=== PATIENT | female | born 1950 | race Caucasian/White ===

== ENCOUNTER → 2017-08-16 11:00 | Outpatient (CLI) | payer MEDICARE, SELFPAY ==
[2017-08-16 12:55] LABS: Blood Urea Nitrogen 7 mg/dL (7-18); Creatinine,Serum 0.61 mg/dL (0.55-1.02); Estimated Glomerular Filt Rate > 60 ml/min (>60); GFR (African American) > 60 ML/MIN (>60)
== END ==
PROVIDERS: PCP Family Medicine; Visit Provider Family Medicine
DX: I72.8 Aneurysm of other specified arteries (principal)
CPT/HCPCS: 36415; 82565; 84520

== ENCOUNTER → 2017-08-25 08:50 | Outpatient (CLI) | payer MEDICARE, SELFPAY ==
--- NOTE | 2017-08-25 08:54 | CT_ITS ---
CT angio abdomen CLINICAL INDICATION: Splenic artery aneurysm evaluation ITS.REASON: SPLENIC ARTERY ANEURYSM ORDERING PHYSICIAN: Sal Croft MD PATIENT AGE: 66 years COMPARISON: 04/12/2016 TECHNIQUE: Axial images obtained with sagittal and coronal reformats. PROCEDURE: Oral Contrast: None IV Contrast: 100 mL [id number]. FINDINGS: Angiographic findings: The abdominal aorta has an unremarkable appearance. Atheromatous plaque is present at the ostium of the left renal artery without significant stenosis. Mild amount plaque is present at the ostium of the celiac and super mesenteric artery without stenosis. The inferior mesenteric artery is intact. There is a splenic artery aneurysm at 1 cm with partial calcification of the wall. This is at splenic hilum. This does not appear changed compared 04/12/2016 Common iliac arteries are unremarkable. Non angiographic findings: Prior cholecystectomy without ductal dilatation. The liver, spleen, adrenal glands, pancreas, and kidneys have an unremarkable appearance. There is diffuse colonic diverticulosis with no evidence of diverticulitis. No intestinal obstruction or free air. No acute bony findings. 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 Diffuse colonic diverticulosis
== END ==
PROVIDERS: Family Provider Family Medicine; PCP Family Medicine; Visit Provider Family Medicine
DX: I72.8 Aneurysm of other specified arteries (principal)
CPT/HCPCS: 74175; Q9967

== ENCOUNTER 2018-02-16 11:00 | Outpatient (RCR) | payer MEDICARE, SELFPAY ==
--- NOTE | 2018-01-19 09:16 | HMH.OTOPEV ---
OT Inpatient Evaluation Rehab OT Outpatient Eval Start: 01/18/18 15:46 Freq: Status: Active Protocol: Document 01/18/18 15:47 RMARSHALL (Rec: 01/18/18 16:06 [id number] Electronically Signed By Valeria Morley OT 01/18/18 15:47 Outpatient Therapy Subjective History Subjective History Pt is a 67 year old female who reports to initial evaluation to right shoulder. Pt reports 6 years ago she had an accident where she fell and dislocated her right shoulder. After initial dislocation pt wore a sling for ~8 weeks and then received several months of therapy. Pt has had pain off and on at the right shoulder ever since. She recently had the pain in the right shoulder increase causing a decline in functional ability. Pt does demonstrate with decreased AROM/Strength. Pt will continue to be seen twice a week in order to address all deficits. Chief Complaint Pain Symptom Type Ache Throb Sharp Dull Stabbing Shooting Symptoms Relieved By Nothing Symptoms Aggravated By Physical Activity Twisting Lifting Prior Functional Limitations None Current Functional Limitations Reaching Lifting Housework Symptom Description Constant but Variable Level of pain today (0-10) 3 Pain scale - at its best (0-10) 2 Pain scale - at its worst (0-10) 6 Shoulder/Elbow Eval Shoulder Objective Measurements Shoulder ROM Right Shoulder ROM Limitations Pain Shoulder Abduction Active Range of 145 degrees Motion (degrees) Shoulder Flexion Active Range of Motion 135 degrees (degrees) Query Text: Shoulder External Rotation Active Range 55 degrees of Motion (degrees) Shoulder Internal Rotation Active Range 30 degrees of Motion (degrees) pain with active ROM shoulder exam right standard pain with passive ROM shoulder exam
== END 2018-02-16 11:01 | disposition home or self-care (01) ==
LOC: OT 11:00
PROVIDERS: Family Provider Family Medicine; PCP Family Medicine; Visit Provider Family Medicine
DX: M75.41 Impingement syndrome of right shoulder (principal)
CPT/HCPCS: 97014; 97033; 97110; 97166; G0283

== ENCOUNTER → 2018-04-12 09:11 | Outpatient (CLI) | payer MEDICARE, SELFPAY ==
[2018-04-12 11:31] LABS: Hemoglobin A1C 5.9 % (0.0-7.0)
[2018-04-12 12:10] LABS: Alanine Aminotransferase 19 U/L (12-78); Albumin Level 3.8 gm/dL (3.4-5.0); Albumin/Globulin Ratio 1.2 (1.1-1.8); Alkaline Phosphatase 67 U/L (46-116); Anion Gap 11.8 mEq/L (5-15); Aspartate Amino Transferase 14 U/L (15-37); Bilirubin,Total 0.4 mg/dL (0.2-1.0); Blood Urea Nitrogen 7 mg/dL (7-18); Calcium 9.2 mg/dL (8.5-10.1); Carbon Dioxide 28 mmol/L (21.0-32.0); Chloride 104 mmol/L (98-107); Chol/HDL Ratio 2.7 (1-3.5); Cholesterol 199 mg/dL (140-200); Creatinine,Serum 0.69 mg/dL (0.55-1.02); Estimated Glomerular Filt Rate 84 ml/min (>60); GFR (African American) 102 ML/MIN (>60); Globulin 3.1 gm/dl (1.3-3.2); Glucose 107 mg/dL (74-106); HDL Cholesterol 74 mg/dL (29-89); LDL Cholesterol 110 mg/dL (0-130); Potassium 4.8 mmoL/L (3.5-5.1); Sodium 139 mmol/L (136-145); Total Protein,Serum 6.9 gm/dL (6.4-8.2); Triglycerides 77 mg/dL (30-200); VLDL Cholesterol 15 mg/dL (0-40)
== END ==
PROVIDERS: PCP Family Medicine; Visit Provider Family Medicine
DX: Z00.00 Encounter for general adult medical examination without abnormal findings (principal); Z79.899 Other long term (current) drug therapy
CPT/HCPCS: 36415; 80053; 80061; 83036

== ENCOUNTER → 2018-04-17 10:17 | Outpatient (CLI) | payer MEDICARE, SELFPAY ==
--- NOTE | 2018-04-17 10:20 | XR_ITS ---
XR elbow RT min 3V HISTORY: ITS.REASON: RT Elbow Pain ORDERING PHYSICIAN: Sal Croft MD PATIENT AGE: 67 years COMPARISON: None FINDINGS: No fracture or dislocation. No lytic or blastic change in the joint spaces are well-preserved. There is some faint calcification along the lateral epicondylar region which could be seen with old ligamentous injury. IMPRESSION: Faint calcification along the lateral epicondylar region which may be seen with old ligamentous injury otherwise negative
--- NOTE | 2018-04-17 10:21 | MM_ITS ---
MM Dig screening mamm BI w/CAD CAD Screening COMPARISON: Digital mammograms with CAD 2015 and 06/02/2015 INDICATION: There is no personal or family history of breast cancer TECHNIQUE: Standard CC and MLO images were obtained. R2 CAD reviewed. FINDINGS: The breasts are composed primarily of fat with minimal scattered fibroglandular densities in each breast. There are 2 mole markers right breast. There are couple benign-appearing calcifications in each breast. There is no suspicious lesion and no suspicious microcalcifications. IMPRESSION: Fatty type breast parenchyma no suspicious lesion seen BI-RADS Category: 2 Benign Finding(s) RECOMMENDED FOLLOW-UP: 1YR - 1 YEAR FOLLOW-UP (A letter has been sent to the patient regarding results of the study.)
--- NOTE | 2018-04-17 10:21 | XR_ITS ---
XR DEXA axial skeleton HISTORY: ITS.REASON: POST MENOPAUSAL ORDERING PHYSICIAN: Sal Croft MD PATIENT AGE: 67 years COMPARISON: None FINDINGS: The BMD measured at the left femoral neck is 0.968 g/cm squared with a T score of -0.5. This is considered Normal according to the World Health Organization criteria. Fracture risk is Low. Treatment is advised. IMPRESSION: Normal bone density. Low fracture risk. Recommend follow-up exam April 2020
== END ==
PROVIDERS: Family Provider Family Medicine; PCP Family Medicine; Visit Provider Family Medicine
DX: M75.21 Bicipital tendinitis, right shoulder (principal); Z78.0 Asymptomatic menopausal state; Z12.31 Encounter for screening mammogram for malignant neoplasm of breast
CPT/HCPCS: 73080; 77067; 77080

== ENCOUNTER → 2018-05-15 14:23 | Outpatient (CLI) | payer MEDICARE, SELFPAY ==
--- NOTE | 2018-05-15 14:31 | XR_ITS ---
XR ankle RT min 3V HISTORY: Post traumatic pain ITS.REASON: RT ANKLE INJURY ORDERING PHYSICIAN: Sal Croft MD PATIENT AGE: 67 years Comparison: 70 FINDINGS: No fracture or dislocation. No lytic or blastic change. There is normal mineralization.. The joint spaces are well-preserved. No significant degenerative/arthritic changes. No erosive changes evident. IMPRESSION: Negative ankle, no acute finding
== END ==
PROVIDERS: PCP Family Medicine; Visit Provider Family Medicine
DX: S99.911A Unspecified injury of right ankle, initial encounter (principal)
CPT/HCPCS: 73610

== ENCOUNTER 2018-05-24 13:00 | Outpatient (RCR) | payer MEDICARE, SELFPAY ==
--- NOTE | 2018-03-14 10:52 | HMH.OTOPEV ---
OT Inpatient Evaluation Rehab OT Outpatient Eval Start: 03/14/18 10:27 Freq: Status: Active Protocol: Document 03/14/18 10:27 RMARSHALL ([id number] Electronically Signed By Valeria Morley OT 03/14/18 10:27 Outpatient Therapy Subjective History Subjective History Pt is a 67 year old female who reports to therapy for evaluation to right shoulder. Pt has been previously seen by OT for right shoulder and was sent back to doctor by therapist due to continued pain. Pt was re-evaluation and sent back to OT for continued therapy. Pt explains her pain in the anterior aspect of the shoulder and down the bicep has increased and seems to be happening more often. Pt also had an injection in the shoulder ~2 weeks and reports the pain has not improved much . Pt does demonstrate with WNL AROM at right shoulder, but pt does have decreased strength at right shoulder compared to the left. Pt will continue to be seen in order to address these deficits. Chief Complaint Pain Symptom Type Ache Throb Sharp Dull Stabbing Tingling Shooting Symptoms Relieved By Nothing Symptoms Aggravated By Physical Activity Lifting Prior Functional Limitations None Current Functional Limitations Reaching Lifting Housework Dressing Desk Work/Reading Driving Sleeping Recreation Activity Symptom Description Intermittent Activity Dependent Level of pain today (0-10) 2 Pain scale - at its best (0-10) 2 Pain scale - at its worst (0-10) 9 Shoulder/Elbow Eval Shoulder Objective Measurements Palpation Tenderness tendernes
== END 2018-05-24 13:05 | disposition home or self-care (01) ==
LOC: OT 13:00
PROVIDERS: Family Provider Family Medicine; PCP Family Medicine; Visit Provider Orthopaedic Surgery
DX: M75.41 Impingement syndrome of right shoulder (principal); M75.21 Bicipital tendinitis, right shoulder
CPT/HCPCS: 97014; 97035; 97110; 97166; G0283

== ENCOUNTER → 2018-06-12 11:07 | Outpatient (POV) | payer MEDICARE, SELFPAY | PROVIDERS: Visit Provider Dermatology | DX: Z00.00 Encounter for general adult medical examination without abnormal findings (principal) ==

== ENCOUNTER → 2018-07-31 13:44 | Outpatient (POV) | payer MEDICARE, SELFPAY | PROVIDERS: Visit Provider Dermatology | DX: Z00.00 Encounter for general adult medical examination without abnormal findings (principal) ==

== ENCOUNTER → 2018-11-19 15:41 | Outpatient (CLI) | payer MEDICARE, SELFPAY ==
--- NOTE | 2018-11-19 15:44 | MR_ITS ---
MR shoulder RT wo con COMPARISON: None HISTORY: Right shoulder pain, cervical and lumbar fusion ORDERING PHYSICIAN: Sal Croft MD PATIENT AGE: 68 years COMPARISON: 07/27/2017 TECHNIQUE: Multiplanar multiecho sequences are performed without contrast. FINDINGS: There is complete tear of the supraspinatus and infraspinatus tendons with retraction of the musculotendinous fibers. There is severe subacromial stenosis with high riding humeral head. The supraspinatus tendon is contracted more so than the infraspinatus tendon. The subscapularis tendon shows tendinopathy/tendinosis distally. The teres minor tendon does appear to be intact. There is acromioclavicular arthropathy with hypertrophic change superiorly. No obvious labral tear. Small shoulder joint effusion is present. Prominent osteophyte is once again noted along the inferior aspect of the acromion contributing to the subacromial stenosis. There is a well-circumscribed cystic area within the humeral head anteriorly at 13 mm. This may represent a subarticular cyst or even a surgical defect. The bicipital tendon does appear to be in place. Osteoarthritic changes are present at the glenohumeral joint as well. 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
== END ==
PROVIDERS: PCP Family Medicine; Visit Provider Family Medicine
DX: M25.511 Pain in right shoulder (principal); M75.41 Impingement syndrome of right shoulder
CPT/HCPCS: 73221

== ENCOUNTER → 2020-08-18 13:25 | Outpatient (CLI) | payer MEDICARE, SELFPAY ==
--- NOTE | 2020-08-18 13:30 | MM_ITS ---
PROCEDURE: MM DIG SCREENING MAMM BI W/CAD Referring Doctor: Sal Croft Patient Age:69Y CLINICAL INDICATION: SCREENING A 69-year-old. Uses estrogen cream. Hysterectomy age 48. No new complaints. Family history-negative noncontributory COMPARISON: MG DMSB DIG MAMM-SCREEN CHACE from 04/11/2014 MG DMSB DIG MAMM-SCREEN CHACE from 06/02/2015 MG DMSB DIG MAMM-SCREEN CHACE from 06/07/2016 MG SCBI MM Dig screening mamm BI w/CAD from 04/17/2018 TECHNIQUE: Standard CC and MLO images were obtained. R2 CAD reviewed. Bilateral digital breast tomosynthesis included. FINDINGS: Moderate residual fibroglandular elements overall stable parenchymal pattern... No suspicious calcifications but Right breast.-enlarging ovoid nodular density labeled X the lateral right breast which has shown progressive enlargement particularly since previous mammogram. Its margins are perhaps very slightly lobulated. It now measures up to 7 mm nearly 9 mm mm and best seen on MLO tomosynthesis image 16.. Recommend ultrasound and spot views to further evaluate.-it may be a enlarging benign intramammary node but would benefit from further evaluation since has enlarged Smaller ovoid density labeled Y appears stable since multiple previous studies and not of concern Left breast- Small 6 mm ovoid density well-circumscribed upper-outer quadrant left breast, seen on MLO view and CC tomosynthesis slice 31. Of may merely be a small cyst but I would recommend ultrasound and spot views here when patient returns Both these areas would benefit from spot MLO and spot cc view along with a full 90 degree view both breast. --- IMPRESSION Left breast. Small circumscribed 6 mm new ovoid density upper-outer quadrant. Possible enlarging cyst or benign lymph node-but warrants further evaluation Right breast.-Small 7 x 9 mm enlarging nodule lateral right breast-with similar considerations Recommend ultrasound and spot views to further evaluate these areas bilateral BI-RAD Category: 0 Need Additional Imaging Evaluation FOLLOW-UP: IMM Immediate Follow-up Recommended (A letter has been sent to the patient regarding results of the study.) Dictated by: Jeremie Oneill MD 08/21/2020 11:45 Jeremie Oneill MD in [place] 08/21/2020 11:45
--- NOTE | 2020-08-18 13:31 | XR_ITS ---
PROCEDURE: XR DEXA AXIAL SKELETON CLINICAL HISTORY: POST MENOPAUSAL COMPARISON: CR DEXAAX XR DEXA axial skeleton from 04/17/2018 FINDINGS: The right hip BMD is 0.789 with a T-score of -0.5. The left hip BMD is 0.820 with a T-score of -0.3. The lumbar spine BMD is 1.065 with a T-score of 0.2. Previously the lowest density was in the left femoral neck with a T-score of -0.5. IMPRESSION: This patient is considered normal according to the World Health Organization criteria. Fracture risk is low. Based on these results a follow-up exam is recommended in 2 year. Dictated by: Geovanny Figueroa MD 08/19/2020 06:45 Geovanny Figueroa MD in [place] 08/19/2020 06:45
== END ==
PROVIDERS: PCP Family Medicine; Visit Provider Family Medicine
DX: Z12.31 Encounter for screening mammogram for malignant neoplasm of breast (principal); Z78.0 Asymptomatic menopausal state
CPT/HCPCS: 77063; 77067; 77080

== ENCOUNTER → 2020-08-31 13:30 | Outpatient (CLI) | payer MEDICARE, SELFPAY ==
--- NOTE | 2020-08-31 13:32 | MM_ITS ---
PROCEDURE: MM DIG MAMM BI DX W/CAD Digital Breast Tomosynthesis Included CLINICAL INDICATION: ABN MAMM Follow-up abnormal mammogram, bilateral breast nodules COMPARISON: MG DMSB DIG MAMM-SCREEN CHACE from 06/07/2016 MG SCBI MM Dig screening mamm BI w/CAD from 04/17/2018 MG MM DIG SCREENING MAMM BI W/CAD from 08/18/2020 US US BREAST LT COMPLETE from 08/31/2020 US US BREAST RT COMPLETE from 08/31/2020 TECHNIQUE: Standard CC and MLO images and 3D Tomosynthesis was obtained. R2 CAD reviewed. FINDINGS: Left breast: The well-circumscribed nodular density seen best on the tomogram images of 08/18/2020 are not well delineated on the CC compression view of the left breast. This nodule is barely demonstrated on the MLO spot compression view. Left breast ultrasound: There is a well-circumscribed hypoechoic nodule measuring 5 mm at 2 o'clock and may correspond to the mammographic abnormality. There is no posterior acoustical shadowing. There are some low level internal echoes. Right breast: A well-circumscribed 8 mm nodules present in the outer aspect of the right breast as seen on the CC view and MLO view. Right breast ultrasound: At 10 o'clock there is a complicated cyst measuring 9 mm. IMPRESSION: Bilateral mammographic nodules are felt represent cyst by ultrasound. Probably benign. Recommend bilateral 6 month mammographic and sonographic follow-up BI-RAD Category: 3 Probably Benign Finding Short Term Follow-up FOLLOW-UP: 6M 6Month Follow-up (A letter has been sent to the patient regarding results of the study.) Dictated by: Geovanny Figueroa MD 09/14/2020 11:27 Geoavnny Figueroa MD in [place] 09/14/2020 11:27
== END ==
PROVIDERS: PCP Family Medicine; Visit Provider Nurse Practitioner Family
DX: R92.8 Other abnormal and inconclusive findings on diagnostic imaging of breast (principal)
CPT/HCPCS: 76641; 77062; 77066; G0279

== ENCOUNTER → 2020-12-11 08:41 | Outpatient (CLI) | payer MEDICARE, SELFPAY ==
[2020-12-11 09:19] LABS: Basophils % 0.3 % (0.1-2.0); Eosinophils # 0.1 K/mm3 (0.0-0.4); Eosinophils % 2.1 % (0.1-12.0); Hematocrit 39.1 % (37.0-47.0); Lymphocytes # 1.9 K/mm3 (0.7-4.5); Lymphocytes % 32.6 % (10-50); Mean Corpuscular HGB Conc 33.2 g/dL (31.8-35.4); Mean Corpuscular Hemoglobin 28.9 pg (27.0-31.2); Mean Platelet Volume 7.4 fl (7.4-10.4); Monocytes # 0.4 K/mm3 (0.1-1.0); Neutrophils # 3.3 K/mm3 (1.8-7.8); Neutrophils % 58.1 % (37.0-80.0); Platelet Count 326 K/mm3 (142-424); Red Cell Distribution Width 13.3 % (11.5-17.5); White Blood Count 5.7 K/mm3 (4.8-10.8)
[2020-12-11 09:30] LABS: Hemoglobin A1C 6.1 % (4.0-6.0)
[2020-12-11 09:53] LABS: Alanine Aminotransferase 21 U/L (12-78); Albumin Level 4.2 g/dl (3.5-5.0); Albumin/Globulin Ratio 1.7 (1.1-1.8); Alkaline Phosphatase 58 U/L (38-126); Anion Gap 8.1 mEq/L (5-15); Aspartate Amino Transferase 31 U/L (14-36); Bilirubin,Total 0.4 mg/dl (0.2-1.3); Blood Urea Nitrogen 9 mg/dl (7-17); Calcium 9.6 mg/dl (8.4-10.2); Carbon Dioxide 31 mmol/L (22.0-30.0); Chloride 105 mmol/L (98-107); Chol/HDL Ratio 3.3 (1-3.5); Cholesterol 220 mg/dl (140-200); Estimated Glomerular Filt Rate 98 ml/min (>60); GFR (African American) 119 ML/MIN (>60); Globulin 2.5 g/dL (1.3-3.2); Glucose 103 mg/dl (74-100); HDL Cholesterol 66 mg/dl (40-60); Potassium 5.1 mmoL/L (3.5-5.1); Sodium 139 mmol/L (136-145); Total Protein,Serum 6.7 g/dl (6.3-8.2); Triglycerides 104 mg/dl (30-150); VLDL Cholesterol 21 mg/dL (0-40)
[2020-12-11 10:04] LABS: Direct LDL Cholesterol 99.46 mg/dL (100-129)
[2020-12-11 10:24] LABS: Thyroid Stimulating Hormone 0.94 uIU/mL (0.465-4.68)
[2020-12-11 11:21] LABS: Vitamin B12 > 1000 pg/mL (239-931)
== END ==
PROVIDERS: Visit Provider Family Medicine
DX: E78.5 Hyperlipidemia, unspecified (principal); F41.8 Other specified anxiety disorders; K14.0 Glossitis; Z79.899 Other long term (current) drug therapy
CPT/HCPCS: 36415; 80053; 80061; 82607; 82746; 83036; 84443; 85025

== ENCOUNTER → 2021-03-02 12:51 | Outpatient (CLI) | payer MEDICARE, SELFPAY ==
--- NOTE | 2021-03-02 13:05 | MM_ITS ---
PROCEDURE: MM DIG MAMM BI DX W/CAD Digital Breast Tomosynthesis Included CLINICAL INDICATION: ABN MAMM COMPARISON: MG MM DIG SCREENING MAMM BI W/CAD from 08/18/2020 CR XR DEXA AXIAL SKELETON from 08/18/2020 MG MM DIG MAMM BI DX W/CAD from 08/31/2020 TECHNIQUE: Standard CC and MLO images and 3D Tomosynthesis was obtained. Spot compression images of the bilateral MLO and CC views were obtained. R2 CAD reviewed. FINDINGS: The breasts are composed of scattered fibroglandular tissue. Previously noted right upper outer quadrant density is again noted, demonstrates no significant interval change compared to prior study, appears lobulated this lesion. The corresponding ultrasound demonstrates no significant interval change compared to prior study. Previously noted 2nd lesion on the CC view is unchanged compared to prior study. The left breast demonstrates minor glandular asymmetries without evidence of focal lesions. Corresponding ultrasound demonstrates focal anechoic lesion at 2 o'clock position, no significant interval change. Ultrasound demonstrates a focal retroareolar soft tissue echogenicity without evidence of mammographic abnormality. IMPRESSION: Probably benign finding of the left breast. Probably benign findings of the right breast. BI-RAD Category: Right breast: BI-RADS 3, probably benign finding Left breast: BI-RADS category 3, probably benign finding. FOLLOW-UP: Follow-up ultrasound and diagnostic mammogram of the left breast. Ultrasound of the right breast. (A letter has been sent to the patient regarding results of the study.) Dictated by: Kaycee Schreiber 03/04/2021 09:50 Kaycee Schreiber in [place] 03/04/2021 09:50
--- NOTE | 2021-03-02 13:44 | US_ITS ---
PROCEDURE: US BREAST RT COMPLETE CLINICAL INDICATION: CHACE NODULES COMPARISON: August 31, 2020 FINDINGS: Focal anechoic lesion with internal echogenicities is noted in the right breast at 10 o'clock position, demonstrates no significant interval change compared to prior study. Right axillary lymph node measuring 3 x 1.5 centimeters is noted, demonstrate central fatty hilum and normal morphology. IMPRESSION: No interval change compared to prior study. Probably benign finding. BI-RADS category 3. Ultrasound in 6 months is recommended. Dictated by: Kaycee Schreiber 03/04/2021 09:49 Kaycee Schreiber in [place] 03/04/2021 09:49
--- NOTE | 2021-03-02 13:44 | US_ITS ---
PROCEDURE: US BREAST LT COMPLETE CLINICAL INDICATION: CHACE NODULES COMPARISON: August 31, 2020 FINDINGS: Focal hypoechoic lesion in the left breast at 2 o'clock position measures 0.4 x 0.3 centimeters, not seen on the prior study. Previously noted lesion at 10 o'clock position is not visualized on the current study. Soft tissue echogenicity noted in the left breast in the retroareolar region, demonstrates no evidence of increased vascularity. This was not identified on the prior study. No other focal lesions are noted. IMPRESSION: Hypoechoic lesion in the left breast at 2 o'clock position measuring 0.4 centimeters, not seen on prior study. Soft tissue echogenicity in the retroareolar region measures approximately 1.2 centimeters, without vascularity. Probably benign finding. BI-RADS category 3. Follow-up ultrasound in 6 months Dictated by: Kaycee Schreiber 03/04/2021 09:38 Kaycee Schreiber in [place] 03/04/2021 09:38
== END ==
PROVIDERS: PCP Family Medicine; Visit Provider Family Medicine
DX: R92.8 Other abnormal and inconclusive findings on diagnostic imaging of breast (principal)
CPT/HCPCS: 76641; 77062; 77066; G0279

== ENCOUNTER → 2021-03-09 14:46 | Outpatient (POV) | payer MEDICARE, SELFPAY | PROVIDERS: Visit Provider Dermatology | DX: Z00.00 Encounter for general adult medical examination without abnormal findings (principal) ==

== ENCOUNTER → 2021-08-03 14:30 | Outpatient (CLI) | payer MEDICARE, SELFPAY ==
--- NOTE | 2021-08-03 | US_ITS ---
PROCEDURE INFORMATION: Exam: US Left Breast, Complete US Right Breast, Complete MG Left Diagnostic Breast Tomosynthesis Exam date and time: 08/03/2021 2:31 PM Age: 70 years old Clinical indication: Short-term sonographic follow-up for bilateral masses and short-term mammographic follow-up for left tissue asymmetry TECHNIQUE: Imaging protocol: Complete ultrasound of all four quadrants of the Left breast and the retroareolar regions, including ultrasound of the axilla when performed. Complete ultrasound of all four quadrants of the Right breast and the retroareolar regions, including ultrasound of the axilla when performed. Left Diagnostic tomosynthesis and 2D mammography including computer-aided detection (CAD) when performed. Unilateral or bilateral exam. COMPARISON: 1. MG MM DIG MAMM BI DX W/CAD 03/02/2021 1:07 PM 2. MG MM DIG MAMM BI DX W/CAD 08/31/2020 1:37 PM FINDINGS: MAMMOGRAPHY: The breast tissue is composed of scattered areas of fibroglandular density. There is no stellate mass, architectural distortion or suspicious microcalcifications to suggest malignancy. Additional spot views of the left central to upper breast demonstrates normal overlapping fibroglandular structures. No skin thickening or axillary adenopathy. ULTRASOUND: Sonographic images of both breasts including the retroareolar regions, all 4 quadrants and the axilla demonstrates questionable ovoid hypoechoic solid mass versus prominent fat lobule prior cluster of cysts in the right 10 o'clock axis have resolved. Incidental lipoma in the subcutaneous fat measuring 0.4 cm in the right 2 o'clock axis. 0.3 x 0.3 cm hypoechoic mass in the left 2 o'clock periareolar region is probably benign in etiology and unchanged compared to prior ultrasound dated 03/02/2021. Incidental subcutaneous 1.5 cm lipoma in the left retroareolar region. in the 10 o'clock axis measuring 1.1 x 1.1 x 0.4 cm in dimension. No architectural distortion or acoustical shadowing. No skin thickening or axillary adenopathy. IMPRESSION: 1. Questionable hypoechoic mass versus prominent fat lobule only seen on sonography in the right 10 o'clock axis. A six-month follow-up targeted right breast ultrasound is recommended to ensure stability over time unless otherwise clinically indicated. 2. 0.3 cm sonographically visible left 2 o'clock mass is unchanged compared to prior sonogram dated 03/02/2021. A targeted left breast ultrasound is recommended in 6 months to ensure ongoing stability unless otherwise clinically indicated. 3. Annual bilateral mammographic screening is also recommended at that time ASSESSMENT: Assessment: BI-RADS Category 3: Probably benign
== END ==
PROVIDERS: PCP Family Medicine; Visit Provider Family Medicine
DX: R92.8 Other abnormal and inconclusive findings on diagnostic imaging of breast (principal)
CPT/HCPCS: 76641; 77061; 77065; G0279

== ENCOUNTER → 2022-04-21 13:22 | Outpatient (CLI) | payer MEDICARE, SELFPAY ==
--- NOTE | 2022-04-21 13:31 | MM_ITS ---
PROCEDURE INFORMATION: Exam: US Left Breast, Complete US Right Breast, Complete MG Bilateral Diagnostic Breast Tomosynthesis Exam date and time: 04/21/2022 1:38 PM Age: 71 years old Clinical indication: Short-term radiographic followup; Abnormal findings on imaging; Left and right TECHNIQUE: Imaging protocol: Complete ultrasound of all four quadrants of the Left breast and the retroareolar regions, including ultrasound of the axilla when performed. Complete ultrasound of all four quadrants of the Right breast and the retroareolar regions, including ultrasound of the axilla when performed. Bilateral Diagnostic tomosynthesis and 2D mammography including computer-aided detection (CAD) when performed. Unilateral or bilateral exam. COMPARISON: 1. MG MM DIG MAMM DX UNILAT LT CAD 08/03/2021 2:37 PM 2. MG MM DIG MAMM BI DX W/CAD 03/02/2021 1:07 PM FINDINGS: MAMMOGRAPHY: The breast tissue is composed of scattered areas of fibroglandular density. There is no stellate mass, architectural distortion or suspicious microcalcifications in either breast to suggest malignancy. No skin thickening or axillary adenopathy. ULTRASOUND: Sonographic images of both breasts including the retroareolar regions, all 4 quadrants and the axilla demonstrates a hypoechoic solid mass in the right 1 o'clock axis 5 cm from the nipple. It is vertically oriented in only partially circumscribed and is not well seen on mammography. Furthermore, this finding is new compared to prior ultrasound dated 08/03/2021. It measures 0.5 x 0.4 x 0.4 cm in dimension and is suspicious for carcinoma. Previously noted questionable mass in the right upper outer quadrant appears normal on the current examination. In the right 2 o'clock axis 2 cm from the nipple is a hypoechoic mass containing benign calcium at seen on mammography measuring 0.2 x 0.3 x 0.3 cm in dimension. Incidental lipoma in the left retroareolar region measuring 1.3 cm in greatest dimension. Previously noted 0.3 cm mass in the left 2 o'clock axis has the appearance of benign cystic change on the current examination. Minimal subcentimeter cystic change is present in the left upper outer quadrant. No acoustical shadowing. No skin thickening or axillary adenopathy. IMPRESSION: Suspicious sonographically visible right upper inner quadrant breast mass located in the 1 o'clock axis 5 cm from the nipple. Ultrasound-guided core biopsy is recommended for further evaluation. ASSESSMENT: BI-RADS Category 4: Suspicious
== END ==
PROVIDERS: PCP Family Medicine; Visit Provider Family Medicine
DX: R92.8 Other abnormal and inconclusive findings on diagnostic imaging of breast (principal)
CPT/HCPCS: 76641; 77062; 77066; G0279

== ENCOUNTER → 2022-05-19 08:01 | Outpatient (CLI) | payer MEDICARE, SELFPAY ==
--- NOTE | 2022-05-19 08:06 | US_ITS ---
FINAL REPORT CLINICAL HISTORY: rt breat 100 nodule FINDINGS: ULTRASOUND-GUIDED RIGHT BREAST CORE BIOPSY TECHNIQUE: Limited images were obtained to localize region of interest. The right breast was prepped in a routine sterile fashion and locally anesthetized with 1% lidocaine. Standard written informed consent was obtained. A 10-gauge vacuum assisted hand-held device was utilized. The needle was positioned posterior to the lesion. Multiple vacuum assisted core samples were obtained. The lesion was noted to be significantly smaller following biopsy. A biopsy marker clip was deployed in satisfactory position. Postbiopsy mammogram showed postbiopsy changes with clip in satisfactory position. There was a moderate size hematoma developing at the site of biopsy. This was relayed to a sizable blood vessel immediately adjacent to the lesion. Manual pressure was applied in excess of 10 minutes.. CONCLUSION: 1. Technically successful ultrasound guided vacuum assisted core biopsy of right breast lesion as above. 2. Biopsy marker clip deployed Histopathology results revealed invasive ductal carcinoma. Findings are concordant with sonographic features. Recommend appropriate consultation for treatment. Authenticated and ERN
--- NOTE | 2022-05-19 09:13 | MM_ITS ---
FINAL REPORT CLINICAL HISTORY: . . clip placement , S/p Ultrasound guided bx FINDINGS: MAMMOGRAM RIGHT TECHNIQUE: Standard digital 2-D views COMPARISON: 04-21-22 DENSITY: There are scattered areas of fibroglandular density FINDINGS: Post biopsy marker clip is noted to be in satisfactory position. Postbiopsy changes are noted. Hematoma was noted at the biopsy marker site at approximately 1:00. IMPRESSION: Biopsy marker clip in good position RECOMMENDATION: Consultation for treatment of invasive ductal carcinoma seen on histopathology report Authenticated and ERN
== END ==
PROVIDERS: PCP Family Medicine; Visit Provider Family Medicine
DX: C50.211 Malignant neoplasm of upper-inner quadrant of right female breast (principal); R92.8 Other abnormal and inconclusive findings on diagnostic imaging of breast
CPT/HCPCS: 19083; 77065; 88305; 88342; 88360; C2618

== ENCOUNTER → 2022-06-07 12:10 | Outpatient (CLI) | payer MEDICARE, SELFPAY | PROVIDERS: PCP Family Medicine; Visit Provider Family Medicine | DX: Z20.822 Contact with and (suspected) exposure to COVID-19 (principal) | CPT/HCPCS: C9803; U0003; U0005 ==

== ENCOUNTER → 2023-02-24 06:50 | Outpatient (CLI) | payer MEDICARE, SELFPAY ==
--- NOTE | 2023-02-24 | CA_ITS ---
APPROVED REPORT Exam: Exercise Treadmill Technologist: Tasha Paiz, Ht: 5 ft 5 in Wt: 171 lbs BSA: 1.85 m2 HR: 58 bpm BP: 159/75 mmHg Rhythm: NSR Medical History Medications: Prozac,,,,, Stress Test Details Test: Cornelius HR Resting HR: 57 bpm Max Heart Rate (APMHR): 146 bpm Max HR Achieved: 144 bpm Target HR (85% APMHR): 124 bpm % of APMHR: 99 Recovery HR: 69 bpm HR response to stress: Normal HR response to stress BP Resting BP: 159.0/78 mmHg Max BP: 180/88 mmHg Recovery BP: 149.0/64.0 mmHg BP response to stress: Normal blood pressure response to stress. ECG Resting ECG: sinus bradycardia, T-wave inversion in V1-V2 at baseline Stress ECG: Normalization of T-waves in anterior leads, no ST changes Arrhythmia: PVCs, ventricular couplets Recovery ECG: Return to baseline T-wave changes within 3 minutes of recovery Recovery Arrhythmia: PVCs Clinical Exercise duration: 05:46 min Highest Stage Achieved: III Exercise capacity: 7.0 METs Overall Exercise Capacity for Age: Average Stress ECG Conclusion The patient walked 5:46 on Cornelius Protocol, achieving a total of 7 METs. She has an average exercise capacity compared to age and sex matched peers. She has normal BP and HR response to exercise. Max HR: 144 % of PM: 99% Max BP: 180/88 METs: 7.0 test stopped due to: SOA, Fatigue. She denied any chest pains. Arrhythmias/Ectopy: Occ PAC. Occ PVC with several ventricular couplets. Baseline ECG demonstrated normal sinus rhythm with T-wave inversions in V1-V2. At peak stress, there was normalization of the T-waves in V1-V2 (non-specific, non-sensitive finding), after which they returned to baseline within [address]-T Changes: within normal ST response to exercise. Conclusion: No evidence of ischemia on exercise stress test. Frequent PVCs and couplets at peak stress and during recovery. Myoview images reported separately. Test Summary REST . . . . . . . Sitting REST . . . . . . . Standing REST 03:54 0.0 0.0 57 . 159/ 78 . . Stage 1 01:00 10.0 1.7 81 . . . . Stage 1 02:00 10.0 1.7 96 . . . . Stage 1 03:00 10.0 1.7 104 . 180/ 88 . . Stage 2 01:00 12.0 2.5 122 . . . . Stage 2 02:00 12.0 2.5 130 . . . . Stage 2 02:46 12.0 2.5 139 . . . Stop exercise at 05:46 RECOVERY 01:00 0.0 0.0 121 . . . . RECOVERY 02:00 0.0 0.0 93 . . . . RECOVERY 03:00 0.0 0.0 79 . 176/ 68 . . RECOVERY 04:00 0.0 0.0 72 . 168/ 68 . . RECOVERY 05:00 0.0 0.0 69 . 168/ 68 . . RECOVERY 05:26 0.0 0.0 69 . 149/ 64 . . Electronically signed by : Mel Garcia, 02/26/2023 18:09:51
--- NOTE | 2023-02-24 06:56 | NM_ITS ---
APPROVED REPORT Exam: Nuclear Stress Test Indication: CHEST PAIN..FATIGUE Patient Location: Outpatient Stress Tech: Taniya Payne [place] Tech:Nano Keen RCSandrita RT(R)(N) Ht: 5 ft 5 in Wt: 171 lbs Bra Size: 38DD HR: 57 bpm BP: 159/78 mmHg BSA: 1.85 m2 Rhythm: NSR TID: 1.19 BMI: 28.4 History: CHEST PAIN..FATIGUE Procedure: Patient exercised on Cornelius protocol 5:46 minutes and sec, resting heart rate 57 bpm, resting blood pressure 159/78 mmHg, with exercise maximum heart rate achived was 144 bpm which is 99 % of the maximum predicted heart rate and blood pressure was 180/88 mmHg. Test was stopped due to FATIGUE. Patient denied any complaint of chest pain. Patient has average exercise capacity, achieved 7.0 METs of workload on treadmill, the blood pressure response to exercise was normal. Cardiac Stress and Resting SPECT Images: Cardiac Stress and Resting SPECT images were obtained using technetium 99m Myoview 32.9 mCi stress and 10.98 mCi at rest. Resting and stress imaging in both supine and prone positions demonstrate a medium-sized, mild, reversible perfusion defect in the mid to distal LV wall involving the LV apex. Gated imaging demonstrates normal global LV LV function. There is mild hypokinesis of the distal anterior LV wall. LVEF is calculated at 59%. Of note, the raw images demonstrate possible RV dilation. Correlation with other imaging modalities is recommended. Conclusion: Medium-sized, mild, reversible perfusion defect in the mid to distal LV wall involving the LV apex. Gated imaging demonstrates normal global LV LV function. There is mild hypokinesis of the distal anterior LV wall. LVEF is calculated at 59%. Of note, the raw images demonstrate possible RV dilation. Correlation with other imaging modalities is recommended. Electronically signed by : Mel Garcia, 02/26/2023 18:20:43
== END ==
PROVIDERS: PCP Family Medicine; Visit Provider Physician Assistant
DX: R06.02 Shortness of breath (principal)
CPT/HCPCS: 78452; 93017; A9502

== ENCOUNTER 2023-03-20 08:00 | Day surgery (SDC) | payer MEDICARE, SELFPAY ==
[2023-03-20] VITALS (14 sets, daily range): BP systolic 117–169; BP diastolic 59–93; PULSE 56–75; RESP 14–21; O2SAT 95–100; BMI 27.9
--- NOTE | 2023-03-20 07:12 | IR_ITS ---
APPROVED REPORT Patient Location: Outpatient [place] Screen Frame Assembler: INDU Whatley RT (R) PROCEDURES Selective coronary angiogram Drug-eluting stent deployment to the mid LAD INDICATION Angina pectoris, Abnormal Myoview with mid LAD ischemia Informed consent was obtained prior to the procedure. COMPLICATIONS None Estimated Blood Loss: Less than 10 mls TECHNIQUE One percent lidocaine used to anesthetize the right anterior aspect of the wrist. The right radial artery was accessed via the Seldinger technique. A 6 [place] sheath was placed in the right radial artery. 150 mg magnesium sulfate, 800 mcg of nitroglycerin, 1mg Lidocaine and 5000 U Heparin were given through the arterial sheath. The papa catheter was also used to perform selective coronary angiography. At the end the diagnostic angiogram therapeutic heparin was administered giving a therapeutic ACT and a Choice PT floppy wire was placed distally into the LAD. A 2.75 x 22 mm Omkar frontier stent was deployed at 18 macey reducing the hemodynamically severe stenosis to 0%. TAVARES-3 flow was present before and after the procedure at the end the procedure the apparatus was removed the sheath was removed and hemostasis was achieved using TR banding patient was transferred to the postop holding in stable condition ANGIOGRAPHIC RESULTS The left main artery Normal The left anterior descending artery Proximally normal with a mid vessel 60 to 70% stenosis The circumflex artery Nondominant normal The right coronary artery Large with a proximal to mid vessel eccentric 20 to 30% stenosis and distal 10% luminal regularities The BURKETT ventriculogram reveals Not performed The left ventricular end-diastolic pressure Not measured IMPRESSION Hemodynamically severe disease in the mid LAD Successful percutaneous revascularization of mid LAD hemodynamically severe disease reduced to 0% with 1 drug-eluting stent PLAN 1. Dual antiplatelet therapy 2. LDL less than 55 to be achieved with high intensity statin 3. Avoidance of tobacco products 4. Cardiac rehabilitation Electronically signed by : Brennen Arndt MD 03/20/2023 09:50:42
[2023-03-20 08:38] LABS: Basophils % 0.2 % (0.1-2.0); Blood Urea Nitrogen 12 mg/dl (7-17); Calcium 9.4 mg/dl (8.4-10.2); Carbon Dioxide 33 mmol/L (22.0-30.0); Chloride 101 mmol/L (98-107); Creatinine Clearance Estimated 59 mL/min (50-200); Eosinophils # 0.2 K/mm3 (0.0-0.4); Eosinophils % 2.6 % (0.1-12.0); Estimated Glomerular Filt Rate 121 ml/min (>60); GFR (African American) 146 ML/MIN (>60); Glucose 110 mg/dl (74-100); Hematocrit 41.4 % (37.0-47.0); Hemoglobin 13.4 g/dL (12.2-16.2); Lymphocytes # 2.5 K/mm3 (0.7-4.5); Lymphocytes % 38.7 % (10-50); Mean Corpuscular HGB Conc 32.4 g/dL (31.8-35.4); Mean Corpuscular Hemoglobin 28.8 pg (27.0-31.2); Mean Corpuscular Volume 88.9 fl (81-99); Mean Platelet Volume 7.1 fl (7.4-10.4); Monocytes # 0.5 K/mm3 (0.1-1.0); Monocytes % 7.5 % (1.7-9.3); Neutrophils # 3.3 K/mm3 (1.8-7.8); Platelet Count 341 K/mm3 (142-424); Red Blood Count 4.66 M/mm3 (4.20-5.40); Red Cell Distribution Width 13.3 % (11.5-17.5); Sodium 140 mmol/L (136-145); White Blood Count 6.5 K/mm3 (4.8-10.8)
--- NOTE | 2023-03-20 14:04 | P.CONPHA_ITS ---
[facility] Discharge Med Associate Field Service Engineer: Kristy Hernandez has received discharge medication counseling on the following medications: BRILINTA 90 MG BID ASPIRIN 81 MG DAILY METOPROLOL SUCCINATE 25 MG DAILY RAMIPRIL 5 MG DAILY ATORVASTATIN 10 MG HS
[2023-03-20 14:27] LABS: CATHL Activated Clotting Time > 400 SEC (74-125)
== END 2023-03-20 14:00 | disposition home or self-care (01) ==
PROVIDERS: PCP Family Medicine; Visit Provider Internal Medicine
DX: R07.9 Chest pain, unspecified (principal); R94.30 Abnormal result of cardiovascular function study, unspecified; I77.1 Stricture of artery; I25.118 Atherosclerotic heart disease of native coronary artery with other forms of angina pectoris; Z79.899 Other long term (current) drug therapy; Z82.49 Family history of ischemic heart disease and other diseases of the circulatory system
CPT/HCPCS: 80048; 85025; 85347; 92928; 93454; 99152; C1725; C1769; C1876; C9600; J1644; Q9967

== ENCOUNTER → 2023-03-23 08:30 | Outpatient (CLI) | payer MEDICARE, SELFPAY ==
[2023-03-23 09:44] LABS: Alanine Aminotransferase 28 U/L (12-78); Albumin Level 3.9 g/dl (3.5-5.0); Albumin/Globulin Ratio 1.4 (1.1-1.8); Alkaline Phosphatase 65 U/L (38-126); Anion Gap 10.4 mEq/L (5-15); Aspartate Amino Transferase 33 U/L (14-36); Bilirubin,Total 0.3 mg/dl (0.2-1.3); Blood Urea Nitrogen 11 mg/dl (7-17); Calcium 9.2 mg/dl (8.4-10.2); Carbon Dioxide 31 mmol/L (22.0-30.0); Chloride 105 mmol/L (98-107); Chol/HDL Ratio 2.1 (1-3.5); Cholesterol 173 mg/dl (140-200); Estimated Glomerular Filt Rate 98 ml/min (>60); GFR (African American) 118 ML/MIN (>60); Globulin 2.8 g/dL (1.3-3.2); Glucose 96 mg/dl (74-100); HDL Cholesterol 81 mg/dl (40-60); Potassium 4.4 mmoL/L (3.5-5.1); Sodium 142 mmol/L (136-145); Total Protein,Serum 6.7 g/dl (6.3-8.2); Triglycerides 62 mg/dl (30-150); VLDL Cholesterol 12 mg/dL (0-40)
[2023-03-23 09:55] LABS: Direct LDL Cholesterol 65.53 mg/dL (100-129)
== END ==
PROVIDERS: PCP Family Medicine; Visit Provider Family Medicine
DX: E78.5 Hyperlipidemia, unspecified (principal)
CPT/HCPCS: 36415; 80053; 80061

== ENCOUNTER 2023-09-29 10:35 | Outpatient (CLI) | payer MEDICARE, SELFPAY ==
[2023-09-29 10:49] LABS: Coronavirus 19, PCR Not Detected (NotDetected); Influenza A, PCR Not Detected (NotDetected); Influenza B, PCR Not Detected (NotDetected)
== END 2023-09-29 23:59 ==
LOC: LAB 10:36
PROVIDERS: PCP Family Medicine; Visit Provider Physician Assistant
DX: R50.9 Fever, unspecified (principal); K52.9 Noninfective gastroenteritis and colitis, unspecified
CPT/HCPCS: 87636

== ENCOUNTER 2023-10-01 11:04 | Emergency (ER) | payer MEDICARE, SELFPAY ==
[2023-10-01 11:15] VITALS: BP 139/79; PULSE 89; RESP 14; TEMP 36.8; O2SAT 97; BMI 28.3
--- NOTE | 2023-10-01 11:21 | HMH.EDGENADL ---
Discharge Plan Disposition Patient Disposition: Home, Self-Care Chief Complaint: Nausea/Vomiting/Diarrhea Prescriptions Prescriptions: No Action clopidogrel [Plavix] 75 mg tablet 75 mg PO DAILY Qty: 30 11RF atorvastatin 10 mg tablet 10 mg PO HS Qty: 90 1RF aspirin [Adult Low Dose Aspirin] 81 mg tablet,delayed release (DR/EC) 81 mg PO DAILY Referrals Follow up/Referrals: Margie Rene PA [Primary Care Provider] - See instructions Activity Restrictions/Add. Instructions Additional Instructions/Restrictions: At this time it was felt you are safe to be discharged home. If new or worsening symptoms please do not hesitate to return the emergency department. If symptoms persist please follow-up with your family doctor as you are able. Please take your medication as prescribed and follow-up with your family doctor within 1 week for recheck of your potassium levels which were low today. Clinical Impressions Clinical Impression: Acute viral syndrome, Acute hypokalemia Instructions Patient Instructions: DI for Diarrhea and Traveler's Diarrhea -- Adult Discharge ED Provider: He Burgess General Adult HPI General Chief complaint: Nausea/Vomiting/Diarrhea Stated complaint: diarrhea, nausea, possibly dehydrated Time Seen by Provider: 10/01/23 11:05 Mode of Arrival: Ambulatory Source of Information: Patient and Spouse Limitations: No Limitations Description of Symptoms (Recalled from ER Triage Doc. by RN): pt c/o N/D, chills and abd cramping with the diarrhea. pt states this has been ongoing since 09/27. pt was seen in her PCP's office on 09/29, they flu/covid swabbed her that came back negative. pt is in remission for breast cancer from last year, has a cardiac stent, and a hx of pulmonary artery heart disease. History of Present Illness HPI narrative: Patient is a 73-year-old female with past medical history of breast cancer status post lumpectomy and axial lymph node dissection who presents emergency department for evaluation of diarrhea. Onset was acute, over the last few days, nonbloody. No vomiting. Patient feels as if she is dehydrated. No dysuria. She presents here for continued evaluation. Related Data Home Medications Medication Instructions Recorded Confirmed aspirin 81 mg tablet,delayed 81 mg PO DAILY HD 03/20/23 06/28/23 release (Adult Low Dose Aspirin) Previous Rx's Medication Instructions Recorded clopidogrel 75 mg tablet (Plavix) 75 mg PO DAILY #30 tabs 06/28/23 atorvastatin 10 mg tablet 10 mg PO HS #90 tabs 08/25/23 Allergies Allergy/AdvReac Type Severity Reaction Status Date / Time doxycycline Allergy Mild GI cramps Verified 10/01/23 11:22 azithromycin [From Zithromax] Allergy diaarhea Verified 10/01/23 11:22 [facility] Disclaimer: The information contained in this section may have been updated after the patient was seen, as this information can be updated by other users. 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 Angina pectoris Chest pain Dyspnea Family history of ischemic heart disease HX: breast cancer Family History Mother Coronary artery disease FHx: coronary artery bypass surgery Social History Smoking Status: Never smoker alcohol intake: never current occupational status: other Travel in the last 8 weeks: None ROS Obtained: Yes Systems reviewed as appropriate & no additional complaints except as documented Physical Exam General General appearance: alert and in no apparent distress Head Head exam: atraumatic and normocephalic Eye Eye exam: Present PERRL and EOMI ENT ENT exam: Present mucous membranes moist Neck Neck exam: Present normal inspection Chest Chest inspection: Present normal inspection and symmetric chest wall rise Respiratory Respiratory exam: Present normal lung sounds bilaterally; Absent respiratory distress Cardiovascular Cardiovascular exam: Present regular rate and normal rhythm Abdominal Exam Abdominal exam: Present soft; Absent tenderness Extremities Exam Extremities exam: Present normal inspection Neurological Exam Neurological exam: Present alert Psychiatric Psychiatric exam: Present normal affect Skin Skin exam: Present warm and dry Medical Decision Making Saurav Inquiry Pt receiving controlled substance: No Vital Signs: 10/01/23 11:15 10/01/23 11:52 Temperature 98.2 F Temperature Source Oral Pulse Rate [Left] 89 Respiratory Rate 14 Blood Pressure 132/79 Blood Pressure [Right Arm] 139/79 Blood Pressure Mean [Right Arm] 99 Blood Pressure Source [Right Arm] Automatic Cuff Blood Pressure Position [Right Arm] Sitting 02 Sat by Pulse Oximetry 97 Oxygen Delivery Method Room Air Lab Data Lab Results 10/01/23 11:10: WBC 5.6, RBC 4.55, Hgb 13.5, Hct 40.1, MCV 88.2, MCH 29.6, MCHC 33.5, RDW 13.1, Plt Count 316, MPV 7.5, Neut % (Auto) 50.2, Lymph % (Auto) 39.9, [place] % (Auto) 8.2, Eos % (Auto) 1.4, Baso % (Auto) 0.4, Neut # (Auto) 2.8, Lymph # (Auto) 2.2, [place] # (Auto) 0.5, Eos # (Auto) 0.1, Baso # (Auto) 0.0, Sodium 135 L, Potassium 3.0 L, Chloride 98, Carbon Dioxide 33 H, Anion Gap 7.0, BUN 5 L, Creatinine 0.60, Estimated Creat Clear 59, Estimated GFR 97, Est GFR ( Amer) 118, Glucose 107 H, Calcium 8.5, Total Bilirubin 0.4, AST 47 H, ALT 45, Alkaline Phosphatase 71, Total Protein 6.7, Albumin 3.9, Globulin 2.8, Albumin/Globulin Ratio 1.4, Lipase 66, SARS-CoV-2 (PCR) Not detected, Influenza A Untype (PCR) Not detected, Influenza Type B (PCR) Not detected 10/01/23 11:10 10/01/23 11:10 Orders (Tests/Meds): ED MEDICATIONS Discontinued Medications Generic Name Dose Route Start Last Admin Trade Name Freq PRN Reason Stop Dose Admin Lactated Ringer's 1,000 mls @ 999 mls/hr 10/01/23 11:20 10/01/23 11:24 Lactated Ringer's 1000 Ml Bag IV 10/01/23 12:20 999 mls/hr .Q1H1M ONE Administration Ondansetron HCl 4 mg 10/01/23 11:52 10/01/23 11:54 Ondansetron 4mg/2ml Vial IV 10/01/23 11:53 4 mg ONCE ONE Administration Potassium Chloride 40 meq 10/01/23 11:43 10/01/23 11:46 Potassium Chloride 20meq Tab PO 10/01/23 11:44 40 meq ONCE ONE Administration ORDERS Category Date Time Status CBC w/Auto Diff [Complete Blood Count Auto Diff] Stat Lab 10/01/23 11:10 Completed CMP [Comprehensive Metabolic Panel] Stat Lab 10/01/23 11:10 Completed Lipase Stat Lab 10/01/23 11:10 Completed Rapid PCR Covid and Flu A/B Stat Lab 10/01/23 11:10 Completed UA [Urinalysis and Microscopic] Stat Lab 10/01/23 11:20 Received Medical Decision Narrative: In summary patient is a 73-year-old female with past medical history described above who presents emergency department for evaluation of diarrhea. Patient is hemodynamically stable nontoxic-appearing upon arrival, afebrile, nontender abdominal exam. History and physical consistent with viral syndrome. Workup screening for dehydration, electrolyte abnormalities will be conducted with hematologic labs. Atypical UTI will be screened with urinalysis. Viral swab will be conducted. Initial inventions include crystalloid bolus. CT imaging was considered however given nonfocal abdominal exam will be deferred. Initial workup reviewed by me, hematologic labs are remarkable for hypokalemia which will be repleted orally, upon repeat evaluation patient had resolving symptoms with Zofran, was tolerating p.o. Viral swab is negative. Given this patient is appropriate for discharge at this time will be discharged with a course of Zofran. Critical Care Critical Care Time Critical Care Time: No
[2023-10-01 11:24] LABS: Coronavirus 19, PCR Not Detected (NotDetected); Influenza A, PCR Not Detected (NotDetected); Influenza B, PCR Not Detected (NotDetected)
[2023-10-01] MEDS: LACTATED RINGERS 1000ML 1,000 ML 999 ML IV (11:24)
[2023-10-01 11:27] LABS: Basophils % 0.4 % (0.1-2.0); Eosinophils # 0.1 K/mm3 (0.0-0.4); Eosinophils % 1.4 % (0.1-12.0); Hematocrit 40.1 % (37.0-47.0); Hemoglobin 13.5 g/dL (12.2-16.2); Lymphocytes # 2.2 K/mm3 (0.7-4.5); Lymphocytes % 39.9 % (10-50); Mean Corpuscular HGB Conc 33.5 g/dL (31.8-35.4); Mean Corpuscular Hemoglobin 29.6 pg (27.0-31.2); Mean Corpuscular Volume 88.2 fl (81-99); Mean Platelet Volume 7.5 fl (7.4-10.4); Monocytes # 0.5 K/mm3 (0.1-1.0); Monocytes % 8.2 % (1.7-9.3); Neutrophils # 2.8 K/mm3 (1.8-7.8); Neutrophils % 50.2 % (37.0-80.0); Platelet Count 316 K/mm3 (142-424); Red Blood Count 4.55 M/mm3 (4.20-5.40); Red Cell Distribution Width 13.1 % (11.5-17.5); White Blood Count 5.6 K/mm3 (4.8-10.8)
[2023-10-01 11:38] LABS: Alanine Aminotransferase 45 U/L (12-78); Albumin Level 3.9 g/dl (3.5-5.0); Albumin/Globulin Ratio 1.4 (1.1-1.8); Alkaline Phosphatase 71 U/L (38-126); Aspartate Amino Transferase 47 U/L (14-36); Bilirubin,Total 0.4 mg/dl (0.2-1.3); Blood Urea Nitrogen 5 mg/dl (7-17); Calcium 8.5 mg/dl (8.4-10.2); Carbon Dioxide 33 mmol/L (22.0-30.0); Chloride 98 mmol/L (98-107); Creatinine Clearance Estimated 59 mL/min (50-200); Estimated Glomerular Filt Rate 97 ml/min (>60); GFR (African American) 118 ML/MIN (>60); Globulin 2.8 g/dL (1.3-3.2); Glucose 107 mg/dl (74-100); Lipase 66 U/L (23-300); Sodium 135 mmol/L (136-145); Total Protein,Serum 6.7 g/dl (6.3-8.2)
[2023-10-01] MEDS: POTASSIUM CHLORIDE 20MEQ TAB 40 MEQ PO (11:46)
[2023-10-01 11:52] VITALS: BP 132/79
[2023-10-01] MEDS: ONDANSETRON 4MG/2ML VIAL 4 MG IV (11:54)
[2023-10-01 12:36] LABS: Microscopic, Urine URINE MICROSCOPIC (MICROSCOPIC)
--- NOTE | 2023-10-01 12:39 | PC.NURSE ---
pt is setting on side of bed nothing needed at this time,call light at bs
[2023-10-01 12:48] VITALS: BP 128/74; PULSE 82; RESP 16; TEMP 36.8
[2023-10-01 12:50] LABS: Appearance,Urine CLEAR (Clear); Bilirubin,Urine Negative (Negative); Blood, Urine 1+ (Negative); Color,Urine YELLOW (Yellow); Glucose,Urine (UA) Negative (Negative); Ketones,Urine Negative (Negative); Leukocyte Esterase,Urine Negative (Negative); Nitrate,Urine Negative (Negative); PH,Urine 6.5 (5.0-8.5); Protein,Urine Negative (Negative); Specific Gravity, Urine <= 1.005 (1.005-1.030); Urobilinogen,Urine 0.2 EU/dl (0.2)
[2023-10-01 13:04] LABS: RBC,Urine Occasional #/hpf (0-3); Squamous Epithelial Cell,Urine Occasional #/hpf (0-5)
== END 2023-10-01 13:01 | disposition home or self-care (01) ==
PROVIDERS: Emergency Provider Emergency Medicine; PCP Physician Assistant
DX: E87.6 Hypokalemia (principal); R19.7 Diarrhea, unspecified; B34.9 Viral infection, unspecified
CPT/HCPCS: 80053; 81001; 83690; 85025; 87636; 96361; 96374; 99284; J2405

== ENCOUNTER 2023-10-09 08:53 | Outpatient (CLI) | payer MEDICARE, SELFPAY ==
[2023-10-12 15:25] LABS: LDL-P 937
[2023-10-12 15:26] LABS: HDL-C 62; LDL-C 96
[2023-10-12 15:27] LABS: Cholesterol, Total 173; Triglycerides 79
[2023-10-12 15:31] LABS: LDL Size 21.3; LP-IR Score <25
[2023-10-12 15:32] LABS: Historical Reporting PDF SCANNED IMAGE
[2023-10-13 10:14] LABS: NMR PDF: SCANNED IMAGE
== END 2023-10-09 23:59 ==
LOC: LAB 08:54
PROVIDERS: PCP Family Medicine; Visit Provider Physician Assistant
DX: E78.5 Hyperlipidemia, unspecified (principal); I25.10 Atherosclerotic heart disease of native coronary artery without angina pectoris; Z95.5 Presence of coronary angioplasty implant and graft
CPT/HCPCS: 36415; 83704

== ENCOUNTER 2023-10-23 10:02 | Outpatient (RCR) | payer MEDICARE, SELFPAY | END 2023-11-09 11:00 | disposition home or self-care (01) | LOC: PT 10:02 | PROVIDERS: Visit Provider Physician Assistant | DX: I25.10 Atherosclerotic heart disease of native coronary artery without angina pectoris (principal); Z95.5 Presence of coronary angioplasty implant and graft | CPT/HCPCS: 93798 ==

== ENCOUNTER 2023-11-27 10:48 | Emergency (ER) | payer MEDICARE, SELFPAY ==
[2023-11-27 11:05] VITALS: BP 170/78; PULSE 62; RESP 18; TEMP 36.6; O2SAT 98; BMI 28.3
--- NOTE | 2023-11-27 11:10 | EXP.UTC ---
Discharge Plan Disposition Patient Disposition: Home, Self-Care Condition: Good Prescriptions Prescriptions: No Action aspirin [Adult Low Dose Aspirin] 81 mg tablet,delayed release (DR/EC) 81 mg PO DAILY atorvastatin 10 mg tablet 10 mg PO DAILY Referrals Follow up/Referrals: Sal Croft MD [Primary Care Provider] - See instructions Activity Restrictions/Add. Instructions Additional Instructions/Restrictions: Keep the wound clean and dry. Watch the wound for signs of infection, such as redness, swelling, drainage, fever. etc. The dermabond will start to peel in 3 to 4 days. Please just let it peel off on its own. Don't pick at the glue. Take tylenol if needed for pain. Follow up with your regular doctor. GO TO THE ER FOR ANY WORSENING SYMPTOMS OR CONCERNS. 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 She has a laceration on that thumb. She denies any other injury. Her last tetanus immunization was 3 years ago. Related Data Home Medications Medication Instructions Recorded Confirmed aspirin 81 mg tablet,delayed 81 mg PO DAILY HD 03/20/23 11/27/23 release (Adult Low Dose Aspirin) atorvastatin 10 mg tablet 10 mg PO DAILY 11/27/23 11/27/23 Allergies Allergy/AdvReac Type Severity Reaction Status Date / Time doxycycline Allergy Mild GI cramps Verified 11/27/23 11:32 azithromycin [From Zithromax] Allergy diaarhea Verified 11/27/23 11:32 [facility] Disclaimer: The information contained in this section may have been updated after the patient was seen, as this information can be updated by other users. 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 Angina pectoris Chest pain Dyspnea Family history of ischemic heart disease HX: breast cancer Family History Mother Coronary artery disease FHx: coronary artery bypass surgery Social History Smoking Status: Never smoker alcohol intake: never current occupational status: other Travel in the last 8 weeks: None ROS Obtained: Yes All systems reviewed & no additional complaints except as documented Constitutional Constitutional: Denies chills and Denies fever(s) Eyes Eyes: Denies eye discharge ENT Ears, Nose, Mouth, and Throat: Denies dizziness, Denies otalgia and Denies sore throat Cardiovascular Cardiovascular: Denies chest pain Respiratory Respiratory: Denies shortness of breath, Denies chest congestion, Denies cough, Denies stridor and Denies wheezing Gastrointestinal Gastrointestingal: Denies nausea or vomiting Musculoskeletal Musculoskeletal: Reports system reviewed and no additional complaints, except as documented and Denies arthralgias Integumentary/Breasts Skin/Breast: Reports as per HPI and Reports wounds Neurologic Neurologic: Denies dizziness and Denies paresthesias Allergic/Immunologic Allergic/Immunologic: Denies wheezing Physical Exam General General appearance: alert and in no apparent distress Head Head exam: atraumatic, normocephalic and normal inspection Eye Eye exam: Present normal appearance, PERRL and EOMI ENT ENT exam: Present normal exam, normal oropharynx, mucous membranes moist, TM's normal bilaterally and normal external ear exam Neck Neck exam: Present normal inspection, full ROM and trachea midline; Absent meningismus or lymphadenopathy Chest Chest inspection: Present normal inspection and symmetric chest wall rise; Absent tenderness Respiratory Respiratory exam: Present normal lung sounds bilaterally; Absent respiratory distress Cardiovascular Cardiovascular exam: Present regular rate and normal rhythm; Absent JVD Abdominal Exam Abdominal exam: Present soft and normal bowel sounds; Absent distention, tenderness or guarding Extremities Exam Extremities exam: Present normal inspection, full ROM and normal capillary refill; Absent calf tenderness Back Exam Back exam: Present normal inspection; Absent tenderness Neurological Exam Neurological exam: Present alert and oriented X3 Psychiatric Psychiatric exam: Present normal affect and normal mood Skin Skin exam: Present other (there is a 0.5 cm linear laceration on her lateral aspect of her left thumb near its tip. no nail damage, no foreign body noted. she has good 2 point touch discrimination distal to the wound.) Lymphatic Lymphatic Findings: no adenopathy Medical Decision Making Medical Records Medical records reviewed: No I reviewed the patient's medical records. Saurav Inquiry Pt receiving controlled substance: No Procedures Risk/Benefits of Procedure(s) Were Explained: Yes Laceration Laceration 1: Site: thumb Side (If applicable): left Size (cm): 0.5 Description: linear Depth: simple, single layer Pre-repair: wound explored, irrigated extensively and deep structures intact Skin layer closed with: Dermabond (She tolerated this well. good closure was obtained using dermabond. the edges were approximated well)
[2023-11-27 12:17] VITALS: BP 170/78; PULSE 62; RESP 18; TEMP 36.6; O2SAT 98
== END 2023-11-27 12:16 | disposition home or self-care (01) ==
PROVIDERS: Emergency Provider Nurse Practitioner Family; PCP Family Medicine
DX: S61.012A Laceration without foreign body of left thumb without damage to nail, initial encounter (principal); W26.0XXA Contact with knife, initial encounter; I11.9 Hypertensive heart disease without heart failure; I25.119 Atherosclerotic heart disease of native coronary artery with unspecified angina pectoris; Z95.5 Presence of coronary angioplasty implant and graft
CPT/HCPCS: 12001; 99204; 99213; G0463

== ENCOUNTER 2023-11-29 08:00 | Outpatient (CLI) | payer MEDICARE, SELFPAY ==
[2023-11-29 09:29] LABS: Alanine Aminotransferase 33 U/L (12-78); Alkaline Phosphatase 72 U/L (38-126); Aspartate Amino Transferase 36 U/L (14-36); Bilirubin,Direct 0.2 mg/dl (0.0-0.4); Bilirubin,Indirect 0.3 mg/dL (0.0-0.9); Bilirubin,Total 0.5 mg/dl (0.2-1.3); Bilirubin,Unconjugated 0.2 mg/dL (0.0-1.1); Cholesterol 163 mg/dl (140-200); Triglycerides 70 mg/dl (30-150); VLDL Cholesterol 14 mg/dL (0-40)
[2023-11-29 09:30] LABS: Albumin Level 3.9 g/dl (3.5-5.0); Chol/HDL Ratio 1.5 (1-3.5); HDL Cholesterol 109 mg/dl (40-60); Total Protein,Serum 6.3 g/dl (6.3-8.2)
[2023-11-29 09:42] LABS: Direct LDL Cholesterol 55.02 mg/dL (100-129)
== END 2023-11-29 23:59 | disposition home or self-care (01) ==
LOC: LAB 08:01
PROVIDERS: PCP Family Medicine; Visit Provider Physician Assistant
DX: I25.10 Atherosclerotic heart disease of native coronary artery without angina pectoris (principal); Z95.5 Presence of coronary angioplasty implant and graft
CPT/HCPCS: 36415; 80061; 80076

== ENCOUNTER 2023-12-05 09:45 | Day surgery (SDC) | payer MEDICARE, SELFPAY ==
[2023-12-01 12:30] VITALS: BMI 28.3
[2023-12-05] MEDS: TROPICAMIDE 1% OPTH SOLN 2ML OP (09:58)
[2023-12-05] MEDS: TETRACAINE 0.5% OPTH SOL 15ML OP (09:58)
[2023-12-05] MEDS: APRACLONIDINE 0.5% OPHTH SOLN 5ML OP (09:59)
[2023-12-05] MEDS: PHENYLEPHRINE 2.5% OPHTH SOLN 2ML 0.0500000000000000028 ML OP (09:59)
[2023-12-05 10:05] VITALS: BP 125/68; PULSE 70; RESP 18; O2SAT 97
--- NOTE | 2023-12-05 11:27 | HMH.PROCNOTE ---
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 The patient has noticed that the vision has decreased from the previous good level postop. The patient reports that he/she is having trouble reading and/or driving or that glare is giving them a problem. On exam, the patient was found to have visually significant posterior capsular opacification. The treatment options, risks and benefits were explained and the patient elected to have YAG laser capsulotomy in an attempt to improve the vision. Of note, the best corrected visual acuity is in the 23/30 or worse range by refraction or glare testing. The eye was dilated and 1 drop of 0.5% Iopidine applied. YAG laser energy was applied to the posterior capsular bag with good formation of an opening and no complications were noted. The patient will be seen back for follow up in 2 weeks OD 42 pulses, 140mj OS 20 pulses, 67.9mj
== END 2023-12-05 10:52 | disposition home or self-care (01) ==
LOC: OUTP 09:47
PROVIDERS: PCP Family Medicine; Visit Provider Ophthalmology
PROC: (CPT 66821; principal; 2023-12-05 11:00)
DX: H26.493 Other secondary cataract, bilateral (principal); Z79.899 Other long term (current) drug therapy
CPT/HCPCS: 66821

== ENCOUNTER 2024-01-29 07:29 | Day surgery (SDC) | payer MEDICARE, SELFPAY ==
[2024-01-25 14:17] VITALS: BMI 28.6
[2024-01-29 07:51] VITALS: BP 130/69; PULSE 83; RESP 17; TEMP 36.4; O2SAT 98
[2024-01-29] MEDS: LACTATED RINGERS 1000ML 1,000 ML 25 ML IV (08:00)
--- NOTE | 2024-01-29 08:18 | HMH.SCOPE ---
Procedure: Date: 01/29/24 Patient Date of :: 1950 Procedure Performed:: Colonoscopy Indications:: Patient is a pleasant 73-year-old referred for EGD and colonoscopy. She has a family history of colorectal cancer with her sister many years ago which then recurred reportedly widely metastatic. I performed her initial screening colonoscopy on 08/25/2015 when she was 64 years old. She was found to have significant diverticulosis. There was a diminutive hyperplastic appearing rectosigmoid polyp. After her colonoscopy in August 2015 I recommended repeat colonoscopy in 3 to 5 years. She describes symptoms of dysphagia. She has a longstanding history of GERD type symptoms since she was in her 20s. She actually had to sleep with the head of the bed elevated. She has symptoms of dysphagia with pasta, bread, and meat. She is on Pepcid. She states that she has a hiatal hernia but is unclear if she had a previous endoscopy or if this was diagnosed by imaging. Initial plan was to proceed with upper endoscopy as well as colonoscopy. Consideration was being given for upper GI imaging prior to procedure. Patient was unable to undergo upper GI due to illness in the family and therefore elected to forego this for now and proceed merely with a colonoscopy. . Performing Provider:: Federico Benton MD Referring Provider:: Ryley Croft MD Sedation:: MAC sedation Procedure:: Patient history was obtained and appropriate physical examination was performed. Patient's medications and allergies were reviewed. Informed consent was obtained after explaining the benefits, alternatives, and risks of the procedure including, but not limited to, bleeding, perforation, missed lesions, and adverse reaction to anesthesia medications. Patient was transported to endoscopy procedure room. Patient was connected to monitoring devices. Throughout the procedure the patient's blood pressure, pulse, and oxygen saturations were monitored continuously. Patient identification and planned procedure were verified by the staff. Patient was positioned in lateral decubitus position. Digital anorectal exam was performed. Variable stiffness Olympus colonoscope was inserted and advanced under direct visualization to the cecum. Adequacy of the colonic preparation was noted. The colonoscope was then slowly withdrawn while carefully examining the color, texture, anatomy, and integrity of the mucosoa circumferentially. Within the rectum retroflexion was performed. Colonoscope was then withdrawn. Impression: She has significant pandiverticulosis with severe diverticulosis in the sigmoid colon. There was what appeared to be at tiny hyperplastic polyp in the sigmoid colon but was unable to be located with readvancement of the colonoscope multiple times consistent with a diminutive sessile hyperplastic polyp. She did have internal hemorrhoids. . Findings:: Significant pandiverticulosis with severe sigmoid diverticulosis Internal hemorrhoids . Recommendations:: Consider repeat colonoscopy 5 years. However, given her significant sigmoid diverticulosis consideration may be given for possible Cologuard testing due to the inherent risk with invasive colonoscopy. Complications:: None immediately apparent Estimated blood obtained (mL): 0 Colonoscopy Component Colonoscopy Component Was a colonoscopy performed during today's procedure?: Yes Recommended follow up colonoscopy of at least 10 years?: No If no, follow up colonoscopy recommended in ___ years?: 5 Reason for not recommending >/= 10 yr follow-up interval?: See above
--- NOTE | 2024-01-29 08:22 | P.PNANES_ITS ---
[facility] Disclaimer: The information contained in this section may have been updated after the patient was seen, as this information can be updated by other users. Medical History Anxiety and depression Pneumonia Dysphagia Cataract Aneurysm Angina pectoris Family history of ischemic heart disease Abnormal result of cardiovascular function study Dyspnea Chest pain HX: breast cancer Surgical History History of hysterectomy History of cholecystectomy History of surgery History of surgical procedure on eye proper using laser History of cataract surgery History of colonoscopy History of lumpectomy Family History Mother Coronary artery disease FHx: coronary artery bypass surgery Other Diabetes Social History (Updated 01/25/24 @ 14:15 by Yari Parekh RN) Smoking Status: Never smoker alcohol intake: never substance use type: denies use current occupational status: retired Travel in the last 8 weeks: None [facility] Anesthesia Checklist Patient Identification Patient Identification: Arm Band Structural Data Admitted From: Home Planned Operative Procedure/s: Colonoscopy Consent for Planned Operative Procedure(s) Verified: Yes Verified Documents: Surgical Consent and History and Physical NPO Status Verified Time NPO: 00:00 Additional verifications Anesthesia Reactions: No Airway Assessment Mallampati Score:: Class II C-Spine Mobility Assessed: Yes TMJ Mobility Assessed: Yes Dentition: Good Dentition Neurological Assessment Level of Consciousness: Awake, Alert and Appropriate Anesthesia Plan Anesthesia Risk discussed: Yes Anesthesia Plan: Verified ASA Class: III Anesthesia Type: MAC
[2024-01-29 08:34] VITALS: O2SAT 98
[2024-01-29 09:10] VITALS: BP 88/40; PULSE 71; RESP 14; TEMP 36.3; O2SAT 96
[2024-01-29 09:20] VITALS: BP 82/41; PULSE 65; RESP 14; O2SAT 96
[2024-01-29 09:30] VITALS: BP 93/47; PULSE 65; RESP 16; O2SAT 99
[2024-01-29 09:40] VITALS: BP 115/56; PULSE 67; RESP 16; O2SAT 99
== END 2024-01-29 09:55 | disposition home or self-care (01) ==
PROVIDERS: PCP Family Medicine; Visit Provider Surgery
PROC: 0DJD8ZZ Inspection of Lower Intestinal Tract, Via Natural or Artificial Opening Endoscopic (ICD-10-PCS; CPT G0105; principal; 2024-01-29 08:30)
DX: Z12.11 Encounter for screening for malignant neoplasm of colon (principal); Z09 Encounter for follow-up examination after completed treatment for conditions other than malignant neoplasm; Z86.010 Personal history of colon polyps; Z80.0 Family history of malignant neoplasm of digestive organs; K57.30 Diverticulosis of large intestine without perforation or abscess without bleeding; K64.8 Other hemorrhoids
CPT/HCPCS: G0105; J7120

== ENCOUNTER 2024-08-16 11:02 | Outpatient (CLI) | payer MEDICARE, SELFPAY ==
--- NOTE | 2024-08-16 11:08 | CT_ITS ---
FINAL REPORT TECHNIQUE: Thin section axial images were obtained from the lung bases to the pubic symphysis without IV contrast. Coronal and sagittal reconstruction images were obtained from the axial data. Exam was performed using dose reduction technique. CLINICAL HISTORY: DIVERTICULITIS COMPARISON: None FINDINGS: There are bilateral lower lobe mixed densities, somewhat irregular, favor infectious or inflammatory. There are no renal or ureteral stones. There is no hydronephrosis or perinephric stranding. The gallbladder is absent. The remaining unenhanced solid abdominal organs are unremarkable. There is no evidence of small bowel obstruction. The appendix is normal. There is diverticulosis most prominent in the sigmoid colon. There is mild abnormal attenuation surrounding the sigmoid colon, and early diverticulitis cannot be excluded. There is no evidence of free air or abscess. There is no lymphadenopathy or ascites. No acute osseous abnormality is identified. IMPRESSION: No renal or ureteral stones. No hydronephrosis. There is mild abnormal attenuation surrounding the sigmoid colon, also the site of multiple diverticuli in the colon, and early diverticulitis cannot be excluded. No evidence of perforation or abscess is identified. Multiple bilateral lower lobe densities, irregular, favor infectious or inflammatory. Recommend 3-month follow-up CT for further evaluation. Reviewed, Interpreted and Dictated by Kaity White MD Transcribed by Michelle Houston Authenticated and [facility]
== END 2024-08-16 23:59 | disposition home or self-care (01) ==
LOC: RAD 11:03
PROVIDERS: PCP Family Medicine; Visit Provider Family Medicine
DX: K57.92 Diverticulitis of intestine, part unspecified, without perforation or abscess without bleeding (principal); K52.9 Noninfective gastroenteritis and colitis, unspecified
CPT/HCPCS: 74176

== ENCOUNTER 2024-08-24 10:11 | Outpatient (CLI) | payer MEDICARE, SELFPAY ==
[2024-08-24 11:27] LABS: Basophils % 0.3 % (0.1-2.0); Eosinophils # 0.1 K/mm3 (0.0-0.4); Eosinophils % 1.1 % (0.1-12.0); Hematocrit 35.7 % (37.0-47.0); Hemoglobin 11.8 g/dL (12.2-16.2); Lymphocytes # 1.6 K/mm3 (0.7-4.5); Lymphocytes % 24.6 % (10-50); Mean Corpuscular HGB Conc 33.1 g/dL (31.8-35.4); Mean Corpuscular Hemoglobin 29.1 pg (27.0-31.2); Mean Corpuscular Volume 87.9 fl (81-99); Mean Platelet Volume 9.5 fl (7.4-10.4); Monocytes # 0.7 K/mm3 (0.1-1.0); Monocytes % 9.8 % (1.7-9.3); Neutrophils # 4.2 K/mm3 (1.8-7.8); Neutrophils % 63.9 % (37.0-80.0); Platelet Count 358 K/mm3 (142-424); Red Blood Count 4.06 M/mm3 (4.20-5.40); Red Cell Distribution Width 12.3 % (11.5-17.5); White Blood Count 6.6 K/mm3 (4.8-10.8)
[2024-08-24 11:51] LABS: Albumin Level 3.7 g/dl (3.5-5.0); Chloride 102 mmol/L (98-107); Potassium 3.2 mmoL/L (3.5-5.1); Sodium 139 mmol/L (136-145)
[2024-08-24 11:53] LABS: Amylase 49 U/L (30-110)
[2024-08-24 11:54] LABS: Alanine Aminotransferase 23 U/L (12-78); Albumin/Globulin Ratio 1.6 (1.1-1.8); Alkaline Phosphatase 79 U/L (38-126); Anion Gap 8.2 mEq/L (5-15); Aspartate Amino Transferase 30 U/L (14-36); Bilirubin,Total 0.4 mg/dl (0.2-1.3); Blood Urea Nitrogen 8 mg/dl (7-17); Calcium 9.1 mg/dl (8.4-10.2); Carbon Dioxide 32 mmol/L (22.0-30.0); Estimated Glomerular Filt Rate 120 ml/min (>60); GFR (African American) 146 ML/MIN (>60); Globulin 2.3 g/dL (1.3-3.2); Glucose 134 mg/dl (74-100); Lipase 108 U/L (23-300)
== END 2024-08-24 23:59 | disposition home or self-care (01) ==
PROVIDERS: PCP Family Medicine; Visit Provider Family Medicine
DX: R19.7 Diarrhea, unspecified (principal)
CPT/HCPCS: 36415; 80053; 82150; 83690; 85025

== ENCOUNTER 2024-10-15 13:25 | Outpatient (CLI) | payer MEDICARE, SELFPAY ==
--- NOTE | 2024-10-15 13:30 | XR_ITS ---
FINAL REPORT CLINICAL HISTORY: Rt Hip Pain FINDINGS: RIGHT HIP 3 views of the right hip demonstrate no acute fracture or dislocation. There are mild degenerative changes. Ill-defined lucencies are seen in the proximal femurs bilaterally which may be due to localized osteopenia. However, lytic lesions are not excluded. IMPRESSION: No acute bony abnormality. Abnormal appearance of the bilateral proximal femurs. Recommend MRI to assess for underlying lytic lesions. Reviewed, Interpreted and Dictated by Danielle Castellanos MD Transcribed by Alisson Feliciano Authenticated and [facility]
== END 2024-10-15 23:59 | disposition home or self-care (01) ==
LOC: RAD 13:26
PROVIDERS: PCP Family Medicine; Visit Provider Physician Assistant
DX: M25.551 Pain in right hip (principal)
CPT/HCPCS: 73502

== ENCOUNTER 2024-10-19 12:07 | Outpatient (CLI) | payer MEDICARE, SELFPAY ==
[2024-10-19 12:17] LABS: Adenovirus F 40/41, stool Not Detected (NotDetected); Astrovirus Not Detected (NotDetected); Campylobacter Not Detected (NotDetected); Clostridium Difficile A/B, PCR Not Detected (NotDetected); Cryptosporidium Not Detected (NotDetected); Cyclospora Cayetanesis Not Detected (NotDetected); Entamoeba histolytica Not Detected (NotDetected); Enteroaggregative E coli Not Detected (NotDetected); Enteropathogenic E coli Not Detected (NotDetected); Enterotoxigenic E coli Not Detected (NotDetected); Giardia lamblia Not Detected (NotDetected); Plesimonas Shigalloides, PCR Not Detected (NotDetected); Rotavirus A Not Detected (NotDetected); Salmonella, PCR Not Detected (NotDetected); Sapovirus Not Detected (NotDetected); Shiga-like toxin E coli Not Detected (NotDetected); Shigella Enterovasive E coli Not Detected (NotDetected); Vibrio Cholerae Not Detected (NotDetected); Vibrio, PCR Not Detected (NotDetected); Yersinia Entercolitica, PCR Not Detected (NotDetected)
[2024-10-19 17:37] LABS: Norovirus Detected (NotDetected)
== END 2024-10-19 23:59 | disposition home or self-care (01) ==
LOC: LAB.DROPOF 12:09
PROVIDERS: PCP Family Medicine; Visit Provider Physician Assistant
DX: K52.9 Noninfective gastroenteritis and colitis, unspecified (principal)
CPT/HCPCS: 87507

== ENCOUNTER 2024-10-25 11:05 | Outpatient (CLI) | payer MEDICARE, SELFPAY ==
[2024-10-25 11:52] LABS: Albumin Level 4.6 g/dl (3.5-5.0); Chloride 100 mmol/L (98-107); Potassium 4.4 mmoL/L (3.5-5.1); Sodium 136 mmol/L (136-145)
[2024-10-25 11:54] LABS: Blood Urea Nitrogen 10 mg/dl (7-17)
[2024-10-25 11:55] LABS: Alanine Aminotransferase 22 U/L (12-78); Albumin/Globulin Ratio 1.7 (1.1-1.8); Alkaline Phosphatase 78 U/L (38-126); Anion Gap 9.4 mEq/L (5-15); Aspartate Amino Transferase 28 U/L (14-36); Bilirubin,Total 0.6 mg/dl (0.2-1.3); Calcium 9.2 mg/dl (8.4-10.2); Carbon Dioxide 31 mmol/L (22.0-30.0); Estimated Glomerular Filt Rate 97 ml/min (>60); GFR (African American) 118 ML/MIN (>60); Globulin 2.7 g/dL (1.3-3.2); Glucose 102 mg/dl (74-100); Total Protein,Serum 7.3 g/dl (6.3-8.2)
== END 2024-10-25 23:59 | disposition home or self-care (01) ==
LOC: LAB 11:06
PROVIDERS: PCP Physician Assistant; Visit Provider Physician Assistant
DX: K57.92 Diverticulitis of intestine, part unspecified, without perforation or abscess without bleeding (principal)
CPT/HCPCS: 36415; 80053

== ENCOUNTER 2024-10-29 11:04 | Outpatient (CLI) | payer MEDICARE, SELFPAY ==
--- NOTE | 2024-10-29 11:35 | CT_ITS ---
FINAL REPORT TECHNIQUE: After the administration of intravenous contrast, axial images were obtained through the abdomen and pelvis by computed tomography. Oral contrast was also administered. This study was performed with technique to keep radiation doses as low as reasonably achievable, (ALARA). Individualized dose reduction techniques using automated exposure control or adjustment of the MA and/or KV according to the patient's size were employed. CLINICAL HISTORY: DIVERTICULITIS/CHRONIC DIARRHEA COMPARISON: 08/16/2024 FINDINGS: Abdomen: The lung bases are clear. The liver is normal in size and attenuation. Patient status postcholecystectomy. The spleen is unremarkable. The adrenals are normal. The pancreas is unremarkable. The kidneys enhance appropriately. The aorta is normal in caliber. 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 There is no free fluid or adenopathy. There is no evidence of bowel obstruction. Pelvis: The appendix is normal. Patient is status post hysterectomy. There is moderate sigmoid diverticulosis without evidence of diverticulitis. The urinary bladder is unremarkable. There is no free fluid or adenopathy. IMPRESSION: No acute intra-abdominal process. Diverticulosis without evidence of diverticulitis. Reviewed, Interpreted and Dictated by Danielle Castellanos MD Transcribed by Alisson Feliciano Authenticated and [facility]
[2024-10-29] MEDS: SODIUM CHLORIDE 0.9% 10ML SYR (RAD ONLY) 10 ML IV (11:56)
[2024-10-29] MEDS: IOPAMIDOL-370 (76%);100ML BOTTLE 75 ML IV (11:56)
== END 2024-10-29 23:59 | disposition home or self-care (01) ==
LOC: RAD 11:05
PROVIDERS: PCP Family Medicine; Visit Provider Family Medicine
DX: K57.92 Diverticulitis of intestine, part unspecified, without perforation or abscess without bleeding (principal); K52.9 Noninfective gastroenteritis and colitis, unspecified
CPT/HCPCS: 74177; Q9967

== ENCOUNTER 2024-11-06 16:00 | Outpatient (RCR) | payer MEDICARE, SELFPAY ==
--- NOTE | 2024-10-25 17:55 | HMH.PTOPEV ---
PT Outpatient Evaluation Rehab PT Outpatient Evaluation Start: 10/25/24 09:53 Freq: Status: Active Protocol: Document 10/25/24 17:34 CARLOS (Rec: 10/25/24 17:55 PHOSHANE [id number]) E-signed By Allan Amador, PT Outpatient Therapy Subjective History Subjective History This is the initial PT eval for Kristy Hernandez, 74 yowf who presents with c/o R side posterior hip pain with pain in lateral thigh and intermittently into the R lower leg. She reports increased pain with walking, standing, or riding in a car. She reports pain has been present for several months with insidious onset of symptoms. She reports trochanteric bursae injections helped a little bit. She reports her daily stretching exercises help reduce her pain. She reports PMH of CAD with stent x 1. Chief Complaint Pain Symptom Type Ache,Sharp,Dull,Shooting Symptoms Relieved By Rest/Positioning Symptoms Aggravated By Sitting,Standing,Physical Activity,Walking Prior Functional Limitations None Current Functional Limitations Driving,Standing,Sitting, Walking Symptom Description Constant but Variable Level of pain today (0-10) 7 Pain scale - at its worst (0-10) 9 Lumbopelvic Eval Palapation tenderness right buttock tenderness Yes: 2/4 Lumbar/Sacral Palpation Findings Tenderness Lumbar/Sacral Palpation Overall Comment R SI jt 2/4, B ITB 2/4 entire length. Range of Motion Lumbar Spine Active Flexion Range of 0-70 Motion (degrees) Lumbar Spine Active Extension Range of 0-25 Motion (degrees) Left Lumbar Spine Lateral Flexion Active 0-25 Range of Motion (degrees) Right Lumbar Spine Lateral Flexion 0-25 Active Range of Motion (degrees) Manual Muscle Test Bilateral Knee Extension Strength Grade 5 Normal Knee Flexion Strength Grade 5 Normal Hip Flexion Strength Grade 4 Good Hip Abduction Strength Grade 4 Good Ankle Dorsiflexion Strength Grade 5 Normal Gastronemius/Soleus Strength Grade 5 Normal Special Tests Forward Bending Test- Standing Negative Left,Negative Right Hip Scouring (Quadrant) Test Negative Left,Negative Right Hip Freddie (NUBIA) Test Negative Left,Positive Right Hip Piriformis Test Negative Left,Negative Right Hip Bowstring (Cram) Test Negative Left,Negative Right Sciatic Nerve Tension Test Negative Left,Negative Right Unilateral Straight Leg Raise (Lasegue) Negative Left,Negative Right Test Sacroiliac Joint Compression Test Negative Left,Positive Right Sacroiliac Joint Distraction Test Negative Left,Negative Right Lumbar Long Herndon Distraction Test/Manual Negative Traction Oswestry Index Section 1 Pain Intensity The pain comes and goes and is severe Section 2 Personal Care (Washing,Dresing) increase the pain, but I manage not to change my way of doing it Section 3 Lifting lifting heavy weights off the floor, but I can manage light to medium Section 4 Walking I cannot walk more than 1/4 mile without increasing pain Section 5 Sitting I can sit in my favorite chair for as long as I like Section 6 Standing I cannot stand more than 10 minutes without increasing pain Section 7 Sleeping Because of my pain, my normal night's sleep is less than 6 hours sleep Section 8 Social Life Pain has restricted my social life and I do not go out often Section 9 Traveling I get extra pain while traveling, but it does not compel me to seek al Section 10 Changing Degreee of Pain My pain is gradually getting worse Score and Risk Level Oswestry Sc 30 Oswestry Risk Level Severe Disability Miscellaneous Dx PT Eval Objective Objective Pt exhibits exaggerated response to palpation throughout B ITB from greater trochanter to distal insertion , 2/4. Pt with extremely limited ROM on R hip during NUBIA test compared to the L LE, with significant increased pain, posterior R hip thrust test negative. No pain or limited ROM with FADIR hip test B. Pt reports a leg length discrepancy for which she wears a heel lift, but measurements of B LE leg length this date appear essentially even. Outpatient Therapy Assessment Impairments Problems/Impairmments Palpation Tenderness,Impaired Range of Motion,Impaired Strength,Impaired Walking, Impaired Standing,Impaired Household Care,Subjective C/O Pain,Impaired Self Care/Self Management Prognosis Rehab Potential Good Comment Signs and symptoms consistent with R SI dysfunction with B ITB irritation of unknown cause. Likely DDD or lumbar stenosis are associated. 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 Short Term Goals Number of Weeks 2 Decreased Palpation Tenderness Yes: 1 R SI Increase Range of Motion Yes: R hip ER by 10 deg Increase Strength Yes: B LE at least 4+/5 throughout Improve Oswestry Score Yes: 27 or less Decrease Subjective C/O Pain Yes: 12/21 R post hip Patient to be Ind w/ HEP Yes Adaptive Physical Educator Goals Number of Weeks 4 Decreased Palpation Tenderness Yes: 0/4 R SI jt Increase Range of Motion Yes: R hip ER WFL Increase Strength Yes: B LE 5/5 throughout Increase Ability to Walk Yes: 30 min without pain Improve Oswestry Score Yes: 20 or less Decrease Subjective C/O Pain Yes: 10/21 R post hip Patient to be Ind w/ Advanced HEP Yes Outpatient Therapy Plan of Care Treatment Plan May Include Therapeutic Exercise Including Home Yes Exercise Program Manual Therapy Techniques Yes Therapeutic Activities to Return to Yes Previous Functional/Work Level ADL/Self Care Education Yes Thermal Modalities Yes Electrical Stimulation Yes Ultrasound/Phonophoresis Yes Iontophoresis Yes Orthotics/Bracing/Splinting Yes Massage Yes Eval/Re-Eval Yes Frequency Times per week 2 Duration Number of Weeks 4 Addendums This patient is a candidate for social No or vocational rehab? Patient/Guardian verbally acknowledges Yes understanding of treatment program and consents to further treatment? Patient/Guardian verbally acknowledges Yes understanding of diagnosis, prognosis and goals for treatment? Eval Complexity PT Charges 64209 - High Complexity Shoulder/Elbow Eval Shoulder Objective Measurements Elbow Objective Measurements PHYSICIAN CERTIFICATION: I certify the specified therapy services for Kristy Hernandez are required, authorized, and reviewed every 30 days.
== END 2024-11-06 23:59 | disposition home or self-care (01) ==
LOC: PT 16:00
PROVIDERS: PCP Family Medicine; Visit Provider Physician Assistant
DX: M54.31 Sciatica, right side (principal)
CPT/HCPCS: 97014; 97035; 97110; 97140; 97163; 97530; G0283

== ENCOUNTER 2024-12-09 11:00 | Outpatient (RCR) | payer MEDICARE, SELFPAY ==
--- NOTE | 2024-11-25 15:10 | HMH.RHREAS ---
Rehab Reassessment Rehab OP Re-assessment Start: 11/14/24 09:59 Freq: Status: Active Protocol: Document 11/25/24 14:42 PHOCharlotteJOSE (Rec: 11/25/24 15:08 PHORNE [id number]) E-signed By Allan Amador, PT Oswestry Index Section 1 Pain Intensity The pain comes and goes and is moderate Section 2 Personal Care (Washing,Dresing) my way of washing or dressing even though it causes some pain Section 3 Lifting I can lift heavy weights, but it gives me extra pain Section 4 Walking I cannot walk more than 1/2 mile without increasing pain Section 5 Sitting I can sit in my favorite chair for as long as I like Section 6 Standing I cannot stand more than 1/2 hour without increasing pain Section 7 Sleeping Because of my pain, my normal night's sleep is less than 6 hours sleep Section 8 Social Life My social life is normal but increases the degree of pain Section 9 Traveling I get some pain when traveling , but none of my usual forms of travel m Section 10 Changing Degreee of Pain My pain seems to be getting better, but improvement is slow Score and Risk Level Oswestry Sc 17 Oswestry Risk Level Moderate Disability Rehab Re-assessment Subjective Subjective PATIENT REPORTS SHE'S 65% BETTER, I DID ALL THE EXS AT HOME ALREADY. Pt reports she feels about 60-70% better than she did upon initial evaluation. Pt also reports dry needling helped reduce her pain significantly. Objective Objective Notes MMT: R HIP FLEX 4/5, R HIP ABD 4/5, R KNEE FLEX 5/5, R KNEE EXT 4+/5 Oswestry: 17 this date vs 30 in IE. TTP: 08/17 R GT and R SI joint Assessment Progress Assessment Progressing as Expected Assessment Notes Pt has shown significant reduction of pain and tenderness around the R hip with current treatment regimen . She does continue to have decreased R hip strength and difficulty with return to full recreational activity without pain. Skilled therapy remains indicated o improve strength in order to aid pt return to walking and recreation at [facility] . Patient goals met ST/6 LT/7 Plan Plan Continue per initial POC. Frequency of Therapy 2 x/wk Duration of therapy 4 wks Time and Billing Re-Eval Time 12 Re-Eval Billing Units 0 Charge for PT reassessment? No PHYSICIAN CERTIFICATION: I certify the specified therapy services for Kristy P Hernandez are required, authorized, and reviewed every 30 days.
== END 2024-12-09 23:59 | disposition home or self-care (01) ==
LOC: PT 11:00
PROVIDERS: PCP Family Medicine; Visit Provider Physician Assistant
DX: M54.31 Sciatica, right side (principal)
CPT/HCPCS: 20560; 97014; 97035; 97110; 97530; G0283

== ENCOUNTER 2025-01-02 11:00 | Outpatient (RCR) | payer MEDICARE, SELFPAY ==
--- NOTE | 2024-12-30 11:23 | HMH.RHREAS ---
Rehab Reassessment Rehab OP Re-assessment Start: 12/16/24 11:05 Freq: Status: Active Protocol: Document 12/30/24 11:15 PHOSHANE (Rec: 12/30/24 11:23 PHORNE [id number]) E-signed By Allan Amador, PT Oswestry Index Section 1 Pain Intensity The pain is mild and does not vary much Section 2 Personal Care (Washing,Dresing) change my way of washing or dressing in order to avoid pain Section 3 Lifting I can lift heavy weights, but it gives me extra pain Section 4 Walking I have some pain when walking but it does not increase with distance Section 5 Sitting I can sit in my favorite chair for as long as I like Section 6 Standing I cannot stand more than 1 hour without increasing pain Section 7 Sleeping I get pain in bed, but it does not prevent me from sleeping well Section 8 Social Life My social life is normal but increases the degree of pain Section 9 Traveling I get some pain when traveling , but none of my usual forms of travel m Section 10 Changing Degreee of Pain My pain fluctuates, but overall is definitely getting better Score and Risk Level Oswestry Sc 10 Oswestry Risk Level Mild Disability Rehab Re-assessment Subjective Subjective Pt reports, I still have some sore sports in my hip, but I feel al whole lot better than I did. I can go up and down stairs without any pain now. Objective Objective Notes Pain: R lateral hip currently 0/10, at worst 3/10 intermittently. Oswestry: 10 this date vs 30 on IE. MMT: R HIP FLEX 5/5, R HIP ABD 5/5, R KNEE FLEX 5/5, R KNEE EXT 5/5 TTP: 1/4 R GT and R SI joint R hip ER/IR AROM: WFL Assessment Progress Assessment Progressing as Expected Assessment Notes Pt has shown significant improvements in all areas at this time with her R hip and LE pain and stiffness. She has met all goals except 1 mcc goal and has returned to independence with all prior ADLs and ambulation without difficulty at this time. Will D/C pt to independent HEP at this time. Patient goals met ST/6 LT/7 Plan Plan Will D/C pt at this time. Continues to follow HEP. Frequency of Therapy 0 Duration of therapy 0 Time and Billing Re-Eval Time 12 Re-Eval Billing Units 0 Charge for PT reassessment? No PHYSICIAN CERTIFICATION: I certify the specified therapy services for Kristy P Hernandez are required, authorized, and reviewed every 30 days.
== END 2025-01-02 23:59 | disposition home or self-care (01) ==
LOC: PT 11:00
PROVIDERS: PCP Family Medicine; Visit Provider Physician Assistant
DX: M54.31 Sciatica, right side (principal)
CPT/HCPCS: 97014; 97110; 97530; G0283

== ENCOUNTER 2025-03-06 11:00 | Outpatient (RCR) | payer MEDICARE, SELFPAY | END 2025-03-06 23:59 | disposition home or self-care (01) | LOC: OT 11:00 | PROVIDERS: PCP Family Medicine; Visit Provider Family Medicine | DX: M25.519 Pain in unspecified shoulder (principal) | CPT/HCPCS: 97032; 97110; 97140; 97165; 97530 ==

== ENCOUNTER 2025-03-21 14:11 | Emergency (ER) | payer MEDICARE, SELFPAY ==
--- OUTSIDE RECORDS SUMMARY | 2024-10-18 07:30 | XMS_ITS ---
Author Organization [facility] Address [address] [place] [id number] Care Team Providers Care Residential Driver Name Role Phone Charlotte Corft Primary Care Provider Margie Rene Unavailable [phone] Allergies Allergen (clinical drug ingredient) Drug/Non Drug Allergy documented on EMR Reaction Allergy Type Onset Date Status sulfamethoxazole / trimethoprim Bactrim DS Nausea Drug Allergy Active doxycycline Doxycycline GI cramps Drug Allergy Act lydia azithromycin Zithromax diarrhea Drug Allergy Acti ve rosuvastatin Rosuvastatin upset stomach Drug Allergy Active Results Component Value Reference Range Notes H-DIARRHEA PANEL Reviewed date:10/21/2024 05:18:45 PM Interpretation:NOROVIRUS Detected Performing Lab: Notes/Report: AEROMONAS Not Detected NotDetected CAMPYLOBACTER Not Detected NotDetected CLOSTR DIFFICIL Not Detected NotDetected PLESIOMONAS Not Detected NotDetected SALMONELLA, PCR Not Detected NotDetected YERSINIA Not Detected NotDetected VIBRIO, PCR Not Detected NotDetected VIBRIO CHOLERAE Not Detected NotDetected ECOLI (EAEC) Not Detected NotDetected ECOLI (EPEC) Not Detected NotDetected ECOLI (ETEC) Not Detected NotDetected SHIGATOXIN Not Detected NotDetected ECOLI O157 Not Detected NotDetected SHIG-INVAS ECOL Not Detected NotDetected CRYPTO Not Detected NotDetected CYCLOSPORA Not Detected NotDetected EHISTOLYTICA Not Detected NotDetected GIARDIA Not Detected NotDetected ADENO STOOL Not Detected NotDetected ASTROVIRUS Not Detected NotDetected NOROVIRUS Detected NotDetected NOTIFICATION RESULT Results called to: on 10/19/24 at 1724 By Didier Simons MLT ROTOVIRUS A Not Detected NotDetected SAPOVIRUS Not Detected NotDetected REASON FOR VISIT abdominal pain Medications Medication SIG (Take, Route, Frequency, Duration) Notes Start Date End Date Status Vitamin B-12 1000 MCG 1 tablet Orally On ce a day; Duration: 30 day(s) Active Red Yeast Rice 600 MG as directed Orally Active Vitamin C 500 MG as directed Orally Active Dicyclomine HCl 10 MG 1 cap(s) Orally Th ree times a day prn cramping 08/13/2024 Active Potassium Chloride ER 10 MEQ 1 tablet with food Orally Twice a day 08/27/2024 Active Aspirin 81 MG 1 tablet Orally Once a day Active Estrace 0.1 MG/GM 1 gram intravaginall y every other day at bedtime; Duration: 30 day(s) Active Atorvastatin Calcium 10 MG 1 tablet Orally Once a day; Duration: 90 days Active OSTEO-BIFLEX 1 P.O. ONCE DAILY Active Fish Oil 1000 MG 1 cap(s) orally 3 ti mes a day; Duration: 30 day(s) Active Vital Signs Blood pressure systolic 118 mm Hg 10/19/19 25 Blood pressure diastolic 68 mm Hg 025 Heart Rate 62 /min 10/18/2024 Height 64.50 in 10/18/2024 Weight 162.6 lbs 10/18/2024 BMI 27.48 kg/m2 10/18/2024 Encounters Encounter Location Date Provider Diagnosis [facility] [address] [facility] [address] [place] [phone] 10/18/2024 Margie Rene Diverticulitis K57.9 2 and Chronic diarrhea K52.9 Assessments Encounter Date Diagnosis (ICD Code) Assessment Notes Treatment Notes Treatment Clinical Notes Section Notes 10/18/2024 Diverticulitis (ICD-10 - K57.92) Will check a stool panel first as she has developed diarrhea. If it is negative, will need another CT of the abdomen/pelvi s. 10/18/2024 Chronic diarrhea (ICD-10 - K52.9) Plan Of Treatment Treatment Notes Assessment Notes Diverticulitis Will check a stool p jacklyn first as she has developed diarrhea. If it is negative, will need another CT of the abdomen/pelvis. Next Appt Details Follow Up: via phone to repo rt test results, Reason: Provider Name:Charlotte Barfield, 03/27/2025 11:00:00 AM, [address], [address], [place], [phone], Progress Notes * GREG CUENCADOB:1950 (74 yo F)Acc No.[id number]:10/18/2024 Progress Notes Patient: GREG MONTIEL Provider: VITA Barba :1950 A ge:74 Y S ex:Female Date:10/18/2024 Address:[address], [place], [id number] Pcp:Charlotte Croft Subjective: * Chief Complaints: * 1 . Abdominal pain. * HPI: G astroenterology: 74 year old female presents with c/o Abdominal Pain P t is here today with c/o being SOB. Pt sts she has had d iverticulitis since the last week of June and sts she has taken 2 weeks of antibiotics and lost 8-9 pounds. She is worried it has come back because she has had diarrhea and lower abdominal cramping. . c/o Diarrhea P t sts that anything she eats goes right through her . * ROS: C ARDIOLOGY: no C hest [...] Three times a day prn cramping , Medication List reviewed and reconciled with the patient * Allergies: D oxycycline: GI cramps - Side Effects, Zithromax: diarrhea - Side Effects, Bactrim DS: Nausea - Side Effects, Rosuvastatin: upset stomach - Side Effects. Objective: * Vitals: W t:162.6, Temp:98.3, BP:118/68, HR:62, O2 Sat:99% on RA, Nurse:[facility], Ht: 64.50, BMI:27.48. * Examination: G astroenterology: General Appearance: p leasant, NAD. O ral cavity: n ormal. S clera: a nicteric. H eart sounds: r egular, normal S1 S2, no murmurs. L ungs: c lear, no rales or wheezes. A bdomen: B S present, soft, ttp in the bilateral lower quadrants, no guarding or rigidity, no masses felt. H ernias: n one. ? Assessment: * Assessment: 1. D iverticulitis - K57.92 (Primary) 2 . C hronic diarrhea - K52.9 ? Plan: * Treatment: 2. C hronic diarrhea L AB: H-DIARRHEA PANEL (Collection Date & Time - 10/18/2024 07:30 PM) N OROVIRUS Detected Value Reference Range A EROMONAS Not Detected NotDetected - * C AMPYLOBACTER Not Detected NotDetected - * C LOSTR DIFFICIL Not Detected NotDetected - * P LESIOMONAS Not Detected NotDetected - * S ALMONELLA, PCR Not Detected NotDetected - * Y ERSINIA Not Detected NotDetected - * V IBRIO, PCR Not Detected NotDetected - * V IBRIO CHOLERAE Not Detected NotDetected - * E COLI (EAEC) Not Detected NotDetected - * E COLI (EPEC) Not Detected NotDetected - * E COLI (ETEC) Not Detected NotDetected - * S HIGATOXIN Not Detected NotDetected - * E COLI O157 Not Detected NotDetected - * S HIG-INVAS ECOL Not Detected NotDetected - * C RYPTO Not Detected NotDetected - * C YCLOSPORA Not Detected NotDetected - * E HISTOLYTICA Not Detected NotDetected - * G IARDIA Not Detected NotDetected - * A BROCK STOOL Not Detected NotDetected - * A STROVIRUS Not Detected NotDetected - * N OROVIRUS Detected Aa NotDetected - * R OTOVIRUS A Not Detected NotDetected - * S APOVIRUS Not Detected NotDetected - * Carla Spangler 10/21/2024 11:36 :33 AM > See phone encounterMargie Rene 10/21/2024 5:18:39 PM > see TE * Procedure Codes: G 2211 Complex e/m visit add on, 3074F SYST BP LT 130 MM HG, 3078F DIAST BP < 80 MM HG * Follow Up: v ia phone to report test results * Images: Billing Information: * Visit Code: 50174 Office Visit, Est Pt., Level 3. * Procedure Codes: G2211 Complex e/m visit add on. 3074F SYST BP LT 130 MM HG. 3078F DIAST BP < 80 MM HG. * Electronic signature of VITA Llamas on 03/21/2025 at 02:26 PM EDT Sign off status: Pending * Provider: VITA Barba Date: 0 10/18/2024 Generated for Joyce goldberg/Lalit/Halleitting on: 0 03/21/2025 02:26 PM EDT History and Physical Notes * HPI (History of Present Illness) Category Sub-Category Detail Notes Category Not es Gastroenterology Abdominal Pain Pt is here toda y with c/o being SOB. Pt sts she has had diverticulitis since the last week of June and sts she has taken 2 weeks of antibiotics and lost 8-9 pounds. She is worried it has come back because she has had diarrhea and lower abdominal cramping. Diarrhea Pt sts that anything she eats goes right through her Examination Category Sub-Category Detail Notes Category Not es Gastroenterology Oral cavity: normal Sclera: anicteric Heart sounds: regular, normal S1 S 2, no murmurs Lungs: clear, no rales or w heezes Abdomen: BS present, soft, tt p in the bilateral lower quadrants, no guarding or rigidity, no masses felt Hernias: none General Appearance: pleasant, NAD
--- OUTSIDE RECORDS SUMMARY | 2025-01-17 07:30 | XMS_ITS ---
Author Organization [facility] Address [facility] [address] [place] [id number] Care Team Providers Care Front End Application Developer Name Role Phone Charlotte Croft Primary Care Provider [phone] Liu Fatima [phone] Allergies Allergen (clinical drug ingredient) Drug/Non Drug Allergy documented on EMR Reaction Allergy Type Onset Date Status sulfamethoxazole / trimethoprim Bactrim DS Nausea Drug Allergy Active doxycycline Doxycycline GI cramps Drug Allergy Act lydia azithromycin Zithromax diarrhea Drug Allergy Acti ve rosuvastatin Rosuvastatin upset stomach Drug Allergy Active REASON FOR VISIT left shoulder Encounters Encounter Location Date Provider Diagnosis [facility] [address] [place] [phone] 01/17/2025 Liu Fatima Plan Of Treatment Next Appt Details Provider Name:Charlotte Barfield, 03/27/2025 11:00:00 AM, [facility], [address], [place], [phone], Progress Notes * GREG CUENCADOB:1950 (74 yo F)Acc No.[id number]:01/17/2025 Progress Notes Patient: GREG MONTIEL Provider: Sara Fatima M.D. :1950 A ge:74 Y S ex:Female Date:01/17/2025 Address:[address], [id number] Pcp:R Ryley Lang Subjective: * Chief Complaints: * 1 . Left shoulder. * HPI: S houlder/Upper arm: 74 year old female presents with c/o shoulder pain l eft.? * ROS: D ERMATOLOGY: no R rakan. n o H addis. G ASTROENTEROLOGY: no N ausea. n o V omiting. U ROLOGY: no D ifficulty urinating. n o B lood in urine. * Medical History: H iatal Hernia, Depression, hx of gout diagnosed by Dr. Matthew, Pandiverticulosis of colon, Colon polyp, Torn right rotator cuff, Right breast cancer, Cataracts, HLP, ASCVD. * Surgical History: C holecystectomy 12/2006, hysterectomy, abdominal 2001, bladder tuck 2011, Colonoscopy/Dr. Benton/ diverticulosis, polyp 08/2015, right breast lumpectomy/ Dr. OTT 2021, cataract , heart cath with stent x1/ Hair 03/2023. * Hospitalization/Major Diagno stic Procedure: k viviana stones 1986. * Family History: F ather: . M other: , diagnosed with Hypertension, Diabetes, Heart Disease. 2 brother(s) , 3 sister(s) . 3 daughter(s) . . Sister with colon cancer; brother with lung cancer. * Social History: C URRENT TOBACCO USE S moking Status: Patient does NOT smoke. C affeine: yes, frequency: coffee. Home smoke detector use: yes. Alcohol: No. * Allergies: D oxycycline: GI cramps - Side Effects, Zithromax: diarrhea - Side Effects, Bactrim DS: Nausea - Side Effects, Rosuvastatin: upset stomach - Side Effects. Objective: * Vitals: Assessment: Plan: * Treatment: * Images: Billing Information: * Visit Code: * Procedure Codes: * Electronic signature of Jemima Fatima MD on 03/21/2025 at 02:27 PM EDT Sign off status: Pending * Provider: Sara Fatima M.D. Date: 0 01/17/2025 Generated for Joyce goldberg/Lalit/Halleitting on: 0 03/21/2025 02:27 PM EDT History and Physical Notes * HPI (History of Present Illness) Category Sub-Category Detail Notes Category Not es Shoulder/Upper arm shoulder pain left
--- OUTSIDE RECORDS SUMMARY | 2025-01-30 11:00 | XMS_ITS ---
Author Organization Elieser Address [address] [place] [address] 36 [facility] [address] [place] [phone] Care Team Providers Care Shoe Caser Name Role Phone Charlotte Croft Primary Care Provider [phone] Allergies Allergen (clinical drug ingredient) Drug/Non Drug [...] Last Name Lang Referring Provider [facility] Referred Organization [facility] Referred Provider Physical Therapy, . Referred Address [address] [place] [address] Blair diaz [place],[id number], Referred Provider Specialty Occupational Therapy General Notes Keyana Ruano 2024 09:29:53 AM > faxed to [facility] Aníbal CARCAMO Julia 01/31/2025 09:39:22 AM >Patient [...] Orally Once a day Active Vital Signs Blood pressure systolic 120 mm Hg 01/31/20 25 Blood pressure diastolic 60 mm Hg 025 Heart Rate 76 /min 01/30/2025 Height 64.50 in 01/30/2025 Weight 138.6 lbs 01/30/2025 BMI 23.42 kg/m2 01/30/2025 Encounters Encounter Location Date Provider Diagnosis [facility] [address] [place] [id number] 01/30/2025 Charlotte Croft Shoulder pain M25.51 9 ; Dyslipidemia [...] 01/31/2025 01/31/2025, shoulder pain, . Physical Therapy, [facility] [address], [place], [place], [phone], Next Appt Details Follow Up: after treatment, Reason: Provider Name:Charlotte Barfield 03/27/2025 11:00:00 AM, [address], [address], [place], [phone], Progress Notes * JOELLENGREGDOB:1950 (74 yo F)Acc No.[id number]:01/30/2025 Progress Notes Patient: GREG MONTIEL Provider: Charlotte Croft M.D. :1950 A ge:74 Y S ex:Female Date:01/30/2025 Address:[facility] [address], [place], [id number] Subjective: * Chief Complaints: * 1 . [...] receptor status - C50.211 4 . B DE 23.0-23.9, adult - Z68.23 Plan: * Treatment: * Procedure Codes: G 2211 Complex e/m visit add on, 1036F TOBACCO NON-USER, G8420 BMI<30 AND >=22 CALC & DOCU, G8783 BP SCR PRFRM RCMDD DEFIND SCR INTVL, G8752 MOST RECENT SYSTOLIC BP < 140MM HG, G8754 MOST RECENT DIASTOLIC BP < 90MM HG * Follow Up: a fter treatment * Images: Billing Information: * Visit Code: 09190 Office Visit, Est Pt., Level 3. * Procedure Codes: G2211 Complex e/m visit add on. 1036F TOBACCO NON-USER. G8420 BMI<30 AND >=22 CALC & DOCU. G8783 BP SCR PRFRM RCMDD DEFIND SCR INTVL. G8752 MOST RECENT SYSTOLIC BP < 140MM HG. G8754 MOST RECENT DIASTOLIC BP < 90MM HG. * Electronic signature of Charlotte Croft MD on 03/21/2025 at 02:27 PM EDT Sign off status: Pending * Provider: Charlotte Croft M.D. Date: 0 01/30/2025 Generated for Joyce goldberg/Lalit/Dianasmitting on: 0 03/21/2025 02:27 PM EDT History [...] Referral Date Referring Provider Referred Provider Not jalen 01/31/2025 Charlotte Croft Physical Therapy, . rosa ulder pain
[2025-03-21] VITALS (12 sets, daily range): BP systolic 123–173; BP diastolic 58–90; PULSE 62–80; RESP 8–20; TEMP 36.8–36.9; O2SAT 95–100; BMI 25.0
--- NOTE | 2025-03-21 14:24 | PC.NURSE ---
patient gone to CT at this time
--- NOTE | 2025-03-21 14:25 | ECG_ITS ---
APPROVED REPORT Exam: Resting ECG HR:69 bpm ECG Measurements Heart Rate 69 AXES NM 171 P 50 QRSd 90 QRS 43 QT 401 T 46 QTc 420 Conclusion SINUS RHYTHM POSSIBLE INFERIOR MYOCARDIAL INFARCTION , PROBABLY OLD [30 ms Q WAVE IN II/aVF] BORDERLINE ECG UNCONFIRMED REPORT Normal sinus rhythm. No ST elevation or depression. Electronically signed by : AAKASH LOWE, 03/22/2025 07:45:04
--- NOTE | 2025-03-21 14:25 | CT_ITS ---
FINAL REPORT TECHNIQUE: thin section axial CT with and without IV contrast supplemented with multiplanar 3-D reconstruction of the head. This study was performed with techniques to keep radiation doses as low as reasonably achievable, (ALARA)individualized dose reduction techniques using automated exposure control or adjustment of mA and/or kV according to the patient's size were employed. CLINICAL HISTORY: possible stroke FINDINGS: The cranial circulation is unremarkable. There is no significant stenosis, aneurysm or occlusion. IMPRESSION: No large vessel occlusion. Reviewed, Interpreted and Dictated by Joce Boland MD Transcribed by Klarissa Bone Authenticated and . [facility]
--- NOTE | 2025-03-21 14:25 | CT_ITS ---
FINAL REPORT TECHNIQUE: NASCET technique utilized for stenosis evaluation. This study was performed with techniques to keep radiation doses as low as reasonably achievable, (ALARA). Individualized dose reduction techniques using automated exposure control or adjustment of mA and/or kV according to the patient's size were employed. CLINICAL HISTORY: possible stroke FINDINGS: RIGHT CAROTID: No significant stenosis is seen of the cervical common or internal carotid artery. LEFT CAROTID: No significant stenosis seen of the cervical common or internal carotid artery. VERTEBRALS: The vertebrals are patent and symmetric. No significant stenosis is present. IMPRESSION: No significant arterial abnormality. Reviewed, Interpreted and Dictated by Joce Boland MD Transcribed by Klarissa Bone Authenticated and . [facility]
--- NOTE | 2025-03-21 14:25 | CT_ITS ---
FINAL REPORT TECHNIQUE: Axial CT images were performed through the head. Coronal reformatted images were submitted. This study was performed with techniques to keep radiation doses as low as reasonably achievable (ALARA). Individualized dose reduction techniques using automated exposure control or adjustment of mA and/or kV according to the patient's size were employed. CLINICAL HISTORY: possible stroke FINDINGS: The ventricles are normal in size. There is no evidence of hemorrhage. There is no mass or edema identified. There is no abnormal extra-axial fluid seen. There is mild mucoperiosteal thickening in the left maxillary sinus consistent with chronic sinusitis. IMPRESSION: No acute intracranial process. Chronic left maxillary sinusitis. Reviewed, Interpreted and Dictated by Joce Boland MD Transcribed by Klarissa Bone Authenticated and [facility]
--- OUTSIDE RECORDS SUMMARY | 2025-03-21 14:27 | XMS_ITS ---
Author Organization Unknown TREATMENT PLAN [facility] Start Date Provider Encounter for Check-up [phone] [facility]
--- OUTSIDE RECORDS SUMMARY | 2025-03-21 14:28 | XMS_ITS ---
Author Organization [facility] Address [address] [place] [address] Care Team Providers Care Coagulating Drying Supervisor Name Role Phone Sal Croft MD Primary Care Provider Active Problems Problem Noted Date Diagnosed Date Malignant neoplasm of upper- outer quadrant of right breast in female, estrogen receptor positive 08/24/2022 Cancer Staging:Pathologic:Stage IA(pT1mi, pN0, cM0, G2, ER+, CT+, HER2-) - Signed by Lila Oliveira MD on 08/24/2022 Current Treatment and Therapy Plans No current plan information found. Past Treatment and Therapy Plans No past plan information found. Treatment Summaries Malignant neoplasm of upper-outer quadrant of right breast in female, estrogen receptor positive* Images from the original note were not included. Breast Cancer Survivorship Plan General Information Patient name Kristy Hernandez Date of 1950 Phone Email No e-mail address on record Cancer Treatment Team Patient Care Team: Akiko Jimenez MD as Consulting Physician (Radiation Oncology) Michell Harkins MD as Referring Physician (General Surgery) Lila Oliveira MD as Consulting Physician (Hematology and Oncology) Provider Phone numbers Care Team Provider: Akiko Jimenez MD, ([phone]) Care Team Provider: Michell Harkins MD, ([phone]) Care Team Provider: Lila Oliveira MD, ([phone]) Post Treatment Care Team Primary Care Physician Sal Croft MD [address] [facility] [address] [facility] [id number] Background Information Medical history Past Medical History: Breast cancer Right GERD (gastroesophageal reflux disease) Hiatal hernia Surgical history Past Surgical History: BREAST LUMPECTOMY CHOLECYSTECTOMY HYSTERECTOMY OOPHORECTOMY Tobacco use Social History Tobacco Use Smoking Status Never Smokeless Tobacco Never Family oncology history Cancer-related family history includes Colon cancer in her sister; Lung cancer in her brother. There is no history of Breast cancer or Ovarian cancer. Oncology Information Oncology/Hematology History Malignant neoplasm of upper-outer quadrant of right breast in female, estrogen receptor positive 08/24/2022 Initial Diagnosis Malignant neoplasm of right breast in female, estrogen receptor positive (HCC) 08/24/2022 Cancer Staged Staging form: Breast, AJCC 8th Edition - Pathologic: Stage IA (pT1mi, pN0, cM0, G2, ER+, CT+, HER2-) - Signed by Lila Oliveira MD on 08/24/2022 Complications during Therapy: No concerns stated Modification to Treatment Plan: discontinued by patient Lifetime Dose Tracking No doses have been documented on this patient for the following tracked chemicals: Doxorubicin, Epirubicin, Idarubicin, Daunorubicin, Mitoxantrone, Bleomycin, Mitomycin, Doxorubicin Liposomal [No matching plan found] Persistent Treatment-Associated Adverse Effects at Completion of Therapy It is important to recognize that not every person experiences the following adverse events after treatment. You may not have any of these issues, a few or many adverse effects. Experiences are highly variable. Please discuss any adverse effects of cancer treatment with your cancer care team. After Surgical Therapy Breast Conserving Surgery (Lumpectomy) Breast conserving surgery (lumpectomy) involves the removal of the breast mass (cancer lump) and a surrounding area of normal tissue. After surgery, there may be pain and soreness in the chest, underarm or shoulder which should get better over time. Nerves may be damaged in the breast and areas of lymph node removal which may result in numbness and other changes in sensation. Ask your doctor or nurse if you have issues with pain, numbness or tingling, or any changes in function or mobility. Breast conserving surgery allows women to keep their breast but the breast may look different than it did before surgery. The breast may be smaller and may be different in size and shape. There will be a scar from the surgery and scar tissue may feel different. Radiation therapy can also affect theway the breast looks and feels. How you think and feel about your body is important and coping withchanges after breast surgery takes time. It's important to look at your scar, which should become less red and swollen over time. It's important to touch your scar, too. Your physician may give you instructions about massaging the scar to help with healing and to soften scar tissue. If you have a partner, let your partner look at and feel the scar when you're ready. Working through feelings aboutthe cancer and changes as a result of surgery may take time and support. Talk with your doctor or nurse about any issues with body image and coping. Survivors of breast cancer should speak with their health care provider regarding the possibility of a genetic or family syndrome. If there does appear to be a family history or possible genetic syndrome, genetic counseling and testing may be recommended. After Chemotherapy No chemotherapy received. After Radiation Therapy No radiation treatments received. Hormone Therapy Not receiving hormone therapy Care of your Venous Access Device No Venous Access Device currently in place General After Cancer Treatment It is not uncommon for cancer to impact other areas of your life such as relationships, work and mental health. If you develop financial concerns, resources are sometimes available to assist in theseareas. Depression and anxiety can present either during or after cancer diagnosis and treatment. Itis important to discuss with your physician any of these concerns so these resources can be made available to you. General Cancer Support & Resources [facility] [address], [address] [place] [address] Med Onc: Dental Assistant Onc: Traffic Control Operator: Ingrid Horne - Psychiatric Nurse Practitioner: Rosario Lentz APRN - [phone] Kick It! (A free smoking cessation program) Financial Counselor and Contact Information: [facility] Financial Counseling - Briquette Molder Contact Information: Gretel Wray - [phone] Wound Ostomy & Continence Nurse: Local Cancer Support Group and Contact Information: Look Good Feel Better: A non-medical, brand-neutral public service program that teaches beauty techniques to people with cancer to help them manage the appearance-related side effects of cancer treatment. The program includes lessons on skin and nail care, cosmetics, wigs and turbans, accessories and styling, helping people with cancer to find some normalcy in a life. - See more at: http://lookgoodfeelbetter.org Journey Toward Empowerment - for Women with Cancer: ([facility]) The Tools and encouragement you need to live your life to the fullest. Free Dinner served @ 6:00pm followed by speaker from 6:30 - 7:30pm. The series runs from May, and meets monthly. Call Suze Marti RN, OCN @ to receive information and upcoming schedule. [place] [facility]: This support group is open to anyone that has been diagnosed with cancer of any type. Meets at 6:30pm on the last Monday of each month. Location: [facility]; [address] [place] [address]. For more information call Madyson Lopez @ . Breast Cancer Support & Resources Local Cancer Support Groups and Contact Information: [employer] ([place]): Breast Cancer Support group. Meets the Monday of each month at various locations. Please Call Dany Mojica for meeting information @ [phone] or Nia Scanlon @ [phone]. The Journey: Breast Cancer Support Ministry: Meets the Monday of each month, 5:00PM @ [facility] [place], [place]. Please call Clair Huff at [phone] for additional information. Reach To Recovery: An [employer] [employer] peer support group for women with a concern about breast cancer. Patentscan talk with volunteer breast cancer survivors, in person or over the phone, for support & encouragement. Also, after you have completed your journey and would like to give back, you can call the [phone] number to volunteer as a survivor and support to others. For additional information, please call [phone] or go to sss.cancer.org. Surveillance How Frequent? Medical Oncology visits 1 - 4 times per year as clinically appropriate for 5 years, then annually Lab tests Imaging exams Mammography Every 12 months Lymphedema Monitor for lymphedema Genetic Counseling Periodic screening for changes in family history and referral to genetic counseling as indicated Gynecologic assessment For women on tamoxifen, gynecologic assessment every 12 months if uterus is present. Bone Density study For women on aromatase inhibitor or who experience ovarian failure secondary to treatment should have monitoring of bone health and bone mineral density determination at baseline and periodically thereafter Immunizations Influenza Herpes Zoster Pneumococcal Yearly Once As appropriate Tobacco Cessation The patient is not currently a tobacco user. Counseling given: Not Answered Monitor for ongoing toxicities: None Specified Call your doctor if you have any of these signs or symptoms Patient decided to discontinue Hormone Blocking Agent Referrals provided There are no referral needs at this time. Self Care Plan Self Care Plan: What You Can Do to Stay Healthy after Treatment for Cancer Cancer treatments may increase your chance of developing other health problems years after you havecompleted treatment. The purpose of this self care plan is to inform you about what steps you can take to maintain good health after cancer treatment. Keep in mind that every person treated for cancer is different and that these recommendations are not intended to be a substitute for the advice of a doctor or other health transitional care manager. Please use these recommendations to talk with your health care provider about an appropriate follow up care plan for you. Surveillance for Your Cancer Recommendation Frequency Comments Cancer surveillance visit with medical provider that is focused on detecting signs of recurrence ofyour cancer. For additional information, visit www.livestrong.org or www.cancer.net/patient/Survivorship Frequency depends on type and stage of cancer you had. (If you had a higher risk cancer, you may be seen more often). Your doctor has provided you with a personalized cancer treatment summary and survivorship care plan. If you need another copy, ask your doctor. General Cancer Screening for Women Cancer screening tests are designed to find cancer or pre-cancerous areas before there are any symptoms and, generally, when treatments are most successful. Various organizations have developed guidelines for cancer screening for women. While these guidelines vary slightly between different organizations, they cover the same basic screening tests for breast, cervical and colorectal cancers. In addition, during routine health examinations (at any age) your health care provider may also evaluate for cancers of the skin, mouth and thyroid. Not all screening tests are right for everyone. Your personal and family cancer history, and/or the presence of a known genetic predisposition, can affect which tests are right for you, and at what age you begin them. Therefore, you should discuss these with your health care provider. Your care plan will also include a section on follow up care foryour type of cancer, and these recommendations override the general screening recommendations for that particular type of cancer in the general population. The [place] [employer] (ACS) recommends these screening guidelines for women: Recommendation Frequency Comments Breast Cancer Screening For more information, see the ACS document Breast Cancer: Early Detection. www.cancer.org/ssLINK/jubkng-gmrlbn-ayvnl-detection-kinza Yearly mammograms starting at age 40, and continuing for as long as a woman is in good health. Clinical breast exam (CBE), performed by a health transitional care manager, every three years for women intheir 20s and 30s, and every year for women 40 and over. A monthly breast self-exam (BSE) is a good way to monitor breast health. Women should know how their breasts normally look and feel, and report any change promptly to their health care provider. The ACS recommends that some women - because of their family history, a genetic tendency, or certain other factors - be screened with Magnetic Resonance Imaging (MRI) in addition to mammograms. The numberof women who fall into this category is small (less than 2 percent of all [place] women). Talk with your doctor about your personal history and whether you should have additional tests at an earlier age. Colon and Rectal Cancer Screening For more information see the ACS document Colorectal Cancer: Early Detection. www.cancer.org/ssLINK/pxktjbgzka-pdbpio-upzod-detection-kinza Options for colon cancer screening can be divided into those that screen for both cancer and polyps, and those that just screen for cancer.Screening should begin at age 45 (unless you are considered high risk (see comments), using one of the following testing schedules: Tests that find polyps and cancer (Preferred over those that find cancer alone. If any of these tests are positive, a colonoscopy should be done.) Flexible sigmoidoscopy every five years, or Colonoscopy every 10 years, or Double-contrast barium enema every five years, or CT colonography (virtual colonoscopy) every five years Tests that primarily test for cancer Yearly fecal occult blood test (FOBT)*, or Yearly fecal immunochemical test (FIT) *, or Stool DNA test (sDNA), interval uncertain* * The multiple stool take-home test should be used. One test done by the doctor in the office is not adequate. A colonoscopy should be done if the test is positive. Talk with your doctor about your medical history, and what colorectal cancer screening test and schedule is best for you. Individuals at higher risk of colon cancer should have screening earlier and potentially more frequently. Those at higher risk of colon and rectal cancer: Individuals with a family history of colon or rectal cancer in a relative who was diagnosed before the age of 60 Individuals with a history of polyps Individuals with inflammatory bowel disease (Crohn's disease or ulcerative colitis) Individuals with a genetic predisposition to colon or rectal cancer, such as hereditary non-polyposis colon cancer (HNPCC) syndrome or familial adenomatous polyposis (FAP) syndrome Cervical Cancer Screening For more information see the ACS document Cervical Cancer: Early Detection. www.cancer.org/.../ehhycagn-tmeawr-xrueeqyzbq-wpi-ltcxb-vedxpfpml-kinza Cervical cancer screening should not begin before age 21. Screening Pap tests should be performed every three years between age 21 and 29 Women age 30 or older should be screened every 3 years with a Pap test or every five years with a combined Pap/Human Papillomavirus (HPV) test. Women 65 years of age or older who have had negative consecutive screening in the preceding 10 years should discontinue screening. Women who have had a total hysterectomy (removal of the uterus and cervix) should also stop having Pap tests, unless the surgery was done as a treatment for cervical cancer or pre-cancer. Women who have had a hysterectomy without removal of the cervix should continue to have Pap tests. Women who have had a history of a serious cervical precancer should continue screening for at least20 years, even if that extends screening past age 65. Women who have been vaccinated against HPV should still follow these screening guidelines. Treatment for most gynecological cancers involves hysterectomy and alters recommendations for Pap tests. Refer to your personalized cancer treatment summary and survivorship care plan to see what the Pap test recommendations are for you. If you need another copy of your care plan, please ask your doctor. Sun Exposure and Skin Cancer Risk Skin cancer is the most commonly diagnosed type of cancer, and rates are on the rise. However, thisis one cancer that in most cases can be prevented or detected early. While you may hear that you need the sun to make vitamin D, in reality you only need a few minutes a day to do this. Exposure to ultraviolet (UV) rays, either by natural sunlight or tanning beds, can lead to skin cancer. In additio n, UV rays lead to other forms of skin damage, including wrinkles, loss of skin elasticity, dark patches (sometimes called age spots or liver spots), and pre- cancerous skin changes (such as dry, scaly, rough patches). Although dark- skinned people are less likely to develop skin cancer, they can anddo develop skin cancers, most often in areas that are not exposed to sun (on the soles of the feet,under nails, and genitals). You can do a lot to protect yourself from damaging UV rays and to detect skin cancer early. Start by practicing sun safety, including using a broad spectrum sunscreen (which protects against UVA and UVB rays) with an SPF of at least 30 every day, avoiding peak sun times (10 a.m. to 4 p.m., when therays are strongest) and wearing protective clothing such as hats, sunglasses and long- sleeved shirts. Examine your skin regularly so you become familiar with any moles or birthmarks. If a mole has changed in any way, you should have a health care provider examine the area. This includes a change in size, shape or color; the development of scaliness, bleeding, oozing, itchiness or pain; or the development of a sore that will not heal. If you have a lot of moles, it may be helpful to make note of moles using photographs or a mole map . For a guide to performing a skin exam, visit www.skincarephysicians.com/skincancernet/skin_examinations.html. Healthy Lifestyle For some cancer survivors, the experience is the motivation to making healthy lifestyle changes. Itmay seem insignificant, but these changes have been shown to reduce the risk of the cancer coming back or a new cancer developing. Below are some tips on adopting a healthier lifestyle. Maintaining ahealthy weight is important in cancer prevention, as is physical activity and eating a healthy diet. Strive to incorporate all three pieces of the puzzle: healthy weight, balanced diet and regular exercise. Recommendation Goal Comments Maintain a healthy weight. For more information, visit http://www.nhlbi.nih.gov/health/public/heart/obesity/lose_wt/index.htm www.win.niddk.nih.gov Call the [place] [employer] Talk to your health care team about what a healthy weight is for you, and take stepsto reach and maintain that weight. For many people reaching their ideal weight can be a challenge; however, losing even 5 to 10 poundscan lower blood pressure, blood sugar and cholesterol levels. Weigh yourself weekly to monitor for weight gain/loss Being overweight can increase your chance of your cancer coming back. Maintaining a healthy weight, physical activity and eating a healthy diet are all important in cancer prevention. Being overweight can increase your chance of having high blood pressure, high blood sugar and/or high cholesterol, which can lead to heart disease, diabetes and stroke. If you would like more information about your blood sugar, cholesterol or blood pressure, talk with your primary care provider. Eat a healthy diet, mostly from plant sources. For more information, visit http://www.Fly [employer]i.gov/food-groups/ Eat healthy, including plenty of fruits and vegetables daily. Drink more water, less soda and juice. Limit how much alcohol you drink (if you drink at all). Strive to have two- thirds of your plate be vegetables, fruits, whole grains and beans, while one- third or less should be an animal product. Choose fish and chicken and limit red meat and processed meats. Limit intake of alcohol to two drinks per day. Exercise. To learn more about recommendations for diet, activity and weight, visit AICR???s Guidelines for Survivors http://preventcancer.aicr.org/site/PageServer?pagename=patients_survivors_guidel sara ACS Eat Healthy and Get Active www.cancer.org/Healthy/EatHealthyGetActive/index Experts recommend at least 30 minutes of sfothoje-rr-bsjtauna activity per day, five days a week. Research shows that exercise can help you control your weight, improve your energy level, and help you sleep at night. The villa is to find a physical activity you enjoy such as walking, dancing or gardening and do it regularly. If you have been inactivefor a while, start out slowly. You can start out by exercising 10 minutes a day several days a week. If you feel dizzy, short of breath, or have chest pain during exercise, stop exercising and talk with your primary care doctor. Do not use tobacco in any form. For more information, visit http://www.cdc.gov/tobacco/campaign/tips/ If you use tobacco, quit as soon as possible. Smoking is the most preventable cause of in the [place] If you would like more information, ask your doctor or you can call a national hotline at 2(579)-QUIT-NOW. Keep your bones healthy. For more information, visit www.niams.nih.gov/Health.../Bone/Bone_Health/bone_health_for_life For the FRAX (Fracture Risk Assessment) tool, visit: www.shef.ac.uk/FRAX/ , to estimate 10-year risks for fractures Ask your primary care provider aboutscreening for osteoporosis beginning at age 65 or at a younger age if your bone fracture risk is increased. The 10-year risk for osteoporotic fractures can be calculated for individuals by using the FRAX tool and could help to guide screening decisions for women younger than 65 years. Maximize your bone health by eating healthy, getting enough calcium and vitamin D, and exercising regularly. Certain cancer treatments, such as chemotherapy or hormonal therapy, can cause bone loss. In addition, after menopause, women can lose up to 20 percent of their bone density. The good news is that women can maximize their bone density by eating healthy, getting enough calcium and vitamin D, and exercising regularly. Age (years) Calcium per day Vitamin D per day 19 to 49 1000 milligrams 600 units 50 or over 1200 milligrams 800 units Have regular check-ups by a healthcare professional. For more information about healthy screening tests for men visit the U.S. Department of Health and Human Services. http://www.womenshealth.gov/aiqbcrctr-gdfgw-wxt-vaccines/errijiill-httfm-vzz-men / For more information about adult vaccinations visit the CDC: http://www.cdc.gov/vaccines/recs/schedules/adult-schedule.htm Keep up-to-date on general health screening tests, including cholesterol, blood pressure and glucose (blood sugar) levels. Get an annual influenza vaccine (flu shot). Get vaccinated with the pneumococcal vaccine, which prevents a type of pneumonia, and re-vaccinatedas determined by your health care team. Don???t forget dental and eye health! The [employer] [employer] recommends adults have their eyes examined every two years until age 60, then annually. People who wear glasses or correctivelenses or are at high risk for eye problems (i.e., diabetics, family history of eye disease) shouldbe seen more frequently. The [employer] [employer] recommends adults see their dentist at least once a year. 10 No information on file. No information on file.
--- OUTSIDE RECORDS SUMMARY | 2025-03-21 14:28 | XMS_ITS | Clinical Summary ---
Author Organization [facility] Address [address] [place] [address] Care Team Providers Care Broadband Installer Name Role Phone Sal Croft MD Primary Care Provider Allergies Active Allergy Reactions Criticality Noted Date Comments Doxycycline Other (See Comments) Low 01/29/2024 Ticagrelor Nausea And Vomiting 01/29/2024 Azithromycin Nausea Only Low 08/24/2022 Medications Glucosamine-Cho ndroitin (OSTEO BI-FLEX REGULAR STRENGTH PO) Take by mouth 2 (Two) Times a Day. Active [place]-3 Fatty Acids (fish oil) 1000 MG capsule capsule Take 1 capsule by mouth Daily With Breakfast. Active Red Yeast Rice 600 MG capsule Take 1 capsule by mouth 1 (One) Time. Active vitamin B-12 (CYANOCOBALAMIN ) 1000 MCG tablet Take 1 tablet by mouth Daily. Active famotidine (PEPCID) 20 MG tablet Take 1 tablet by mouth 2 (Two) Times a Day. Active carboxymethylce llulose (REFRESH PLUS) 0.5 % solution Administer 1 drop to both eyes 3 (Three) Times a Day As Needed for Dry Eyes. Active Bioflavonoid Products (YURY C PO) Take 1,000 mg by mouth 1 (One) Time. Active atorvastatin (LIPITOR) 10 MG tablet 1 tablet Daily. Active sodium chloride (KEELY 128) 5 % ophthalmic solution 1 drop As Needed. Active aspirin 81 MG EC tablet Take 1 tablet by mouth Daily. Active Active Problems Problem Noted Date Diagnosed Date Malignant neoplasm of upper- outer quadrant of right breast in female, estrogen receptor positive 08/24/2022 Cancer Staging:Pathologic:Stage IA(pT1mi, pN0, cM0, G2, ER+, UT+, HER2-) - Signed by Lila Oliveira MD on 08/24/2022 Immunizations Immunization Administration Dates Next Due COVID-19 (MODERNA) Monovalen t Original Booster 05/04/2022 Fluzone High-Dose 65+yrs 05/27/2022,06/07/2021,0 05/05/2020 Family History Medical History Relation Name Comments Lung cancer Brother Heart disease Father Diabetes Mother Heart disease Mother Colon cancer Sister Breast cancer Neg Hx Ovarian cancer Neg Hx Relation Name Status Comments Brother Father Mother Sister Social History Tobacco Use Types Packs/Day Years Used Date Smoking Tobacco: Never Smokeless Tobacco: Never Tobacco Cessation:Counseling Given: Not Answered Alcohol Use Standard Drinks/Week Comments Never 0 (1 standard drink = 0.6 oz pur e alcohol) PHQ-2 Answer Date Recorded Retired PHQ-9: Brief Depression Severity Measure Score 0 11/23/2022 Abuse Screen Answer Date Recorded Feels Unsafe at Home or Work/School no 11/23/2022 Feels Threatened by Someone no 11/12 Does Anyone Try to Keep You From Having Contact with Others or Doing Things Outside Your Home? no 11/23/2022 Physical Signs of Abuse Present no 11/23/2022 PHQ-2 Answer Date Recorded Retired PHQ-9: Brief Depression Severity Measure Score 0 11/23/2022 Comments No Sex and Gender Information Value Date Recorded Sex Assigned at Not on file Legal Sex Female 3:22 PM EDT Gender Identity Not on file Sexual Orientation Not on file Last Filed Vital Signs Vital Sign Reading Time Taken Comments Blood Pressure 128/70 02/28/2024 12:55 PM EDT Pulse 80 02/28/2024 12:55 PM EDT Temperature 36.2 C (97.1 F) 08/24/2022 3:02 PM EST Respiratory Rate 18 11/23/2022 1:20 PM EDT Oxygen Saturation 96% 02/28/2024 12:55 PM EDT Inhaled Oxygen Concentration - - Weight 78 kg (172 lb) 02/28/2024 12:55 PM EDT Height 166.4 cm (5' 5.5 ) 02/28/2024 12:55 PM ED T Body Mass Index 28.19 02/28/2024 12:55 PM EDT Plan of Treatment Upcoming Encounters Date Type Department Care Team (Late st Contact Info) Description 05/28/2025 10:20 AM EDT Appointment [facility] [address] [place] [id number] Health Maintenance Due Date Last Done Comments LIPID PANEL 1950 TDAP/TD VACCINES (1 - Tdap) 1967 ZOSTER VACCINE (1 of 2) 1998 ANNUAL WELLNESS VISIT 06/08/2022 HEPATITIS C SCREENING 06/08/2022 DXA SCAN 08/18/2022 08/18/2020 RSV Vaccine - Adults (1 - 1- dose 75+ series) 2023 COVID-19 Vaccine (5 - 2023-2 5 season) 2024 05/04/2022, 05/19/2021, 10/07/2020, Additional history exists INFLUENZA VACCINE 05/14/2025 05/27/2022, , 05/05/2020 Pneumococcal Vaccine 50+ Completed 07/18/2023 MAMMOGRAM Discontinued 09/23/2024, 08/0 02/2024, 09/14/2023, Additional history exists Procedures Procedure Name Priority Date/Time Associated Diagnosis Comments MAMMO DIAGNOSTIC RIGHT W CAD Routine 09/23/2024 2:03 PM EST Abnormal mammogram SCANNED - DEXA 08/18/2020 from Last 3 Months or Most Recently Relevant to Health Maintenance Results * Mammo Diagnostic Right With CAD (09/23/2024 2:03 PM EST) Anatomical Region Laterality Modality Breast Right Mammography 09/23/2024 1:52 PM EST Impressions 09/23/2024 1:53 PM EST BI-RADS 2 benign finding RECOMMENDATION: The patient should return to routine annual screening mammography of both breasts in March 2025 unless clinically indicated sooner. The standard false-negative rate of mammography is between 10% and 25%. Complex patterns or increased breast density will markedly elevate the false-negative rate of mammography. A results letter, in lay terminology, will be given to the patient at the conclusion of the exam. 09/23/2024 1:[address] Naa Hartley MD on Narrative 09/23/2024 1:53 PM EST EXAMINATION:MAMMO DIAGNOSTIC RIGHT W CAD- HISTORY: 74-year-old female with a history of right breast conservation therapy. No current complaints TECHNIQUE: Standard 2D views of the right breast COMPARISON: Comparison is made to prior right mammograms dating back to 05/19/2022 FINDINGS: There are scattered areas of fibroglandular density. Changes consistent with right breast conservation therapy are present. No new suspicious masses microcalcifications or areas of architectural distortion are identified. Allan Perez MD IMG MAMMOGRAPHY ORDERABLES Final Result * SCANNED - DEXA (08/18/2020) Anatomical Region Laterality Modality Other us Lila Oliveira MD CHART REVIEW TABS Final Resul t from Last 3 Months or Most Recently Relevant to Health Maintenance Insurance MEDICARE ADVANTAGE HMO Care Teams Broadband Installer Relationship Specialty Start Date End Date Sal Croft MD [address] [facility] [address] [place] [id number] PCP - General Family Medicine 06/30/22
--- OUTSIDE RECORDS SUMMARY | 2025-03-21 14:28 | XMS_ITS | Patient Health Record ---
[facility] Address [address] [place] [phone] Care Team Providers Care Auto Parts Manager Name Role Phone Charlotte Croft Primary Care Provider [phone] Dinesh Fatimaian Unavailable [phone] Margie Rene Unavailable [phone] Allergies Allergen (clinical drug ingredient) Drug/Non Drug [...] Not Detected NotDetected SAPOVIRUS Not Detected NotDetected CT Scan : Abd and Pelvis w/ oral & IV contrast Reviewed date:10/30/2024 03:52:04 PM Interpretation:diverticulosis Performing Lab: Notes/Report: diverticulosis H-Lipase Reviewed date:08/27/2024 08:21:30 AM Interpretation:Normal Performing Lab: Notes/Report: LIP 108 23-300 U/L H-Amylase Reviewed date:08/27/2024 08:21:29 AM Interpretation:Normal Performing Lab: Notes/Report: MARY 49 30-110 U/L H-CMP Reviewed date:08/27/2024 08:21:29 AM Interpretation:K+ 3.2, co2- 32, Cr 0.5, gluc 134, prot 6 Performing Lab: Notes/Report: NA 139 136-145 mmol/L K 3.2 3.5-5.1 mmoL/L CL 102 98-107 mmol/L CO2 32 22.0-30.0 mmol/L GAP 8.2 5-15 mEq/L BUN 8 7-17 mg/dl CREATT 0.50 0.52-1.04 mg/dl GFRAA 146 >60 ML/MIN EGFR 120 >60 ml/min GLU 134 74-100 mg/dl CA 9.1 8.4-10.2 mg/dl BILIT 0.4 0.2-1.3 mg/dl AST 30 14-36 U/L ALT 23 12-78 U/L TP 6.0 6.3-8.2 g/dl ALB 3.7 3.5-5.0 g/dl GLOB 2.3 1.3-3.2 g/dL AGRATIO 1.6 1.1-1.8 ALP 79 38-126 U/L H-CBC Reviewed date:08/27/2024 08:21:29 AM Interpretation:rbc 4.06, hgb 11.8, hct 35.7 Performing Lab: Notes/Report: WBC 6.6 4.8-10.8 K/mm3 RBC 4.06 4.20-5.40 M/mm3 HGB 11.8 12.2-16.2 g/dL HCT 35.7 37.0-47.0 % MCV 87.9 81-99 fl MCH 29.1 27.0-31.2 pg MCHC 33.1 31.8-35.4 g/dL RDW 12.3 11.5-17.5 % PLT 358 142-424 K/mm3 MPV 9.5 7.4-10.4 fl NE% 63.9 37.0-80.0 % LY% 24.6 10-50 % MO% 9.8 1.7-9.3 % EO% 1.1 0.1-12.0 % BA% 0.3 0.1-2.0 % NE# 4.2 1.8-7.8 K/mm3 LY# 1.6 0.7-4.5 K/mm3 MO# 0.7 0.1-1.0 K/mm3 EO# 0.1 0.0-0.4 K/mm3 BA# 0.0 0-0.2 K/mm3 CT Scan : Abd & Pelvis w/o c ontrast Reviewed date:08/20/2024 09:35:06 AM Interpretation: Performing Lab: Notes/Report: H-CBC Reviewed date:08/26/2024 08:44:26 AM Interpretation: Performing Lab: Notes/Report: H-CMP Reviewed date:08/26/2024 08:44:41 AM Interpretation: Performing Lab: Notes/Report: H-Amylase Reviewed date:08/26/2024 08:44:52 AM Interpretation: Performing Lab: Notes/Report: H-Lipase Reviewed date:08/26/2024 08:45:03 AM Interpretation: Performing Lab: Notes/Report: H-CMP Reviewed date:10/28/2024 08:01:19 AM Interpretation: Performing Lab: Notes/Report: NA 136 136-145 mmol/L K 4.4 3.5-5.1 mmoL/L CL 100 98-107 mmol/L CO2 31 22.0-30.0 mmol/L GAP 9.4 5-15 mEq/L BUN 10 7-17 mg/dl CREATT 0.60 0.52-1.04 mg/dl GFRAA 118 >60 ML/MIN EGFR 97 >60 ml/min GLU 102 74-100 mg/dl CA 9.2 8.4-10.2 mg/dl BILIT 0.6 0.2-1.3 mg/dl AST 28 14-36 U/L ALT 22 12-78 U/L TP 7.3 6.3-8.2 g/dl ALB 4.6 3.5-5.0 g/dl GLOB 2.7 1.3-3.2 g/dL AGRATIO 1.7 1.1-1.8 ALP 78 38-126 U/L P-Comprehensive Metabolic Pa greg (CMP) Reviewed date:04/23/2024 08:14:51 AM Interpretation: Performing Lab: Notes/Report: Test performed by [facility] [address] [place] [address] , [address], [place] [address] Theodore Mon MD, Revenue Field Auditor CLIA: [id number] Sodium 140 135-145 mmol/L Potassium 4.7 3.5-5.3 mmol/L Chloride 102 97-108 mmol/L CO2 31 22-32 mmol/L Glucose 104 65-99 mg/dL BUN 10 8-23 mg/dL Creatinine 0.58 0.50-1.00 mg/dL Calcium 9.7 8.6-10.4 mg/dL eGFR by Creatinine 94 >59 mL/min/1.73m2 Protein 6.7 6.0-8.3 g/dL Albumin 4.3 3.5-5.3 g/dL Alkaline Phosphatase 80 35-121 IU/L ALT (SGPT) 16 <5-47 IU/L AST (SGOT) 19 <5-40 IU/L Bilirubin, Total 0.5 <0.2-1.2 mg/dL A/G Ratio 1.8 1.1-2.5 P-CPK Reviewed date:04/23/2024 08:14:51 AM Interpretation: Performing Lab: Notes/Report: Test performed by [facility] [address] [place] [address] , [address], [place] [address] Theodore Mon MD, Revenue Field Auditor CLIA: [id number] Creatine Kinase 93 20-180 U/L P-Lipid Panel Reviewed date:04/23/2024 08:14:51 AM Interpretation: Performing Lab: Notes/Report: Test performed by [facility] [address] [place] [address] , [address], [place] [address] Theodore Mon MD, Revenue Field Auditor [facility]: [id number] Cholesterol 151 <200 mg/dL Triglycerides 52 <150 mg/dL HDL Cholesterol 86 >39 mg/dL Cholesterol / HDL Ratio 1.76 0.00-4.44 Ratio Non-HDL Cholesterol 65 <130 mg/dL LDL Cholesterol (Calculation) 55 <130 mg/dL LDL Cholesterol Levels* Less than 100 mg/dL Optimal 100 to 129 mg/dL Near Optimal/ Above Optimal 130 to 159 mg/dL Borderline High 160 to 189 mg/dL High 190 mg/dL and above Very High * Categories as recommended by the 2004 ATPIII guidelines LDL/HDL Ratio 0.6 <3.3 Ratio LDL Cholesterol Patient History Test Date: 09/04/2023 LDL Results: 88 Units: mg/dL % Change: - Test Date: 04/18/2024 LDL Results: 55 Units: mg/dL % Change: -37% P-Magnesium Reviewed date:04/23/2024 08:14:51 AM Interpretation: Performing Lab: Notes/Report: Test performed by [facility] [address] [place] [address] , [address], [place] [address] Theodore Mon MD, Revenue Field Auditor CLIA: [id number] Magnesium 2.3 1.6-2.4 mg/dL Influenza Screen (in house) Reviewed date:08/08/2024 02:08:27 PM Interpretation:neg Performing Lab: Notes/Report: neg results neg Covid test (in house) Reviewed date:08/08/2024 02:08:16 PM Interpretation:pos Performing Lab: Notes/Report: pos Result: pos Reason For Referral Reason Diverticulosis Chr onic Diarrhea Diagnosis 1 Chronic diarrhea (K5 2.9) Diagnosis 2 Diverticulosis (K57. 90) Referral Organization [facility] Referring Provider First Name Charlotte Hedrick Referring Provider Last Name Lang Referring Provider [facility] Referred Organization [facility] Referred Address [address] [place] [address], [address],[id number], Referred Provider Specialty Gastroentero logy General Notes Christine Zelaya 11/11 09:07:11 AM > please refer to Bindu Hernandez Brynn 11/13/2024 1:49:08 PM > faxed all to Dr. Peck office, Keyana Ruano 11/20/2024 2:47:41 PM > 12/24/2024 at 10:30am Referral Priority Routine Reason shoulder pain Diagnosis 1 Shoulder pain (M25.5 19) Referral Organization [facility] Referring Provider First Name Charlotte Hedrick Referring Provider Last Name Lang Referring Provider [facility] Referred Organization [facility] Referred Provider Physical Therapy, . Referred Address [address] [place], [place] [id number], Referred Provider Specialty Occupational Therapy General Notes Keyana Ruano 2024 09:29:53 AM > faxed to [facility] Aníbal CARCAMO Julia 01/31/2025 09:39:22 AM >Patient needs Occupational Therapy Referral Priority Routine Medications Medication SIG (Take, Route, Frequency, Duration) Notes Start Date End Date Status Vitamin B-12 1000 MCG 1 tablet Orally On ce a day; Duration: 30 day(s) Active Red Yeast Rice 600 MG as directed Orally Active Dicyclomine HCl 10 MG 1 cap(s) Orally Th ree times a day prn cramping 08/13/2024 Active Potassium Chloride ER 10 MEQ 1 tablet with food Orally Twice a day 08/27/2024 Active Vitamin C 500 MG as directed Orally Active OSTEO-BIFLEX 1 P.O. ONCE DAILY Active Fish Oil 1000 MG 1 cap(s) orally 3 ti mes a day; Duration: 30 day(s) Active Estrace 0.1 MG/GM 1 gram intravaginall y every other day at bedtime; Duration: 30 day(s) Active Aspirin 81 MG 1 tablet Orally Once a day Active Atorvastatin Calcium 10 MG 1 tablet Orally Once a day; Duration: 90 days Active Immunizations Vaccine Route Administration Date Status Comme nts COVID 19 Moderna Unknown 09/09/2020 Administered COVID 19 Moderna Unknown 10/07/2020 Administered COVID 19 Moderna Unknown 05/19/2021 Administered DT, 7 YEARS OR OLDER Unknown 10/15/1996 Administered Fluzone High Dose (65yr and older) IM Intramuscular 05/22/2014 Administered Fluzone High Dose (65yr and older) IM Intramuscular 05/28/2015 Administered Fluzone High Dose (65yr and older) IM Intramuscular 05/13/2016 Administered Fluzone High Dose (65yr and older) Unknown 05/05/2020 Administered Fluzone High Dose (65yr and older) IM Intramuscular 05/27/2022 Administered Fluzone High Dose (65yr and older) IM Intramuscular 06/05/2023 Administered Fluzone High Dose (65yr and older) IM Intramuscular 05/21/2024 Administered PNEUMOVAX 23 VACCINE IM Intramuscular 04/04/2017 Administe red Prevnar (PCV13) IM Intramuscular 08/16/2014 Administered Prevnar (PCV20) Unknown 07/18/2023 Administered Tetanus Tdap-Adacel (over 7yrs) Unknown 12/21/2006 Administered Tetanus Tdap-Adacel (over 7yrs) IM Intramuscular 04/10/2018 Administered xAdministration of injection IM Intramuscular 09/26/2014 Administered xFluzone (6mos and older)-trivalent IM Intramuscular 06/01/2011 Administered Fluzone High Dose (65yr and older) IM Intramuscular 06/07/2021 Administered Fluzone High Dose (65yr and older) IM Intramuscular 05/29/2017 Administered Fluzone High Dose (65yr and older) IM Intramuscular 05/20/2019 Administered Problems Problem Type SNOMED Code ICD Code Onset Dates Problem Status W/U Status Risk Notes Problem Breast cancer (115259033) Breast cancer (C50.919) Active confirmed Problem Abnormal mammogram (366934800) Abnormal mammogram (R92.8) Active confirmed Problem Diverticulitis (00253333) Diverticulitis (K57.92) Active confirmed Problem Rhinitis (49923256) Rhinitis (J31.0) Active confirmed Problem Sciatic nerve lesion (206948936) Piriformis syndrome of right side (G57.01) Active confirmed Problem Environmental allergy (279611836) Environmental allergies (Z91.048) Active confirmed Problem Hiatal hernia (35620994) Hiatal hernia (K44.9) Active confirmed Problem Mixed anxiety and depressive disorder (861512515) Depression with anxiety (F41.8) Active confirmed Problem Abnormal findings on diagnostic imaging of breast (718221644) Abnormal mammogram of both breasts (R92.8) Active confirmed Problem Primary generalised osteoarthritis (442956595) Primary generalized (osteo)arthritis (M15.0) Active confirmed Problem Localized, primary osteoarthritis of the shoulder region (658384184) Primary osteoarthritis, right shoulder (M19.011) Active confirmed Problem History of polyp of colon (situation) (937568762) History of colon polyps (Z86.010) Active confirmed Problem Diverticular disease of colon (374638432) Diverticulosis (K57.90) Active confirmed Problem Diverticulosis of colon (139650807) Diverticulosis of colon (K57.30) Active confirmed Problem Dyslipidemia (705735581) Dyslipidemia (E78.5) Active confirmed Problem Dysphagia (08875355) Pharyngoesophageal dysphagia (R13.14) Active confirmed Problem Chronic diarrhea (200712526) Chronic diarrhea (K52.9) Active confirmed Problem Splenic artery aneurysm (89087533) Splenic artery aneurysm (I72.8) Active confirmed Problem 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, both eyes (H26.493) Active confirmed Problem Esophageal dysphagia (82601490) Esophageal dysphagia (R13.10) Active confirmed Vital Signs Heart Rate 76 /min 01/30/2025 Blood pressure diastolic 60 mm Hg 01/30/2025 Height 64.50 in 01/30/2025 Blood pressure systolic 120 mm Hg 01/30/2025 Weight 138.6 lbs 01/30/2025 BMI 23.42 kg/m2 01/30/2025 Encounters Encounter Location Date Provider Diagnosis [facility] [address] [place] [id number] 04/11/2024 R Ryley Lang Paronychia L03.019 ; Trigger finger of left thumb M65.312 and Dyslipidemia E78.5 [facility] [address] [place] [id number] 04/18/2024 R Ryley Lang Dyslipidemia E78.5 ; Myalgia M79.10 and Paronychia L03.019 [facility] [address] [place] [id number] 04/30/2024 R Ryley Lang Trigger finger of le ft thumb M65.312 [facility] [address] [facility] [address] [place], [place] [id number] 05/21/2024 R Ryley Lang [facility] [address] [place], [place] [id number] 08/08/2024 R Ryley Lang COVID-19 U07.1 [facility] [address] [facility] [address] [place] [id number] 08/13/2024 R Ryley Lang Diverticulitis K57.9 2 [facility] [address] [place] [id number] 09/12/2024 R Ryley Lang Trochanteric bursiti s of right hip M70.61 [facility] [address] [place], [place] [id number] 10/18/2024 Margie Crowdy Diverticulitis K57.9 2 and Chronic diarrhea K52.9 [facility] [address] [place] [id number] 01/30/2025 R Ryley Lang Shoulder pain M25.51 9 ; Dyslipidemia E78.5 ; Malignant neoplasm of upper-inner quadrant of right female breast, unspecified estrogen receptor status C50.211 and BMI 23.0-23.9, adult Z68.23 [facility] [address] [place], [place] [id number] 03/21/2025 R Ryley Lang [facility] [address] [place], [place] [id number] 04/01/2024 R Ryley Lang [facility] [address] [place], [place] [id number] 04/23/2024 R Ryley Lang [facility] [address] [place], [place] [id number] 05/10/2024 Margie Crowdy [facility] [address] [place], [place] [id number] 05/28/2024 R Ryley Lang [facility] [address] [place], [place] [id number] 08/09/2024 R Ryley Lang [facility] [address] [place], [place] [id number] 08/15/2024 R Ryley Lang Diverticulitis K57.9 2 and Chronic diarrhea K52.9 [facility] [address] [place], [place] [id number] 08/16/2024 R Ryley Lang Diarrhea, unspecifie d type R19.7 [facility] [address] [place], [place] [id number] 08/20/2024 R Ryley Lang [facility] [address] [place], [place] [id number] 08/27/2024 R Ryley Lang [facility] [address] [place], [place] [id number] 10/10/2024 R Ryley Lang [facility] [address] [place], [place] [id number] 10/21/2024 Margie Crowdy [facility] [address] [place], [place] [id number] 10/25/2024 R Ryley Croft [facility] [address] [place], [place] [id number] 10/30/2024 R Ryley Ramírezt [facility] [address] [place], [place] [id number] 11/11/2024 R Ryley Ramírezt [facility] [address] [place], [place] [id number] 11/22/2024 R Ryley Croft Assessments Encounter Date Diagnosis (ICD Code) Assessment Notes Treatment Notes Treatment Clinical Notes Section Notes 04/11/2024 Paronychia (ICD-10 - L03.019) 04/11/2024 Trigger finger of left thumb (ICD-10 - M65.312) 04/18/2024 Dyslipidemia (ICD-10 - E78.5) 04/30/2024 Trigger finger of left thumb (ICD-10 - M65.312) She cannot tolerate NSAIDs norsteroids because of GI issues. She has been able to tolerate injectable steroids in the past so we will try dose of Depo-Medrol. Discussed other options including physical therapy and orthopedic consultation if needed. 08/08/2024 COVID-19 (ICD-10 - U07.1) Symptomatic treatment 08/13/2024 Diverticulitis (ICD-10 - K57.92) 08/15/2024 Diverticulitis (ICD-10 - K57.92) 08/15/2024 Chronic diarrhea (ICD-10 - K52.9) 09/12/2024 Trochanteric bursitis of right hip (ICD-10 - M70.61) Trochanteric bursa was injected with Depo-Medrol 60 mg and lidocaine 1/2 cc which she tolerated well. 10/18/2024 Diverticulitis (ICD-10 - K57.92) Will check a stool panel first as she has developed diarrhea. If it is negative, will need another CT of the abdomen/pelvis. 10/18/2024 Chronic diarrhea (ICD-10 - K52.9) 01/30/2025 Shoulder pain (ICD-10 - M25.519) Continue Aleve as tolerated 01/30/2025 Dyslipidemia (ICD-10 - E78.5) 08/16/2024 Diarrhea, unspecified type (ICD-10 - R19.7) 04/18/2024 Myalgia (ICD-10 - M79.10) 04/11/2024 Dyslipidemia (ICD-10 - E78.5) 01/30/2025 Malignant neoplasm of upper-inner quadrant of right female breast, unspecified estrogen receptor status (ICD-10 - C50.211) 04/18/2024 Paronychia (ICD-10 - L03.019) Continue soaking her foot. Resecting the offending portion of the nail today should relieve her symptoms. If she persists with pain, will arrange podiatry referral. 01/30/2025 BMI 23.0-23.9, adult (ICD-10 - Z68.23) Plan Of Treatment Pending Test Test Name Order Date Lipid Profile 04/11/2024 CMP 04/11/2024 Next Appt Details Provider Name:Charlotte Barfield, 03/27/2025 11:00:00 AM, [address], [place], [place], [id number], Insurance Providers Payer Name Payer Address Payer Phone Subscriber Number Group Number Insured Name Patient Relationship to Insured Coverage Start Date Coverage End Date [employer] (MEDICAR E) [address] [address] [place] [address] [id number] GREG CUENCA Self - patient is the insured Medications Administered Medication Instructions Date of Administration Dosage Notes Depo- Medrol 40 mg/ml 12/06/2013 Depo- Medrol 40 mg/ml 09/01/2022 1.5 mL Depo- Medrol 40 mg/ml 02/16/2023 1.5 mL Depo- Medrol 40 mg/ml 04/30/2024 1.5 mL Dexamethasone 02/12/2013 1 mL Dexamethasone 11/04/2014 1 mL Dexamethasone 03/20/2015 1 mL Dexamethasone 08/12/2016 1 mL Dexamethasone 12/31/2021 1 mL Dexamethasone 01/06/2022 1 mL Dexamethasone 06/24/2022 1 mL Depo- Medrol 40 mg/ml 03/08/2024 1.5 mL Dexamethasone 06/25/2014 1 mL Medical (General) History Medical History History ICD Code Hiatal Hernia Depression hx of gout diagnosed by Dr. Matthew Pandiverticulosis of colon colon polyp torn right rotator cuff right breast cancer cataracts HLP ASCVD Surgical History Surgery Date(Month/Year) Cholecystectomy 12/2006 hysterectomy, abdominal 2002 bladder tuck 2011 Colonoscopy/Dr. Benton/ diverticulosis, polyp 08/2015 right breast lumpectomy/ Dr. OTT 2021 cataract heart cath with stent x1/ Hair 04/02 23 Hospitalization History Reason Date(Month/Year) kidney stones 1987
[2025-03-21] MEDS: 0.9 % SODIUM CHLORIDE 50 ML VIAL IV (14:31)
[2025-03-21] MEDS: SODIUM CHLORIDE 0.9% 10ML SYR (RAD ONLY) 10 ML IV (14:31)
[2025-03-21] MEDS: IOPAMIDOL-370 (76%);100ML BOTTLE 80 ML IV (14:31)
[2025-03-21 14:34] LABS: Hematocrit 40.0 % (37.0-47.0); Hemoglobin 12.9 g/dL (12.2-16.2); Immature Granulocytes % 0.3 %; Mean Corpuscular HGB Conc 32.3 g/dL (31.8-35.4); Mean Corpuscular Hemoglobin 28.5 pg (27.0-31.2); Mean Corpuscular Volume 88.5 fl (81-99); Nucleated Red Blood Cells % 0 %; Platelet Count 341 K/mm3 (142-424); Red Blood Count 4.52 M/mm3 (4.20-5.40); Red Cell Distribution Width-SD 40.7 fL; White Blood Count 6.8 K/mm3 (4.8-10.8)
[2025-03-21 14:35] LABS: Albumin Level 4.6 g/dl (3.5-5.0); Chloride 97 mmol/L (98-107); Sodium 132 mmol/L (136-145)
[2025-03-21 14:36] LABS: Potassium 4.3 mmoL/L (3.5-5.1)
[2025-03-21 14:38] LABS: Alanine Aminotransferase 23 U/L (12-78); Albumin/Globulin Ratio 1.4 (1.1-1.8); Alkaline Phosphatase 85 U/L (38-126); Anion Gap 10.3 mEq/L (5-15); Aspartate Amino Transferase 33 U/L (14-36); Bilirubin,Total 0.4 mg/dl (0.2-1.3); Blood Urea Nitrogen 9 mg/dl (7-17); Carbon Dioxide 29 mmol/L (22.0-30.0); Creatinine Clearance Estimated 51 mL/min (50-200); Creatinine,Serum 0.50 mg/dl (0.52-1.04); Estimated Glomerular Filt Rate 120 ml/min (>60); GFR (African American) 145 ML/MIN (>60); Globulin 3.3 g/dL (1.3-3.2); Total Protein,Serum 7.9 g/dl (6.3-8.2)
[2025-03-21 14:39] LABS: Calcium 9.4 mg/dl (8.4-10.2); Glucose 103 mg/dl (74-100)
--- NOTE | 2025-03-21 14:42 | ED_ITS ---
Discharge Plan Disposition Patient Disposition: Xfer Short-Term Hosp Condition: Fair Prescriptions Prescriptions: No Action mecobalamin (vitamin B12) 1,000 mcg tablet,disintegrating 1,000 mcg sublingual 4XW Rx Instructions: place tablet under tongue and allow to dissolve for at least30 secs before swallowing ascorbic acid (vitamin C) 1,000 mg capsule 1 g PO DAILY colestipol 1 gram tablet 3 g PO DAILY Qty: 90 11RF Rx Instructions: Take 2 tablets p.o. every morning and 1 tablet p.o. every evening atorvastatin 10 mg tablet See Rx Instructions .ROUTE .COMPLEX Qty: 90 3RF Dose Instruction: TAKE 1 TABLET BY MOUTH AT BEDTIME NIGHTLY Rx Instructions: TAKE 1 TABLET BY MOUTH AT BEDTIME NIGHTLY aspirin [Adult Low Dose Aspirin] 81 mg tablet,delayed release (DR/EC) 81 mg PO DAILY glucosamine-chondroitin [Osteo Bi-Flex] 250-200 mg Tablet 2 tab PO TID Rx Instructions: give after food/meal red yeast rice 600 mg Capsule 600 mg PO DAILY Rx Instructions: give with meal/snack omega 8-mca-dpa-fish oil [Fish Oil] 300-1,000 mg Capsule 1 cap PO DAILY Referrals Follow up/Referrals: Sal Croft MD [Primary Care Provider, Medical] - See instructions Clinical Impressions Clinical Impression: Suspected transient ischemic attack Stand Alone Forms Stand Alone Forms: Transfer Record - ED Print Language Print Language: Chadian Discharge ED Provider: Jerardo Reardon General Adult HPI <VITA Villalta - Last Filed: 03/21/25 18:03> General Chief complaint: Neuro Symptoms/Deficit Stated complaint: possible stroke Time Seen by Provider: 03/21/25 14:24 Mode of Arrival: Ambulatory Source of Information: Patient and Spouse Description of Symptoms (Recalled from ER Triage Doc. by RN): pt is here bc she lost her words for a moment around 1330 and was having a visual migraine History of Present Illness HPI narrative: Patient presents with dysphasia. She reports she was having an occular migraine which she has a longstnading history of. She finished doing her daily reading and laid her head back to rest. When she woke up she asked her for part of the newspaper, the housing section as they are considering a move. She tried to read it and she couldn't read or understand it . She then tried to tell her and she was'nt able to say what she wanted to say, it wouldn't work . She denies feeling anxious/ upset prior to symptom onset. She denies any pain. Denies history of HTN. Symptoms started around 1-1:30. She is back to her baseline currently. MD complaint: Dysphasia Onset (ago): hour(s) (1) Relieving factors: none Exacerbating factors: none Associated symptoms: denies other symptoms Treatments prior to arrival: none Related Data Home Medications ?Medication ?Instructions ?Recorded ?Confirmed aspirin 81 mg tablet,delayed 81 mg PO DAILY HD 3 01/07/25 release (Adult Low Dose Aspirin) glucosamine-chondroitin 250 mg-200 2 tab PO TID 01/07/25 mg tablet (Osteo Bi-Flex) omega 1-erc-atu-fish oil 300 1 cap PO DAILY 12/05/23 0 01/07/25 mg-1,000 mg capsule (Fish Oil) red yeast rice 600 mg capsule 600 mg PO DAILY 12/05/23 01/07/25 ascorbic acid (vitamin C) 1,000 mg 1 g PO DAILY 01/07/25 capsule mecobalamin (vitamin B12) 1,000 1,000 mcg sublingual 4 XW 11/26/24 01/07/25 mcg disintegrating tablet,sublingual Previous Rx's ?Medication ?Instructions ?Recorded atorvastatin 10 mg tablet See Rx Instructions .Route 0 04/01/24 .COMPLEX #90 ea colestipol 1 gram tablet 3 g (3 x 1 gram) PO DAILY #9 0 tabs 01/07/25 Allergies Allergy/AdvReac Type Severity Reaction Status Date / Time doxycycline Allergy Mild GI cramps Verified 01/07/25 11:20 azithromycin (From Zithromax) Allergy diaarhea Verified 01/07/25 11:20 ticagrelor (From Brilinta) Allergy Verified 01/07/25 11:20 [facility] <VITA Villalta - Last Filed: 03/21/25 18:03> [facility] Disclaimer: The information contained in this section may have been updated after the patient was seen, as this information can be updated by other users. 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 Angina pectoris Family history of ischemic heart disease Abnormal result of cardiovascular function study Dyspnea Chest pain HX: breast cancer Surgical History History of hysterectomy History of cholecystectomy History of surgery HEART CATH -STENT X1 History of surgical procedure on eye proper using laser History of cataract surgery History of colonoscopy History of lumpectomy Family History Mother Coronary artery disease FHx: coronary artery bypass surgery Other Diabetes Social History Smoking Status: Never smoker alcohol intake: never substance use type: denies use current occupational status: retired Travel in the last 8 weeks?: None Have you lived/traveled outside US in past 30 days?: No Contact w/someone who lives/traveled outside US past 30 days?: No Exposure to someone with infectious disease in past 14 days?: No Do you have a fever (greater than 100.4 F or 38 C)?: No Have you tested positive for COVID-19?: No Exposed to someone with COVID-19 in past 14 days?: No Do you have a sore throat?: No Do you have a cough?: No Do you have any weakness?: No Do you have any diarrhea?: No Are you experiencing any unusual bleeding?: No Do you have any muscle aches/pain?: No Do you have any abdominal pain?: No Are you experiencing loss of taste or smell?: No Other Medical History Have you received the Flu Vaccine for this season: Yes Have you received the Pneumonia Vaccine: Yes <VITA Villalta - Last Filed: 03/21/25 18:03> ROS Obtained: Yes Systems reviewed as appropriate & no additional complaints except as documented Physical Exam <VITA Villalta - Last Filed: 03/21/25 18:03> General General appearance: alert and in no apparent distress Head Head exam: atraumatic and normocephalic Eye Eye exam: Present normal appearance and EOMI Chest Chest inspection: Present symmetric chest wall rise Respiratory Respiratory exam: Present normal lung sounds bilaterally; Absent wheezes or stridor Cardiovascular Cardiovascular exam: Present regular rate and normal rhythm; Absent systolic murmur Extremities Exam Extremities exam: Present full ROM Neurological Exam Neurological exam: Present alert, oriented X3 and CN II-XII intact; Absent motor sensory deficit Expanded Neurological Exam Patient oriented to: Present person, place and time Speech: Present fluid speech Cranial nerves: Normal: EOM function (II, III, IV, ), facial sensation (V), facial palsy (VII), gag reflex (IX), spinal accessory function (XI) and tongue deviation (XII) Cerebellar function: Normal: finger to nose Cerebellar function: normal gait Motor strength - LUE: 5/5 Motor strength - RUE: 5/5 Motor strength - LLE: 5/5 Motor strength - RLE: 5/5 Upper motor neuron exam: Normal: dione neglect and sensory extinction Sensory exam upper extremity: Normal: light touch Sensory exam lower extremity: Normal: light touch Coma scale eye opening: Spontaneous Coma scale motor response: Obeys commands Coma scale verbal response: Oriented Coma scale total: 15 Comment: NIH SS 0 Psychiatric Psychiatric exam: Present normal affect and normal mood Skin Skin exam: Present warm, dry and intact <Jerardo Reardon MD - Last Filed: 03/21/25 21:25> Expanded Neurological Exam Coma scale total: 15 Medical Decision Making <VITA Villalta - Last Filed: 03/21/25 18:03> Medical Records Screening: Per USPSTF and CDC recommendations, given the prevalence of disease in our region, it is our hospital?s policy to screen for HIV and viral Hepatitis for all patients aged 18 and over and those with ongoing risk factors. Saurav Inquiry Pt receiving controlled substance: No Vital Signs: 03/21/25 14:30 03/21/25 14:35 03/21/25 14:45 Temperature 98.2 F Temperature Source Oral Pulse Rate 67 65 Pulse Rate [Left Radial] 72 Respiratory Rate 20 14 8 L Blood Pressure Blood Pressure [Right Arm] 173/90 H Blood Pressure Mean Blood Pressure Mean [Right Arm] 117 Blood Pressure Source Blood Pressure Position 02 Sat by Pulse Oximetry 95 98 100 Oxygen Delivery Method Room Air 03/21/25 14:49 03/21/25 15:00 03/21/25 15:15 Temperature Temperature Source Pulse Rate 70 67 63 Pulse Rate [Left Radial] Respiratory Rate 14 13 14 Blood Pressure 142/73 H 142/62 H Blood Pressure [Right Arm] Blood Pressure Mean Blood Pressure Mean [Right Arm] Blood Pressure Source Blood Pressure Position 02 Sat by Pulse Oximetry 100 100 99 Oxygen Delivery Method 03/21/25 15:30 03/21/25 15:30 03/21/25 16:00 Temperature Temperature Source Pulse Rate 62 67 Pulse Rate [Left Radial] Respiratory Rate 13 13 Blood Pressure 123/58 L 134/66 Blood Pressure [Right Arm] Blood Pressure Mean 94 96 Blood Pressure Mean [Right Arm] Blood Pressure Source Blood Pressure Position 02 Sat by Pulse Oximetry 97 99 Oxygen Delivery Method 03/21/25 16:15 03/21/25 16:30 03/21/25 17:00 Temperature Temperature Source Pulse Rate 71 70 76 Pulse Rate [Left Radial] Respiratory Rate 17 14 Blood Pressure 125/61 143/74 H Blood Pressure [Right Arm] Blood Pressure Mean 95 Blood Pressure Mean [Right Arm] Blood Pressure Source Blood Pressure Position 02 Sat by Pulse Oximetry 98 100 99 Oxygen Delivery Method 03/21/25 17:59 Temperature 98.4 F Temperature Source Oral Pulse Rate 80 Pulse Rate [Left Radial] Respiratory Rate 18 Blood Pressure 125/71 Blood Pressure [Right Arm] Blood Pressure Mean Blood Pressure Mean [Right Arm] Blood Pressure Source Automatic Cuff Blood Pressure Position Sitting 02 Sat by Pulse Oximetry Oxygen Delivery Method Room Air Lab Data Lab Results 03/21/25 14:23: WBC 6.8, RBC 4.52, Hgb 12.9, Hct 40.0, MCV 88.5, MCH 28.5, MCHC 32.3, RDW 12.6, Plt Count 341, MPV 8.8, Neut % (Auto) 56.3, Lymph % (Auto) 33.6, Nicol[place] % (Auto) 8.0, Eos % (Auto) 1.5, Baso % (Auto) 0.3, Neut # (Auto) 3.8, Lymph # (Auto) 2.3, Nicol[place] # (Auto) 0.5, Eos # (Auto) 0.1, Baso # (Auto) 0.0, PT 10.3, INR 0.92, APTT 27.1, Sodium 132 L, Potassium 4.3, Chloride 97 L, Carbon Dioxide 29, Anion Gap 10.3, BUN 9, Creatinine 0.50 L, Estimated Creat Clear 51, Estimated GFR 120, Est GFR ( Amer) 145, Glucose 103 H, Calcium 9.4, Total Bilirubin 0.4, AST 33, ALT 23, Alkaline Phosphatase 85, Troponin I < 0.01, Total Protein 7.9, Albumin 4.6, Globulin 3.3 H, Albumin/Globulin Ratio 1.4 03/21/25 14:55: Urine Color Yellow, Urine Appearance Clear, Urine pH 6.0, Ur Specific [place] <= 1.005, Urine Protein Negative, Urine Glucose (UA) Negative, Urine Ketones Negative, Urine Blood Negative, Urine Nitrate Negative, Urine Bilirubin Negative, Urine Urobilinogen 0.2, Ur Leukocyte Esterase Negative, Urine RBC None, Urine WBC None, Ur Squamous Epith Cells Occasional, Urine Bacteria None 03/21/25 14:23 03/21/25 14:23 Orders (Tests/Meds): ED MEDICATIONS Discontinued Medications Generic Name Dose Route Start Last Admin Trade Name Freq PRN Reason Stop Dose Admin Iopamidol 80 ml 03/21/25 14:30 03/21/25 14:31 Iopamidol-370 (76%);100ml Bottle IV 03/21/25 14:31 80 ml ONCE ONE Administration Sodium Chloride 10 ml 03/21/25 14:25 Sodium Chloride 0.9% 10ml Flush Syringe IV 04/20/25 14:24 NEEDED PRN Maintain IV Site Sodium Chloride 50 ml 03/21/25 14:30 03/21/25 14:31 0.9 % Sodium Chloride 50 Ml Vial IV 03/21/25 14:31 50 ml ONCE ONE Administration Sodium Chloride 10 ml 03/21/25 14:30 03/21/25 14:31 Sodium Chloride 0.9% 10ml Syr (Rad Only) IV 03/21/25 14:31 10 ml ONCE ONE Administration ORDERS Category Date Time Status CT angio head Stat Cat Scan 03/21/25 14:[address] angio neck Stat Cat Scan 03/21/25 14:[address] head/brain wo con Stat Cat Scan 03/21/25 14:25 Completed Activated Partial Thrombo Time Stat Lab 03/21/25 14:23 Completed Complete Blood Count Auto Diff Stat Lab 03/21/25 14:23 Completed Comprehensive Metabolic Panel Stat Lab 03/21/25 14:23 Completed Prothrombin Time INR Stat Lab 03/21/25 14:23 Completed Troponin I Stat Lab 03/21/25 14:23 Completed Urinalysis and Microscopic Stat Lab 03/21/25 14:55 Completed Medical Decision Narrative: In summary patient is a 74-year-old who presents the emergency department for evaluation of dysphasia. Patient is hypertensive upon arrival upon arrival, afebrile. Unremarkable physical exam. Differential diagnosis includes CVA, TIA, complex migraine. Initial workup will be conducted with hematologic labs, EKG, CT brain, CTA head and neck. Upon repeat evaluation patient continues to be asymptomatic and blood pressure has improved. Given this discussed admission and MRI with patient, however MRI is unavailable at this facility over the weekend. The patient does not wish to stay for more than a 24-hour observation. I discussed this with Jerardo the stroke navigator at [facility], the patient was accepted by [facility] for transfer and admission. <Jerardo Reardon MD - Last Filed: 03/21/25 21:25> Vital Signs: 03/21/25 14:30 03/21/25 14:35 03/21/25 14:45 Temperature 98.2 F Temperature Source Oral Pulse Rate 67 65 Pulse Rate [Left Radial] 72 Respiratory Rate 20 14 8 L Blood Pressure Blood Pressure [Right Arm] 173/90 H Blood Pressure Mean Blood Pressure Mean [Right Arm] 117 Blood Pressure Source Blood Pressure Position 02 Sat by Pulse Oximetry 95 98 100 Oxygen Delivery Method Room Air 03/21/25 14:49 03/21/25 15:00 03/21/25 15:15 Temperature Temperature Source Pulse Rate 70 67 63 Pulse Rate [Left Radial] Respiratory Rate 14 13 14 Blood Pressure 142/73 H 142/62 H Blood Pressure [Right Arm] Blood Pressure Mean Blood Pressure Mean [Right Arm] Blood Pressure Source Blood Pressure Position 02 Sat by Pulse Oximetry 100 100 99 Oxygen Delivery Method 03/21/25 15:30 03/21/25 15:30 03/21/25 16:00 Temperature Temperature Source Pulse Rate 62 67 Pulse Rate [Left Radial] Respiratory Rate 13 13 Blood Pressure 123/58 L 134/66 Blood Pressure [Right Arm] Blood Pressure Mean 94 96 Blood Pressure Mean [Right Arm] Blood Pressure Source Blood Pressure Position 02 Sat by Pulse Oximetry 97 99 Oxygen Delivery Method 03/21/25 16:15 03/21/25 16:30 03/21/25 17:00 Temperature Temperature Source Pulse Rate 71 70 76 Pulse Rate [Left Radial] Respiratory Rate 17 14 Blood Pressure 125/61 143/74 H Blood Pressure [Right Arm] Blood Pressure Mean 95 Blood Pressure Mean [Right Arm] Blood Pressure Source Blood Pressure Position 02 Sat by Pulse Oximetry 98 100 99 Oxygen Delivery Method 03/21/25 17:59 Temperature 98.4 F Temperature Source Oral Pulse Rate 80 Pulse Rate [Left Radial] Respiratory Rate 18 Blood Pressure 125/71 Blood Pressure [Right Arm] Blood Pressure Mean Blood Pressure Mean [Right Arm] Blood Pressure Source Automatic Cuff Blood Pressure Position Sitting 02 Sat by Pulse Oximetry Oxygen Delivery Method Room Air Lab Data Lab Results 03/21/25 14:23: WBC 6.8, RBC 4.52, Hgb 12.9, Hct 40.0, MCV 88.5, MCH 28.5, MCHC 32.3, RDW 12.6, Plt Count 341, MPV 8.8, Neut % (Auto) 56.3, Lymph % (Auto) 33.6, Nicollet % (Auto) 8.0, Eos % (Auto) 1.5, Baso % (Auto) 0.3, Neut # (Auto) 3.8, Lymph # (Auto) 2.3, Nicol[place] # (Auto) 0.5, Eos # (Auto) 0.1, Baso # (Auto) 0.0, PT 10.3, INR 0.92, APTT 27.1, Sodium 132 L, Potassium 4.3, Chloride 97 L, Carbon Dioxide 29, Anion Gap 10.3, BUN 9, Creatinine 0.50 L, Estimated Creat Clear 51, Estimated GFR 120, Est GFR ( Amer) 145, Glucose 103 H, Calcium 9.4, Total Bilirubin 0.4, AST 33, ALT 23, Alkaline Phosphatase 85, Troponin I < 0.01, Total Protein 7.9, Albumin 4.6, Globulin 3.3 H, Albumin/Globulin Ratio 1.4 03/21/25 14:55: Urine Color Yellow, Urine Appearance Clear, Urine pH 6.0, Ur Specific [place] <= 1.005, Urine Protein Negative, Urine Glucose (UA) Negative, Urine Ketones Negative, Urine Blood Negative, Urine Nitrate Negative, Urine Bilirubin Negative, Urine Urobilinogen 0.2, Ur Leukocyte Esterase Negative, Urine RBC None, Urine WBC None, Ur Squamous Epith Cells Occasional, Urine Bacteria None Orders (Tests/Meds): ED MEDICATIONS Discontinued Medications Generic Name Dose Route Start Last Admin Trade Name Freq PRN Reason Stop Dose Admin Iopamidol 80 ml 03/21/25 14:30 03/21/25 14:31 Iopamidol-370 (76%);100ml Bottle IV 03/21/25 14:31 80 ml ONCE ONE Administration Sodium Chloride 10 ml 03/21/25 14:25 Sodium Chloride 0.9% 10ml Flush Syringe IV 04/20/25 14:24 NEEDED PRN Maintain IV Site Sodium Chloride 50 ml 03/21/25 14:30 03/21/25 14:31 0.9 % Sodium Chloride 50 Ml Vial IV 03/21/25 14:31 50 ml ONCE ONE Administration Sodium Chloride 10 ml 03/21/25 14:30 03/21/25 14:31 Sodium Chloride 0.9% 10ml Syr (Rad Only) IV 03/21/25 14:31 10 ml ONCE ONE Administration ORDERS Category Date Time Status CT angio head Stat Cat Scan 03/21/25 14:[address] angio neck Stat Cat Scan 03/21/25 14:[address] head/brain wo con Stat Cat Scan 03/21/25 14:25 Completed Activated Partial Thrombo Time Stat Lab 03/21/25 14:23 Completed Complete Blood Count Auto Diff Stat Lab 03/21/25 14:23 Completed Comprehensive Metabolic Panel Stat Lab 03/21/25 14:23 Completed Prothrombin Time INR Stat Lab 03/21/25 14:23 Completed Troponin I Stat Lab 03/21/25 14:23 Completed Urinalysis and Microscopic Stat Lab 03/21/25 14:55 Completed Medical Decision Narrative: In summary patient is a 74-year-old who presents the emergency department for evaluation of dysphasia. Patient is hypertensive upon arrival upon arrival, afebrile. Unremarkable physical exam. Differential diagnosis includes CVA, TIA, complex migraine. Initial workup will be conducted with hematologic labs, EKG, CT brain, CTA head and neck. Upon repeat evaluation patient continues to be asymptomatic and blood pressure has improved. Given this discussed admission and MRI with patient, however MRI is unavailable at this facility over the weekend. The patient does not wish to stay for more than a 24-hour observation. I discussed this with Jerardo the stroke navigator at [facility], the patient was accepted by [facility] for transfer and admission. I was consulted by the ELVIA, and we discussed the complexity of the problems being addressed. I approve the treatment and management plan for this patient's care in the emergency department, thus performing a substantive portion of the medical decision making. Jerardo Reardon MD Critical Care <VITA Villalta - Last Filed: 03/21/25 18:03> Critical Care Time Critical Care Time: No
[2025-03-21 14:50] LABS: Activated Partial Thrombo Time 27.1 seconds (22.8-30.6); INR 0.92 (0.9-1.1); Prothrombin Time 10.3 seconds (10.1-12.5)
[2025-03-21 14:56] LABS: Troponin I < 0.01 ng/ml (0.00-0.034)
[2025-03-21 15:00] LABS: Microscopic, Urine URINE MICROSCOPIC (MICROSCOPIC)
[2025-03-21 15:02] LABS: Bilirubin,Urine Negative (Negative); Color,Urine YELLOW (Yellow); Glucose,Urine (UA) Negative (Negative); Ketones,Urine Negative (Negative); Leukocyte Esterase,Urine Negative (Negative); PH,Urine 6.0 (5.0-8.5); Protein,Urine Negative (Negative); Specific Gravity, Urine <= 1.005 (1.005-1.030); Urobilinogen,Urine 0.2 EU/dl (0.2)
[2025-03-21 15:13] LABS: Squamous Epithelial Cell,Urine Occasional #/hpf (0-5)
--- NOTE | 2025-03-21 16:43 | PC.NURSE ---
Powershared images to [facility]
--- NOTE | 2025-03-21 16:45 | PC.NURSE ---
Called [facility] for possible transfer. Stroke Valente from [facility] transferred to Desean Villalta
--- NOTE | 2025-03-21 17:31 | PC.NURSE ---
Called EMS for transport to [facility]
== END 2025-03-21 18:02 | disposition short-term general hospital (02) ==
PROVIDERS: Physician Assistant; Emergency Provider Student in an Organized Health Care Education/Training Program; PCP Family Medicine
DX: R29.818 Other symptoms and signs involving the nervous system (principal); R47.02 Dysphasia; E87.1 Hypo-osmolality and hyponatremia
CPT/HCPCS: 70450; 70496; 70498; 80053; 81001; 84484; 85025; 85610; 85730; 93005; 99285; Q9967

== ENCOUNTER 2025-03-27 08:50 | Outpatient (CLI) | payer MEDICARE, SELFPAY ==
--- OUTSIDE RECORDS SUMMARY | 2025-01-30 11:00 | XMS_ITS ---
Author Organization Elieser Address [address] [place] [address] 36 [facility] [address] [place] [phone] Care Team Providers Care Transaction Manager Name Role Phone Charlotte Croft Primary [...] Last Name Lang Referring Provider [facility] Referred Organization [facility] Referred Provider Physical Therapy, . Referred Address [address] [place] [address] [place] diaz [id number], Referred Provider Specialty Occupational Therapy General Notes Keyana Ruano 2024 09:29:53 AM > faxed to [facility] Aníbal CARCAMO Julia 01/31/2025 09:39:22 AM >Patient [...] 01/30/2025 Encounters Encounter Location Date Provider Diagnosis [facility] [phone] 01/30/2025 Charlotte Croft Shoulder pain M25.51 9 [...] 01/31/2025 01/31/2025, shoulder pain, . Physical Therapy, [facility] [address], [place], [place], [phone], Next Appt Details Follow Up: after treatment, Reason: Provider Name:Charlotte Barfield 03/27/2025 11:00:00 AM, [address], [address], [place], [phone], Progress Notes * JOELLENGREGDOB:1950 (74 yo F)Acc No.[id number]:01/30/2025 Progress Notes Patient: GREG MONTIEL Provider: Charlotte Croft M.D. :1950 A ge:74 Y S ex:Female Date:01/30/2025 Address:[facility] [address], [place], [id number] Subjective: * Chief Complaints: * 1 . [...] receptor status - C50.211 4 . B SD 23.0-23.9, adult - Z68.23 Plan: * Treatment: [...] * Images: Billing Information: * Visit Code: 37433 Office Visit, Est Pt., Level 3. * Procedure Codes: G2211 Complex e/m visit add on. 1036F TOBACCO NON-USER. G8420 BMI<30 AND >=22 CALC & DOCU. G8783 BP SCR PRFRM RCMDD DEFIND SCR INTVL. G8752 MOST RECENT SYSTOLIC BP < 140MM HG. G8754 MOST RECENT DIASTOLIC BP < 90MM HG. * Electronic signature of Charlotte Croft MD on 03/27/2025 at 08:57 AM EDT Sign off status: Pending * Provider: Charlotte Croft M.D. Date: 0 01/30/2025 Generated for Joyce goldberg/Lalit/Dianasmitting on: 0 03/27/2025 08:57 AM EDT History and Physical Notes * HPI [...]
--- OUTSIDE RECORDS SUMMARY | 2025-03-21 05:02 | XMS_ITS ---
Author Organization [facility] Address [address] [place] [id number] Care Team Providers Care Cotton Stomper Name Role Phone Charlotte Croft Primary Care Provider [phone] REASON FOR VISIT Lab Order Medications Medication SIG (Take, Route, Frequency, Duration) Notes Start Date End Date Status Atorvastatin Calcium 10 MG 1 tablet Oral ly Once a day; Duration: 90 days Active Encounters Encounter Location Date Provider Diagnosis [facility] [address] [facility] [address] [place] [phone] 03/21/2025 Charlotte Croft Dyslipidemia E78.5 Assessments Encounter Date Diagnosis (ICD Code) Assessment Notes Treatment Notes Treatment Clinical Notes Section Notes 03/21/2025 Dyslipidemia (ICD-10 - E78.5) Plan Of Treatment Medication Medication Name Sig Start Date Stop Date Notes Atorvastatin Calcium 10 MG 1 tablet Oral ly Once a day; Duration: 90 days Pending Test Test Name Order Date H-CBC 03/21/2025 H-Lipid Panel 03/21/2025 H-CMP 03/21/2025 Next Appt Details Provider Name:Charlotte Barfield, 03/27/2025 11:00:00 AM, [address] [facility] [address] [facility], [address], [place], [phone], Progress Notes * GREG CUENCADOB:1950 (74 yo F)Acc No.[id number]:03/21/2025 Patient: GREG MONTIEL :1950 A ge:74 Y S ex:Female Address:[address], [place] [address] * Refills Refill Atorvastatin Calcium Tablet, 10 MG, Orally, 90 Tablet, 1 tablet, Once a day, 90 days, Refills=0 Subjective: * Chief Complaints: * L ab Order * Medical History: * Surgical History: * Hospitalization/Major Diagno stic Procedure: * Medications: Objective: * Vitals: * Physical Examination: Assessment: * Assessment: 1. D yslipidemia - E78.5 Plan: * Treatment: 2. O thers Refill Atorvastatin Calcium Tablet, 10 MG, 1 tablet, Orally, Once a day, 90 days, 90 Tablet, Refills 0. * Procedure Codes: * true * Date: Generated for Joyce goldberg/Lalit/Danilo on: 0 03/27/2025 08:58 AM EDT
--- OUTSIDE RECORDS SUMMARY | 2025-03-21 19:21 | XMS_ITS | Encounter Summary ---
Author Organization [facility] Address [address] [place] [address] Care Team Providers Care Divisional Merchandising Manager Name Role Phone Sal Croft MD Primary Care Provider Reason for Referral * Consultation (Routine) - Pending Review Specialty Diagnoses / Procedures Referred By Sol yen Referred To Contact Neurology Diagnoses TIA (transient ischemic attack) Procedures ND OFFICE/OUTPATIENT NEW MODERATE MDM 45 MINUTES Yari Cat APRN [address] [address] Phone: tel: fax: [facility] NEUROLOGY PROVIDER [address] [place] [address] Phone: tel: Referral ID Status Reason Start Date Expiration Date Visits Requested Visits Authorized Pending Review Specialty Services Required 03/23/2025 06/22/2026 1 1 Scheduling Instructions Stroke follow up 4-6 week Reason for Visit * Auth/Cert Specialty Diagnoses / Procedures Referred By Sol yen Referred To Contact Diagnoses Transient Ischemic Attack (tia) Referral ID Status Reason Start Date Expiration Date Visits Re quested Visits Authorized [id number] 1 1 Encounter Details Date Type Department Care Team (Late st Contact Info) Description 03/21/2025 7:21 PM EDT - 03/23/2025 2:26 PM EDT Hospital Encounter [facility] 3F [address] [place] [address] Ladonna Wallace MD [address] [place] [id number] Ion Welsh MD [address] [place] [phone] Cognitive communication deficit (Primary Dx); TIA (transient [...] Wish to be (Past 1 Month) No 025 8:12 PM EDT Marielena Paige RN 2. Non-Specific Active Suici mary Thoughts (Past 1 Month) No 03/21/2025 8:12 PM EDT Maggy Paige RN * Calculated C-SSRS Risk Score (Lifetime/Recent) Answer Date of Assessment Author No Risk Indicated 03/21/2025 8:12 PM EDT Marielena Paige RN * [place] Suicide Severity Rating Scale (Screener/Recent Self-Report) Question Answer Date of Assessment Author 6. Suicidal Behavior (Lifetime) No 8:12 PM EDT Marielena Paige RN documented as of this encounter Discharge Summaries * Yari Cat APRN - 03/23/2025 10:48 AM EDT Images from the original note were not included. [facility] Medicine Services DISCHARGE SUMMARY Patient Name: Kristy [...] 08/2022), HLD, and GERD who presented to [facility] ED 03/21/2025 after acute onset of headache. Patient took a nap after her headache and woke with mixed aphasia. All symptoms resolved spontaneouslyprior to arrival at OSH ED. OSH CT imaging was unrevealing. Patient was transferred to [facility] for MRI brain without contrast and further workup. NIH score on arrival to [facility] was 0. Patient was not a candidate [...] - Therapy has evaluated, recommend home -per AERIAL PHOTOGRAPH INTERPRETER patient scored 22/30 on the [place] Cognitive [...] Perkins MD 03/22/2025 4:24 AMEDT Workstation ID: [id number] Results for orders placed during the hospital [...] with PCP As directed Currently Documented PCP: aSl Croft MD PCP Follow Up Details: 1 week Discharge Follow-up with Specified Provider: stroke/ neuro; 6 Weeks As directed To: stroke/ neuro Follow Up: 6 Weeks Yari Cat APRN 03/23/25 Time Spent on Discharge: I spent 35 minutes on this discharge activity which included: [id number]-hg-rfldcxpqiczau with the patient, reviewing the data in [...] Take 4 tablets by mouth Every Night. Cruger-3 Fatty Acids (fish oil) 1000 MG capsule [...] from the original note were not included. [facility] Medicine Services PROGRESS NOTE Patient Name: Kristy [...] MD 03/22/2025 4:24 AM EDT Workstation ID: [id number] Current medications: Scheduled Meds:Pharmacy Consult, , Not [...] imaging was unrevealing. Patient was transferred to [facility] for MRI brain without contrast and further workup. NIH score on arrival to [facility] was 0. Patient was not a candidate [...] change -Ot recs home. PT pending -per AERIAL PHOTOGRAPH INTERPRETER patient scored 22/30 on the [place] Cognitive Assessment -stroke neuro recs DAPT with [...] (Attempt to Resuscitate); Full Support Ordered at: 03/21/254 Code Status (Patient has no pulse and [...] light touch throughout Coordination: no ataxia with gxhhab-nn-gjzz testing Gait/Station: deferred Results Review: I reviewed [...] Perkins MD 03/22/2025 4:24 AMEDT Workstation ID: [id number] -MRI brain images from 03/22/2025 were personally [...] CT imaging was unrevealing. Patient wastransferred to [facility] for MRI brain without contrast and further workup. NIH score on arrival to [facility] was 0. Patient was not a candidate for IV thrombolytic therapy or emergent neurointervention. Antiplatelet SUPERVISOR GEAR REPAIR: Aspirin Anticoagulant SUPERVISOR GEAR REPAIR: None #Headache with visual disturbance, resolved #Expressive [...] stat CTh for any acute neurological change -PT/OT/AERIAL PHOTOGRAPH INTERPRETER as appropriate Patient education: call 911 or present to emergency department with any stroke symptom, including unilateral face, arm, or leg weakness, numbness, or paresthesias, unilateral facial droop, speech deficits, dizziness with nausea, vomiting, nystagmus, and incoordination, visual deficits, or severe onset headache. Stroke will sign off. Please call for any further questions or concerns Lior Lynne MD, Msc, PhD Vascular Neurologist [facility] Transthoracic echocardiogram report from 03/22/2025 was personally reviewed and showed left ventricular ejection fraction of 60% with normal left atrial size and volume and negative bubble study. Lior Lynne MD, Msc, PhD Vascular Neurologist [facility] documented in this encounter H&P Notes * Ladonna Wallace MD - 03/21/2025 9:13 PM EDT Images from the original note were not included. [facility] Medicine Services HISTORY AND PHYSICAL Patient Name: [...] were reportedly unrevealing. Patient was transferred to [facility] for higher level of care. Stroke saw [...] Stage IA (pT1mi, pN0, cM0, G2, ER+, ND+, HER2-) - Signed by Lila Oliveira MD [...] imaging was unrevealing. Patient was transferred to [facility] for MRI brain without contrast and further workup. NIH score on arrival to [facility] was 0. Patient was not a candidate [...] stat CTH for any acute neurological change -PT/OT/AERIAL PHOTOGRAPH INTERPRETER as appropriate Chronic IBS -Continue Colestid VTE Prophylaxis: Mechanical VTE prophylaxis orders are present. CODE STATUS: Code Status and Medical Interventions: CPR (Attempt to Resuscitate); Full Support Ordered at: 03/21/25 6333 Code Status (Patient has no pulse and [...] Care Physician: Sal Croft MD Referring Physician: [facility] ED Provider Handedness: Right Race: Chief Complaint/Reason [...] were reportedly unrevealing. Patient was transferred to [facility] for higher level of care. Patient was seen and examined immediately on arrival to [facility]. On my exam, patient clarified that earlier [...] (for dry eyes). Yes Amelia Don MD Cruger-3 Fatty Acids (fish oil) 1000 MG capsule capsule Take 1 capsule by mouth Daily With Breakfast. Yes Amelia Don MD Red Yeast Rice 600 MG capsule Take 1 capsule by mouth 1 (One) Time. Yes Amelia Don MD sodium chloride (KEELY 128) 5 % ophthalmic solution 1 drop As Needed. Yes Amelia Don MD vitamin B-12 (CYANOCOBALAMIN) 1000 MCG tablet Take 1 tablet by mouth Daily. Patient taking differently: Take 1 tablet by mouth 1 (One) Time Per Week. Yes Provider, MD Amelia Acute Stroke Data Thrombolytic Inclusion / Exclusion [...] CT imaging was unrevealing. Patient wastransferred to [facility] for MRI brain without contrast and further workup. NIH score on arrival to [facility] was 0. Patient was not a candidate for IV thrombolytic therapy or emergent neurointervention. Antiplatelet SUPERVISOR GEAR REPAIR: Aspirin Anticoagulant SUPERVISOR GEAR REPAIR: None Headache with visual disturbance, resolved Expressive [...] stat CTh for any acute neurological change -PT/OT/AERIAL PHOTOGRAPH INTERPRETER as appropriate Disposition: Admit to the hospital medicine service Case discussed with the patient and bedside RN. Thank you for the consult. Stroke neurology will continue to follow. Mehran Hoskins PA-C [facility] [place]rology Cosigned by Lior Lynne MD [...] Reviewed With: patient * Karis Gillespie, MS CCC-AERIAL PHOTOGRAPH INTERPRETER - 03/22/2025 1:12 PM EDT Goal Outcome Evaluation: Plan of Care Reviewed With: patient Anticipated Discharge Disposition (AERIAL PHOTOGRAPH INTERPRETER): home with OP services AERIAL PHOTOGRAPH INTERPRETER Diagnosis: mild-moderate, cognitive-linguistic disorder (03/22/25 1145) Deficits unnrealted to admitting symptoms of word finding difficulties (which are now resolved). Scored 22/30 on the [place] Cognitive Assessment (MOCA). Pt with some, but [...] Miscellaneous Notes * Therapy Evaluation - Karis Gillespie MS [facility]-AERIAL PHOTOGRAPH INTERPRETER - 03/22/2025 1:15 PM EDT Images from the original note were not included. Acute Care - Speech Language Pathology Initial Evaluation [facility] Cognitive-Communication Evaluation Patient Name: Kristy Hernandez [...] BREAST LUMPECTOMY Right 08/19/2022 CHOLECYSTECTOMY HYSTERECTOMY OOPHORECTOMY AERIAL PHOTOGRAPH INTERPRETER Recommendation and Plan AERIAL PHOTOGRAPH INTERPRETER Diagnosis: mild-moderate, cognitive-linguistic disorder (03/22/251144) [facility] Criteria for Skilled Therapy Interventions Met: yes (03/22/251144) Anticipated Discharge Disposition (AERIAL PHOTOGRAPH INTERPRETER): home with OP services (03/22/251144) Demonstrates Need for Referral to Another Service: neurology (03/22/251144) Therapy Frequency (AERIAL PHOTOGRAPH INTERPRETER SLC): 5 days per week (03/22/251144) Predicted Duration Therapy Intervention (Days): 1 week (03/22/251144) AERIAL PHOTOGRAPH INTERPRETER EVALUATION (Last 72 Hours) AERIAL PHOTOGRAPH INTERPRETER SLC Evaluation Row Name 03/22/251144 Communication Assessment/Intervention Document Type evaluation -SM Subjective Information no complaints -SM Patient Observations alert;cooperative -SM Patient Effort good -SM General Information Patient Profile Reviewed yes -SM Pertinent History Of Current Problem Adm word finding difficulties, now resolved. MRI negative. -SM Prior Level of Function-Communication unknown;other (see comments) pt reports only age-related difficulties - Plans/Goals Discussed with patient;agreed upon - Barriers to Rehab none identified - Patient's Goals for Discharge return to home - Pain Pretreatment Pain Rating 0/10 - no pain -SM Posttreatment Pain Rating 0/10 - no pain - Comprehension Assessment/Intervention Comprehension Assessment/Intervention Auditory Comprehension;Reading Comprehension - Auditory Comprehension Assessment/Intervention Auditory Comprehension (Communication) mild impairment -SM Answers Questions (Communication) yes/no;wh questions;personal;simple;WFL;complex;abstract;mild impairment;other (see comments) when prompted, able to correct answer - Able to Follow Commands (Communication) 1-step;2-step;WFL;3-step;mild impairment -SM Narrative Discourse conversational level;mild impairment -SM Auditory Comprehension Communication, Comment deficits all related to cognitive difficulties, mainly decreased sustained attention - Reading Comprehension Assessment/Intervention Reading Comprehension (Communication) mild impairment -SM Functional Reading Tasks mild impairment;other (see comments) - Reading Comprehension, Comment corrected when prompted of error. Error r/t decreased attention to detail - Expression Assessment/Intervention Expression Assessment/Intervention verbal expression;graphic expression - Verbal Expression Assessment/Intervention Verbal Expression L - Graphic Expression Assessment/Intervention Sentence Formulation simple;WFL -SM Oral Musculature and Cranial Nerve Assessment Oral Motor General Assessment WFL -SM Motor Speech Assessment/Intervention Motor Speech Function [facility] - Cursory Voice Assessment/Intervention Quality and Resonance (Voice) [facility] - Cognitive Assessment Intervention- AERIAL PHOTOGRAPH INTERPRETER Cognitive Function (Cognition) mild impairment -SM Orientation Status (Cognition) person;place;time;situation - Memory (Cognitive) functional;mental manipulation;short-term;mild impairment -SM Attention (Cognitive) sustained;attention to detail;mild impairment;moderate impairment -SM Thought Organization (Cognitive) concrete divergent;mental manipulation;mild impairment -SM Reasoning (Cognitive) simple;WFL;mod-complex;mental flexibility;mild impairment;moderate impairment-SM Problem Solving (Cognitive) simple;WFL -SM Executive Function (Cognition) deficit awareness;self-monitoring/correction;home management activities;mild impairment;moderate impairment -SM Cognition, Comment No family present to discuss baseline level or if any concerns observed baseline. Pt attributes all to age though decreased deficit awareness. Messaged MD, pt may benefit from OP neurologist referral for cognitive deficits unrealted to admission symptoms. - Standardized Tests Cognitive/Memory Tests MOCA: [place] Cognitive Assessment - MOCA: The [place] Cognitive Assessment MOCA Total Score - MOCA Total Score Indicative Of: Mild Cognitive Impairment - AERIAL PHOTOGRAPH INTERPRETER Evaluation Clinical Impressions AERIAL PHOTOGRAPH INTERPRETER Diagnosis mild-moderate;cognitive-linguistic disorder - Rehab Potential/Prognosis good - [facility] Criteria for Skilled Therapy Interventions Met yes - Functional Impact difficulty completing home management task - Recommendations Therapy Frequency (AERIAL PHOTOGRAPH INTERPRETER SLC) 5 days per week - Predicted Duration Therapy Intervention (Days) 1 week - Anticipated Discharge Disposition (AERIAL PHOTOGRAPH INTERPRETER) home with OP services -SM Demonstrates Need for Referral to Another Service neurology - User Nur (r) = Recorded By, (t) = Taken By, (c) = Cosigned By Initials Name Effective Dates Karis Gillespie, MS [facility]-AERIAL PHOTOGRAPH INTERPRETER 09/02/24 - EDUCATION The patient has been educated in the following areas: Cognitive Impairment Communication Impairment. AERIAL PHOTOGRAPH INTERPRETER GOALS Row Name 03/22/25 1145 Patient will demonstrate functional cognitive-linguistic skills for return to discharge environment [place] with minimal cues - Time frame 1 week - AERIAL PHOTOGRAPH INTERPRETER Diagnostic Treatment Patient will participate in further assessment in the following areas clarification of baseline cognitive communication status discuss eval results and baseline function when family present - Time Frame (Diagnostic) 1 week -SM Attention Goal 1 (AERIAL PHOTOGRAPH INTERPRETER) Improve Attention by Goal 1 (AERIAL PHOTOGRAPH INTERPRETER) complete sustained attention task;other (see comments);100%;with minimal cues (75-90%) + attention to detail - Time Frame (Attention Goal 1, AERIAL PHOTOGRAPH INTERPRETER) 1 week -SM Organizational Skills Goal 1 (AERIAL PHOTOGRAPH INTERPRETER) Improve Thought Organization Through Goal 1 (AERIAL PHOTOGRAPH INTERPRETER) abstract;completing a divergent naming task;completing a convergent naming task;completing mental manipulation task;90%;with minimal cues (75-90%) - Time Frame (Thought Organization Skills Goal 1, AERIAL PHOTOGRAPH INTERPRETER) 1 week -SM Executive Functional Skills Goal 1 (AERIAL PHOTOGRAPH INTERPRETER) Improve Executive Function Skills Goal 1 (AERIAL PHOTOGRAPH INTERPRETER) demonstrate awareness of deficit;identify strategies, strengths, limitations;organization/planning activity;home management activity;exhibit cognitive flexibility;perform self- correction;perform self-evaluation;90%;with minimal cues (75-90%) - Time Frame (Executive Function Skills Goal 1, AERIAL PHOTOGRAPH INTERPRETER) 1 week -SM User Nur (r) = Recorded By, (t) = Taken By, (c) = Cosigned By Initials Name Provider Type Karis Rinaldi MS CCC-AERIAL PHOTOGRAPH INTERPRETER Speech and Language Pathologist Time Calculation: Time Calculation- AERIAL PHOTOGRAPH INTERPRETER Row Name 03/22/25 1314 Time Calculation- AERIAL PHOTOGRAPH INTERPRETER AERIAL PHOTOGRAPH INTERPRETER Start Time 1145 -SM AERIAL PHOTOGRAPH INTERPRETER Received On 03/22/25 - Untimed Charges 86795-IM Eval Speech and Production w/ Language Minutes 58 -SM Total Minutes Untimed Charges Total Minutes 58 -SM Total Minutes 58 -SM User Nur (r) = Recorded By, (t) = Taken By, (c) = Cosigned By Initials Name Provider Type Karis Rinaldi MS CCC-AERIAL PHOTOGRAPH INTERPRETER Speech and Language Pathologist Therapy Charges for Today Code Description Service Date Service Provider Modifiers Qty [id number] HC ST EVAL SPEECH AND PROD W LANG 4 03/22/2025 Karis Gillespie MS CCC-AERIAL PHOTOGRAPH INTERPRETER GN 1 MS JEFFREY Frederick 03/22/2025 * [...] evaluation -RAGHU Mode of Treatment occupational therapy -RAGHU Row Name 03/22/25 1308 General Information Patient [...] Arrangements home -RAGHU People in Home spouse -RAGHU Row Name 03/22/25 1308 Stairs Within Home, [...] Bed Mobility Bed Mobility supine-sit;sit-supine -RAGHU Supine-Sit [place] (Bed Mobility) standby assist -RAGHU Sit-Supine [place] (Bed Mobility) standby assist -RAGHU Assistive Device (Bed Mobility) head of bed elevated -RAGHU Comment, (Bed Mobility) Pt completed without difficulty -RAGHU Row Name 03/22/25 1314 Transfers Transfers sit-stand transfer;toilet transfer -RAGHU Row Name 03/22/25 1314 Sit-Stand Transfer Sit-Stand [place] (Transfers) standby assist -RAGHU Comment, (Sit-Stand Transfer) no AD -RAGHU Row Name 03/22/25 1314 Toilet Transfer Type (Toilet Transfer) stand pivot/stand step;stand-sit;sit-stand -RAGHU [place] Level (Toilet Transfer) standby assist -RAGHU Assistive Device (Toilet Transfer) commode;grab bars/safety frame -RAGHU Comment, (Toilet Transfer) no unsteadiness noted - Row Name 03/22/25 1314 Functional Mobility Functional Mobility- Ind. Level supervision required - Functional Mobility-Distance (Feet) 20 -RAGHU Functional Mobility- Comment Pt ambulated to/from bathroom without AD -RAGHU Row Name 03/22/25 1314 Activities of Daily Living BADL Assessment/Intervention lower body dressing;grooming;toileting -[facility] Name 03/22/25 131 Hygiene Care Oral Care teeth brushed - regular toothbrush -[facility] Name 03/22/25 1314 Lower Body Dressing Assessment/Training [place] Level (Lower Body Dressing) don;socks;set up -RAGHU Position (Lower Body Dressing) sitting up in bed -[facility] Name 03/22/25 1314 Grooming Assessment/Training [place] Level (Grooming) wash face, hands;standby assist -RAGHU Position (Grooming) sink side;unsupported standing -RAGHU Comment, (Grooming) Pt completed oral care earlier this morning -[facility] Name 03/22/25 1314 Toileting Assessment/Training [place] Level (Toileting) adjust/manage clothing;perform perineal hygiene;standby assist -RAGHU Assistive Devices (Toileting) commode;grab bar/safety frame -RAGHU Position (Toileting) unsupported sitting;unsupported standing -RAGHU User Nur (r) = Recorded By, (t) = Taken By, (c) = Cosigned By Initials Name Provider Type Elise Garsia OT Occupational Therapist Obj/Interventions Row Name 03/22/25 1331 Sensory Assessment (Somatosensory) Sensory Assessment (Somatosensory) UE [...] By Initials Name Provider Type Elise Garsia, JAKY Occupational Therapist Goals/Plan Row Name 03/22/251337 Transfer Goal 1 (OT) Activity/Assistive Device (Transfer Goal 1, OT) esx-yc-tutio/wktre-xv-gzw;mlv-mu-cotqc/zuxfo-qg-cxj;toilet -RAGHU [place] Level/Cues Needed (Transfer Goal 1, OT) independent -RAGHU Time Frame (Transfer Goal 1, OT) longterm goal (LTG);10 days -RAGHU Progress/Outcome (Transfer Goal 1, OT) new goal - Row Name 03/22/251337 Dressing Goal 1 (OT) Activity/Device (Dressing Goal 1, OT) upper body dressing;lower body dressing -RAGHU [place]/Cues Needed (Dressing Goal 1, OT) independent -RAGHU Time Frame (Dressing Goal 1, OT) short term goal (STG);1 week -RAGHU Progress/Outcome (Dressing Goal 1, OT) new goal - Row Name 03/22/25 133 Toileting Goal 1 (OT) Activity/Device (Toileting Goal 1, OT) adjust/manage clothing;perform perineal hygiene;commode;grabbar/safety frame -RAGHU [place] Level/Cues Needed (Toileting Goal 1, OT) independent -RAGHU Time Frame (Toileting Goal 1, OT) short term goal (STG);1 week -RAGHU Progress/Outcome (Toileting Goal 1, OT) new goal - Row Name 03/22/251337 Therapy Assessment/Plan (OT) Planned Therapy Interventions (OT) activity tolerance training;BADL retraining;functional balance retraining;occupation/activity based interventions;patient/caregiver education/training;ROM/therapeutic exercise;strengthening exercise;transfer/mobility retraining - User Nur (r) = Recorded By, (t) = Taken By, (c) = Cosigned By Initials Name Provider Type Elise Garsia, JAKY Occupational Therapist Clinical Impression Row Name 03/22/25 [...] OT services warranted to support return to [place]. Recommend home at discharge. -[facility] Name 03/22/25 1332 Therapy Assessment/Plan (OT) Patient/Family Therapy Goal Statement (OT) To be able to take care of my -RAGHU Rehab Potential (OT) good -RAGHU Criteria for Skilled Therapeutic Interventions Met (OT) yes;meets criteria;skilled treatment is necessary - Therapy Frequency (OT) daily -RAGHU Predicted Duration of Therapy Intervention (OT) 10 days - Row Name 03/22/25 1332 Therapy Plan Review/Discharge Plan (OT) Anticipated Discharge Disposition (OT) home -[facility] Name 03/22/25 1332 Vital Signs Pre Systolic [...] Options AM-PAC 6 Clicks Daily Activity (OT) - User Nur (r) = Recorded By, (t) = Taken By, (c) = Cosigned By Initials Name Provider Type Elise Garsia OT Occupational Therapist Maria Fernanda Collins, RN Registered Nurse Occupational Therapy Education Title: PT OT AERIAL PHOTOGRAPH INTERPRETER Therapies (In Progress) Topic: Occupational Therapy (In [...] Nur Initials Effective Dates Name Provider Type [facility] 01/27/21 - Elise Blanco OT Occupational Therapist [...] Description Service Date Service Provider Modifiers Qty [id number] OT EVAL LOW COMPLEXITY 4 03/22/2025 Elise Blanco OT GO 1 Elise Blanco OT 03/22/2025 documented in this encounter Plan of Treatment Upcoming Encounters Date Type Department Care Team (Late st Contact Info) Description 05/28/2025 10:20 [place] [address] Scheduled Referrals Name Type Priority Associated Diagnoses [...] PM EDT 03/23/2025 1:50 PM EDT Narrative BH ECG - 03/23/2025 1:50 PM EDT Test [...] was found Confirmed by LUCA BROWNE MD ([id number]) on 03/23/2025 1:50:03 PM Referred By: Confirmed [...] was found Confirmed by LUCA BROWNE MD ([id number]) on 03/23/2025 1:50:03 PM Referred By: Confirmed By: LUCA BROWNE MD Lila Billingsley APRN ECG ORDERABLES Final Result ECG * Urinalysis, Microscopic Only - Urine, Clean Catch (03/22/2025 6:04 PM EDT) RBC, UA 0-2 None Seen, 0-2 /HPF 03/22/2025 6:19 PM EDT [facility] WBC, UA 0-2 None Seen, 0-2 /HPF 03/22/2025 6:19 PM EDT [facility] Comment:Urine culture not in dicated. Bacteria, UA None Seen None Seen /HPF 03/22/2025 6:19 PM EDT [facility] Squamous Epithelial Cells, UA 0-2 None Seen, 0-2 /HPF 03/22/2025 6:19 PM EDT [facility] Hyaline Casts, UA None Seen None Seen /LPF 03/22/2025 6:19 PM EDT [facility] Methodology Automated Microscopy 03/22/2025 6:19 PM EDT [facility] Urine Urine specimen obtained by clean catch procedure / Unknown Collection / Unknown 03/22/2025 6:04 PM EDT 03/22/2025 6:13 PM EDT Ion Welsh MD URINE ORDERABLES Final Result [facility]
[address] [place] [address], * (ABNORMAL) Urinalysis With Culture If Indicated - Urine, Clean Catch (03/22/2025 6:04 PM EDT) Color, UA Yellow Yellow, Straw 03/22/2025 6:19 PM EDT [facility] LABORATORY Appearance, UA Clear Clear 03/22/2025 6:19 PM EDT [facility] pH, UA 6.5 5.0 - 8.0 03/22/2025 6:19 PM EDT [facility] Specific [place], UA 1.007 1.005 - 1.030 03/22/2025 6:19 PM EDT [facility] Glucose, UA Negative Negative 03/22/2025 6:19 PM EDT [facility] Ketones, UA Trace(A) Negative 03/22/2025 6:19 PM EDT [facility] Bilirubin, UA Negative Negative 03/22/2025 6:19 PM EDT [facility] Blood, UA Trace(A) Negative 03/22/2025 6:19 PM EDT [facility] Protein, UA Negative Negative 03/22/2025 6:19 PM EDT [facility] Leuk Esterase, UA Negative Negative 03/22/2025 6:19 PM EDT [facility] Nitrite, UA Negative Negative 03/22/2025 6:19 PM EDT [facility] Urobilinogen, UA 0.2 E.U./dL 0.2 - 1.0 E.U./dL 03/22/2025 6:19 PM EDT [facility] Urine Urine specimen obtained by clean catch procedure / Unknown Collection / Unknown 03/22/2025 6:04 PM EDT 03/22/2025 6:13 PM EDT Narrative [facility] - 03/22/2025 6:19 PM EDT In absence of clinical symptoms, the presence of pyuria, bacteria, and/or nitrites on the urinalysis result does not correlate with infection. Ion Welsh MD URINE ORDERABLES Final Result [facility]
[address] [place] [address], * ECHO COMPLETE W/ DOPPLER AND COLOR [...] - 10.80 10*3/mm3 03/22/2025 11:42 AM EDT [facility] RBC 4.08 3.77 - 5.28 10*6/mm3 03/22/2025 11:42 AM EDT [facility] Hemoglobin 12.1 12.0 - 15.9 g/dL 03/22/2025 11:42 AM EDT [facility] Hematocrit 36.5 34.0 - 46.6 % 03/22/2025 11:42 AM EDT [facility] MCV 89.5 79.0 - 97.0 fL 03/22/2025 11:42 AM EDT [facility] MCH 29.7 26.6 - 33.0 pg 03/22/2025 11:42 AM EDT [facility] MCHC 33.2 31.5 - 35.7 g/dL 03/22/2025 11:42 AM EDT [facility] RDW 12.5 12.3 - 15.4 % 03/22/2025 11:42 AM EDT [facility] RDW-SD 41.1 37.0 - 54.0 fl 03/22/2025 11:42 AM EDT [facility] MPV 8.8 6.0 - 12.0 fL 03/22/2025 11:42 AM EDT [facility] Platelets 297 140 - 450 10*3/mm3 03/22/2025 11:42 AM EDT [facility] Blood Venipuncture / Unknown 03/22/2025 11:09 AM EDT 03/22/2025 11:36 AM EDT us Ladonna Wallace MD LAB BLOOD ORDERABLES Final Re sult [facility]
[address] [place] [address], * (ABNORMAL) Basic Metabolic Panel (03/22/2025 11:09 AM EDT) Glucose 99 65 - 99 mg/dL 03/22/2025 12:04 PM EDT [facility] BUN 6.8(L) 8.0 - 23.0 mg/dL 03/22/2025 12:04 PM EDT [facility] Creatinine 0.64 0.57 - 1.00 mg/dL 03/22/2025 12:04 PM EDT [facility] Sodium 134(L) 136 - 145 mmol/L 03/22/2025 12:04 PM EDT [facility] Potassium 4.1 3.5 - 5.2 mmol/L 03/22/2025 12:04 PM EDT [facility] Chloride 98 98 - 107 mmol/L 03/22/2025 12:04 PM EDT [facility] CO2 27.6 22.0 - 29.0 mmol/L 03/22/2025 12:04 PM EDT [facility] Calcium 8.9 8.6 - 10.5 mg/dL 03/22/2025 12:04 PM EDT [facility] BUN/Creatinine Ratio 10.6 7.0 - 25.0 03/22/2025 12:04 PM EDT [facility] Anion Gap 8.4 5.0 - 15.0 mmol/L 03/22/2025 12:04 PM EDT [facility] eGFR 91.7 >60.0 mL/min/1.7 3 03/22/2025 12:04 PM EDT [facility] Blood Venipuncture / Unknown 03/22/2025 11:09 AM EDT 03/22/2025 11:36 AM EDT Narrative [facility] - 03/22/2025 12:04 PM EDT GFR [...] does not include race as a factor Ladonna Wallace MD LAB BLOOD ORDERABLES Final Re sult [facility]
[address] [place] [address], * (ABNORMAL) Lipid Panel (03/22/2025 11:09 AM EDT) Total Cholesterol 125 0 - 200 mg/dL 03/22/2025 12:04 PM EDT [facility] Triglycerides 54 0 - 150 mg/dL 03/22/2025 12:04 PM EDT [facility] HDL Cholesterol 79(H) 40 - 60 mg/dL 03/22/2025 12:04 PM EDT [facility] LDL Cholesterol 34 0 - 100 mg/dL 03/22/2025 12:04 PM EDT [facility] VLDL Cholesterol 12 5 - 40 mg/dL 03/22/2025 12:04 PM EDT [facility] LDL/HDL Ratio 0.45 03/22/2025 12:04 PM EDT [facility] Blood Venipuncture / Unknown 03/22/2025 11:09 AM EDT 03/22/2025 11:36 AM EDT [facility] - 03/22/2025 12:04 PM EDT Cholesterol [...] PA-C LAB BLOOD ORDERABLE S Final Result [facility]
[address] [place] [address], * (ABNORMAL) Hemoglobin A1c (03/22/2025 11:09 AM EDT) Hemoglobin A1C 5.69(H) 4.80 - 5.60 % 03/22/2025 11:59 AM EDT [facility] Blood Venipuncture / Unknown 03/22/2025 11:09 AM EDT 03/22/2025 11:37 AM EDT [facility] - 03/22/2025 11:59 AM EDT Hemoglobin A1C Ranges: Increased Risk for Diabetes 5.7% to 6.4% Diabetes >= 6.5% Diabetic Goal < 7.0% Mehran Hoskins PA-C LAB BLOOD ORDERABLE S Final Result [facility]
[address] [place] [address], * MRI Brain Without Contrast (03/22/2025 12:47 AM EDT) Anatomical Region Laterality Modality Head, Neck N/A Magnetic Resonan ce 03/22/2025 4:14 AM EDT Impressions 03/22/2025 4:24 AM EDT Impression: 1.No acute intracranial abnormality. 2.Minimal chronic small vessel ischemic change. 3.Mild left maxillary sinus mucosal disease. Electronically Signed: Chris Perkins MD 03/22/2025 4:24 AM EDT Workstation ID: [id number] Narrative 03/22/2025 4:24 AM EDT MRI BRAIN [...] MD 03/22/2025 4:24 AM EDT Workstation ID: [id number] Mehran Hoskins PA-C IMG MRI ORDERABLES Final Result * POC Glucose Once (03/22/2025 12:10 AM EDT) Glucose 128 70 - 130 mg/dL 03/22/2025 12:11 AM EDT [facility] Blood 03/22/2025 12:1 0 AM EDT 03/22/2025 12:11 AM EDT us Ladonna Wallace MD POINT OF CARE TEST ORDERABLES Final Result Performing Organization Address City/[facility] Co de Phone Number [facility]
[address] [place] [address], * POC Glucose Once (03/21/2025 7:39 PM EDT) Glucose 94 70 - 130 mg/dL 03/21/2025 7:40 PM EDT [facility] Blood 03/21/2025 7:39 PM EDT 03/21/2025 7:40 PM EDT us Ladonna Wallace MD POINT OF CARE TEST ORDERABLES Final Result [facility]
[address] [place] [address], documented in this encounter Visit Diagnoses Diagnosis [...] 81 mg, Oral, Daily, First dose on Mon03/22/25 at 0900, If patient fails dysphagia, ND option MUST be given. Do not exceed [...] 03/22/25 at 0900, If patient fails dysphagia, ND option MUST be given. Do not exceed [...] 75 mg, Oral, Daily, First dose on Mon03/22/25 at 0900 Given 03/23/2025 9:36 AM EDT 75 mg Given 03/22/2025 8:26 AM EDT 75 mg colestipol (COLESTID) 1 GM tablet (Dose = 2 GM) - Patient Supplied 2 g, Oral, Every Morning, First dose on Mon03/22/25 at 0900, Swallow whole. Do not crush, [...] BPA Driven Protocol Open Order & Select [facility] Electrolyte Replacement Protocol Algorithm to View Details melatonin tablet 5 mg 5 mg, Oral, Nightly, First dose on Mon03/22/25 at 0145 Given 03/22/2025 12:53 AM EDT 5 mg nitroglycerin (NITROSTAT) SL tablet 0.4 mg 0.4 mg, Sublingual, Every 5 Minutes PRN, Chest Pain, Starting on Mon03/21/25 at 8, If Pain Unrelieved After 3 Doses Notify MD May administer up to 3 doses per episode. Hold if SBP less than 100. Phosphorus Replacement - Follow Nurse / BPA Driven Protocol Open Order & Select [facility] Electrolyte Replacement Protocol Algorithm to View Details [...] BPA Driven Protocol Open Order & Select [facility] Electrolyte Replacement Protocol Algorithm to View Details [...] at 1938, For 5 days, Group 2 ([place]) Hazardous Drug - Reproductive Risk Only - See Handling Guide documented in this encounter Active and Recently Administered Medications Times are shown in EDT. Scheduled Medication Order 03/21/2025 03/22/2025 03/23/2025 ! Home medications stored in patient specific bins (2 bins); return meds to patient at discharge Every 12 Hours Scheduled, First dose on 03/22/25 at 0900, Until Discontinued, Consult for: Home meds 0945 (Given - Provider: Maria Fernanda Camacho RN)2144 (Given - Provider: Marielena Paige RN) 0900 (Due) aspirin chewable tablet 81 mg(Linked Group 1) 81 mg, Oral, Daily, First dose on 03/22/25 at 0900, If patient fails dysphagia, ND option MUST be given. Do not exceed [...] 03/22/25 at 0900, If patient fails dysphagia, ND option MUST be given. Do not exceed [...] Given: See Alt - Provider: Chago Mae, RN) atorvastatin (LIPITOR) tablet 80 mg 80 mg, [...] 75 mg, Oral, Daily, First dose on Mon03/22/25 at 0900 0826 (Given - Provider: Maria Fernanda Camacho RN) 0936 (Given - Provider: Chago Mae, ISELA) colestipol (COLESTID) 1 GM tablet (Dose = 2 GM) - Patient Supplied 2 g, Oral, Every Morning, First dose on Mon03/22/25 at 0900, Swallow whole. Do not crush, [...] of Medication: Colestid 2257 (Given - Provider: aMrielena Paige RN) 2144 (Given - Provider: Marielena Paige RN) melatonin tablet 5 mg 5 mg, Oral, Nightly, First dose on 03/22/25 at 0145 0053 (Given - Provider: Marielena Paige RN)2144 (Not Given - Provider: Marielena Paige RN - Reason: Patient/family refused) sodium chloride 0.9 % flush 10 mL 10 mL, Intravenous, Every 12 Hours Scheduled, First dose on Mon03/21/25 at 2115 2108 (Given - Provider: Marielena Paige RN) 08 (Given - Provider: Maria Fernanda Camacho, RN)2143 (Given - Provider: Marielena Paige RN) 0935 (Given - Provider: Chago Mae, RN) sodium chloride 0.9 % flush 10 mL 10 mL, Intravenous, Every 12 Hours Scheduled, First dose on Mon03/21/25 at 2145 2108 (Given - Provider: Marielena Paige RN) 826 (Given - Provider: Maria Fernanda Camacho, ISELA)2143 (Given - Provider: Marielena Paige RN) 0935 (Given - Provider: Chago Mae, ISELA) vitamin B-12 (CYANOCOBALAMIN) tablet 1,000 mcg 1,000 mcg, Oral, Weekly, First dose on Mon03/21/25 at 2330, On hold since Mon03/21/2025 at 2231 until manually unheld 2230 (Held by provider - Provider: Ladonna Wallace [...] if polyethylene glycol is ineffective, Starting on Mon03/21/252048, Use if [...] BPA Driven Protocol Open Order & Select [facility] Electrolyte Replacement Protocol Algorithm to View Details Magnesium Standard Dose Replacement - Follow Nurse / BPA Driven Protocol Open Order & Select [facility] Electrolyte Replacement Protocol Algorithm to View Details nitroglycerin (NITROSTAT) SL tablet 0.4 mg 0.4 mg, Sublingual, Every 5 Minutes PRN, Chest Pain, Starting on Mon03/21/25 at 2047, If Pain Unrelieved After 3 Doses Notify MD May administer up to 3 doses per episode. Hold if SBP less than 100. Phosphorus Replacement - Follow Nurse / BPA Driven Protocol Open Order & Select [facility] Electrolyte Replacement Protocol Algorithm to View Details [...] BPA Driven Protocol Open Order & Select [facility] Electrolyte Replacement Protocol Algorithm to View Details [...] at 1938, For 5 days, Group 2 ([place]) Hazardous Drug - Reproductive Risk Only - See Handling Guide 6877 (Not Given - Provider: Marielena Paige RN - Reason: Patient/family refused - Comment: requested something for sleep then declined) Linked Groups Order Group 1: aspirin chewable tablet 81 mgJump to med 81 mg, Oral, Daily, First dose on 03/22/25 at 0900, If patient fails dysphagia, ND option MUST be given. Do not exceed [...] 03/22/25 at 0900, If patient fails dysphagia, ND option MUST be given. Do not exceed [...] 75 mg, Oral, Daily, First dose on Mon03/22/25 at 0900 Group 3: acetaminophen (TYLENOL) tablet [...] oral is ineffective, Starting on Mon03/21/25 at 2049, Use if no bowel movement after 12 hours. Hold for diarrhea documented in this encounter Care Teams Divisional Merchandising Manager Relationship Specialty Start Date End Date Sal Croft MD [facility] [address] [facility] [address] [place] [address] PCP - General Family Medicine 06/30/22 documented as of this encounter
--- OUTSIDE RECORDS SUMMARY | 2025-03-27 08:58 | XMS_ITS | Encounter Summary ---
Author Organization [facility] Address [address] [place] [phone] Care Team Providers Care Tape Cutting Machine Operator Name Role Phone Sal Croft MD Primary Care Provider Encounter Details Date Type Department Care Team (Late st Contact Info) Description 03/21/2025 Documentation [facility] MEDICAL [facility] NEUROLOGY [address] [facility] [address] [place] [address] Mehran Hoskins PA-C [address] [facility] [address] [place] [address] Social History Tobacco Use Types Packs/Day Years [...] on file documented as of this encounter Functional Status * Question Answer [...] 8:12 PM EDT Marielena Paige RN * [place] Suicide Severity Rating Scale (Screener/Recent Self-Report) Question Answer Date of Assessment Author 6. Suicidal Behavior (Lifetime) No 8:12 PM EDT Marielena Paige RN documented as of this encounter Plan of Treatment Upcoming Encounters Date Type Department Care Team (Late st Contact Info) Description 05/28/2025 10:20 AM EDT Appointment [facility] [address] [place] [address] [address] [place] [id number] documented as of this encounter Visit Diagnoses Not on filedocumented in this encounter Care Teams Tape Cutting Machine Operator Relationship Specialty Start Date End Date Sal Croft MD [address] [facility] [address] [place] [address] PCP - General Family Medicine 06/30/22 documented as of this encounter
--- OUTSIDE RECORDS SUMMARY | 2025-03-27 08:58 | XMS_ITS ---
Author Organization [facility] Address [address] [place] [address] Care Team Providers Care Life Skills Worker Name Role Phone Sal Croft MD Primary Care Provider Active Problems Problem Noted Date Diagnosed Date TIA (transient ischemic attack) 03/21/2025 Malignant neoplasm of upper- outer quadrant of right breast in female, estrogen receptor positive 08/24/2022 Cancer Staging:Pathologic:Stage IA(pT1mi, pN0, cM0, G2, ER+, MD+, HER2-) - Signed by Lila Oliveira MD on 08/24/2022 Current Treatment and Therapy Plans No current plan information found. Past Treatment and Therapy Plans No past plan information found. Treatment Summaries Malignant neoplasm of upper-outer quadrant of right breast in female, estrogen receptor positive* Images from the original note were not included. Breast Cancer Survivorship Plan General Information Patient name Kritsy Hernandez Date of 1950 Phone Email No e-mail address on record Cancer Treatment Team Patient Care Team: Akiko Jimenez MD as Consulting Physician (Radiation Oncology) Michell Harkins MD as Referring Physician (General Surgery) Lila Oliveira MD as Consulting Physician (Hematology and Oncology) Provider Phone numbers Care Team Provider: Akiko Jimenez MD, ([phone]) Care Team Provider: Michell Harkins MD, ([phone]) Care Team Provider: Lila Oliveira MD, ([phone]) Post Treatment Care Team Primary Care Physician Sal Croft MD [address] [facility] [address] [place] [address] Background Information Medical history Past Medical History: [...] Stage IA (pT1mi, pN0, cM0, G2, ER+, MD+, HER2-) - Signed by Lila Oliveira MD [...] to you. General Cancer Support & Resources [facility] [address], [address] [place] [address] Med Onc: Folder Hand Onc: Mines Inspector: Ingrid Horne - Psychiatric Nurse Practitioner: Rosario Lentz APRN - [phone] Kick It! (A free smoking cessation program) Financial Counselor and Contact Information: [facility] Financial Counseling - Customs Director Contact Information: Gretel Wray - [phone] Wound Ostomy & Continence Nurse: Local Cancer [...] Toward Empowerment - for Women with Cancer: ([facility]) The Tools and encouragement you need to live your life to the fullest. Free Dinner served @ 6:00pm followed by speaker from 6:30 - 7:30pm. The series runs from May, and meets monthly. Call Suze Marti RN, OCN @ to receive information and upcoming schedule. [facility] Cancer Buddies: This support group is open to anyone that has been diagnosed with cancer of any type. Meets at 6:30pm on the last Monday of each month. Location: [facility]; [address] [place] [address]. For more information call Madyson Lopez @ . Breast Cancer Support & Resources Local Cancer Support Groups and Contact Information: [employer] ([place]): Breast Cancer Support group. Meets the Monday of each at various locations. Please Call Dany Mojica for meeting information @ [phone] or Nia Scanlon @ [phone]. The Journey: Breast Cancer Support Ministry: Meets the Monday of each month, 5:00PM @ [place], [place]. Please call Clair Huff at [phone] for additional information. Reach To Recovery: An [place] Cancer Society peer support group for women with a concern about breast cancer. Patentscan talk with volunteer breast cancer survivors, in person or over the phone, for support & encouragement. Also, after you have completed your journey and would like to give back, you can call the [phone] number to volunteer as a survivor and support to others. For additional information, please call 9-900-GNA-3105 or go to sss.cancer.org. Surveillance How Frequent? [...] advice of a doctor or other health transition of care specialist. Please use these recommendations to talk with [...] of cancer in the general population. The [place] Cancer Society (ACS) recommends these screening guidelines for women: Recommendation Frequency Comments Breast Cancer Screening For more information, see the ACS document Breast Cancer: Early Detection. www.cancer.org/ssLINK/aeverm-uychmh-bkpze-detection-kinza Yearly mammograms starting at age 40, and continuing for as long as a woman is in good health. Clinical breast exam (CBE), performed by a health transition of care specialist, every three years for women intheir 20s [...] the ACS document Colorectal Cancer: Early Detection. www.cancer.org/ssLINK/zatpcvuoyo-cxouyx-fqynf-detection-kinza Options for colon cancer screening can be [...] the ACS document Cervical Cancer: Early Detection. www.cancer.org/.../arfubdgq-kwguaz-evonzmmdyr-ypk-jexev-ojftbahjc-kinza Cervical cancer screening should not begin before [...] more information, visit http://www.nhlbi.nih.gov/health/public/heart/obesity/lose_wt/index.htm www.win.niddk.nih.gov Call the [place] Heart Association Talk to your health care [...] from plant sources. For more information, visit http://www.[employer].gov/food-groups/ Eat healthy, including plenty of fruits and [...] Experts recommend at least 30 minutes of moakkldz-lz-zzqrcbge activity per day, five days a week. [...] you can call a national hotline at 2(685)-QUIT-NOW. Keep your bones healthy. For more information, [...] U.S. Department of Health and Human Services. http://www.womenshealth.gov/ucsoarfbh-acymn-gwn-vaccines/gubjdlypc-jpgmh-krm-men / For more information about adult vaccinations visit the CDC: http://www.cdc.gov/vaccines/recs/schedules/adult-schedule.htm Keep up-to-date on general health screening tests, including cholesterol, blood pressure and glucose (blood sugar) levels. Get an annual influenza vaccine (flu shot). Get vaccinated with the pneumococcal vaccine, which prevents a type of pneumonia, and re-vaccinatedas determined by your health care team. Don???t forget dental and eye health! The [place] [employer] Association recommends adults have their eyes examined every two years until age 60, then annually. People who wear glasses or correctivelenses or are at high risk for eye problems (i.e., diabetics, family history of eye disease) shouldbe seen more frequently. The [place] Dental Association recommends adults see their dentist at least once a year. 10 No information on file. No information on file.
--- OUTSIDE RECORDS SUMMARY | 2025-03-27 08:58 | XMS_ITS | Patient Health Record ---
Author Organization [facility] Address [address] [facility] [address] [place] [id number] Care Team Providers Care Investment Officer Name Role Phone Charlotte Croft Primary Care Provider [phone] Dinesh Fatimaian Unavailable [phone] Margie Rene Unavailable [phone] Allergies Allergen (clinical drug ingredient) Drug/Non Drug [...] Not Detected NotDetected SAPOVIRUS Not Detected NotDetected H-CMP Reviewed date:10/28/2024 08:01:19 AM Interpretation: Performing [...] AGRATIO 1.7 1.1-1.8 ALP 78 38-126 U/L CT Scan : Abd and Pelvis w/ oral & IV contrast Reviewed date:10/30/2024 03:52:04 PM Interpretation:diverticulosis Performing Lab: Notes/Report: diverticulosis P-Magnesium Reviewed date:04/23/2024 08:14:51 AM Interpretation: Performing Lab: Notes/Report: Test performed by [facility] [address] [place], [place] [address] , [address], [place] [address] Theodore Mon MD, Wall To Wall Carpet Installer CLIA: [id number] Magnesium 2.3 1.6-2.4 mg/dL P-Lipid Panel Reviewed date:04/23/2024 08:14:51 AM Interpretation: Performing Lab: Notes/Report: Test performed by [facility] [address] [place], [place] [address] , [address], [place] [address] Theodore Mon MD, Wall To Wall Carpet Installer CLIA: [id number] Cholesterol 151 <200 mg/dL Triglycerides 52 <150 [...] Results: 55 Units: mg/dL % Change: -37% P-CPK Reviewed date:04/23/2024 08:14:51 AM Interpretation: Performing Lab: Notes/Report: Test performed by [facility] [address] [place], [place] [address] Theodore Mon MD, Wall To Wall Carpet Installer CLIA: [id number] Creatine Kinase 93 20-180 U/L P-Comprehensive Metabolic Pa greg (CMP) Reviewed date:04/23/2024 08:14:51 AM Interpretation: Performing Lab: Notes/Report: Test performed by [facility] [facility] , [address], [place] [address] Theodore Mon MD, Wall To Wall Carpet Installer CLIA: [id number] Sodium 140 135-145 mmol/L Potassium 4.7 3.5-5.3 [...] 0.5 <0.2-1.2 mg/dL A/G Ratio 1.8 1.1-2.5 H-Lipase Reviewed date:08/26/2024 08:45:03 AM Interpretation: Performing Lab: Notes/Report: H-Amylase Reviewed date:08/26/2024 08:44:52 AM Interpretation: Performing Lab: Notes/Report: H-CMP Reviewed date:08/26/2024 08:44:41 AM Interpretation: Performing Lab: Notes/Report: H-CBC Reviewed date:08/26/2024 08:44:26 AM Interpretation: Performing Lab: Notes/Report: CT Scan : Abd & Pelvis w/o c ontrast Reviewed date:08/20/2024 09:35:06 AM Interpretation: Performing Lab: Notes/Report: Influenza Screen (in house) Reviewed date:08/08/2024 02:08:27 PM Interpretation:neg Performing Lab: Notes/Report: neg results neg Covid test (in house) Reviewed date:08/08/2024 02:08:16 PM Interpretation:pos Performing Lab: Notes/Report: pos Result: pos H-Lipase Reviewed date:08/27/2024 08:21:30 AM Interpretation:Normal Performing [...] 0.1 0.0-0.4 K/mm3 BA# 0.0 0-0.2 K/mm3 Reason For Referral Reason Diverticulosis Chr onic Diarrhea Diagnosis 1 Chronic diarrhea (K5 2.9) Diagnosis 2 Diverticulosis (K57. 90) Referral Organization [facility] Referring Provider First Name Charlotte Hedrick Referring Provider Last Name Lang Referring Provider [facility] Referred Address [address] [place] [address], [address] ,[place], [id number], Referred Provider Specialty Gastroentero logy General Notes Christine Zelaya 11/11 09:07:11 AM > please refer to Bindu Hernandez Brynn 11/13/2024 1:49:08 PM > faxed all to Dr. Peck office, Keyana Ruano 11/20/2024 2:47:41 PM > 12/24/2024 at 10:30am Referral Priority Routine Reason shoulder pain Diagnosis 1 Shoulder pain (M25.5 19) [facility] Referring Provider First Name Charlotte Hedrick Referring Provider Last Name Lang Referring Provider [facility] Referred Organization [facility] Referred Provider Physical Therapy, . Referred Address [address] [place] [address] [id number], Referred Provider Specialty Occupational Therapy General Notes Keyana Ruano 2024 09:29:53 AM > faxed to [facility] Aníbal CARCAMO Julia 01/31/2025 09:39:22 AM [...] (65yr and older) IM Intramuscular 05/20/2019 Administered Fluzone High Dose (65yr and older) [...] (6mos and older)-trivalent IM Intramuscular 06/01/2011 Administered Problems Problem Type SNOMED Code ICD Code Onset Dates Problem Status W/U Status Risk Notes Problem Breast cancer (180612900) Breast cancer (C50.919) Active confirmed Problem Abnormal mammogram (507207919) Abnormal mammogram (R92.8) Active confirmed Problem Diverticulitis (60841131) Diverticulitis (K57.92) Active confirmed Problem Rhinitis (66728773) Rhinitis (J31.0) Active confirmed Problem Sciatic nerve lesion (008194626) Piriformis syndrome of right side (G57.01) Active confirmed Problem Environmental allergy (958589221) Environmental allergies (Z91.048) Active confirmed Problem Hiatal hernia (71811544) Hiatal hernia (K44.9) Active confirmed Problem Mixed anxiety and depressive disorder (684177496) Depression with anxiety (F41.8) Active confirmed Problem Abnormal findings on diagnostic imaging of breast (524698878) Abnormal mammogram of both breasts (R92.8) Active confirmed Problem Primary generalised osteoarthritis (278788192) Primary generalized (osteo)arthritis (M15.0) Active confirmed Problem Localized, primary osteoarthritis of the shoulder region (857538416) Primary osteoarthritis, right shoulder (M19.011) Active confirmed Problem History of polyp of colon (situation) (973385822) History of colon polyps (Z86.010) Active confirmed Problem Diverticular disease of colon (122620166) Diverticulosis (K57.90) Active confirmed Problem Diverticulosis of colon (842559153) Diverticulosis of colon (K57.30) Active confirmed Problem Dyslipidemia (570072517) Dyslipidemia (E78.5) Active confirmed Problem Dysphagia (07701876) Pharyngoesophageal dysphagia (R13.14) Active confirmed Problem Chronic diarrhea (171093267) Chronic diarrhea (K52.9) Active confirmed Problem Splenic artery aneurysm (55041424) Splenic artery aneurysm (I72.8) Active confirmed Problem 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, both eyes (H26.493) Active confirmed Problem Esophageal dysphagia (88550242) Esophageal dysphagia (R13.10) Active confirmed Vital Signs Heart Rate 76 /min 01/30/2025 Blood pressure diastolic 60 mm Hg 01/30/2025 Height 64.50 in 01/30/2025 Blood pressure systolic 120 mm Hg 01/30/2025 Weight 138.6 lbs 01/30/2025 BMI 23.42 kg/m2 01/30/2025 Encounters Encounter Location Date Provider Diagnosis [facility] [address] [place] [id number] 04/11/2024 R Ryley Lang Paronychia L03.019 ; Trigger finger of left thumb M65.312 and Dyslipidemia E78.5 [facility] [address] [place] [id number] 04/18/2024 R Ryley Lang Dyslipidemia E78.5 ; Myalgia M79.10 and Paronychia L03.019 [facility] [address] [place] [id number] 04/30/2024 R Ryley Lang Trigger finger of le ft thumb M65.312 [facility] [address] [facility] [address] [place], [place] [id number] 05/21/2024 R Ryley Lang [facility] [address] [place], [place] [id number] 08/08/2024 R Ryley Lang COVID-19 U07.1 [facility] [address] [facility] [address] [place] [id number] 08/13/2024 R Ryley Lang Diverticulitis K57.9 2 [facility] [address] [place] [id number] 09/12/2024 R Ryley Lang Trochanteric bursiti s of right hip M70.61 [facility] [address] [place], [place] [id number] 10/18/2024 Margie Crowdy Diverticulitis K57.9 2 and Chronic diarrhea K52.9 [facility] [address] [place] [id number] 01/30/2025 R Ryley Lang Shoulder pain M25.51 9 ; Dyslipidemia E78.5 ; Malignant neoplasm of upper-inner quadrant of right female breast, unspecified estrogen receptor status C50.211 and BMI 23.0-23.9, adult Z68.23 [facility] [address] [place], [place] [id number] 04/01/2024 R Ryley Lang [facility] [address] [place] [id number] 04/23/2024 R Ryley Lang [facility] [address] [place] [id number] 05/10/2024 Margie Crowdy [facility] [address] [place] [id number] 05/28/2024 R Ryley Lang [facility] [address] [place] [id number] 08/09/2024 R Ryley Lang [facility] [address] [place] [id number] 08/15/2024 R Ryley Lang Diverticulitis K57.9 2 and Chronic diarrhea K52.9 [facility] [address] [place] [id number] 08/16/2024 R Ryley Lang Diarrhea, unspecifie d type R19.7 [facility] [address] [place] [id number] 08/20/2024 R Ryley Lang [facility] [address] [place] [id number] 08/27/2024 R Ryley Lang [facility] [address] [place] [id number] 10/10/2024 R Rlyey Lang [facility] [address] [place], [place] [id number] 10/21/2024 Margie Crowdy [facility] [address] [place] [id number] 10/25/2024 R Ryley Lang [facility] [address] [place], [place] [id number] 10/30/2024 R Ryley Ramírezt [facility] [address] [place], [place] [id number] 11/11/2024 R Ryley Ashleyeet [facility] [address] [place] [id number] 11/22/2024 R Ryley Ashleyeet [facility] [address] [facility] [address] [place], [place] [id number] 03/21/2025 R Ryley Hurley[place]et Dyslipidemia E78.5 Assessments Encounter Date Diagnosis (ICD [...] as tolerated 01/30/2025 Dyslipidemia (ICD-10 - E78.5) 03/21/2025 Dyslipidemia (ICD-10 - E78.5) 01/30/2025 Malignant neoplasm of upper-inner quadrant of right female breast, unspecified estrogen receptor status (ICD-10 - C50.211) 08/16/2024 Diarrhea, unspecified type (ICD-10 - R19.7) 04/18/2024 Myalgia (ICD-10 - M79.10) 04/11/2024 Dyslipidemia (ICD-10 - E78.5) 04/18/2024 Paronychia (ICD-10 - L03.019) Continue soaking her foot. Resecting the offending portion of the nail today should relieve her symptoms. If she persists with pain, will arrange podiatry referral. 01/30/2025 BMI 23.0-23.9, adult (ICD-10 - Z68.23) Plan Of Treatment Pending Test Test Name Order Date Lipid Profile 04/11/2024 CMP 04/11/2024 H-CBC 03/21/2025 H-Lipid Panel 03/21/2025 H-CMP 03/21/2025 Next Appt Details Provider Name:Charlotte Walter et, 03/27/2025 11:00:00 AM, [address] [facility], [address], [place], [place], [id number], Insurance Providers Payer Name Payer Address Payer Phone Subscriber Number Group Number Insured Name Patient Relationship to Insured Coverage Start Date Coverage End Date [employer] (MEDICAR E) [address] [address] [place] [address] [phone] [id number] CUENCA Self - patient is the insured Medications Administered Medication Instructions Date of Administration Dosage Notes Depo- Medrol 40 mg/ml 09/01/2022 1.5 mL Depo- Medrol 40 mg/ml 02/16/2023 1.5 mL Depo- Medrol 40 mg/ml 03/08/2024 1.5 mL Depo- Medrol 40 mg/ml 04/30/2024 1.5 mL Dexamethasone 11/04/2014 1 mL Dexamethasone 03/20/2015 1 mL Dexamethasone 08/12/2016 1 mL Dexamethasone 12/31/2021 1 mL Dexamethasone 01/06/2022 1 mL Dexamethasone 06/24/2022 1 mL Depo- Medrol 40 mg/ml 12/06/2013 Dexamethasone 06/25/2014 1 mL Dexamethasone 02/12/2013 1 mL Medical (General) History Medical History [...] 23 Hospitalization History Reason Date(Month/Year) kidney stones 1986
--- OUTSIDE RECORDS SUMMARY | 2025-03-27 08:58 | XMS_ITS | Clinical Summary ---
Author Organization [facility] Address [address] [place] [address] Care Team Providers Care Process Control Specialist Name Role Phone Sal Croft MD Primary Care Provider Allergies Active Allergy Reactions Criticality Noted Date Comments Doxycycline Other (See Comments) Low 01/29/2024 Ticagrelor Nausea And Vomiting 01/29/2024 Azithromycin Nausea Only Low 08/24/2022 Medications Glucosamine-Ch ondroitin (OSTEO BI-FLEX REGULAR STRENGTH PO) Take by mouth 2 (Two) Times a Day. Active [place]-3 Fatty Acids (fish oil) 1000 MG capsule capsule Take 1 capsule by mouth Daily With Breakfast. Active Red Yeast Rice 600 MG capsule Take 1 capsule by mouth 1 (One) Time. Active famotidine (PEPCID) 20 MG tablet Take 1 tablet by mouth 2 (Two) Times a Day. Active Bioflavonoid Products (YURY C PO) Take 1,000 mg by mouth 1 (One) Time. Active atorvastatin (LIPITOR) 10 MG tablet 1 tablet Daily. 11/27/19 24 Active sodium chloride (KEELY 128) 5 % ophthalmic solution 1 drop As Needed. Active aspirin 81 MG EC tablet Take 1 tablet by mouth Daily. Active colestipol (COLESTID) 1 g tablet Take 1 tablet by mouth See Admin Instructions. Take 2 tablets by mouth every morning and 1 tablet every evening. 03/11/20 25 Active Ascorbic Acid 500 MG capsule Take 500 mg by mouth Daily. As directed by the provider Active iVIZIA Dry Eyes 0.5 % solution Apply 0.5 drops to eye(s) as directed by provider 3 (Three) Times a Day As Needed (for dry eyes). Active melatonin 5 MG tablet tablet Take 4 tablets by mouth Every Night. Active vitamin B-12 (CYANOCOBALAMI N) 1000 MCG tablet Take 1 tablet by mouth 1 (One) Time Per Week. 03/23/20 25 Active carboxymethylc ellulose (REFRESH PLUS) 0.5 % solution Administer 1 drop to both eyes 3 (Three) Times a Day As Needed for Dry Eyes. Not taking 03/23/20 25 Active clopidogrel (PLAVIX) 75 MG tablet Take 1 tablet by mouth Daily. 21 tablet 03/24/20 25 Active vitamin B-12 (CYANOCOBALAMI N) 1000 MCG tablet Take 1 tablet by mouth Daily. 025 Discontinued carboxymethylc ellulose (REFRESH PLUS) 0.5 % solution Administer 1 drop to both eyes 3 (Three) Times a Day As Needed for Dry Eyes. 025 Discontinued clopidogrel (PLAVIX) 75 MG tablet Take 1 tablet by mouth Daily. 90 tablet 03/24/20 25 025 Discontinued Active Problems Problem Noted Date Diagnosed Date TIA (transient ischemic attack) 03/21/2025 Malignant neoplasm of upper- outer quadrant of right breast in female, estrogen receptor positive 08/24/2022 Cancer Staging:Pathologic:Stage IA(pT1mi, pN0, cM0, G2, ER+, FL+, HER2-) - Signed by Lila Oliveira MD on 08/24/2022 Encounters Date Type Department Care Team Description 03/25/2025 Readmission Management [facility] [address] [place] [phone] Raulito Marsh RN 03/24/2025 Readmission Management [facility] [address] [place] [phone] Mari Dodge RN 03/21/2025 7:21 PM EDT - 03/23/2025 2:26 PM EDT Hospital Encounter [address] [facility] [place] [address] Ladonna Wallace MD Lyons, Andrea L, MD Cognitive communication deficit (Primary Dx); TIA (transient ischemic attack) Discharge Disposition: Home or Self Care 03/21/2025 Travel 03/21/2025 Documentation [facility] [address] [place] [address] Mehran Hoskins PA-C from Last 3 Months Immunizations Immunization Administration Dates Next Due COVID-19 [...] Mass Index 52 03/22/2025 8:04 AM EDT Plan of Treatment Upcoming Encounters Date Type Department Care Team (Late st Contact Info) Description 05/28/2025 10:20 [place] [address] Health Maintenance Due Date Last Done Comments TDAP/TD VACCINES (1 - Tdap) 1969 ZOSTER VACCINE (1 of 2) 1998 ANNUAL WELLNESS VISIT 06/08/2022 HEPATITIS C SCREENING 06/08/2022 DXA SCAN 08/18/2022 08/18/2020 RSV Vaccine - Adults (1 - 1- dose 75+ series) 2023 COVID-19 Vaccine (2 - 2023-2 5 season) 2024 05/04/2022 INFLUENZA VACCINE 05/14/2025 05/27/2022, , 05/05/2020 LIPID PANEL 03/22/2026 03/22/2025 Pneumococcal Vaccine 50+ Completed 07/18/2023 MAMMOGRAM Discontinued 09/23/2024, 02/2024, 09/14/2023, Additional history exists Procedures Procedure Name Priority Date/Time Associated Diagnosis Comments ECG 12-LEAD Routine 03/22/2025 7:51 PM EDT URINALYSIS, MICROSCOPIC ONLY Routine 03/22/2025 6:04 PM EDT URINALYSIS W/ CULTURE IF INDICATED Urgent 03/22/2025 6:04 PM EDT ECHO COMPLETE W/ DOPPLER AND COLOR FLOW Routine 03/22/2025 2:54 PM EDT CBC (NO DIFF) Urgent 03/22/2025 11:09 AM EDT BASIC METABOLIC PANEL Urgent 03/22/2025 11:09 AM EDT LIPID PANEL Urgent 03/22/2025 11:09 AM EDT HEMOGLOBIN A1C Urgent 03/22/2025 11:09 AM EDT MRI BRAIN WO CONTRAST Routine 03/22/2025 12:47 AM EDT POCT GLUCOSE FINGERSTICK Routine 03/22/2025 12:10 AM EDT POCT GLUCOSE FINGERSTICK Routine 03/21/2025 7:39 PM EDT MAMMO DIAGNOSTIC RIGHT W CAD Routine 09/23/2024 2:03 PM EST Abnormal mammogram SCANNED - DEXA 08/18/2020 from Last 3 Months or Most Recently Relevant to Health Maintenance Results * ECG 12 Lead QT Measurement [...] significant change was found Confirmed by LUCA POSADA MD ([id number]) on 03/23/2025 1:50:03 PM Referred By: Confirmed By: LUCA POSADA MD Procedure Note Luca Posada MD - 03/23/2025 Test Reason : QT [...] significant change was found Confirmed by LUCA POSADA MD ([id number]) on 03/23/2025 1:50:03 PM Referred By: Confirmed By: LUCA POSADA MD Lila Mahajan Katiadal CUPOLA MAN ECG ORDERABLES Final Result ECG * Urinalysis, Microscopic Only - Urine, Clean Catch (03/22/2025 6:04 PM EDT) RBC, UA 0-2 None Seen, 0-2 /HPF 03/22/2025 6:19 PM EDT [facility] WBC, UA 0-2 None Seen, 0-2 /HPF 03/22/2025 6:19 PM EDT [facility] Comment:Urine culture not in dicated. Bacteria, UA None Seen None Seen /HPF 03/22/2025 6:19 PM EDT [facility] Squamous Epithelial Cells, UA 0-2 None Seen, 0-2 /HPF 03/22/2025 6:19 PM EDT [facility] Hyaline Casts, UA None Seen None Seen /LPF 03/22/2025 6:19 PM EDT [facility] Methodology Automated Microscopy 03/22/2025 6:19 PM EDT [facility] Urine Urine specimen obtained by clean catch procedure / Unknown Collection / Unknown 03/22/2025 6:04 PM EDT 03/22/2025 6:13 PM EDT us Ion Welsh MD URINE ORDERABLES Final Result [facility]
[address] [place] [address], * (ABNORMAL) Urinalysis With Culture If Indicated - Urine, Clean Catch (03/22/2025 6:04 PM EDT) Color, UA Yellow Yellow, Straw 03/22/2025 6:19 PM EDT [facility] Appearance, UA Clear Clear 03/22/2025 6:19 PM EDT [facility] pH, UA 6.5 5.0 - 8.0 03/22/2025 6:19 PM EDT [facility] Specific [place], UA 1.007 1.005 - 1.030 03/22/2025 6:19 PM EDT [facility] Glucose, UA Negative Negative 03/22/2025 6:19 PM EDT [facility] Ketones, UA Trace(A) Negative 03/22/2025 6:19 PM EDT [facility] Bilirubin, UA Negative Negative 03/22/2025 6:19 PM EDT [facility] Blood, UA Trace(A) Negative 03/22/2025 6:19 PM EDT [facility] Protein, UA Negative Negative 03/22/2025 6:19 PM EDT [facility] Leuk Esterase, UA Negative Negative 03/22/2025 6:19 PM EDT [facility] Nitrite, UA Negative Negative 03/22/2025 6:19 PM EDT [facility] Urobilinogen, UA 0.2 E.U./dL 0.2 - 1.0 E.U./dL 03/22/2025 6:19 PM EDT [facility] Urine Urine specimen obtained by clean catch procedure / Unknown Collection / Unknown 03/22/2025 6:04 PM EDT 03/22/2025 6:13 PM EDT Narrative [facility] - 03/22/2025 6:19 PM EDT In absence of clinical symptoms, the presence of pyuria, bacteria, and/or nitrites on the urinalysis result does not correlate with infection. Ion Welsh MD URINE ORDERABLES Final Result [facility]
[address] [id number], * ECHO COMPLETE W/ DOPPLER AND COLOR [...] max ken 91.1 cm/sec MV A max kne 128.0 cm/sec MV dec time 0.19 sec [...] - 10.80 10*3/mm3 03/22/2025 11:42 AM EDT [facility] RBC 4.08 3.77 - 5.28 10*6/mm3 03/22/2025 11:42 AM EDT [facility] Hemoglobin 12.1 12.0 - 15.9 g/dL 03/22/2025 11:42 AM EDT [facility] Hematocrit 36.5 34.0 - 46.6 % 03/22/2025 11:42 AM EDT [facility] MCV 89.5 79.0 - 97.0 fL 03/22/2025 11:42 AM EDT [facility] MCH 29.7 26.6 - 33.0 pg 03/22/2025 11:42 AM EDT [facility] MCHC 33.2 31.5 - 35.7 g/dL 03/22/2025 11:42 AM EDT [facility] RDW 12.5 12.3 - 15.4 % 03/22/2025 11:42 AM EDT [facility] RDW-SD 41.1 37.0 - 54.0 fl 03/22/2025 11:42 AM EDT [facility] MPV 8.8 6.0 - 12.0 fL 03/22/2025 11:42 AM EDT [facility] Platelets 297 140 - 450 10*3/mm3 03/22/2025 11:42 AM T [facility] Blood Venipuncture / Unknown 03/22/2025 11:09 AM EDT 03/22/2025 11:36 AM EDT Ladonna Wallace MD LAB BLOOD ORDERABLES Final Re sult Performing Organization Address [facility]/ZIP Co de Phone Number [facility]
[address] [place] [address], * (ABNORMAL) Hemoglobin A1c (03/22/2025 11:09 AM EDT) Hemoglobin A1C 5.69(H) 4.80 - 5.60 % 03/22/2025 11:59 AM EDT [facility] Blood Venipuncture / Unknown 03/22/2025 11:09 AM EDT 03/22/2025 11:37 AM EDT Narrative [facility] - 03/22/2025 11:59 AM EDT Hemoglobin A1C Ranges: Increased Risk for Diabetes 5.7% to 6.4% Diabetes >= 6.5% Diabetic Goal < 7.0% Mehran Hoskins PA-C LAB BLOOD ORDERABLE S Final Result Performing Organization Address City/[facility]/ZIP Co de Phone Number [facility]
[address] [place] [address], * (ABNORMAL) Lipid Panel (03/22/2025 11:09 AM EDT) Total Cholesterol 125 0 - 200 mg/dL 03/22/2025 12:04 PM EDT [facility] Triglycerides 54 0 - 150 mg/dL 03/22/2025 12:04 PM EDT [facility] HDL Cholesterol 79(H) 40 - 60 mg/dL 03/22/2025 12:04 PM EDT [facility] LDL Cholesterol 34 0 - 100 mg/dL 03/22/2025 12:04 PM EDT [facility] VLDL Cholesterol 12 5 - 40 mg/dL 03/22/2025 12:04 PM EDT [facility] LDL/HDL Ratio 0.45 03/22/2025 12:04 PM EDT [facility] Blood Venipuncture / Unknown 03/22/2025 11:09 AM EDT 03/22/2025 11:36 AM EDT Narrative [facility] - 03/22/2025 12:04 PM EDT Cholesterol [...] PA-C LAB BLOOD ORDERABLE S Final Result [facility]
[address] [place] [address], * (ABNORMAL) Basic Metabolic Panel (03/22/2025 11:09 AM EDT) Glucose 99 65 - 99 mg/dL 03/22/2025 12:04 PM EDT [facility] BUN 6.8(L) 8.0 - 23.0 mg/dL 03/22/2025 12:04 PM EDT [facility] Creatinine 0.64 0.57 - 1.00 mg/dL 03/22/2025 12:04 PM EDT [facility] Sodium 134(L) 136 - 145 mmol/L 03/22/2025 12:04 PM EDT [facility] Potassium 4.1 3.5 - 5.2 mmol/L 03/22/2025 12:04 PM EDT [facility] Chloride 98 98 - 107 mmol/L 03/22/2025 12:04 PM EDT [facility] CO2 27.6 22.0 - 29.0 mmol/L 03/22/2025 12:04 PM EDT [facility] Calcium 8.9 8.6 - 10.5 mg/dL 03/22/2025 12:04 PM EDT [facility] BUN/Creatinine Ratio 10.6 7.0 - 25.0 03/22/2025 12:04 PM EDT [facility] Anion Gap 8.4 5.0 - 15.0 mmol/L 03/22/2025 12:04 PM EDT [facility] eGFR 91.7 >60.0 mL/min/1.7 3 03/22/2025 12:04 PM EDT [facility] Blood Venipuncture / Unknown 03/22/2025 11:09 AM EDT 03/22/2025 11:36 AM EDT [facility] - 03/22/2025 12:04 PM EDT GFR [...] MD LAB BLOOD ORDERABLES Final Re sult [facility]
[address] [place] [address], * MRI Brain Without Contrast (03/22/2025 12:47 AM EDT) Anatomical Region Laterality Modality Head, Neck N/A Magnetic Resonan ce 03/22/2025 4:14 AM EDT Impressions 03/22/2025 4:24 AM EDT Impression: 1.No acute intracranial abnormality. 2.Minimal chronic small vessel ischemic change. 3.Mild left maxillary sinus mucosal disease. Electronically Signed: Chris Perkins MD 03/22/2025 4:24 AM EDT Workstation ID: [id number] Narrative 03/22/2025 4:24 AM EDT MRI BRAIN [...] MD 03/22/2025 4:24 AM EDT Workstation ID: [id number] Mehran Hoskins PA-C IMG MRI ORDERABLES Final Result * POC Glucose Once (03/22/2025 12:10 AM EDT) Only the most recent of2 resultswithin the time period is included. Glucose 128 70 - 130 mg/dL 03/22/2025 12:11 AM EDT [facility] Blood 03/22/2025 12:1 0 AM EDT 03/22/2025 12:11 AM EDT Ladonna Wallace MD POINT OF CARE TEST ORDERABLES Final Result [facility]
[address] [place] [address], * Mammo Diagnostic Right With CAD (09/23/2024 [...] DEXA (08/18/2020) Anatomical Region Laterality Modality Other Lila Oliveira MD CHART REVIEW TABS Final Resul t from Last 3 Months or Most Recently Relevant to Health Maintenance Insurance MEDICARE ADVANTAGE HMO Advance Directives * CPR (Attempt to Resuscitate) (Latest Code Status on File) Date Activated Date Inactivated Comments 03/21/2025 10:34 PM 03/23/2025 4:26 PM Question Answer Comments Code Status (Patient has no pulse and is not breathing): CPR (Attempt to Resuscitate) Medical Interventions (Patie nt has pulse or is breathing): Full Support Level Of Support Discussed With: Patient Care Teams Process Control Specialist Relationship Specialty Start Date End Date Sal Croft MD [address] [facility] [address] [place] [address] PCP - General Family Medicine 06/30/22
--- OUTSIDE RECORDS SUMMARY | 2025-03-27 08:59 | XMS_ITS | Encounter Summary ---
[facility] Organization [facility] Address [address] [place] [address] Care Team Providers Care Windows Deployment Technician Name Role Phone Sal Croft MD Primary Care Provider Encounter Details Date Type Department Care Team (Late st Contact Info) Description 03/25/2025 Readmission Management [facility] [address] [place] [phone] Raulito Marsh, RN Social History Tobacco Use Types Packs/Day Years [...] on file documented as of this encounter Miscellaneous Notes * Outreach Note - Raulito Marsh RN - 03/25/2025 9:34 AM EDT Stroke Week [address] [facility] patient discharged from? [place] Does the patient have one of the following disease processes/diagnoses(primary or secondary)? Stroke Week 1 attempt successful? Yes Call start time [phone] Call end time [phone] Person spoke with today (if not patient) and relationship Patient Meds reviewed with patient/caregiver? Yes Is the patient having any side effects they believe may be caused by any medication additions or changes? Yes Does the patient have all medications ordered at discharge? Yes Is the patient taking all medications as directed (includes completed medication regime)? Yes Does the patient have a primary care provider? Yes Does the patient have an appointment with their PCP within 7 days of discharge? Yes Comments regarding PCP Dr. Bustamante (Patient has an appt on Mar 27) with PCP Has the patient kept scheduled appointments due by today? N/A [facility] requests you follow up with them within 30 days for important follow up care. Please call [phone] to schedule this appointment. Thank you. Yes Comments Patient reports she prefers to only followup with PCP Psychosocial issues? No Does the patient require any assistance with activities of daily living such as eating, bathing, dressing, walking, etc.? No Does the patient have any residual symptoms from stroke/TIA? No Does the patient understand the diet ordered at discharge? Yes Did the patient receive a copy of their discharge instructions? Yes Nursing interventions Reviewed instructions with patient What is the patient's perception of their health status since discharge? Improving Is the patient/caregiver able to teach back signs and symptoms related to disease process for when to call PCP? Yes Is the patient/caregiver able to teach back signs and symptoms related to disease process for when to call 911? Yes If the patient is a current smoker, are they able to teach back resources for cessation? Not a smoker Is the patient/caregiver able to teach back the hierarchy of who to call/visit for symptoms/problems? PCP, Specialist, Home health nurse, Urgent Care, ED, 911 Yes Is the patient able to teach back FAST for Stroke? E yes: Check for vision loss, B alance: Watch for sudden loss of balance, F barbra: Look for an uneven smile, A rm: Check if one arm is weak, S peech: Listen for slurred speech, T coleen: Call right away Week 1 call completed? Yes Revoked No further contact(revokes)-requires comment Is the patient interested in additional calls from an ambulatory case picker? No Would this patient benefit from a Referral to [facility] Social Work? No Call end time [phone] Raulito Fink - Registered Nurse documented in this encounter Plan of Treatment Upcoming Encounters Date Type Department Care Team (Late st Contact Info) Description 05/28/2025 10:20 AM EDT Appointment [address] [place] [id number] documented as of this encounter Visit Diagnoses Not on filedocumented in this encounter Care Teams Windows Deployment Technician Relationship Specialty Start Date End Date Sal Croft MD [address] [facility] [address] [place] [address] PCP - General Family Medicine 06/30/22 documented as of this encounter
--- OUTSIDE RECORDS SUMMARY | 2025-03-27 08:59 | XMS_ITS | Encounter Summary ---
[facility] Address [address] [place] [address] Care Team Providers Care Back Padder Name Role Phone Sal Croft MD Primary Care Provider Encounter Details Date Type Department Care Team (Late st Contact Info) Description 03/24/2025 Readmission Management [facility] [address] [place] [phone] Mari Dodge, RN Social History Tobacco Use Types Packs/Day [...] encounter Miscellaneous Notes * Outreach Note - Mari Dodge RN - 03/24/2025 9:38 AM EDT Images from the original note were not included. Prep Survey Flowsheet Row Responses [facility] [place] patient discharged from? [place] Is LACE score < 7 ? No Eligibility Readm Mgmt Does the patient have one of the following disease processes/diagnoses(primary or secondary)? Stroke Does the patient have Home health ordered? No Is there a DME ordered? No [per chart, pt uses pulse ox and BP cuff at home] Prep survey completed? Yes Mrai Templeton - Registered Nurse documented in this encounter Plan of Treatment Upcoming Encounters Date Type Department Care Team (Late st Contact Info) Description 05/28/2025 10:20 AM EDT Appointment [facility] [address] [place] [address] [address] [place] [address] documented as of this encounter Visit Diagnoses Not on filedocumented in this encounter Care Teams Back Padder Relationship Specialty Start Date End Date Sal Croft MD [facility] [address] [facility] [address] [place] [address] PCP - General Family Medicine 06/30/22 documented as of this encounter
--- OUTSIDE RECORDS SUMMARY | 2025-03-27 08:59 | XMS_ITS | Encounter Summary ---
Author Organization [facility] Address [address] [place] [address] Care Team Providers Care Web Ui Developer Name Role Phone Sal Croft MD Primary Care Provider Encounter Details Date Type Department Care Team (Latest Contact Info) Description 03/21/2025 Travel Social History Tobacco Use Types Packs/Day Years [...] 8:12 PM EDT Marielena Paige RN * Isabela Suicide Severity Rating Scale (Screener/Recent Self-Report) Question Answer Date of Assessment Author 6. Suicidal Behavior (Lifetime) No 8:12 PM EDT Marielena Paige RN documented as of this encounter Plan of Treatment Upcoming Encounters Date Type Department Care Team (Late st Contact Info) Description 05/28/2025 10:20 AM EDT Appointment [address] [place] [address] documented as of this encounter Visit Diagnoses Not on filedocumented in this encounter Care Teams Web Ui Developer Relationship Specialty Start Date End Date Sal Croft MD [address] [facility] [address] [facility] [address] [place] [address] PCP - General Family Medicine 06/30/22 documented as of this encounter
[2025-03-27 09:26] LABS: Hematocrit 37.6 % (37.0-47.0); Hemoglobin 12.5 g/dL (12.2-16.2); Immature Granulocytes % 0.2 %; Mean Corpuscular HGB Conc 33.2 g/dL (31.8-35.4); Mean Corpuscular Hemoglobin 29.3 pg (27.0-31.2); Mean Corpuscular Volume 88.3 fl (81-99); Nucleated Red Blood Cells % 0 %; Platelet Count 352 K/mm3 (142-424); Red Blood Count 4.26 M/mm3 (4.20-5.40); Red Cell Distribution Width-SD 40.6 fL; White Blood Count 5.3 K/mm3 (4.8-10.8)
[2025-03-27 10:28] LABS: Albumin Level 4.2 g/dl (3.5-5.0); Chloride 102 mmol/L (98-107); Potassium 4.9 mmoL/L (3.5-5.1); Sodium 136 mmol/L (136-145)
[2025-03-27 10:31] LABS: Alanine Aminotransferase 21 U/L (12-78); Albumin/Globulin Ratio 1.7 (1.1-1.8); Alkaline Phosphatase 70 U/L (38-126); Anion Gap 8.9 mEq/L (5-15); Aspartate Amino Transferase 31 U/L (14-36); Bilirubin,Total 0.5 mg/dl (0.2-1.3); Blood Urea Nitrogen 9 mg/dl (7-17); Carbon Dioxide 30 mmol/L (22.0-30.0); Cholesterol 139 mg/dl (140-200); Creatinine,Serum 0.40 mg/dl (0.52-1.04); Estimated Glomerular Filt Rate 155 ml/min (>60); GFR (African American) 188 ML/MIN (>60); Globulin 2.5 g/dL (1.3-3.2); Total Protein,Serum 6.7 g/dl (6.3-8.2); Triglycerides 58 mg/dl (30-150)
[2025-03-27 10:32] LABS: Calcium 9.6 mg/dl (8.4-10.2); Glucose 90 mg/dl (74-100); HDL Cholesterol 86 mg/dl (40-60)
== END 2025-03-27 23:59 | disposition home or self-care (01) ==
LOC: LAB 08:51
PROVIDERS: PCP Family Medicine; Visit Provider Family Medicine
DX: E78.5 Hyperlipidemia, unspecified (principal)
CPT/HCPCS: 36415; 80053; 80061; 85025

== ENCOUNTER 2025-05-20 13:22 | Outpatient (CLI) | payer MEDICARE, SELFPAY ==
--- OUTSIDE RECORDS SUMMARY | 2025-01-17 07:30 | XMS_ITS ---
Author Organization [facility]ieser Address 1210 [facility] [address] [place] [phone] Care Team Providers Care City Clerk Name Role Phone Charlotte Croft Primary Care Provider [phone] Liu Fatima [phone] Allergies Allergen (clinical drug ingredient) Drug/Non Drug Allergy documented on EMR Reaction Allergy Type Onset Date Status sulfamethoxazole / trimethoprim Bactrim DS Nausea Drug Allergy Active doxycycline Doxycycline GI cramps Drug Allergy Act lydia azithromycin Zithromax diarrhea Drug Allergy Acti ve rosuvastatin Rosuvastatin upset stomach Drug Allergy Active REASON FOR VISIT left shoulder Encounters Encounter Location Date Provider Diagnosis [facility] [address] [place] [phone] 01/17/2025 Liu Fatima Plan Of Treatment No Information Progress Notes * GREG CUENCADOB:1950 (74 yo F)Acc No.[id number]:01/17/2025 Progress Notes Patient: Radha MARCELLASHULY Provider: Sara Fatima M.D. :1950 A ge:74 Y S ex:Female Date:01/17/2025 Address:[address], [phone] Pcp:Charlotte Croft Subjective: * Chief Complaints: * [...] 03/2023. * Hospitalization/Major Diagno stic Procedure: k idney stones 1986. * Family History: F ather: [...] Electronic signature of Jemima Fatima MD on 05/20/2025 at 01:25 PM EDT Sign off status: Pending * Provider: Sara Fatima M.D. Date: 0 01/17/2025 Generated for Joyce goldberg/Lalit/Danilo on: 01:25 PM EDT History and Physical Notes * HPI (History of Present Illness) Category Sub-Category Detail Notes Category Not es Shoulder/Upper arm shoulder pain left
--- OUTSIDE RECORDS SUMMARY | 2025-01-30 11:00 | XMS_ITS ---
Author Organization Elieser Address [address] [place] [address] 36 [facility] [address] [place] [phone] Care Team Providers Care Property Claims Manager Name Role Phone Charlotte Croft Primary Care Provider Allergies Allergen (clinical drug ingredient) Drug/Non Drug Allergy documented on EMR Reaction Allergy Type Onset Date Status sulfamethoxazole / trimethoprim Bactrim DS Nausea Drug Allergy Active doxycycline Doxycycline GI cramps Drug Allergy Act lydia azithromycin Zithromax diarrhea Drug Allergy Acti ve rosuvastatin Rosuvastatin upset stomach Drug Allergy Active Reason For Referral Reason shoulder pain Diagnosis 1 Shoulder pain (M25.5 19) Referral Organization [facility] Referring Provider First Name Charlotte Hedrick Referring Provider Last Name Lang Referring Provider [facility] Referred Provider Physical Therapy, . Referred Address [address] [place] [address] Blair diaz [place],[id number], Referred Provider Specialty Occupational Therapy General Notes Keyana Ruano 2024 09:29:53 AM > faxed to [facility] Aníbal CARCAMO Julia 01/31/2025 09:39:22 AM >Patient needs Occupational Therapy Referral Priority Routine REASON FOR VISIT left shoulder and neck, Patient is due for Colonoscopy (last 08/2015 - repeat every 3-5 years), needs Bone Density Scan (last 08/30/2020) Medications Medication SIG (Take, Route, Frequency, Duration) Notes Start Date End Date Status Dicyclomine HCl 10 MG 1 cap(s) Orally Th ree times a day prn cramping 08/13/2024 Active Potassium Chloride ER 10 MEQ 1 tablet with food Orally Twice a day 08/27/2024 Active OSTEO-BIFLEX 1 P.O. ONCE DAILY Active Estrace 0.1 MG/GM 1 gram intravaginall y every other day at bedtime; Duration: 30 day(s) Active Atorvastatin Calcium 10 MG 1 tablet Orally Once a day; Duration: 90 days Active Vitamin B-12 1000 MCG 1 tablet Orally On ce a day; Duration: 30 day(s) Active Red Yeast Rice 600 MG as directed Orally Active Vitamin C 500 MG as directed Orally Active Fish Oil 1000 MG 1 cap(s) orally 3 ti mes a day; Duration: 30 day(s) Active Aspirin 81 MG 1 tablet Orally Once a day Active Vital Signs Weight 138.6 lbs 01/30/2025 Blood pressure systolic 120 mm Hg 01/31/20 25 Blood pressure diastolic 60 mm Hg 025 Heart Rate 76 /min 01/30/2025 Height 64.50 in 01/30/2025 BMI 23.42 kg/m2 01/30/2025 Encounters Encounter Location Date Provider Diagnosis [facility] [phone] 01/30/2025 R Ryley Croft Shoulder pain M25.51 9 ; Dyslipidemia E78.5 ; Malignant neoplasm of upper-inner quadrant of right female breast, unspecified estrogen receptor status C50.211 and BMI 23.0-23.9, adult Z68.23 Assessments Encounter Date Diagnosis (ICD Code) Assessment Notes Treatment Notes Treatment Clinical Notes Section Notes 01/30/2025 Shoulder pain (ICD-10 - M25.519) Continue Aleve as tolerated 01/30/2025 Dyslipidemia (ICD-10 - E78.5) 01/30/2025 Malignant neoplasm of upper-inner quadrant of right female breast, unspecified estrogen receptor status (ICD-10 - C50.211) 01/30/2025 BMI 23.0-23.9, adult (ICD-10 - Z68.23) Plan Of Treatment Treatment Notes Assessment Notes Shoulder pain Continue Aleve as to lerated Referrals Referral Date Details 01/31/2025 01/31/2025, shoulder pain, . Physical Therapy, [facility] [address], [place], [place], [phone], Next Appt Details Follow Up: after treatment, Reason: Progress Notes * MARIAMA CUENCA:1950 (74 yo F)Acc No.[id number]:01/30/2025 Progress Notes Patient: GREG MONTIEL Provider: Charlotte Croft M.D. :1950 A ge:74 Y S ex:Female Date:01/30/2025 Address:[address] [place] [address], [place], [id number] Subjective: * Chief Complaints: * 1 . Left shoulder and neck. 2. Patient is due for Colonoscopy (last 08/2015 - repeat every 3-5 years), needs Bone Density Scan (last 08/30/2020). * HPI: S houlder/Upper arm: 74 year old female presents with c/o shoulder pain. She presents with complaints of left shoulder pain progressively worse over the past 2 months. She thinks it started after she tripped on her vacuum extension cord and fell into a door facing. She does not remember hitting her shoulder. Pain radiates to her neck. She is gradually losing range of motion. She has been taking Aleve as tolerated at home. * ROS: D ERMATOLOGY: no R rakan. [...] 03/2023. * Hospitalization/Major Diagno stic Procedure: k ronnieney stones 1986. * Family History: F ather: [...] - Side Effects. Objective: * Vitals: W t: 138.6, Temp: 98.6, BP: 120/60, HR: 76, Nurse: shikha, Ht: 64.50, BMI:23.42. * Examination: G eneral Examination: Extremities: L eft shoulder shows no deformity. There is tenderness to palpation over the AC joint and anterior shoulder. Range of motion is limited with abduction only to 90 degrees and pain with resisted abduction.. Assessment: * Assessment: 1. S houlder pain - M25.519 (Primary) 2 . D yslipidemia - E78.5 ?3. M alignant neoplasm of upper-inner quadrant of right female breast, unspecified estrogen receptor status - C50.211 4 . B IN 23.0-23.9, adult - Z68.23 Plan: * Treatment: * Procedure Codes: G 2211 Complex e/m visit add on, 1036F TOBACCO NON-USER, G8420 BMI<30 AND >=22 CALC & DOCU, G8723 BP SCR PRFRM RCMDD DEFIND SCR INTVL, G8752 MOST RECENT SYSTOLIC BP < 140MM HG, G8754 MOST RECENT DIASTOLIC BP < 90MM HG * Follow Up: a fter treatment * Images: Billing Information: * Visit Code: 98146 Office Visit, Est Pt., Level 3. * Procedure Codes: G2211 Complex e/m visit add on. 1036F TOBACCO NON-USER. G8420 BMI<30 AND >=22 CALC & DOCU. G8783 BP SCR PRFRM RCMDD DEFIND SCR INTVL. G8752 MOST RECENT SYSTOLIC BP < 140MM HG. G8754 MOST RECENT DIASTOLIC BP < 90MM HG. * Electronic signature of Charlotte Croft MD on 05/20/2025 at 01:25 PM EDT Sign off status: Pending * Provider: Charlotte Croft M.D. Date: 0 01/30/2025 Generated for Raji ashlyn/Lalit/eTransmitting on: 1 01:25 PM EDT History and Physical Notes * HPI (History of Present Illness) Category Sub-Category Detail Notes Category Not es Shoulder/Upper arm shoulder pain She pres ents with complaints of left shoulder pain progressively worse over the past 2 months. She thinks it started after she tripped on her vacuum extension cord and fell into a door facing. She does not remember hitting her shoulder. Pain radiates to her neck. She is gradually losing range of motion. She has been taking Aleve as tolerated at home. Examination Category Sub-Category Detail Notes Category Not es General Examination Extremities: Left shoulde r shows no deformity. There is tenderness to palpation over the AC joint and anterior shoulder. Range of motion is limited with abduction only to 90 degrees and pain with resisted abduction. Consultation Request Notes Referral Date Referring Provider Referred Provider Not es 01/31/2025 Charlotte Croft Physical Therapy, . rosa ulder pain
--- OUTSIDE RECORDS SUMMARY | 2025-03-21 05:02 | XMS_ITS ---
Author Organization [facility] Address [address] [place] [id number] Care Team Providers Care Earth Burner Name Role Phone Charlotte Croft Primary Care Provider [phone] Results Component Value Reference Range Notes H-CBC Reviewed date:03/30/2025 10:05:56 PM Interpretation:Normal Performing Lab: Notes/Report: WBC 5.3 4.8-10.8 K/mm3 RBC 4.26 4.20-5.40 M/mm3 HGB 12.5 12.2-16.2 g/dL HCT 37.6 37.0-47.0 % MCV 88.3 81-99 fl MCH 29.3 27.0-31.2 pg MCHC 33.2 31.8-35.4 g/dL RDW-SD 40.6 RDW 12.5 11.5-17.5 % PLT 352 142-424 K/mm3 MPV 8.9 7.4-10.4 fl NE% 47.9 37.0-80.0 % LY% 41.5 10-50 % MO% 8.9 1.7-9.3 % EO% 1.3 0.1-12.0 % BA% 0.2 0.1-2.0 % NRBC% 0 IG% 0.2 NE# 2.5 1.8-7.8 K/mm3 LY# 2.2 0.7-4.5 K/mm3 MO# 0.5 0.1-1.0 K/mm3 EO# 0.1 0.0-0.4 Kmm3 BA# 0.0 0-0.2 K/mm3 NRBC# 0 IG# 0.01 H-Lipid Panel Reviewed date:03/30/2025 10:05:56 PM Interpretation:chol 139, ldl <30, hdl 86 Performing Lab: Notes/Report: Patient Fasting? Y TRIG 58 30-150 mg/dl CHOL 139 140-200 mg/dl DLDL < 30.00 100-129 mg/dL VLDL 12 0-40 mg/dL HDL 86 40-60 mg/dl CHLHDL 1.6 1-3.5 H-CMP Reviewed date:03/30/2025 10:05:56 PM Interpretation:Cr 0.4 Performing Lab: Notes/Report: NA 136 136-145 mmol/L K 4.9 3.5-5.1 mmoL/L CL 102 98-107 mmol/L CO2 30 22.0-30.0 mmol/L GAP 8.9 5-15 mEq/L BUN 9 7-17 mg/dl CREATT 0.40 0.52-1.04 mg/dl GFRAA 188 >60 ML/MIN EGFR 155 >60 ml/min GLU 90 74-100 mg/dl CA 9.6 8.4-10.2 mg/dl BILIT 0.5 0.2-1.3 mg/dl AST 31 14-36 U/L ALT 21 12-78 U/L TP 6.7 6.3-8.2 g/dl ALB 4.2 3.5-5.0 g/dl GLOB 2.5 1.3-3.2 g/dL AGRATIO 1.7 1.1-1.8 ALP 70 38-126 U/L REASON FOR VISIT Lab Order Medications Medication SIG (Take, Route, Frequency, Duration) Notes Start Date End Date Status Atorvastatin Calcium 10 MG 1 tablet Oral ly Once a day; Duration: 90 days Active Encounters Encounter Location Date Provider Diagnosis [facility] [address] [facility] [address] [place] [id number] 03/21/2025 Charlotte Croft Dyslipidemia E78.5 Assessments Encounter Date Diagnosis (ICD Code) Assessment Notes Treatment Notes Treatment Clinical Notes Section Notes 03/21/2025 Dyslipidemia (ICD-10 - E78.5) Plan Of Treatment Medication Medication Name Sig Start Date Stop Date Notes Atorvastatin Calcium 10 MG 1 tablet Oral ly Once a day; Duration: 90 days Progress Notes * MARIAMA CUENCA:1950 (74 yo F)Acc No.[id number]:03/21/2025 Patient: GREG MONTIEL :1950 A ge:74 Y S ex:Female Address:[address], [place] [address] * Refills Refill Atorvastatin Calcium Tablet, 10 MG, Orally, 90 Tablet, 1 tablet, Once a day, 90 days, Refills=0 Subjective: * Chief Complaints: * L ab Order * Medical History: * Surgical History: * Hospitalization/Major Diagno stic Procedure: * Medications: Objective: * Vitals: * Physical Examination: Assessment: * Assessment: 1. D yslipidemia - E78.5 Plan: * Treatment: Value Reference Range W BC 5.3 4.8-10.8 - K/mm3 * R BC 4.26 4.20-5.40 - M/mm3 * H GB 12.5 12.2-16.2 - g/dL * H CT 37.6 37.0-47.0 - % * M CV 88.3 81-99 - fl * M CH 29.3 27.0-31.2 - pg * M CHC 33.2 31.8-35.4 - g/dL * R DW 12.5 11.5-17.5 - % * P LT 352 142-424 - K/mm3 * M PV 8.9 7.4-10.4 - fl * N E% 47.9 37.0-80.0 - % * L Y% 41.5 10-50 - % * M O% 8.9 1.7-9.3 - % * E O% 1.3 0.1-12.0 - % * B A% 0.2 0.1-2.0 - % * N E# 2.5 1.8-7.8 - K/mm3 * L Y# 2.2 0.7-4.5 - K/mm3 * M O# 0.5 0.1-1.0 - K/mm3 * E O# 0.1 0.0-0.4 - Kmm3 * B A# 0.0 0-0.2 - K/mm3 * R DW-SD 40.6 - fL * N RBC% 0 - % * N RBC# 0 - 10 3/uL * I G% 0.2 - % * I G# 0.01 - 10 3uL * Charlotet Croft 03/30/2025 10:05:44 PM EDT > See phone encounterThis lab was reviewed by Charlotte Croft on 03/30/2025 at 22:05 PM EDT ?LAB: H-Lipid Panel* Value Reference Range T RIG 58 30-150 - mg/dl * C HOL 139 L 140-200 - mg/dl * D LDL < 30.00 L 100-129 - mg/dL * V LDL 12 0-40 - mg/dL * H DL 86 H 40-60 - mg/dl * C HLHDL 1.6 1-3.5 - * Charlotte Croft 03/30/2025 10:05:44 PM EDT > See phone encounterThis lab was reviewed by Charlotte Croft on 03/30/2025 at 22:05 PM EDT ?LAB: H-CMP* Value Reference Range N A 136 136-145 - mmol/L * K 4.9 3.5-5.1 - mmoL/L * C L 102 98-107 - mmol/L * C O2 30 22.0-30.0 - mmol/L * G AP 8.9 5-15 - mEq/L * B UN 9 7-17 - mg/dl * C REATT 0.40 L 0.52-1.04 - mg/dl * G FRAA 188 >60 - ML/MIN * E GFR 155 >60 - ml/min * G JOANNA 90 74-100 - mg/dl * C A 9.6 8.4-10.2 - mg/dl * B ILIT 0.5 0.2-1.3 - mg/dl * A ST 31 14-36 - U/L * A LT 21 12-78 - U/L * T P 6.7 6.3-8.2 - g/dl * A LB 4.2 3.5-5.0 - g/dl * G LOB 2.5 1.3-3.2 - g/dL * A GRATIO 1.7 1.1-1.8 - * A LP 70 38-126 - U/L * Charlotte Croft 03/30/2025 10:05:44 PM EDT > See phone encounterThis lab was reviewed by Charlotte Croft on 03/30/2025 at 22:05 PM EDT 2.?Others? Refill Atorvastatin Calcium Tablet, 10 MG, 1 tablet, Orally, Once a day, 90 days, 90 Tablet, Refills 0.?? * Procedure Codes: * true * Date: Generated for Joyce goldberg/Lalit/Halleitting on: 01:26 PM EDT
--- OUTSIDE RECORDS SUMMARY | 2025-03-21 19:21 | XMS_ITS | Encounter Summary ---
Author Organization [facility] Address [address] [place] [address] Care Team Providers Care Smasher Name Role Phone Sal Croft MD Primary Care Provider Reason for Referral * Consultation (Routine) - Closed Specialty Diagnoses / Procedures Referred By Sol yen Referred To Contact Neurology Diagnoses TIA (transient ischemic attack) Procedures ID OFFICE/OUTPATIENT NEW MODERATE MDM 45 MINUTES Yari Cat APRN [address] [facility] [address] [place] [address] Phone: tel: fax: [facility] [address] [facility] [address] [place] [address] Phone: tel: fax: Referral ID Status Reason Start Date Expiration Date V isits Requested Visits Authorized [id number] Closed Specialty Services Required 03/23/2025 06/22/2026 1 1 Scheduling Instructions Stroke follow up 4-6 week Reason for Visit * Auth/Cert Specialty Diagnoses / Procedures Referred By Sol yen Referred To Contact Diagnoses Transient Ischemic Attack (tia) Referral ID Status Reason Start Date Expiration Date Visits Re quested Visits Authorized [id number] 1 1 Encounter Details Date Type Department Care Team (Late st Contact Info) Description 03/21/2025 7:21 PM EDT - 03/23/2025 2:26 PM EDT Hospital Encounter [address] [place] [address] Ladonna Wallace MD [address] [facility] [address] [place] [id number] Ion Welsh MD [address] [facility] [place] [id number] Cognitive communication deficit (Primary Dx); TIA (transient ischemic attack) Discharge Disposition: Home or Self Care Social History Tobacco Use Types Packs/Day Years Used Date Smoking Tobacco: Never Smokeless Tobacco: Never Alcohol Use Standard Drinks/Week Comments Never 0 (1 standard drink = 0.6 oz pur e alcohol) AUDIT-C Answer Date Recorded Q1: How often do you have a drink containing alcohol? Never 03/21/2025 Q2: How many drinks containi ng alcohol do you have on a typical day when you are drinking? Patient does not drink Q3: How often do you have si x or more drinks on one occasion? Never 03/21/2025 PHQ-2 Answer Date Recorded Retired PHQ-9: Brief Depression Severity Measure Score 0 11/23/2022 Abuse Screen Answer Date Recorded Feels Unsafe at Home or Work/School no 03/21/2025 Feels Threatened by Someone no 03/2025 Does Anyone Try to Keep You From Having Contact with Others or Doing Things Outside Your Home? no 03/21/2025 Physical Signs of Abuse Present no 03/21/2025 Housing Stability Answer Date Recorded Current Living Arrangements home 04/2025 Potentially Unsafe Housing Conditions Not on manpreet e 03/22/2025 Disabilities Answer Date Recorded Difficulty Concentrating, Remembering or Making Decisions no 03/21/2025 Difficulty Managing Errands Independently no 03/21/2025 PHQ-2 Answer Date Recorded Retired PHQ-9: Brief Depression Severity Measure Score 0 11/23/2022 Comments No Sex and Gender Information Value Date Recorded Sex Assigned at Not on file Legal Sex Female 3:22 PM EDT Gender Identity Not on file Sexual Orientation Not on file documented as of this encounter Last Filed Vital Signs Vital Sign Reading Time Taken Comments Blood Pressure 145/73 03/23/2025 7:46 AM EDT Pulse 76 03/23/2025 7:46 AM EDT Temperature 36.6 C (97.8 F) 03/23/2025 7:46 AM EDT Respiratory Rate 18 03/23/2025 7:46 AM EDT Oxygen Saturation 89% 03/23/2025 5:00 AM EDT Inhaled Oxygen Concentration - - Weight 129 kg (284 lb 6.3 oz) 03/22/2025 8:04 AM EDT Height 157.5 cm (5' 2.01 ) 03/22/2025 8:04 AM ED T Body Mass Index 52 03/22/2025 8:04 AM EDT documented in this encounter Functional Status * Question Answer Date of Assessment Author 1. Wish to be (Past 1 Month) No 8:12 PM EDT Marielena Paige RN 2. Non-Specific Active Suici mary Thoughts (Past 1 Month) No 03/21/2025 8:12 PM EDT Maggy Paige RN * Calculated C-SSRS Risk Score (Lifetime/Recent) Answer Date of Assessment Author No Risk Indicated 03/21/2025 8:12 PM EDT Marielena Paige RN * [place] Suicide Severity Rating Scale (Screener/Recent Self-Report) Question Answer Date of Assessment Author 6. Suicidal Behavior (Lifetime) No 8:12 PM EDT Marielena Paige RN documented as of this encounter Discharge Summaries * Yari Cat APRN - 03/23/2025 10:48 AM EDT Images from the original note were not included. [facility] Medicine Services DISCHARGE SUMMARY Patient Name: Kristy Hernandez : 1950 Date of Admission: 03/21/2025 7:21 PM Date of Discharge: 03/23/2025 Primary Care Physician: Sal Croft MD Consults No orders found from 02/20/2025 to 03/22/2025. Hospital Course Presenting Problem: Aphasia Active Hospital Problems Diagnosis POA TIA (transient ischemic attack) [G45.9] Yes Resolved Hospital Problems No resolved problems to display. Hospital Course: Kristy Hernandez is a 74 y.o. female with risk factors significant for breast cancer (right breast lumpectomy 08/2022), HLD, and GERD who presented to OSH ED 03/21/2025 after acute onset of headache. Patient took a nap after her headache and woke with mixed aphasia. All symptoms resolved spontaneouslyprior to arrival at OSH ED. OSH CT imaging was unrevealing. Patient was transferred to [facility] for MRI brain without contrast and further workup. NIH score on arrival to [facility] was 0. Patient was not a candidate for IV thrombolytic therapy or emergent neurointervention. Headache, resolved Mixed aphasia, transient -Differentials include TIA versus complex migraine -Stroke team has followed -MRI brain without contrast without acute finding -Initiate DAPT with Plavix 300 mg load followed by 75 mg daily and aspirin 81 mg daily. -TTE normal EF, negative bubble -LDL 34 A1c 5.69 - Therapy has evaluated, recommend home -per [employer] patient scored 22/30 on the [place] Cognitive Assessment -stroke neuro recs DAPT with asa 81mg daily and plavix 75mg daily x 21 days with plan to switch to asa 81mg monotherapy -Normal blood pressure goals, no blood pressure medicine prescribed at baseline, BP controlled Chronic IBS -Continue Colestid Discharge Follow Up Recommendations for outpatient labs/diagnostics: Follow-up PCP 1 week Follow-up stroke/neuro 4 to 6 weeks Day of Discharge HPI: Sitting up in chair. States she is returned to baseline. No further symptoms or overnight issues reported. Anxious to be discharged home Review of Systems Gen- No fevers, chills CV- No chest pain, palpitations Resp- No cough, dyspnea GI- No N/V/D, abd pain Vital Signs: Temp: [97.4 ??F (36.3 ??C)-98.5 ??F (36.9 ??C)] 97.8 ??F (36.6 ??C) Heart Rate: [64-82] 76 Resp: [15-18] 18 BP: (113-145)/(54-73) 145/73 Physical Exam: Constitutional: No acute distress, awake, alert HENT: NCAT, mucous membranes moist Respiratory: Clear to auscultation bilaterally, respiratory effort normal Cardiovascular: RRR, no murmurs, rubs, or gallops Gastrointestinal: Positive bowel sounds, soft, nontender, nondistended Musculoskeletal: No bilateral ankle edema Psychiatric: Appropriate affect, cooperative Neurologic: Oriented x 3, strength symmetric in all extremities, Cranial Nerves grossly intact to confrontation, speech clear Skin: No rashes Pertinent and/or Most Recent Results LAB RESULTS: Lab 03/22/25 1109 WBC 5.97 HEMOGLOBIN 12.1 HEMATOCRIT 36.5 PLATELETS 297 MCV 89.5 Lab 03/22/25 1109 SODIUM 134* POTASSIUM 4.1 CHLORIDE 98 CO2 27.6 ANION GAP 8.4 BUN 6.8* CREATININE 0.64 EGFR 91.7 GLUCOSE 99 CALCIUM 8.9 HEMOGLOBIN A1C 5.69* Lab 03/22/25 1109 CHOLESTEROL 125 LDL CHOL 34 HDL CHOL 79* TRIGLYCERIDES 54 Brief Urine Lab Results (Last result in the past 365 days) Color Clarity Blood Leuk Est Nitrite Protein CREAT Urine HCG 03/22/25 1804 Yellow Clear Trace Negative Negative Negative Microbiology Results (last 10 days) No results found for the last 240 hours. MRI Brain Without Contrast Result Date: 03/22/2025 MRI BRAIN WO CONTRAST Date of Exam: 03/22/2025 12:19 AM EDT Indication: Stroke, follow up. Headache with speech difficulty, acute stroke suspected. Comparison: None available. Technique: Routine multiplanar/multisequence sequence images of the brain were obtained without contrast administration. Findings: There is no diffusion restriction to suggest acute infarct. There is no evidence of acute or chronic intracranial hemorrhage. There are several scattered punctate foci of FLAIR hyperintense signal within the cerebral white matter. No mass effect or midline shift. No abnormal extra-axial collections. The major vascular flow voids appear intact. The basal ganglia, brainstem and cerebellum appear within normal limits. Calvarial and superficial soft tissue signal is within normal limits. Thereis thinning of the orbital lenses which would suggest prior lens replacement. There is mild left maxillary sinus mucosal disease and minor atelectasis. Mastoid air cells appear well aerated. Midline structures are intact. Impression: 1.No acute intracranial abnormality. 2.Minimal chronic small vessel ischemic change. 3.Mild left maxillary sinus mucosal disease. Electronically Signed: Chris Perkins MD 03/22/2025 4:24 AMEDT Workstation ID: [id number] Results for orders placed during the hospital encounter of 03/21/25 Adult Transthoracic Echo Complete W/ Cont if Necessary Per Protocol (With Agitated Saline) 03/22/2025 3:30 PM Interpretation Summary Left ventricular systolic function is normal. Estimated left ventricular EF = 60% Saline test results are negative. Mild mitral valve regurgitation is present. Plan for Follow-up of Pending Labs/Results: Discharge Details Discharge Medications New Medications Instructions Start Date clopidogrel 75 MG tablet Commonly known as: PLAVIX 75 mg, Oral, Daily Start Date: March 24, 2025 Changes to Medications Instructions Start Date YURY C PO What changed: additional instructions 1,000 mg, Once Continue These Medications Instructions Start Date Ascorbic Acid 500 MG capsule 500 mg, Daily aspirin 81 MG EC tablet 81 mg, Daily atorvastatin 10 MG tablet Commonly known as: LIPITOR 10 mg, Daily carboxymethylcellulose 0.5 % solution Commonly known as: REFRESH PLUS 1 drop, Both Eyes, 3 Times Daily PRN, Not taking colestipol 1 g tablet Commonly known as: COLESTID 1 g, See Admin Instructions famotidine 20 MG tablet Commonly known as: PEPCID 20 mg, 2 Times Daily fish oil 1000 MG capsule capsule 1,000 mg, Daily With Breakfast iVIZIA Dry Eyes 0.5 % solution Generic drug: Povidone (PF) 0.5 drops, 3 Times Daily PRN melatonin 5 MG tablet tablet 20 mg, Nightly OSTEO BI-FLEX REGULAR STRENGTH PO 2 Times Daily Red Yeast Rice 600 MG capsule 600 mg, Once sodium chloride 5 % ophthalmic solution Commonly known as: KEELY 128 1 drop, As Needed vitamin B-12 1000 MCG tablet Commonly known as: CYANOCOBALAMIN 1,000 mcg, Oral, Weekly Allergies Allergen Reactions Ticagrelor Nausea And Vomiting Doxycycline Other (See Comments) Zithromax [Azithromycin] Nausea Only Discharge Disposition: Home or Self Care Diet: Hospital: Diet Order Procedures Diet: Regular/House, Gastrointestinal; Low Irritant; Fluid Consistency: Thin (IDDSI 0) Diet Instructions Diet: Gastrointestinal Diets; Low Irritant; Thin (IDDSI 0) Discharge Diet: Gastrointestinal Diets Gastrointestinal Diet: Low Irritant Fluid Consistency: Thin (IDDSI 0) Activity: Activity Instructions Activity as Tolerated Restrictions or Other Recommendations: CODE STATUS: Code Status and Medical Interventions: CPR (Attempt to Resuscitate); Full Support Ordered at: 03/21/252233 Code Status (Patient has no pulse and is not breathing): CPR (Attempt to Resuscitate) Medical Interventions (Patient has pulse or is breathing): Full Support Level Of Support Discussed With: Patient Future Appointments Date Time Provider Department Center 05/28/2025 10:20 AM [facility] Additional Instructions for the Follow-ups that You Need to Schedule Ambulatory Referral to Neurology As directed Stroke follow up 4-6 week Discharge Follow-up with PCP As directed Currently Documented PCP: Sal Croft MD PCP Follow Up Details: 1 week Discharge Follow-up with Specified Provider: stroke/ neuro; 6 Weeks As directed To: stroke/ neuro Follow Up: 6 Weeks Yari aCt APRN 03/23/25 Time Spent on Discharge: I spent 35 minutes on this discharge activity which included: [id number] with the patient, reviewing the data in the system, coordination of the care with the nursing staff as well as consultants, documentation, and entering orders. Electronically signed by Yari Cat APRN, 03/23/25, 10:49 AM EDT. Cosigned by Ion Welsh MD at 03/23/2025 4:21 PM EDT Associated attestation - Ion Welsh MD - 03/23/2025 4:21 PM EDT I have reviewed this documentation and agree. Attending Cosignature I supervised care of the patient on day of service with direct care provided by the advanced care provider (APC). Ion Welsh MD 03/23/25 documented in this encounter Medications at Time of Discharge Ascorbic Acid 500 MG capsule Take 500 mg by mouth Daily. As directed by the provider aspirin 81 MG EC tablet Take 1 tablet by mouth Daily. atorvastatin (LIPITOR) 10 MG tablet 1 tablet Daily. 11/27/2023 Bioflavonoid Products (YURY C PO) Take 1,000 mg by mouth 1 (One) Time. carboxymethylcel lulose (REFRESH PLUS) 0.5 % solution Administer 1 drop to both eyes 3 (Three) Times a Day As Needed for Dry Eyes. Not taking 03/23/2025 clopidogrel (PLAVIX) 75 MG tablet Take 1 tablet by mouth Daily. 21 tablet 03/24/2025 colestipol (COLESTID) 1 g tablet Take 1 tablet by mouth See Admin Instructions. Take 2 tablets by mouth every morning and 1 tablet every evening. 03/11/2025 famotidine (PEPCID) 20 MG tablet Take 1 tablet by mouth 2 (Two) Times a Day. Glucosamine-Tacho droitin (OSTEO BI-FLEX REGULAR STRENGTH PO) Take by mouth 2 (Two) Times a Day. iVIZIA Dry Eyes 0.5 % solution Apply 0.5 drops to eye(s) as directed by provider 3 (Three) Times a Day As Needed (for dry eyes). melatonin 5 MG tablet tablet Take 4 tablets by mouth Every Night. Hodges-3 Fatty Acids (fish oil) 1000 MG capsule capsule Take 1 capsule by mouth Daily With Breakfast. Red Yeast Rice 600 MG capsule Take 1 capsule by mouth 1 (One) Time. sodium chloride (KEELY 128) 5 % ophthalmic solution 1 drop As Needed. vitamin B-12 (CYANOCOBALAMIN) 1000 MCG tablet Take 1 tablet by mouth 1 (One) Time Per Week. 03/23/2025 documented as of this encounter Progress Notes * Ion Welsh MD - 03/22/2025 3:28 PM EDT Images from the original note were not included. [facility] Medicine Services PROGRESS NOTE Patient Name: Kristy Hernandez : 1950 Date of Admission: 03/21/2025 Primary Care Physician: Sal Croft MD Subjective Subjective CC: aphasia HPI: Patient seen this AM. Aphasia resolved. C/o tired, had trouble sleeping. Reports h/o ocular migraine in the past. Objective Objective Vital Signs: Temp: [97.8 ??F (36.6 ??C)-97.9 ??F (36.6 ??C)] 97.9 ??F (36.6 ??C) Heart Rate: [56-84] 64 Resp: [15-19] 18 BP: (116-145)/(54-92) 116/54 Physical Exam: Constitutional: No acute distress, awake, alert, sitting up in bed HENT: NCAT, mucous membranes moist Respiratory: Clear to auscultation bilaterally, respiratory effort normal Cardiovascular: RRR, no murmurs, rubs, or gallops Gastrointestinal: Positive bowel sounds, soft, nontender, nondistended Musculoskeletal: No bilateral ankle edema Psychiatric: Appropriate affect, cooperative Neurologic: Oriented x 3, PEREZ, speech clear Skin: No rashes Results Reviewed: LAB RESULTS: Lab 03/22/25 1109 WBC 5.97 HEMOGLOBIN 12.1 HEMATOCRIT 36.5 PLATELETS 297 MCV 89.5 Lab 03/22/25 1109 SODIUM 134* POTASSIUM 4.1 CHLORIDE 98 CO2 27.6 ANION GAP 8.4 BUN 6.8* CREATININE 0.64 EGFR 91.7 GLUCOSE 99 CALCIUM 8.9 HEMOGLOBIN A1C 5.69* Lab 03/22/25 1109 CHOLESTEROL 125 LDL CHOL 34 HDL CHOL 79* TRIGLYCERIDES 54 Brief Urine Lab Results None Microbiology Results Abnormal None MRI Brain Without Contrast Result Date: 03/22/2025 MRI BRAIN WO CONTRAST Date of Exam: 03/22/2025 12:19 AM EDT Indication: Stroke, follow up. Headache with speech difficulty, acute stroke suspected. Comparison: None available. Technique: Routine multiplanar/multisequence sequence images of the brain were obtained without contrast administration. Findings: There is no diffusion restriction to suggest acute infarct. There is no evidence of acute or chronic intracranial hemorrhage. There are several scattered punctate foci of FLAIR hyperintense signal within the cerebral white matter. No mass effect or midline shift. No abnormal extra-axial collections. The major vascular flow voids appear intact. The basal ganglia, brainstem and cerebellum appear within normal limits. Calvarial and superficial soft tissue signal is within normal limits. Thereis thinning of the orbital lenses which would suggest prior lens replacement. There is mild left maxillary sinus mucosal disease and minor atelectasis. Mastoid air cells appear well aerated. Midline structures are intact. Impression: Impression: 1.No acute intracranial abnormality. 2.Minimal chronic small vessel ischemic change. 3.Mild left maxillary sinus mucosal disease. Electronically Signed: Chris Perkins MD 03/22/2025 4:24 AM EDT Workstation ID: [id number] Current medications: Scheduled Meds:Pharmacy Consult, , Not Applicable, Q12H aspirin, 81 mg, Oral, Daily Or aspirin, 300 mg, Rectal, Daily atorvastatin, 80 mg, Oral, Nightly clopidogrel, 75 mg, Oral, Daily colestipol, 2 g, Oral, QAM colestipol, 1 g, Oral, Nightly melatonin, 5 mg, Oral, Nightly sodium chloride, 10 mL, Intravenous, Q12H sodium chloride, 10 mL, Intravenous, Q12H [Held by provider] vitamin B-12, 1,000 mcg, Oral, Weekly Continuous Infusions: PRN Meds:. acetaminophen OR acetaminophen OR acetaminophen senna-docusate sodium AND polyethylene glycol AND bisacodyl AND bisacodyl Calcium Replacement - Follow Nurse / BPA Driven Protocol Magnesium Standard Dose Replacement - Follow Nurse / BPA Driven Protocol nitroglycerin Phosphorus Replacement - Follow Nurse / BPA Driven Protocol Potassium Replacement - Follow Nurse / BPA Driven Protocol sodium chloride sodium chloride Assessment & Plan Assessment & Plan Active Hospital Problems Diagnosis POA TIA (transient ischemic attack) [G45.9] Yes Resolved Hospital Problems No resolved problems to display. Brief Hospital Course to date: Kristy Hernandez is a 74 y.o. female with risk factors significant for breast cancer (right breast lumpectomy 08/2022), HLD, and GERD who presented to OSH ED 03/21/2025 after acute onset of headache. Patient took a nap after her headache and woke with mixed aphasia. All symptoms resolved spontaneouslyprior to arrival at OSH ED. OSH CT imaging was unrevealing. Patient was transferred to [facility] for MRI brain without contrast and further workup. NIH score on arrival to [facility] was 0. Patient was not a candidate for IV thrombolytic therapy or emergent neurointervention. Headache, resolved Mixed aphasia, transient -Differentials include TIA versus complex migraine -Stroke team order set placed -MRI brain without contrast pending -Initiate DAPT with Plavix 300 mg load followed by 75 mg daily and aspirin 81 mg daily -Allow for autoregulation of blood pressure, SBP goal < 200 -TTE still pending -LDL 34 A1c 5.69 -Serial neurochecks per policy, stat CTH for any acute neurological change -Ot recs home. PT pending -per [employer] patient scored 22/30 on the [place] Cognitive Assessment -stroke neuro recs DAPT with asa 81mg daily and plavix 75mg daily x 21 days with plan to switch to asa 81mg monotherapy Chronic IBS -Continue Colestid Expected Discharge Location and Transportation: Expected Discharge Expected Discharge Date: 03/23/2025; Expected Discharge Time: VTE Prophylaxis: Mechanical VTE prophylaxis orders are present. AM-PAC 6 Clicks Score (PT): 24 (03/22/25 0800) CODE STATUS: Code Status and Medical Interventions: CPR (Attempt to Resuscitate); Full Support Ordered at: 03/21/252233 Code Status (Patient has no pulse and is not breathing): CPR (Attempt to Resuscitate) Medical Interventions (Patient has pulse or is breathing): Full Support Level Of Support Discussed With: Patient Ion Welsh MD 03/22/25 * Lior Lynne MD - 03/22/2025 12:59 PM EDT Stroke Progress Note Chief Complaint: Ocular migraine/visual disturbances Subjective Subjective Subjective: The patient is lying down in the bed in NAD. No family were at the bedside. The patient stated thatshe is back to her normal self. Denies having any new stroke or strokelike symptoms. She described her symptoms as not being able to see what is written when she was first found to read something outloud. Stated that she frequently gets similar symptoms when she is anxious. She also mentioned thather visual disturbances been happening in the past and was told that it could be a ocular migraine although she denies having headaches. I discussed with the patient the imaging findings and what could possibly explain her symptoms. We also discussed management plan moving forward. All patient's questions and concerns were answered. No other acute complains at this time Review of Systems Neurological: Negative for headache Objective Temp: [97.8 ??F (36.6 ??C)-97.9 ??F (36.6 ??C)] 97.9 ??F (36.6 ??C) Heart Rate: [56-84] 64 Resp: [15-19] 18 BP: (116-145)/(54-92) 116/54 Objective GEN: lying in bed; in NAD HENT: normocephalic, non-erythematous oropharynx NEURO: Mental Status: A&O x 3, interactive, able to follow commands Speech: Intact Articulation CN 2-12: II - PERRLA, VFs full to confrontation III, IV, - EOMI VII -no gross facial asymmetry VIII - Auditory acuity intact XII - Tongue protrudes midline Motor: The patient can move all 4 extremities against gravity with no drift appreciated Sensory: intact light touch throughout Coordination: no ataxia with [id number] testing Gait/Station: deferred Results Review: I reviewed the patient's new clinical results. WBC Date Value Ref Range Status 03/22/2025 5.97 3.40 - 10.80 10*3/mm3 Final RBC Date Value Ref Range Status 03/22/2025 4.08 3.77 - 5.28 10*6/mm3 Final Hemoglobin Date Value Ref Range Status 03/22/2025 12.1 12.0 - 15.9 g/dL Final Hematocrit Date Value Ref Range Status 03/22/2025 36.5 34.0 - 46.6 % Final MCV Date Value Ref Range Status 03/22/2025 89.5 79.0 - 97.0 fL Final MCH Date Value Ref Range Status 03/22/2025 29.7 26.6 - 33.0 pg Final MCHC Date Value Ref Range Status 03/22/2025 33.2 31.5 - 35.7 g/dL Final RDW Date Value Ref Range Status 03/22/2025 12.5 12.3 - 15.4 % Final RDW-SD Date Value Ref Range Status 03/22/2025 41.1 37.0 - 54.0 fl Final MPV Date Value Ref Range Status 03/22/2025 8.8 6.0 - 12.0 fL Final Platelets Date Value Ref Range Status 03/22/2025 297 140 - 450 10*3/mm3 Final Lab Results Component Value Date GLUCOSE 99 03/22/2025 BUN 6.8 (L) 03/22/2025 CREATININE 0.64 03/22/2025 NA 134 (L) 03/22/2025 K 4.1 03/22/2025 CL 98 03/22/2025 CALCIUM 8.9 03/22/2025 PROTEINTOT 6.9 08/11/2022 ALBUMIN 4.1 08/11/2022 ALT 15 08/11/2022 AST 19 08/11/2022 ALKPHOS 57 08/11/2022 BILITOT 0.3 08/11/2022 GLOB 2.8 08/11/2022 AGRATIO 1.5 08/11/2022 BCR 10.6 03/22/2025 ANIONGAP 8.4 03/22/2025 EGFR 91.7 03/22/2025 MRI Brain Without Contrast Result Date: 03/22/2025 Impression: 1.No acute intracranial abnormality. 2.Minimal chronic small vessel ischemic change. 3.Mild left maxillary sinus mucosal disease. Electronically Signed: Chris Perkins MD 03/22/2025 4:24 AMEDT Workstation ID: [id number] -MRI brain images from 03/22/2025 were personally reviewed and showed no ischemic or hemorrhagic stroke -Transthoracic echocardiogram is pending -A1c from 03/22/2025 was 5.69% -LDL from 03/22/2025 was 34 Assessment/Plan This patient is a 74-year-old female with risk factors significant for breast cancer (right breast lumpectomy 08/2022), CAD (s/p LAD stent 03/2023), HLD, and GERD who presented to OSH ED 03/21/2025 afteracute onset of headache. Patient took a nap after her headache and woke with mixed aphasia. All symptoms resolved spontaneously prior to arrival at OSH ED. OSH CT imaging was unrevealing. Patient was[facility]red to [facility] for MRI brain without contrast and further workup. NIH score on arrival to [facility] was 0. Patient was not a candidate for IV thrombolytic therapy or emergent neurointervention. Antiplatelet MEMORIAL DESIGNER: Aspirin Anticoagulant MEMORIAL DESIGNER: None #Headache with visual disturbance, resolved #Expressive aphasia, transient -Etiology of patient's symptoms could possibly be due to TIA versus complex migraine -MRI brain images from 03/22/2025 were personally reviewed and showed no ischemic or hemorrhagic stroke -Transthoracic echocardiogram is pending -A1c from 03/22/2025 was 5.69% -LDL from 03/22/2025 was 34 Recommendations -Continue DAPT with aspirin 81 mg and Plavix 75 mg daily for 21 days with a plan to switch to aspirin 81 mg daily monotherapy afterward for secondary stroke prevention -Continue home atorvastatin 10 mg nightly for secondary stroke prevention. Target LDL level of lessthan 70 -Target systolic blood pressure goals of normotension -Serial neurochecks per policy, stat CTh for any acute neurological change -PT/OT/FRUIT II FARMWORKER as appropriate Patient education: call 911 or present to emergency department with any stroke symptom, including unilateral face, arm, or leg weakness, numbness, or paresthesias, unilateral facial droop, speech deficits, dizziness with nausea, vomiting, nystagmus, and incoordination, visual deficits, or severe onset headache. Stroke will sign off. Please call for any further questions or concerns Lior Lynne MD, Msc, PhD Vascular Neurologist [facility] Transthoracic echocardiogram report from 03/22/2025 was personally reviewed and showed left ventricular ejection fraction of 60% with normal left atrial size and volume and negative bubble study. Lior Lynne MD, Msc, PhD Vascular Neurologist [facility] documented in this encounter H&P Notes * Ladonna Wallace MD - 03/21/2025 9:13 PM EDT Images from the original note were not included. [facility] Medicine Services HISTORY AND PHYSICAL Patient Name: Kristy Hernandez : 1950 Primary Care Physician: Sal Croft MD Date of admission: 03/21/2025 Subjective Subjective Chief Complaint: Transient aphasia HPI: Kristy Hernandez is a 74 y.o. female with past medical history significant for breast cancer (rightbreast lumpectomy 08/2022), hyperlipidemia, and GERD who initially presented to OSH ED with concern for headache and transient episode of mixed aphasia. Patient states she developed a headache at approximately 1330 this day. She states she took a nap and when she woke up later in the afternoon she had word finding difficulty and was unable to understand words on paper. Patient states all symptoms resolved spontaneously prior to arrival at OSH ED. OSH CTh and CTA H/N were reportedly unrevealing. Patient was transferred to [facility] for higher level of care. Stroke saw patient while in ED. Patient and seen and examined. No further difficulty with speech. She feels like this is similar toher ocular migraines. Personal History Past Medical History: Diagnosis Date Breast cancer 08/19/2022 Right GERD (gastroesophageal reflux disease) Hiatal hernia Oncology Problem List: Malignant neoplasm of upper-outer quadrant of right breast in female, estrogen receptor positive (08/24/2022; Status: Active) Oncology/Hematology History Malignant neoplasm of upper-outer quadrant of right breast in female, estrogen receptor positive 08/24/2022 Initial Diagnosis Malignant neoplasm of right breast in female, estrogen receptor positive (HCC) 08/24/2022 Cancer Staged Staging form: Breast, AJCC 8th Edition - Pathologic: Stage IA (pT1mi, pN0, cM0, G2, ER+, ID+, HER2-) - Signed by Lila Oliveira MD on 08/24/2022 Past Surgical History: Procedure Laterality Date BREAST LUMPECTOMY Right 08/19/2022 CHOLECYSTECTOMY HYSTERECTOMY OOPHORECTOMY Family History: family history includes Colon cancer in her sister; Diabetes in her mother; Heart disease in her father and mother; Lung cancer in her brother. Social History: reports that she has never smoked. She has never used smokeless tobacco. She reports that she does not drink alcohol and does not use drugs. Social History Social History Narrative Not on file Medications: Available home medication information reviewed. Ascorbic Acid, Bioflavonoid Products, Glucosamine-Chondroitin, Povidone (PF), Red Yeast Rice, aspirin, atorvastatin, carboxymethylcellulose, colestipol, famotidine, fish oil, sodium chloride, and vitamin B-12 Allergies Allergen Reactions Ticagrelor Nausea And Vomiting Doxycycline Other (See Comments) Zithromax [Azithromycin] Nausea Only Objective Objective Vital Signs: Temp: [97.8 ??F (36.6 ??C)] 97.8 ??F (36.6 ??C) Heart Rate: [73-83] 83 Resp: [18] 18 BP: (141)/(65) 141/65 Total (NIH Stroke Scale): 0 Physical Exam Constitutional: female no acute distress, awake, alert HENT: NCAT, mucous membranes moist Respiratory: Clear to auscultation bilaterally, respiratory effort normal Cardiovascular: RRR, no murmurs, rubs, or gallops Gastrointestinal: Positive bowel sounds, soft, nontender, nondistended Musculoskeletal: No bilateral ankle edema Psychiatric: Appropriate affect, cooperative Neurologic: Oriented x 3, strength symmetric in all extremities, tongue midline, speech clear Skin: No rashes Result Review: I have personally reviewed the results from the time of this admission to 03/21/2025 23:26 EDT and agree with these findings: [x] Laboratory list / accordion [] Microbiology [x] Radiology [] EKG/Telemetry [] Cardiology/Vascular [] Pathology [] Old records [] Other: LAB RESULTS: Microbiology Results (last 10 days) No results found for the last 240 hours. No radiology results from the last 24 hrs Assessment & Plan Assessment & Plan 74-year-old female with risk factors significant for breast cancer (right breast lumpectomy 08/2022), HLD, and GERD who presented to OSH ED 03/21/2025 after acute onset of headache. Patient took a nap after her headache and woke with mixed aphasia. All symptoms resolved spontaneously prior to arrival at OSH ED. OSH CT imaging was unrevealing. Patient was transferred to [facility] for MRI brain without contrast and further workup. NIH score on arrival to [facility] was 0. Patient was not a candidate for IV thrombolytic therapy or emergent neurointervention. Headache, resolved Mixed aphasia, transient -Differentials include TIA versus complex migraine -Stroke team order set placed -MRI brain without contrast pending -Initiate DAPT with Plavix 300 mg load followed by 75 mg daily and aspirin 81 mg daily -Allow for autoregulation of blood pressure, SBP goal < 200 -NPO pending bedside swallow eval -TTE pending -LDL pending, start atorvastatin 80 mg nightly -A1c pending -Serial neurochecks per policy, stat CTH for any acute neurological change -PT/OT/FRUIT II FARMWORKER as appropriate Chronic IBS -Continue Colestid VTE Prophylaxis: Mechanical VTE prophylaxis orders are present. CODE STATUS: Code Status and Medical Interventions: CPR (Attempt to Resuscitate); Full Support Ordered at: 03/21/25 8426 Code Status (Patient has no pulse and is not breathing): CPR (Attempt to Resuscitate) Medical Interventions (Patient has pulse or is breathing): Full Support Level Of Support Discussed With: Patient Expected Discharge Expected discharge date/ time has not been documented. Ladonna Wallace MD 03/21/25 documented in this encounter Consult Notes * Mehran Hoskins PA-C - 03/21/2025 8:23 PM EDT Stroke Consult Note Patient Name: Kristy Hernandez Age: 74 y.o. Sex: female : 1950 Primary Care Physician: Sal Croft MD Referring Physician: [facility] ED Provider Handedness: Right Race: Chief Complaint/Reason for Consultation: Transient aphasia HPI Last Known Normal Date/Time: 1330 on 03/21/2025 This patient is a 74-year-old female with past medical history significant for breast cancer (rightbreast lumpectomy 08/2022), CAD (s/p LAD stent 03/2023), hyperlipidemia, and GERD who initially presented to OSH ED with concern for headache and transient episode of mixed aphasia. Patient reportedly developed a headache at approximately 1330 this day. She then reportedly took a nap and when she woke up had word finding difficulty and was unable to understand words on paper. All symptoms resolved spontaneously prior to arrival at OSH ED. OSH CTh and CTA H/N were reportedly unrevealing. Patient was transferred to [facility] for higher level of care. Patient was seen and examined immediately on arrival to [facility]. On my exam, patient clarified that earlier this afternoon she had acute onset of bilateral visual disturbance that she has had previously associated with ocular migraine. After waking from a nap, the patient had 2 episodes of transient expressive aphasia but no additional headache or visual disturbance at that time. Patient states she has had no recurrence of symptoms since initial arrival at OSH ED. Current NIH score is 0 with no evidence of focal neurologic deficits. Patient will remain admitted to the hospital medicine service for ongoing management and further workup. Review of Systems Constitutional: Negative for chills and fatigue. HENT: Negative for trouble swallowing. Eyes: Negative for visual disturbance. Respiratory: Negative for shortness of breath. Cardiovascular: Negative for chest pain. Gastrointestinal: Negative for abdominal pain. Musculoskeletal: Negative for myalgias. Neurological: Positive for speech difficulty and headaches. Negative for tremors, facial asymmetry,weakness, light-headedness and numbness. Psychiatric/Behavioral: Negative for behavioral problems. The patient is not nervous/anxious. Objective Neurological Exam Mental Status Alert. Oriented to person, place, time and situation. Speech is normal. Language is fluent with no aphasia. Attention and concentration are normal. Fund of knowledge is appropriate for level of education. Cranial Nerves CN II: Visual valdivia full to confrontation. CN III, IV, : Extraocular movements intact bilaterally. Pupils equal round and reactive to light bilaterally. CN V: Right: Facial sensation is normal. Left: Facial sensation is normal on the left. CN VII: Right: There is no facial weakness. Left: There is no facial weakness. CN VIII: Hearing grossly intact bilaterally. CN IX, X: Palate elevates symmetrically CN XII: Tongue midline without atrophy or fasciculations. Motor Normal muscle bulk throughout. Normal muscle tone. Strength is 5/5 throughout all four extremities. Sensory Light touch is normal in upper and lower extremities. Coordination Right: Rapid alternating movement normal.Left: Rapid alternating movement normal. Physical Exam Constitutional: General: She is not in acute distress. HENT: Head: Normocephalic and atraumatic. Mouth/Throat: Mouth: Mucous membranes are moist. Eyes: Extraocular Movements: Extraocular movements intact. Pupils: Pupils are equal, round, and reactive to light. Cardiovascular: Rate and Rhythm: Normal rate and regular rhythm. Pulmonary: Effort: Pulmonary effort is normal. Musculoskeletal: General: No swelling or deformity. Skin: General: Skin is warm and dry. Neurological: Mental Status: She is alert. Motor: Motor strength is normal. Psychiatric: Mood and Affect: Mood normal. Speech: Speech normal. Behavior: Behavior normal. Temp: [97.8 ??F (36.6 ??C)] 97.8 ??F (36.6 ??C) Heart Rate: [74] 74 Resp: [18] 18 BP: (141)/(65) 141/65 Past Medical History: Diagnosis Date Breast cancer 08/19/2022 Right GERD (gastroesophageal reflux disease) Hiatal hernia Past Surgical History: Procedure Laterality Date BREAST LUMPECTOMY Right 08/19/2022 CHOLECYSTECTOMY HYSTERECTOMY OOPHORECTOMY Family History Problem Relation Age of Onset Diabetes Mother Heart disease Mother Heart disease Father Colon cancer Sister Lung cancer Brother Breast cancer Neg Hx Ovarian cancer Neg Hx Social History Socioeconomic History Marital status: Tobacco Use Smoking status: Never Smokeless tobacco: Never Vaping Use Vaping status: Never Used Substance and Sexual Activity Alcohol use: Never Drug use: Never Sexual activity: Defer Allergies Allergen Reactions Ticagrelor Nausea And Vomiting Doxycycline Other (See Comments) Zithromax [Azithromycin] Nausea Only Prior to Admission medications Medication Sig Start Date End Date Taking? Authorizing Provider Ascorbic Acid 500 MG capsule Take 500 mg by mouth Daily. As directed by the provider Yes Amelia Don MD aspirin 81 MG EC tablet Take 1 tablet by mouth Daily. Yes Amelia Don MD atorvastatin (LIPITOR) 10 MG tablet 1 tablet Daily. 11/27/23 Yes Amelia Don MD Bioflavonoid Products (YURY C PO) Take 1,000 mg by mouth 1 (One) Time. Patient taking differently: Take 1,000 mg by mouth 1 (One) Time. Unable to find Yes Amelia Don MD carboxymethylcellulose (REFRESH PLUS) 0.5 % solution Administer 1 drop to both eyes 3 (Three) Timesa Day As Needed for Dry Eyes. Patient taking differently: Administer 1 drop to both eyes 3 (Three) Times a Day As Needed for Dry Eyes. Not taking Yes Amelia Don MD colestipol (COLESTID) 1 g tablet Take 1 tablet by mouth See Admin Instructions. Take 2 tablets by mouth every morning and 1 tablet every evening. 03/11/25 Yes Amelia Don MD famotidine (PEPCID) 20 MG tablet Take 1 tablet by mouth 2 (Two) Times a Day. Yes Amelia Don MD Glucosamine-Chondroitin (OSTEO BI-FLEX REGULAR STRENGTH PO) Take by mouth 2 (Two) Times a Day. Yes Amelia Don MD iVIZIA Dry Eyes 0.5 % solution Apply 0.5 drops to eye(s) as directed by provider 3 (Three) Times a Day As Needed (for dry eyes). Yes Amelia Don MD Hodges-3 Fatty Acids (fish oil) 1000 MG capsule capsule Take 1 capsule by mouth Daily With Breakfast. Yes Amelia Don MD Red Yeast Rice 600 MG capsule Take 1 capsule by mouth 1 (One) Time. Yes Amelia Don MD sodium chloride (KEELY 128) 5 % ophthalmic solution 1 drop As Needed. Yes ProviderAmelia MD vitamin B-12 (CYANOCOBALAMIN) 1000 MCG tablet Take 1 tablet by mouth Daily. Patient taking differently: Take 1 tablet by mouth 1 (One) Time Per Week. Yes ProviderAmelia MD Acute Stroke Data Thrombolytic Inclusion / Exclusion Criteria Person Administering Scale: Mehran Hoskins PA-C YES NO INCLUSION CRITERIA CLASS I [] [x] Suspected diagnosis of acute ischemic stroke with measureable neurological deficit. Low NIHSS with disabling stroke symptoms. [] [] Onset of stroke symptoms < 3 hours before beginning treatment >/ 18 years old Stroke symptom onset = time patient was last seen well or without symptoms (LKW) [] [] Onset of symptoms between 3-4.5 hours: >/= 80 years old (safe Class IIa) with history of both diabetes and prior CVA (reasonable Class IIb) AND NIHSS </= 25 *If not eligible for IV Thrombolytic consider neuro intervention for LKW within 24 hours YES NO EXCLUSION CRITERIA (CONTRAINDICATIONS) CLASS III EVIDENCE HARM [] [] Blood pressure >185/110 medically refractory to IV medications [] [] Active bleeding at a non-compressible site [] [] Active intracranial hemorrhage (ICH) [] [] Symptoms suggestive of subarachnoid hemorrhage (SAH) [] [] GI bleed within 21 days [] [] Ischemic stroke within 3 months [] [] Severe head trauma within 3 months [] [] Intracranial or intraspinal surgery within 3 months [] [] Current GI malignancy [] [] Intracranial neoplasm [] [] Infective endocarditis [] [] Aortic arch dissection [] [] Active coagulopathy with INR >1.7, platelets <100,000, PTT > 40 sec, PT > 15 sec *For warfarin, administration can begin before blood tests resulted. Discontinue for above values. [] [] Treatment dose* of LMWH (Lovenox) in last 24 hours *prophylactic dosages are not a contraindication [] [] Concurrent use of antiplatelet agents' glycoprotein inhibitors IIb/IIIa (Integrilin, etc.) [] [] Thrombin or factor Xa inhibitors (Eliquis, Xarelto, Arixtra) taken in last 48 hours YES NO CLASS II: AIS WITH THE FOLLOWING CONDITIONS - TREATMENT RISKS SHOULD BE WEIGHED AGAINST POSSIBLE BENEFITS. [] [] Major trauma in last 14 days, recent major surgery in last 14 days, intracranial arterial dissection, giant unruptured and unsecured intracranial aneurysm, pericarditis [] [] The risks and benefits have been discussed with the patient or family related to the administration of IV thrombolytic therapy for stroke symptoms. [] [] I have discussed and reviewed the patient's case and imaging with the attending prior to IV thrombolytic therapy. TIME N/A Time IV thrombolytic administered MODIFIED SHARIFA SCALE (to be assessed for each patient having history of stroke) []Stroke history but not assessed [x]0: No symptoms at all []1: No significant disability despite symptoms []2: Slight disability []3: Moderate disability []4: Moderately severe disability []5: Severe disability []6: NIH Stroke Scale Time: 1999 Person Administering Scale: Mehran Hoskins PA-C 1a Level of consciousness: 0=alert; keenly responsive 1b. LOC questions: 0=Performs both tasks correctly 1c. LOC commands: 0=Performs both tasks correctly 2. Best Gaze: 0=normal 3. Visual: 0=No visual loss 4. Facial Palsy: 0=Normal symmetric movement 5a. Motor left arm: 0=No drift, limb holds 90 (or 45) degrees for full 10 seconds 5b. Motor right arm: 0=No drift, limb holds 90 (or 45) degrees for full 10 seconds 6a. motor left le=No drift, limb holds 90 (or 45) degrees for full 10 seconds 6b Motor right le=No drift, limb holds 90 (or 45) degrees for full 10 seconds 7. Limb Ataxia: 0=Absent 8. Sensory: 0=Normal; no sensory loss 9. Best Language: 0=No aphasia, normal 10. Dysarthria: 0=Normal 11. Extinction and Inattention: 0=No abnormality Total: 0 Hospital Meds Scheduled- [START ON 03/22/2025] aspirin, 81 mg, Oral, Daily Or [START ON 03/22/2025] aspirin, 300 mg, Rectal, Daily atorvastatin, 80 mg, Oral, Nightly clopidogrel, 300 mg, Oral, Once And [START ON 03/22/2025] clopidogrel, 75 mg, Oral, Daily sodium chloride, 10 mL, Intravenous, Q12H Infusions- PRNs- sodium chloride sodium chloride Results Reviewed I have personally reviewed current lab, radiology, and data and agree with results. OSH image uploaded to chart are pending. OSH CTh 03/21/2025: No evidence of acute intracranial abnormality, per report OSH CTA H/N03/21/2025: No evidence of LVO or significant flow-limiting stenosis, per report Assessment and Plan This patient is a 74-year-old female with risk factors significant for breast cancer (right breast lumpectomy 08/2022), CAD (s/p LAD stent 03/2023), HLD, and GERD who presented to OSH ED 03/21/2025 afteracute onset of headache. Patient took a nap after her headache and woke with mixed aphasia. All symptoms resolved spontaneously prior to arrival at OSH ED. OSH CT imaging was unrevealing. Patient wastransferred to [facility] for MRI brain without contrast and further workup. NIH score on arrival to [facility] was 0. Patient was not a candidate for IV thrombolytic therapy or emergent neurointervention. Antiplatelet MEMORIAL DESIGNER: Aspirin Anticoagulant MEMORIAL DESIGNER: None Headache with visual disturbance, resolved Expressive aphasia, transient -Differentials include TIA versus complex migraine -MRI brain without contrast pending -Initiate DAPT with Plavix 300 mg load followed by 75 mg daily and aspirin 81 mg daily -Allow for autoregulation of blood pressure, SBP goal < 200 -NPO pending bedside swallow eval -TTE pending -LDL pending, start atorvastatin 80 mg nightly -A1c pending -Serial neurochecks per policy, stat CTh for any acute neurological change -PT/OT/FRUIT II FARMWORKER as appropriate Disposition: Admit to the hospital medicine service Case discussed with the patient and bedside RN. Thank you for the consult. Stroke neurology will continue to follow. Mehran Hoskins PA-C [facility] Stroke Neurology Cosigned by Lior Lynne MD at 03/22/2025 1:59 PM EDT Associated attestation - Lior Lynne MD - 03/22/2025 1:59 PM EDT I have reviewed this documentation and agree. See my progress note from 03/22/2025 for more details documented in this encounter Nursing Notes * Marielena Paige RN - 03/23/2025 4:34 AM EDT Goal Outcome Evaluation: Plan of Care Reviewed With: patient * Karis Gillespie, MS CCC-FRUIT II FARMWORKER - 03/22/2025 1:12 PM EDT Goal Outcome Evaluation: Plan of Care Reviewed With: patient Anticipated Discharge Disposition (FRUIT II FARMWORKER): home with OP services FRUIT II FARMWORKER Diagnosis: mild-moderate, cognitive-linguistic disorder (03/22/25 1145) Deficits unnrealted to admitting symptoms of word finding difficulties (which are now resolved). Scored 22/30 on the [place] Cognitive Assessment (MOCA). Pt with some, but not full awareness of deficits, attributes to age. No family present to discuss. Relayed to MD. Will follow. * Elise Blanco OT - 03/22/2025 11:30 AM EDT Goal Outcome Evaluation: Plan of Care Reviewed With: patient Outcome Evaluation: OT eval completed. Pt presents near baseline for ADL performance, reporting that her visual changes and word-finding difficulties have resolved. Pt SBA to ambulate in room, SBA for functional transfers and dynamic standing tasks with no LOB or unilateral strength/coordination deficits noted. Education provided regarding stress management strategies and lifestyle modifications for improved wellbeing. IP OT services warranted to support return to PLOF. Recommend home at discharge. Anticipated Discharge Disposition (OT): home * Marielena Paige RN - 03/22/2025 5:26 AM EDT Goal Outcome Evaluation: Patient A&O x 4, NIH 0. Home medications restarted. Patient unable to stay asleep but states that is her normal, patient takes 20 mg melatonin nightly at home. 5 mg givenlast night. MRI obtained. ECHO in AM. Passed Q6H glucose. Passed dysphagia, regular diet ordered. Ad mignon. Vitals stable within normal range. HX of right side breast cancer, no sticks or BP on right side. documented in this encounter Miscellaneous Notes * Therapy Evaluation - Karis Gillespie, MS CCC-FRUIT II FARMWORKER - 03/22/2025 1:15 PM EDT Images from the original note were not included. Acute Care - Speech Language Pathology Initial Evaluation [facility] Cognitive-Communication Evaluation Patient Name: Kristy Hernandez : 1950 Today's Date: 03/22/2025 Admit Date: 03/21/2025 Visit Dx: ICD-10-CM ICD-9-CM 1. Cognitive communication deficit R41.841 799.52 Patient Active Problem List Diagnosis Malignant neoplasm of upper-outer quadrant of right breast in female, estrogen receptor positive TIA (transient ischemic attack) Past Medical History: Diagnosis Date Breast cancer 08/19/2022 Right GERD (gastroesophageal reflux disease) Hiatal hernia Past Surgical History: Procedure Laterality Date BREAST LUMPECTOMY Right 08/19/2022 CHOLECYSTECTOMY HYSTERECTOMY OOPHORECTOMY FRUIT II FARMWORKER Recommendation and Plan FRUIT II FARMWORKER Diagnosis: mild-moderate, cognitive-linguistic disorder (03/22/251144) [facility] [place] Criteria for Skilled Therapy Interventions Met: yes (03/22/251144) Anticipated Discharge Disposition (FRUIT II FARMWORKER): home with OP services (03/22/251144) Demonstrates Need for Referral to Another Service: neurology (03/22/251144) Therapy Frequency (FRUIT II FARMWORKER SLC): 5 days per week (03/22/251144) Predicted Duration Therapy Intervention (Days): 1 week (03/22/251144) FRUIT II FARMWORKER EVALUATION (Last 72 Hours) FRUIT II FARMWORKER SLC Evaluation Row Name 03/22/251144 Communication Assessment/Intervention Document Type evaluation -SM Subjective Information no complaints -SM Patient Observations alert;cooperative -SM Patient Effort good -SM General Information Patient Profile Reviewed yes - Pertinent History Of Current Problem Adm word finding difficulties, now resolved. MRI negative. - Prior Level of Function-Communication unknown;other (see comments) pt reports only age-related difficulties - Plans/Goals Discussed with patient;agreed upon - Barriers to Rehab none identified - Patient's Goals for Discharge return to home - Pain Pretreatment Pain Rating 0/10 - no pain - Posttreatment Pain Rating 0/10 - no pain - Comprehension Assessment/Intervention Comprehension Assessment/Intervention Auditory Comprehension;Reading Comprehension - Auditory Comprehension Assessment/Intervention Auditory Comprehension (Communication) mild impairment - Answers Questions (Communication) yes/no;wh questions;personal;simple;WFL;complex;abstract;mild impairment;other (see comments) when prompted, able to correct answer - Able to Follow Commands (Communication) 1-step;2-step;WFL;3-step;mild impairment - Narrative Discourse conversational level;mild impairment - Auditory Comprehension Communication, Comment deficits all related to cognitive difficulties, mainly decreased sustained attention - Reading Comprehension Assessment/Intervention Reading Comprehension (Communication) mild impairment - Functional Reading Tasks mild impairment;other (see comments) - Reading Comprehension, Comment corrected when prompted of error. Error r/t decreased attention to detail - Expression Assessment/Intervention Expression Assessment/Intervention verbal expression;graphic expression - Verbal Expression Assessment/Intervention Verbal Expression L - Graphic Expression Assessment/Intervention Sentence Formulation simple;WFL - Oral Musculature and Cranial Nerve Assessment Oral Motor General Assessment [facility] - Motor Speech Assessment/Intervention Motor Speech Function [facility] - Cursory Voice Assessment/Intervention Quality and Resonance (Voice) [facility] - Cognitive Assessment Intervention- [employer] Cognitive Function (Cognition) mild impairment -SM Orientation Status (Cognition) person;place;time;situation - Memory (Cognitive) functional;mental manipulation;short-term;mild impairment - Attention (Cognitive) sustained;attention to detail;mild impairment;moderate impairment -SM Thought Organization (Cognitive) concrete divergent;mental manipulation;mild impairment -SM Reasoning (Cognitive) simple;WFL;mod-complex;mental flexibility;mild impairment;moderate impairment-SM Problem Solving (Cognitive) simple;WFL -SM Executive Function (Cognition) deficit awareness;self-monitoring/correction;home management activities;mild impairment;moderate impairment - Cognition, Comment No family present to discuss baseline level or if any concerns observed baseline. Pt attributes all to age though decreased deficit awareness. Messaged MD, pt may benefit from OP neurologist referral for cognitive deficits unrealted to admission symptoms. - Standardized Tests Cognitive/Memory Tests MOCA: [place] Cognitive Assessment - MOCA: The [place] Cognitive Assessment MOCA Total Score - MOCA Total Score Indicative Of: Mild Cognitive Impairment - [employer] Evaluation Clinical Impressions [employer] Diagnosis mild-moderate;cognitive-linguistic disorder - Rehab Potential/Prognosis good - SLC Criteria for Skilled Therapy Interventions Met yes - Functional Impact difficulty completing home management task - Recommendations Therapy Frequency (FRUIT II F[employer]WORKER SLC) 5 days per week - Predicted Duration Therapy Intervention (Days) 1 week - Anticipated Discharge Disposition (FRUIT II FARMWORKER) home with OP services -SM Demonstrates Need for Referral to Another Service neurology - User Nur (r) = Recorded By, (t) = Taken By, (c) = Cosigned By Initials Name Effective Dates Karis Gillespie MS [facility] 09/02/24 - EDUCATION The patient has been educated in the following areas: Cognitive Impairment Communication Impairment. [employer] GOALS Row Name 03/22/25 1145 Patient will demonstrate functional cognitive-linguistic skills for return to discharge environment [place] with minimal cues - Time frame 1 week - [employer]ER Diagnostic Treatment Patient will participate in further assessment in the following areas clarification of baseline cognitive communication status discuss eval results and baseline function when family present - Time Frame (Diagnostic) 1 week -SM Attention Goal 1 (FR[employer] FARMWORKER) Improve Attention by Goal 1 (FR[employer] FARMWORKER) complete sustained attention task;other (see comments);100%;with minimal cues (75-90%) + attention to detail - Time Frame (Attention Goal 1, FR[employer] FARMWORKER) 1 week -SM Organizational Skills Goal 1 (FRUIT II FARMWORKER) Improve Thought Organization Through Goal 1 (FRUIT II FARMWORKER) abstract;completing a divergent naming task;completing a convergent naming task;completing mental manipulation task;90%;with minimal cues (75-90%) - Time Frame (Thought Organization Skills Goal 1, FR[employer] FARMWORKER) 1 week -SM Executive Functional Skills Goal 1 (FRUIT II FARMWORKER) Improve Executive Function Skills Goal 1 (FRUIT II FARMWORKER) demonstrate awareness of deficit;identify strategies, strengths, limitations;organization/planning activity;home management activity;exhibit cognitive flexibility;perform self- correction;perform self-evaluation;90%;with minimal cues (75-90%) - Time Frame (Executive Function Skills Goal 1, FR[employer] F[employer]WORKER) 1 week -SM User Nur (r) = Recorded By, (t) = Taken By, (c) = Cosigned By Initials Name Provider Type Karis Rinaldi MS CCC-[employer] Speech and Language Pathologist Time Calculation: Time Calculation- FR[employer] Row Name 03/22/25 1314 Time Calculation- FR[employer] II FARMWORKER FR[employer]WORKER Start Time 1145 -SM FR[employer] II FARMWORKER Received On 03/22/25 - Untimed Charges 18411-GF Eval Speech and Production w/ Language Minutes 58 -SM Total Minutes Untimed Charges Total Minutes 58 -SM Total Minutes 58 -SM User Nur (r) = Recorded By, (t) = Taken By, (c) = Cosigned By Initials Name Provider Type Karis Rinaldi MS CCC-FR[employer] II [employer] Speech and Language Pathologist Therapy Charges for Today Code Description Service Date Service Provider Modifiers Qty [id number] HC ST EVAL SPEECH AND PROD W LANG 4 03/22/2025 Karis Gillespie MS CCC-FR[employer] II FARMWORKER GN 1 MS JEFFREY [place] 03/22/2025 * Therapy Evaluation - Elise Blanco OT - 03/22/2025 11:30 AM EDT Images from the original note were not included. Patient Name: Kristy Hernandez : 1950 Today's Date: 03/22/2025 Admit Date: 03/21/2025 Visit Dx: ICD-10-CM ICD-9-CM 1. Cognitive communication deficit R41.841 799.52 Patient Active Problem List Diagnosis Malignant neoplasm of upper-outer quadrant of right breast in female, estrogen receptor positive TIA (transient ischemic attack) Past Medical History: Diagnosis Date Breast cancer 08/19/2022 Right GERD (gastroesophageal reflux disease) Hiatal hernia Past Surgical History: Procedure Laterality Date BREAST LUMPECTOMY Right 08/19/2022 CHOLECYSTECTOMY HYSTERECTOMY OOPHORECTOMY General Information Row Name 03/22/25 1308 OT Time and Intention Document Type evaluation -RAGHU Mode of Treatment occupational therapy - Row Name 03/22/25 1308 General Information Patient Profile Reviewed yes -RAGHU Prior Level of Function independent:;ADL's;bed mobility;transfer;all household mobility;community mobility;home management;driving;shopping;using stairs;yard work Ambulates without AD at baseline; caregiver for spouse, reports being under increased stress lately -RAGHU Barriers to Rehab none identified -RAGHU Row Name 03/22/25 1308 Occupational Profile Environmental Supports and Barriers (Occupational Profile) Lives with spouse in multi-level home; planning on downsizing -RAGHU Row Name 03/22/25 1308 Living Environment Current Living Arrangements home -RAGHU People in Home spouse - Row Name 03/22/25 1308 Stairs Within Home, Primary Stairs, Within Home, Primary full set of stairs to second floor master bedroom/bathroom -RAGHU Number of Stairs, Within Home, Primary twelve -RAGHU Stair Railings, Within Home, Primary railings safe and in good condition -RAGHU Row Name 03/22/25 1308 Cognition Orientation Status (Cognition) oriented x 3;other (see comments) demonstrates tangential thinking during conservation -RAGHU Row Name 03/22/25 1308 Safety Issues/Impairments Affecting Functional Mobility Safety Issues Affecting Function (Mobility) awareness of need for assistance;insight into deficits/s elf-awareness;judgment;problem-solving;sequencing abilities -RAGHU Impairments Affecting Function (Mobility) endurance/activity tolerance -RAGHU Comment, Safety Issues/Impairments (Mobility) Pt reports that she has had very little sleep in pastfew days - User Nur (r) = Recorded By, (t) = Taken By, (c) = Cosigned By Initials Name Provider Type RAGHU Elise Blanco OT Occupational Therapist Mobility/ADL's Row Name 03/22/25 1314 Bed Mobility Bed Mobility supine-sit;sit-supine -RAGHU Supine-Sit [place] (Bed Mobility) standby assist -RAGHU Sit-Supine [place] (Bed Mobility) standby assist -RAGHU Assistive Device (Bed Mobility) head of bed elevated -RAGHU Comment, (Bed Mobility) Pt completed without difficulty -RAGHU Row Name 03/22/25 1314 Transfers Transfers sit-stand transfer;toilet transfer -RAGHU Row Name 03/22/25 1314 Sit-Stand Transfer Sit-Stand [place] (Transfers) standby assist -RAGHU Comment, (Sit-Stand Transfer) no AD -RAGHU Row Name 03/22/25 1314 Toilet Transfer Type (Toilet Transfer) stand pivot/stand step;stand-sit;sit-stand -RAGHU [place] Level (Toilet Transfer) standby assist -RAGHU Assistive Device (Toilet Transfer) commode;grab bars/safety frame -RAGHU Comment, (Toilet Transfer) no unsteadiness noted - Row Name 03/22/25 1314 Functional Mobility Functional Mobility- Ind. Level supervision required - Functional Mobility-Distance (Feet) 20 -RAGHU Functional Mobility- Comment Pt ambulated to/from bathroom without AD -RAGHU Row Name 03/22/25 1314 Activities of Daily Living BADL Assessment/Intervention lower body dressing;grooming;toileting - Row Name 03/22/25 1314 Hygiene Care Oral Care teeth brushed - regular toothbrush - Row Name 03/22/25 1314 Lower Body Dressing Assessment/Training [place] Level (Lower Body Dressing) don;socks;set up -RAGHU Position (Lower Body Dressing) sitting up in bed - Row Name 03/22/25 1314 Grooming Assessment/Training [place] Level (Grooming) wash face, hands;standby assist -RAGHU Position (Grooming) sink side;unsupported standing -RAGHU Comment, (Grooming) Pt completed oral care earlier this morning - Row Name 03/22/25 1314 Toileting Assessment/Training [place] Level (Toileting) adjust/manage clothing;perform perineal hygiene;standby assist -RAGHU Assistive Devices (Toileting) commode;grab bar/safety frame -RAGHU Position (Toileting) unsupported sitting;unsupported standing -RAGHU User Nur (r) = Recorded By, (t) = Taken By, (c) = Cosigned By Initials Name Provider Type Elise Garsia OT Occupational Therapist Obj/Interventions Row Name 03/22/25 133 Sensory Assessment (Somatosensory) Sensory Assessment (Somatosensory) UE sensation intact - Row Name 03/22/25 1331 Vision Assessment/Intervention Visual Impairment/Limitations WFL;corrective lenses full-time - Row Name 03/22/25 1331 Range of Motion Comprehensive General Range of Motion bilateral upper extremity ROM WFL - Row Name 03/22/25 1331 Strength Comprehensive (MMT) Comment, General Manual Muscle Testing (MMT) Assessment BUE strength grossly 4/5 - Row Name 03/22/25 133 Balance Balance Assessment sitting static balance;sitting dynamic balance;standing static balance;standing dynamic balance -RAGHU Static Sitting Balance independent -RAGHU Dynamic Sitting Balance independent -RAGHU Position, Sitting Balance unsupported;sitting edge of bed -RAGHU Static Standing Balance independent -RAGHU Dynamic Standing Balance standby assist -RAGHU Position/Device Used, Standing Balance unsupported -RAGHU Balance Interventions standing;dynamic;occupation based/functional task -RAGHU Comment, Balance SBA for commode transfer and toileting tasks in standing -RAGHU User Nur (r) = Recorded By, (t) = Taken By, (c) = Cosigned By Initials Name Provider Type Elise Garsia OT Occupational Therapist Goals/Plan [facility] Name 03/22/254 Transfer Goal 1 (OT) Activity/Assistive Device (Transfer Goal 1, OT) lpc-hg-apthq/jpgxy-fn-kfx;sbu-na-xlwce/uhykq-oc-cki;toilet -RAGHU [place] Level/Cues Needed (Transfer Goal 1, OT) independent -RAGHU Time Frame (Transfer Goal 1, OT) skilled nursing goal (LTG);10 days -RAGHU Progress/Outcome (Transfer Goal 1, OT) new goal -[facility] Name 03/22/251337 Dressing Goal 1 (OT) Activity/Device (Dressing Goal 1, OT) upper body dressing;lower body dressing -RAGHU [place]/Cues Needed (Dressing Goal 1, OT) independent -RAGHU Time Frame (Dressing Goal 1, OT) short term goal (STG);1 week -RAGHU Progress/Outcome (Dressing Goal 1, OT) new goal -[facility] Name 03/22/255 Toileting Goal 1 (OT) Activity/Device (Toileting Goal 1, OT) adjust/manage clothing;perform perineal hygiene;commode;grabbar/safety frame -RAGHU [place] Level/Cues Needed (Toileting Goal 1, OT) independent -RAGHU Time Frame (Toileting Goal 1, OT) short term goal (STG);1 week -RAGHU Progress/Outcome (Toileting Goal 1, OT) new goal - Row Name 03/22/258 Therapy Assessment/Plan (OT) Planned Therapy Interventions (OT) activity tolerance training;BADL retraining;functional balance retraining;occupation/activity based interventions;patient/caregiver education/training;ROM/therapeutic exercise;strengthening exercise;transfer/mobility retraining - User Nur (r) = Recorded By, (t) = Taken By, (c) = Cosigned By Initials Name Provider Type Elise Garsia, OT Occupational Therapist Clinical Impression Row Name 03/22/25 1332 Pain Assessment Pretreatment Pain Rating 0/10 - no pain -RAGHU Posttreatment Pain Rating 0/10 - no pain -RAGHU Row Name 03/22/25 1332 Plan of Care Review Plan of Care Reviewed With patient -RAGHU Outcome Evaluation OT eval completed. Pt presents near baseline for ADL performance, reporting thather visual changes and word-finding difficulties have resolved. Pt SBA to ambulate in room, SBA forfunctional transfers and dynamic standing tasks with no LOB or unilateral strength/coordination deficits noted. Education provided regarding stress management strategies and lifestyle modifications for improved wellbeing. IP OT services warranted to support return to PLOF. Recommend home at discharge. - Row Name 03/22/25 1332 Therapy Assessment/Plan (OT) Patient/Family Therapy Goal Statement (OT) To be able to take care of my -RAGHU Rehab Potential (OT) good -RAGHU Criteria for Skilled Therapeutic Interventions Met (OT) yes;meets criteria;skilled treatment is necessary -RAGHU Therapy Frequency (OT) daily -RAGHU Predicted Duration of Therapy Intervention (OT) 10 days - Row Name 03/22/25 1332 Therapy Plan Review/Discharge Plan (OT) Anticipated Discharge Disposition (OT) home - Row Name 03/22/25 1332 Vital Signs Pre Systolic BP Rehab 116 -RAGHU Pre Treatment Diastolic BP 54 -RAGHU Post Systolic BP Rehab 131 -RAGHU Post Treatment Diastolic BP 64 -RAGHU Pretreatment Heart Rate (beats/min) 67 -RAGHU Intratreatment Heart Rate (beats/min) 86 -RAGHU Posttreatment Heart Rate (beats/min) 66 -RAGHU Pre SpO2 (%) 100 -RAGHU O2 Delivery Pre Treatment room air -RAGHU O2 Delivery Intra Treatment room air -RAGHU Post SpO2 (%) 95 -RAGHU O2 Delivery Post Treatment room air -RAGHU Pre Patient Position Supine -RAGHU Intra Patient Position Standing -RAGHU Post Patient Position Supine -RAGHU Row Name 03/22/25 1332 Positioning and Restraints Pre-Treatment Position in bed -RAGHU Post Treatment Position bed -RAGHU In Bed fowlers;call light within reach;encouraged to call for assist;notified nsg bed alarm unchanged -RAGHU User Nur (r) = Recorded By, (t) = Taken By, (c) = Cosigned By Initials Name Provider Type Elise Garsia OT Occupational Therapist Outcome Measures Row Name 03/22/25 1340 How much help from another is currently needed... Putting on and taking off regular lower body clothing? 3 -RAGHU Bathing (including washing, rinsing, and drying) 3 -RAGHU Toileting (which includes using toilet bed white or urinal) 4 -RAGHU Putting on and taking off regular upper body clothing 4 -RAGHU Taking care of personal grooming (such as brushing teeth) 4 -RAGHU Eating meals 4 -RAGHU AM-PAC 6 Clicks Score (OT) 22 -RAGHU Row Name 03/22/25 0800 How much help from another person do you currently need... Turning from your back to your side while in flat bed without using bedrails? 4 -AL Moving from lying on back to sitting on the side of a flat bed without bedrails? 4 -AL Moving to and from a bed to a chair (including a wheelchair)? 4 -AL Standing up from a chair using your arms (e.g., wheelchair, bedside chair)? 4 -AL Climbing 3-5 steps with a railing? 4 -AL To walk in hospital room? 4 -AL AM-PAC 6 Clicks Score (PT) 24 -AL Row Name 03/22/25 1340 Functional Assessment Outcome Measure Options AM-PAC 6 Clicks Daily Activity (OT) -RAGHU User Nur (r) = Recorded By, (t) = Taken By, (c) = Cosigned By Initials Name Provider Type Elise Garsia OT Occupational Therapist Maria Fernanda Collins, RN Registered Nurse Occupational Therapy Education Title: PT OT FR[employer]WORKER Therapies (In Progress) Topic: Occupational Therapy (In Progress) Point: ADL training (Done) Learning Progress Summary Patient Acceptance, E, VU,NR by RAGHU at 03/22/2025 1341 Comment: Reason for OT consult; stress management strategies; lifestyle modifications Point: Precautions (Done) Learning Progress Summary Patient Acceptance, E, VU,NR by RAGHU at 03/22/2025 1341 Comment: Reason for OT consult; stress management strategies; lifestyle modifications User Nur Initials Effective Dates Name Provider Type Discipline RAGHU 01/27/21 - Elise Blanco OT Occupational Therapist OT OT Recommendation and Plan Planned Therapy Interventions (OT): activity tolerance training, BADL retraining, functional balance retraining, occupation/activity based interventions, patient/caregiver education/training, ROM/therapeutic exercise, strengthening exercise, transfer/mobility retraining Therapy Frequency (OT): daily Plan of Care Review Plan of Care Reviewed With: patient Outcome Evaluation: OT eval completed. Pt presents near baseline for ADL performance, reporting that her visual changes and word-finding difficulties have resolved. Pt SBA to ambulate in room, SBA for functional transfers and dynamic standing tasks with no LOB or unilateral strength/coordination deficits noted. Education provided regarding stress management strategies and lifestyle modifications for improved wellbeing. IP OT services warranted to support return to PLOF. Recommend home at discharge. Time Calculation: Evaluation Complexity (OT) Review Occupational Profile/Medical/Therapy History Complexity: expanded/moderate complexity Assessment, Occupational Performance/Identification of Deficit Complexity: 1-3 performance deficits Clinical Decision Making Complexity (OT): problem focused assessment/low complexity Overall Complexity of Evaluation (OT): low complexity Time Calculation- OT Row Name 03/22/25 1130 Time Calculation- OT OT Start Time 1130 -RAGHU OT Received On 03/22/25 -RAGHU OT Goal Re-Cert Due Date 04/01/25 -RAGHU Untimed Charges OT Eval/Re-eval Minutes 50 -RAGHU Total Minutes Untimed Charges Total Minutes 50 -RAGHU Total Minutes 50 -RAGHU User Nur (r) = Recorded By, (t) = Taken By, (c) = Cosigned By Initials Name Provider Type Elise Garsia OT Occupational Therapist Therapy Charges for Today Code Description Service Date Service Provider Modifiers Qty [id number] HC OT EVAL LOW COMPLEXITY 4 03/22/2025 Elise Blanco OT GO 1 Elise Blanco OT 03/22/2025 documented in this encounter Plan of Treatment Upcoming Encounters Date Type Department Care Team (Late st Contact Info) Description 05/28/2025 10:20 [place] [address] 05/28/2025 1:15 PM EDT Office Visit [facility] GENER[facility] SURGERY [address] [place] [address] Michell Harkins MD [address] [place] [address] Scheduled Referrals Name Type Priority Associated Diagnoses Order Schedule Ambulatory Referral to Neurology Outpatient Referral Routine TIA (transient ischemic attack) Ordered: 03/23/2025 documented as of this encounter Procedures Procedure Name Priority Date/Time Associated Diagnosis Comments ECG 12-LEAD Routine 03/22/2025 7:51 PM EDT URINALYSIS, MICROSCOPIC ONLY Routine 03/22/2025 6:04 PM EDT URINALYSIS W/ CULTURE IF INDICATED Urgent 03/22/2025 6:04 PM EDT ECHO COMPLETE W/ DOPPLER AND COLOR FLOW Routine 03/22/2025 2:54 PM EDT CBC (NO DIFF) Urgent 03/22/2025 11:09 AM EDT HEMOGLOBIN A1C Urgent 03/22/2025 11:09 AM EDT LIPID PANEL Urgent 03/22/2025 11:09 AM EDT BASIC METABOLIC PANEL Urgent 03/22/2025 11:09 AM EDT MRI BRAIN WO CONTRAST Routine 03/22/2025 12:47 AM EDT POCT GLUCOSE FINGERSTICK Routine 03/22/2025 12:10 AM EDT POCT GLUCOSE FINGERSTICK Routine 03/21/2025 7:39 PM EDT documented in this encounter Results * ECG 12 Lead QT Measurement (03/22/2025 7:51 PM EDT) QT Interval 402 ms ECG QTC Interval 408 ms ECG 03/22/2025 7:51 PM EDT 03/23/2025 1:50 PM EDT Narrative ECG - 03/23/2025 1:50 PM EDT Test Reason : QT Measurement Blood Pressure : */* mmHG Vent. Rate : 62 BPM Atrial Rate : 62 BPM P-R Int : 176 ms QRS Dur : 74 ms QT Int : 402 ms P-R-T Axes : 45 8 43 degrees QTcB Int : 408 ms Normal sinus rhythm Normal ECG When compared with ECG of 11-Aug-2022 12:35, No significant change was found Confirmed by LUCA BROWNE MD ([id number]) on 03/23/2025 1:50:03 PM Referred By: Confirmed By: LUCA BROWNE MD Procedure Note Luca Browne MD - 03/23/2025 Test Reason : QT Measurement Blood Pressure : */* mmHG Vent. Rate : 62 BPM Atrial Rate : 62 BPM P-R Int : 176 ms QRS Dur : 74 ms QT Int : 402 ms P-R-T Axes : 45 8 43 degrees QTcB Int : 408 ms Normal sinus rhythm Normal ECG When compared with ECG of 11-Aug-2022 12:35, No significant change was found Confirmed by LUCA BROWNE MD ([id number]) on 03/23/2025 1:50:03 PM Referred By: Confirmed By: LUCA BROWNE MD Lila Billingsley APRN ECG ORDERABLES Final Result ECG * Urinalysis, Microscopic Only - Urine, Clean Catch (03/22/2025 6:04 PM EDT) Pathologist [facility] RBC, UA 0-2 None Seen, 0-2 /HPF 03/22/2025 6:19 PM EDT [facility] WBC, UA 0-2 None Seen, 0-2 /HPF 03/22/2025 6:19 PM EDT [facility] Comment:Urine culture not in dicated. Bacteria, UA None Seen None Seen /HPF 03/22/2025 6:19 PM EDT [facility] Squamous Epithelial Cells, UA 0-2 None Seen, 0-2 /HPF 03/22/2025 6:19 PM EDT [facility] Hyaline Casts, UA None Seen None Seen /LPF 03/22/2025 6:19 PM EDT [facility] Methodology Automated Microscopy 03/22/2025 6:19 PM EDT [facility] Urine Urine specimen obtained by clean catch procedure / Unknown Collection / Unknown 03/22/2025 6:04 PM EDT 03/22/2025 6:13 PM EDT Ion Welsh MD URINE ORDERABLES Final Result [facility]
[address] [place] [address], * (ABNORMAL) Urinalysis With Culture If Indicated - Urine, Clean Catch (03/22/2025 6:04 PM EDT) Color, UA Yellow Yellow, Straw 03/22/2025 6:19 PM EDT [facility] Appearance, UA Clear Clear 03/22/2025 6:19 PM EDT [facility] pH, UA 6.5 5.0 - 8.0 03/22/2025 6:19 PM EDT [facility] Specific [place], UA 1.007 1.005 - 1.030 03/22/2025 6:19 PM EDT [facility] Glucose, UA Negative Negative 03/22/2025 6:19 PM EDT [facility] Ketones, UA Trace(A) Negative 03/22/2025 6:19 PM EDT [facility] Bilirubin, UA Negative Negative 03/22/2025 6:19 PM EDT [facility] Blood, UA Trace(A) Negative 03/22/2025 6:19 PM EDT [facility] Protein, UA Negative Negative 03/22/2025 6:19 PM EDT [facility] Leuk Esterase, UA Negative Negative 03/22/2025 6:19 PM EDT [facility] Nitrite, UA Negative Negative 03/22/2025 6:19 PM EDT [facility] Urobilinogen, UA 0.2 E.U./dL 0.2 - 1.0 E.U./dL 03/22/2025 6:19 PM EDT [facility] Urine Urine specimen obtained by clean catch procedure / Unknown Collection / Unknown 03/22/2025 6:04 PM EDT 03/22/2025 6:13 PM EDT [facility] - 03/22/2025 6:19 PM EDT In absence of clinical symptoms, the presence of pyuria, bacteria, and/or nitrites on the urinalysis result does not correlate with infection. Ion Welsh MD URINE ORDERABLES Final Result [facility]
[address] [place] [address], * ECHO COMPLETE W/ DOPPLER AND COLOR FLOW (03/22/2025 2:54 PM EDT) EF(MOD-bp) 70.5 % LVIDd 4.4 cm LVIDs 2.9 cm IVSd 0.80 cm LVPWd 0.90 cm FS 34.1 % IVS/LVPW 0.89 cm ESV(cubed) 24.4 ml LV Sys Vol (BSA corrected) 19.1 cm2 EDV(cubed) 85.2 ml LV Gil Vol (BSA corrected) 55.7 cm2 LV mass(C)d 118.6 grams LVOT area 3.8 cm2 LVOT diam 2.20 cm EDV(MOD-sp2) 114.0 ml EDV(MOD-sp4) 97.7 ml ESV(MOD-sp2) 28.6 ml ESV(MOD-sp4) 33.6 ml SV(MOD-sp2) 85.4 ml SV(MOD-sp4) 64.1 ml SVi(MOD-SP2) 48.6 ml/m2 SVi(MOD-SP4) 36.5 ml/m2 SVi (LVOT) 49.2 ml/m2 EF(MOD-sp2) 74.9 % EF(MOD-sp4) 65.6 % MV E max ken 91.1 cm/sec MV A max ken 128.0 cm/sec MV dec time 0.19 sec MV E/A 0.71 IVRT 95.0 ms LA ESV Index (BP) 24.9 ml/m2 Med Peak E' Ken 6.5 cm/sec Lat Peak E' Ken 10.3 cm/sec TR max ken 229.5 cm/sec Avg E/e' ratio 10.85 SV(LVOT) 86.3 ml RV Base 2.8 cm RV Mid 2.00 cm RV Length 5.1 cm TAPSE (>1.6) 2.7 cm RV S' 13.4 cm/sec LA dimension (2D) 3.4 cm LV V1 max 122.0 cm/sec LV V1 max PG 6.0 mmHg LV V1 mean PG 3.0 mmHg LV V1 VTI 22.7 cm Ao pk ken 158.0 cm/sec Ao max PG 10.0 mmHg Ao mean PG 6.0 mmHg Ao V2 VTI 30.7 cm HALEIGH(I,D) 2.8 cm2 Dimensionless Index 0.74 (DI) MV max PG 12.0 mmHg MV mean PG 5.0 mmHg MV V2 VTI 44.5 cm MVA(VTI) 1.94 cm2 MV dec slope 482.0 cm/sec2 TR max PG 21.1 mmHg PA V2 max 108.5 cm/sec PA acc time 0.16 sec PI end-d ken 126.0 cm/sec Ao root diam 3.2 cm RVSP(TR) 24 mmHg RAP systole 3 mmHg Echo EF Estimated 60.0 % Anatomical Region Laterality Modality Ultrasound Narrative 03/22/2025 3:30 PM EDT Left ventricular systolic function is normal. Estimated left ventricular EF = 60% Saline test results are negative. Mild mitral valve regurgitation is present. Left Ventricle Left ventricular systolic function is normal. Estimated left ventricular EF = 60% Normal left ventricular cavity size and wall thickness noted. All left ventricular wall segments contract normally. Right Ventricle Normal right ventricular cavity size, wall thickness, systolic function and septal motion noted. Left Atrium Normal left atrial size and volume noted. No evidence of a patent foramen ovale. No evidence of an atrial septal defect present. Saline test results are negative. Right Atrium Normal right atrial cavity size noted. Mitral Valve Mitral annular calcification is present. There is calcification of the mitral valve. Mild mitral valve regurgitation is present. Tricuspid Valve Estimated right ventricular systolic pressure from tricuspid regurgitation is normal (<35 mmHg). Calculated right ventricular systolic pressure from tricuspid regurgitation is 24 mmHg. Aortic Valve The aortic valve is structurally normal with no regurgitation or stenosis present. Pulmonic Valve The pulmonic valve is structurally normal with no regurgitation or significant stenosis present. Pericardium The pericardium is normal. There is no evidence of pericardial effusion. . Greater Vessels No dilation of the aortic root is present. Aortic root = 3.2 cm No dilation of the sinuses of Valsalva is present. The inferior vena cava is normally sized. Normal IVC inspiratory collapse of greater than 50% noted. Study Quality The study is technically adequate for diagnosis. Normal sinus was the predominant rhythm observed during the procedure. Mehran Hoskins PA-C CV ECHO ORDERABLES Final Result * CBC (No Diff) (03/22/2025 11:09 AM EDT) WBC 5.97 3.40 - 10.80 10*3/mm3 03/22/2025 11:42 AM EDT [facility] RBC 4.08 3.77 - 5.28 10*6/mm3 03/22/2025 11:42 AM EDT [facility] Hemoglobin 12.1 12.0 - 15.9 g/dL 03/22/2025 11:42 AM EDT [facility] Hematocrit 36.5 34.0 - 46.6 % 03/22/2025 11:42 AM EDT [facility] MCV 89.5 79.0 - 97.0 fL 03/22/2025 11:42 AM EDT [facility] MCH 29.7 26.6 - 33.0 pg 03/22/2025 11:42 AM EDT [facility] MCHC 33.2 31.5 - 35.7 g/dL 03/22/2025 11:42 AM EDT [facility] RDW 12.5 12.3 - 15.4 % 03/22/2025 11:42 AM EDT [facility] RDW-SD 41.1 37.0 - 54.0 fl 03/22/2025 11:42 AM EDT [facility] MPV 8.8 6.0 - 12.0 fL 03/22/2025 11:42 AM EDT [facility] Platelets 297 140 - 450 10*3/mm3 03/22/2025 11:42 AM EDT [facility] Blood Venipuncture / Unknown 03/22/2025 11:09 AM EDT 03/22/2025 11:36 AM EDT Ladonna Wallace MD LAB BLOOD ORDERABLES Final Re sult [facility]
[address] [place] [address], * (ABNORMAL) Basic Metabolic Panel (03/22/2025 11:09 AM EDT) Glucose 99 65 - 99 mg/dL 03/22/2025 12:04 PM EDT [facility] BUN 6.8(L) 8.0 - 23.0 mg/dL 03/22/2025 12:04 PM EDT [facility] Creatinine 0.64 0.57 - 1.00 mg/dL 03/22/2025 12:04 PM EDT [facility] Sodium 134(L) 136 - 145 mmol/L 03/22/2025 12:04 PM EDT [facility] Potassium 4.1 3.5 - 5.2 mmol/L 03/22/2025 12:04 PM EDT [facility] Chloride 98 98 - 107 mmol/L 03/22/2025 12:04 PM EDT [facility] CO2 27.6 22.0 - 29.0 mmol/L 03/22/2025 12:04 PM EDT [facility] Calcium 8.9 8.6 - 10.5 mg/dL 03/22/2025 12:04 PM EDT [facility] BUN/Creatinine Ratio 10.6 7.0 - 25.0 03/22/2025 12:04 PM EDT [facility] Anion Gap 8.4 5.0 - 15.0 mmol/L 03/22/2025 12:04 PM EDT [facility] eGFR 91.7 >60.0 mL/min/1.7 3 03/22/2025 12:04 PM EDT [facility] Blood Venipuncture / Unknown 03/22/2025 11:09 AM EDT 03/22/2025 11:36 AM EDT [facility] - 03/22/2025 12:04 PM EDT GFR Categories in Chronic Kidney Disease (CKD) GFR Category GFR (mL/min/1.73) Interpretation G1 90 or greater Normal or high (1) G2 60-89 Mild decrease (1) G3a 45-59 Mild to moderate decrease G3b 30-44 Moderate to severe decrease G4 15-29 Severe decrease G5 14 or less Kidney failure (1)In the absence of evidence of kidney disease, neither GFR category G1 or G2 fulfill the criteria for CKD. eGFR calculation 2020 CKD-EPI creatinine equation, which does not include race as a factor us Ladonna Wallace MD LAB BLOOD ORDERABLES Final Re sult [facility]
[address] [place] [address], * (ABNORMAL) Lipid Panel (03/22/2025 11:09 AM EDT) Total Cholesterol 125 0 - 200 mg/dL 03/22/2025 12:04 PM EDT [facility] Triglycerides 54 0 - 150 mg/dL 03/22/2025 12:04 PM EDT [facility] HDL Cholesterol 79(H) 40 - 60 mg/dL 03/22/2025 12:04 PM EDT [facility] LDL Cholesterol 34 0 - 100 mg/dL 03/22/2025 12:04 PM EDT [facility] VLDL Cholesterol 12 5 - 40 mg/dL 03/22/2025 12:04 PM EDT [facility] LDL/HDL Ratio 0.45 03/22/2025 12:04 PM EDT [facility] Blood Venipuncture / Unknown 03/22/2025 11:09 AM EDT 03/22/2025 11:36 AM EDT Narrative [facility] - 03/22/2025 12:04 PM EDT Cholesterol Reference Ranges (U.S. Department of Health and Human Services ATP III Classifications) Desirable <200 mg/dL Borderline High 200-239 mg/dL High Risk >240 mg/dL Triglyceride Reference Ranges (U.S. Department of Health and Human Services ATP III Classifications) Normal <150 mg/dL Borderline High 150-199 mg/dL High 200-499 mg/dL Very High >500 mg/dL HDL Reference Ranges (U.S. Department of Health and Human Services ATP III Classifications) Low <40 mg/dl (major risk factor for CHD) High >60 mg/dl ('negative' risk factor for CHD) LDL Reference Ranges (U.S. Department of Health and Human Services ATP III Classifications) Optimal <100 mg/dL Near Optimal 100-129 mg/dL Borderline High 130-159 mg/dL High 160-189 mg/dL Very High >189 mg/dL LDL is calculated using the NIH LDL-C calculation. Mehran Hoskins PA-C LAB BLOOD ORDERABLE S Final Result [facility]
[address] [place] [address], * (ABNORMAL) Hemoglobin A1c (03/22/2025 11:09 AM EDT) Hemoglobin A1C 5.69(H) 4.80 - 5.60 % 03/22/2025 11:59 AM EDT [facility] Blood Venipuncture / Unknown 03/22/2025 11:09 AM EDT 03/22/2025 11:37 AM EDT Narrative [facility] - 03/22/2025 11:59 AM EDT Hemoglobin A1C Ranges: Increased Risk for Diabetes 5.7% to 6.4% Diabetes >= 6.5% Diabetic Goal < 7.0% Mehran Hoskins PA-C LAB BLOOD ORDERABLE S Final Result [facility]
[address] [place] [address], * MRI Brain Without Contrast (03/22/2025 12:47 AM EDT) Anatomical Region Laterality Modality Head, Neck N/A Magnetic Resonan ce 03/22/2025 4:14 AM EDT Impressions 03/22/2025 4:24 AM EDT Impression: 1.No acute intracranial abnormality. 2.Minimal chronic small vessel ischemic change. 3.Mild left maxillary sinus mucosal disease. Electronically Signed: Chris Perkins MD 03/22/2025 4:24 AM EDT Workstation ID: [id number] Narrative 03/22/2025 4:24 AM EDT MRI BRAIN WO CONTRAST Date of Exam: 03/22/2025 12:19 AM EDT Indication: Stroke, follow up. Headache with speech difficulty, acute stroke suspected. Comparison: None available. Technique: Routine multiplanar/multisequence sequence images of the brain were obtained without contrast administration. Findings: There is no diffusion restriction to suggest acute infarct. There is no evidence of acute or chronic intracranial hemorrhage. There are several scattered punctate foci of FLAIR hyperintense signal within the cerebral white matter. No mass effect or midline shift. No abnormal extra-axial collections. The major vascular flow voids appear intact. The basal ganglia, brainstem and cerebellum appear within normal limits. Calvarial and superficial soft tissue signal is within normal limits. There is thinning of the orbital lenses which would suggest prior lens replacement. There is mild left maxillary sinus mucosal disease and minor atelectasis. Mastoid air cells appear well aerated. Midline structures are intact. Procedure Note Chris Perkins MD - 03/22/2025 MRI BRAIN WO CONTRAST Date of Exam: 03/22/2025 12:19 AM EDT Indication: Stroke, follow up. Headache with speech difficulty, acutestroke suspected. Comparison: None available. Technique: Routine multiplanar/multisequence sequence images of the brainwere obtained without contrast administration. Findings: There is no diffusion restriction to suggest acute infarct. There is noevidence of acute or chronic intracranial hemorrhage. There are severalscattered punctate foci of FLAIR hyperintense signal within the cerebralwhite matter. No mass effect or midline shift. No abnormal extra-axial collections. The major vascularflow voids appear intact. The basal ganglia, brainstem and cerebellumappear within normal limits. Calvarial and superficial soft tissue signalis within normal limits. There is thinning of the orbital lenses which would suggest prior lens replacement.There is mild left maxillary sinus mucosal disease and minor atelectasis.Mastoid air cells appear well aerated. Midline structures are intact. IMPRESSION: Impression: 1.No acute intracranial abnormality. 2.Minimal chronic small vessel ischemic change. 3.Mild left maxillary sinus mucosal disease. Electronically Signed: Chris Perkins MD 03/22/2025 4:24 AM EDT Workstation ID: [id number] Mehran Hoskins PA-C IMG MRI ORDERABLES Final Result * POC Glucose Once (03/22/2025 12:10 AM EDT) Glucose 128 70 - 130 mg/dL 03/22/2025 12:11 AM EDT [facility] Blood 03/22/2025 12:1 0 AM EDT 03/22/2025 12:11 AM EDT Ladonna Wallace MD POINT OF CARE TEST ORDERABLES Final Result [facility]
[address] [place] [address], * POC Glucose Once (03/21/2025 7:39 PM EDT) Glucose 94 70 - 130 mg/dL 03/21/2025 7:40 PM EDT [facility] Blood 03/21/2025 7:39 PM EDT 03/21/2025 7:40 PM EDT Ladonna Wallace MD POINT OF CARE TEST ORDERABLES Final Result [facility]
[address] [place] [address], documented in this encounter Visit Diagnoses Diagnosis TIA (transient ischemic attack)- Primary Unspecified transient cerebral ischemia Cognitive communication deficit TIA (transient ischemic attack) Unspecified transient cerebral ischemia documented in this encounter Admitting Diagnoses Diagnosis TIA (transient ischemic attack) Unspecified transient cerebral ischemia documented in this encounter Administered Medications Inactive Administered Medications - up to 3 most recent administrations Medication Order MAR Action Action Date Dose Rate Site ! Home medications stored in patient specific bins (2 bins); return meds to patient at discharge Every 12 Hours Scheduled, First dose on Mon03/22/25 at 0900, Until Discontinued, Consult for: Home meds Given 03/22/2025 9:44 PM EDT Given 03/22/2025 9:45 AM EDT acetaminophen (TYLENOL) 160 MG/5ML oral solution 500 mg 500 mg, Oral, Every 6 Hours PRN, Mild Pain, Headache, Fever, Starting on Mon03/21/25 at 2049, If given for fever, use fever parameter: fever greater than 100.4 F Based on patient request - if ordered for moderate or severe pain, provider allows for administration of a medication prescribed for a lower pain scale. Do not exceed 4 grams of acetaminophen in a 24 hr period. Max dose of 2gm for AST/ALT greater than 120 units/L. If given for pain, use the following pain scale: Mild Pain = Pain Score of 1-3, CPOT 1-2 Moderate Pain = Pain Score of 4-6, CPOT 3-4 Severe Pain = Pain Score of 7-10, CPOT 5-8 acetaminophen (TYLENOL) suppository 325 mg 325 mg, Rectal, Every 6 Hours PRN, Mild Pain, Headache, Fever, Starting on Mon03/21/25 at 2048, If given for fever, use fever parameter: fever greater than 100.4 F Based on patient request - if ordered for moderate or severe pain, provider allows for administration of a medication prescribed for a lower pain scale. Do not exceed 4 grams of acetaminophen in a 24 hr period. Max dose of 2gm for AST/ALT greater than 120 units/L. If given for pain, use the following pain scale: Mild Pain = Pain Score of 1-3, CPOT 1-2 Moderate Pain = Pain Score of 4-6, CPOT 3-4 Severe Pain = Pain Score of 7-10, CPOT 5-8 acetaminophen (TYLENOL) tablet 500 mg 500 mg, Oral, Every 6 Hours PRN, Mild Pain, Headache, Fever, Starting on Mon03/21/25 at 2048, If given for fever, use fever parameter: fever greater than 100.4 F Based on patient request - if ordered for moderate or severe pain, provider allows for administration of a medication prescribed for a lower pain scale. Do not exceed 4 grams of acetaminophen in a 24 hr period. Max dose of 2gm for AST/ALT greater than 120 units/L. If given for pain, use the following pain scale: Mild Pain = Pain Score of 1-3, CPOT 1-2 Moderate Pain = Pain Score of 4-6, CPOT 3-4 Severe Pain = Pain Score of 7-10, CPOT 5-8 aspirin chewable tablet 81 mg 81 mg, Oral, Daily, First dose on 03/22/25 at 0900, If patient fails dysphagia, ID option MUST be given. Do not exceed 4 grams of aspirin in a 24 hr period. If given for pain, use the following pain scale: Mild Pain = Pain Score of 1-3, CPOT 1-2 Moderate Pain = Pain Score of 4-6, CPOT 3-4 Severe Pain = Pain Score of 7-10, CPOT 5-8 Given 03/23/2025 9:36 AM EDT 81 mg Given 03/22/2025 8:26 AM EDT 81 mg aspirin suppository 300 mg 300 mg, Rectal, Daily, First dose on 03/22/25 at 0900, If patient fails dysphagia, ID option MUST be given. Do not exceed 4 grams of aspirin in a 24 hr period. If given for pain, use the following pain scale: Mild Pain = Pain Score of 1-3, CPOT 1-2 Moderate Pain = Pain Score of 4-6, CPOT 3-4 Severe Pain = Pain Score of 7-10, CPOT 5-8 atorvastatin (LIPITOR) tablet 80 mg 80 mg, Oral, Nightly, First dose on Mon03/21/25 at 2100, Avoid grapefruit juice. Given 03/22/2025 9:44 PM EDT 80 mg Given 03/21/2025 9:07 PM EDT 80 mg bisacodyl (DULCOLAX) EC tablet 5 mg 5 mg, Oral, Daily PRN, Constipation, Use if polyethylene glycol is ineffective, Starting on Mon03/21/25 at 2048, Use if no bowel movement after 12 hours. Swallow whole. Do not crush, split, or chew tablet. bisacodyl (DULCOLAX) suppository 10 mg 10 mg, Rectal, Daily PRN, Constipation, Use if bisacodyl oral is ineffective, Starting on Mon03/21/25 at 2048, Use if no bowel movement after 12 hours. Hold for diarrhea Calcium Replacement - Follow Nurse / BPA Driven Protocol Open Order & Select S Electrolyte Replacement Protocol Algorithm to View Details clopidogrel (PLAVIX) tablet 300 mg 300 mg, Oral, Once, On Mon03/21/25 at 2100, For 1 dose Given 03/21/2025 9:07 PM EDT 300 mg clopidogrel (PLAVIX) tablet 75 mg 75 mg, Oral, Daily, First dose on 03/22/25 at 0900 Given 03/23/2025 9:36 AM EDT 75 mg Given 03/22/2025 8:26 AM EDT 75 mg colestipol (COLESTID) 1 GM tablet (Dose = 2 GM) - Patient Supplied 2 g, Oral, Every Morning, First dose on 03/22/25 at 0900, Swallow whole. Do not crush, split, or chew tablet. Avoid other meds at least 1 hour before or 4 hours after dose., Can the patient use their own supply during their hospitalization? Yes, Name of Medication: Colestipol Given 03/23/2025 9:37 AM EDT 2 g Given 03/22/2025 9:46 AM EDT 2 g colestipol (COLESTID) tablet 1 g Patient Supplied Medication 1 g, Oral, Nightly, First dose on Mon03/21/25 at 2330, Swallow whole. Do not crush, split, or chew tablet. Avoid other meds at least 1 hour before or 4 hours after dose., Can the patient use their own supply during their hospitalization? Yes, Name of Medication: Colestid Given 03/22/2025 9:45 PM EDT 1 g Given 03/21/2025 10:58 PM EDT 1 g Magnesium Standard Dose Replacement - Follow Nurse / BPA Driven Protocol Open Order & Select [facility] Electrolyte Replacement Protocol Algorithm to View Details melatonin tablet 5 mg 5 mg, Oral, Nightly, First dose on Mon03/22/25 at 0145 Given 03/22/2025 12:53 AM EDT 5 mg nitroglycerin (NITROSTAT) SL tablet 0.4 mg 0.4 mg, Sublingual, Every 5 Minutes PRN, Chest Pain, Starting on Mon03/21/25 at 2047, If Pain Unrelieved After 3 Doses Notify MD May administer up to 3 doses per episode. Hold if SBP less than 100. Phosphorus Replacement - Follow Nurse / BPA Driven Protocol Open Order & Select [facility] Electrolyte Replacement Protocol Algorithm to View Details polyethylene glycol (MIRALAX) packet 17 g 17 g, Oral, Daily PRN, Constipation, Use if senna-docusate is ineffective, Starting on Mon03/21/25 at 2048, Use if no bowel movement after 12 hours. Mix in 6-8 ounces of water. Use 4-8 ounces of water, tea, or juice for each 17 gram dose. Potassium Replacement - Follow Nurse / BPA Driven Protocol Open Order & Select [facility] Electrolyte Replacement Protocol Algorithm to View Details sennosides-docusate (PERICOLACE) 8.6-50 MG per tablet 2 tablet 2 tablet, Oral, 2 Times Daily PRN, Constipation, Starting on Mon03/21/25 at 2048, Start bowel management regimen if patient has not had a bowel movement after 12 hours. sodium chloride 0.9 % flush 10 mL 10 mL, Intravenous, Every 12 Hours Scheduled, First dose on Mon03/21/25 at 2115 Given 03/23/2025 9:35 AM EDT 10 mL Given 03/22/2025 9:44 PM EDT 10 mL Given 03/22/2025 8:27 AM EDT 10 mL sodium chloride 0.9 % flush 10 mL 10 mL, Intravenous, Every 12 Hours Scheduled, First dose on Mon03/21/25 at 2145 Given 03/23/2025 9:35 AM EDT 10 mL Given 03/22/2025 9:44 PM EDT 10 mL Given 03/22/2025 8:27 AM EDT 10 mL sodium chloride 0.9 % flush 10 mL 10 mL, Intravenous, As Needed, Line Care, Starting on Mon03/21/25 at 2047 sodium chloride 0.9 % infusion 40 mL 40 mL, Intravenous, at 100 mL/hr, As Needed, Line Care, Starting on Mon03/21/25 at 8, Following administration of an IV intermittent medication, flush line with 40mL NS at 100mL/hr. temazepam (RESTORIL) capsule 15 mg 15 mg, Oral, Nightly PRN, Sleep, Starting on 03/22/25 at 1938, For 5 days, Group 2 (Stallings) Hazardous Drug - Reproductive Risk Only - See Handling Guide documented in this encounter Active and Recently Administered Medications Times are shown in EDT. Scheduled Medication Order 03/21/2025 03/22/2025 03/23/2025 ! Home medications stored in patient specific bins (2 bins); return meds to patient at discharge Every 12 Hours Scheduled, First dose on Mon03/22/25 at 0900, Until Discontinued, Consult for: Home meds 0945 (Given - Provider: Maria Fernanda Camacho RN)2144 (Given - Provider: Marielena Paige RN) 0900 (Due) aspirin chewable tablet 81 mg(Linked Group 1) 81 mg, Oral, Daily, First dose on 03/22/25 at 0900, If patient fails dysphagia, ID option MUST be given. Do not exceed 4 grams of aspirin in a 24 hr period. If given for pain, use the following pain scale: Mild Pain = Pain Score of 1-3, CPOT 1-2 Moderate Pain = Pain Score of 4-6, CPOT 3-4 Severe Pain = Pain Score of 7-10, CPOT 5-8 0826 (Given - Provider: Maria Fernanda Camacho RN) 0936 (Given - Provider: Chago Mae RN) aspirin suppository 300 mg(Linked Group 1) 300 mg, Rectal, Daily, First dose on 03/22/25 at 0900, If patient fails dysphagia, ID option MUST be given. Do not exceed 4 grams of aspirin in a 24 hr period. If given for pain, use the following pain scale: Mild Pain = Pain Score of 1-3, CPOT 1-2 Moderate Pain = Pain Score of 4-6, CPOT 3-4 Severe Pain = Pain Score of 7-10, CPOT 5-8 0826 (Not Given: See Alt - Provider: Maria Fernanda Camacho RN) 0936 (Not Given: See Alt - Provider: Chago Mae, ISELA) atorvastatin (LIPITOR) tablet 80 mg 80 mg, Oral, Nightly, First dose on Mon03/21/25 at 2100, Avoid grapefruit juice. 2106 (Given - Provider: Marielena Paige RN) 2143 (Given - Provider: Marielena Paige RN) clopidogrel (PLAVIX) tablet 300 mg (COMPLETED)(Linked Group 2) 300 mg, Oral, Once, On Mon03/21/25 at 2100, For 1 dose 2106 (Given - Provider: Marielena Paige RN) clopidogrel (PLAVIX) tablet 75 mg(Linked Group 2) 75 mg, Oral, Daily, First dose on 03/22/25 at 0900 0826 (Given - Provider: Maria Fernanda Camacho RN) 0936 (Given - Provider: Chago Mae, ISELA) colestipol (COLESTID) 1 GM tablet (Dose = 2 GM) - Patient Supplied 2 g, Oral, Every Morning, First dose on 03/22/25 at 0900, Swallow whole. Do not crush, split, or chew tablet. Avoid other meds at least 1 hour before or 4 hours after dose., Can the patient use their own supply during their hospitalization? Yes, Name of Medication: Colestipol 0946 (Given - Provider: Maria Fernanda Camacho RN) 0937 (Given - Provider: Chago Mae, ISELA) colestipol (COLESTID) tablet 1 g Patient Supplied Medication 1 g, Oral, Nightly, First dose on Mon03/21/25 at 2330, Swallow whole. Do not crush, split, or chew tablet. Avoid other meds at least 1 hour before or 4 hours after dose., Can the patient use their own supply during their hospitalization? Yes, Name of Medication: Colestid 2257 (Given - Provider: Marielena Paige RN) 2144 (Given - Provider: Marielena Paige RN) melatonin tablet 5 mg 5 mg, Oral, Nightly, First dose on Mon03/22/25 at 0145 0053 (Given - Provider: Marielena Paige RN)2144 (Not Given - Provider: Marielena Paige RN - Reason: Patient/family refused) sodium chloride 0.9 % flush 10 mL 10 mL, Intravenous, Every 12 Hours Scheduled, First dose on Mon03/21/25 at 2115 2108 (Given - Provider: Marielena Paige RN) 08 (Given - Provider: Maria Fernanda Camacho, ISELA)2143 (Given - Provider: Marielena Paige RN) 0935 (Given - Provider: Chago Mae, ISELA) sodium chloride 0.9 % flush 10 mL 10 mL, Intravenous, Every 12 Hours Scheduled, First dose on Mon03/21/25 at [id number] 2108 (Given - Provider: Marielena Paige RN) 08 (Given - Provider: Maria Fernanda Camacho RN)2143 (Given - Provider: Marielena Paige RN) 0935 (Given - Provider: Chago Mae, ISELA) vitamin B-12 (CYANOCOBALAMIN) tablet 1,000 mcg 1,000 mcg, Oral, Weekly, First dose on Mon03/21/25 at 2330, On hold since Mon03/21/2025 at 2231 until manually unheld 2231 (Held by provider - Provider: Ladonna Wallace MD - Reason: Abnormal Vitals)2330 (Dose Auto Held) 1626 (Unheld by provider - Provider: Automatic Discharge Provider) PRN Medication Order 03/21/2025 03/22/2025 03/23/2025 acetaminophen (TYLENOL) 160 MG/5ML oral solution 500 mg(Linked Group 3) 500 mg, Oral, Every 6 Hours PRN, Mild Pain, Headache, Fever, Starting on Mon03/21/25 at 2049, If given for fever, use fever parameter: fever greater than 100.4 F Based on patient request - if ordered for moderate or severe pain, provider allows for administration of a medication prescribed for a lower pain scale. Do not exceed 4 grams of acetaminophen in a 24 hr period. Max dose of 2gm for AST/ALT greater than 120 units/L. If given for pain, use the following pain scale: Mild Pain = Pain Score of 1-3, CPOT 1-2 Moderate Pain = Pain Score of 4-6, CPOT 3-4 Severe Pain = Pain Score of 7-10, CPOT 5-8 acetaminophen (TYLENOL) suppository 325 mg(Linked Group 3) 325 mg, Rectal, Every 6 Hours PRN, Mild Pain, Headache, Fever, Starting on Mon03/21/25 at 2048, If given for fever, use fever parameter: fever greater than 100.4 F Based on patient request - if ordered for moderate or severe pain, provider allows for administration of a medication prescribed for a lower pain scale. Do not exceed 4 grams of acetaminophen in a 24 hr period. Max dose of 2gm for AST/ALT greater than 120 units/L. If given for pain, use the following pain scale: Mild Pain = Pain Score of 1-3, CPOT 1-2 Moderate Pain = Pain Score of 4-6, CPOT 3-4 Severe Pain = Pain Score of 7-10, CPOT 5-8 acetaminophen (TYLENOL) tablet 500 mg(Linked Group 3) 500 mg, Oral, Every 6 Hours PRN, Mild Pain, Headache, Fever, Starting on Mon03/21/25 at 2048, If given for fever, use fever parameter: fever greater than 100.4 F Based on patient request - if ordered for moderate or severe pain, provider allows for administration of a medication prescribed for a lower pain scale. Do not exceed 4 grams of acetaminophen in a 24 hr period. Max dose of 2gm for AST/ALT greater than 120 units/L. If given for pain, use the following pain scale: Mild Pain = Pain Score of 1-3, CPOT 1-2 Moderate Pain = Pain Score of 4-6, CPOT 3-4 Severe Pain = Pain Score of 7-10, CPOT 5-8 bisacodyl (DULCOLAX) EC tablet 5 mg(Linked Group 4) 5 mg, Oral, Daily PRN, Constipation, Use if polyethylene glycol is ineffective, Starting on Mon03/21/25 at 2048, Use if no bowel movement after 12 hours. Swallow whole. Do not crush, split, or chew tablet. bisacodyl (DULCOLAX) suppository 10 mg(Linked Group 4) 10 mg, Rectal, Daily PRN, Constipation, Use if bisacodyl oral is ineffective, Starting on Mon03/21/25 at 2048, Use if no bowel movement after 12 hours. Hold for diarrhea Calcium Replacement - Follow Nurse / BPA Driven Protocol Open Order & [facility] Electrolyte Replacement Protocol Algorithm to View Details Magnesium Standard Dose Replacement - Follow Nurse / BPA Driven Protocol Open Order & [facility] Electrolyte Replacement Protocol Algorithm to View Details nitroglycerin (NITROSTAT) SL tablet 0.4 mg 0.4 mg, Sublingual, Every 5 Minutes PRN, Chest Pain, Starting on Mon03/21/25 at 2047, If Pain Unrelieved After 3 Doses Notify MD May administer up to 3 doses per episode. Hold if SBP less than 100. Phosphorus Replacement - Follow Nurse / BPA Driven Protocol Open Order & [facility] Electrolyte Replacement Protocol Algorithm to View Details polyethylene glycol (MIRALAX) packet 17 g(Linked Group 4) 17 g, Oral, Daily PRN, Constipation, Use if senna-docusate is ineffective, Starting on Mon03/21/25 at 2048, Use if no bowel movement after 12 hours. Mix in 6-8 ounces of water. Use 4-8 ounces of water, tea, or juice for each 17 gram dose. Potassium Replacement - Follow Nurse / BPA Driven Protocol Open Order & [facility] Electrolyte Replacement Protocol Algorithm to View Details sennosides-docusate (PERICOLACE) 8.6-50 MG per tablet 2 tablet(Linked Group 4) 2 tablet, Oral, 2 Times Daily PRN, Constipation, Starting on Mon03/21/25 at 2048, Start bowel management regimen if patient has not had a bowel movement after 12 hours. sodium chloride 0.9 % flush 10 mL 10 mL, Intravenous, As Needed, Line Care, Starting on Mon03/21/25 at 2047 sodium chloride 0.9 % infusion 40 mL 40 mL, Intravenous, at 100 mL/hr, As Needed, Line Care, Starting on Mon03/21/25 at 2047, Following administration of an IV intermittent medication, flush line with 40mL NS at 100mL/hr. temazepam (RESTORIL) capsule 15 mg 15 mg, Oral, Nightly PRN, Sleep, Starting on Mon03/22/25 at 1938, For 5 days, Group 2 ([place]) Hazardous Drug - Reproductive Risk Only - See Handling Guide 2144 (Not Given - Provider: Marielena Paige RN - Reason: Patient/family refused - Comment: requested something for sleep then declined) Linked Groups Order Group 1: aspirin chewable tablet 81 mgJump to med 81 mg, Oral, Daily, First dose on 03/22/25 at 0900, If patient fails dysphagia, ID option MUST be given. Do not exceed 4 grams of aspirin in a 24 hr period. If given for pain, use the following pain scale: Mild Pain = Pain Score of 1-3, CPOT 1-2 Moderate Pain = Pain Score of 4-6, CPOT 3-4 Severe Pain = Pain Score of 7-10, CPOT 5-8 Or aspirin suppository 300 mgJump to med 300 mg, Rectal, Daily, First dose on 03/22/25 at 0900, If patient fails dysphagia, ID option MUST be given. Do not exceed 4 grams of aspirin in a 24 hr period. If given for pain, use the following pain scale: Mild Pain = Pain Score of 1-3, CPOT 1-2 Moderate Pain = Pain Score of 4-6, CPOT 3-4 Severe Pain = Pain Score of 7-10, CPOT 5-8 Group 2: clopidogrel (PLAVIX) tablet 300 mg (COMPLETED)Jump to med 300 mg, Oral, Once, On Mon03/21/25 at 2100, For 1 dose And clopidogrel (PLAVIX) tablet 75 mgJump to med 75 mg, Oral, Daily, First dose on 03/22/25 at 0900 Group 3: acetaminophen (TYLENOL) tablet 500 mgJump to med 500 mg, Oral, Every 6 Hours PRN, Mild Pain, Headache, Fever, Starting on Mon03/21/25 at 2049, If given for fever, use fever parameter: fever greater than 100.4 F Based on patient request - if ordered for moderate or severe pain, provider allows for administration of a medication prescribed for a lower pain scale. Do not exceed 4 grams of acetaminophen in a 24 hr period. Max dose of 2gm for AST/ALT greater than 120 units/L. If given for pain, use the following pain scale: Mild Pain = Pain Score of 1-3, CPOT 1-2 Moderate Pain = Pain Score of 4-6, CPOT 3-4 Severe Pain = Pain Score of 7-10, CPOT 5-8 Or acetaminophen (TYLENOL) 160 MG/5ML oral solution 500 mgJump to med 500 mg, Oral, Every 6 Hours PRN, Mild Pain, Headache, Fever, Starting on Mon03/21/25 at 2048, If given for fever, use fever parameter: fever greater than 100.4 F Based on patient request - if ordered for moderate or severe pain, provider allows for administration of a medication prescribed for a lower pain scale. Do not exceed 4 grams of acetaminophen in a 24 hr period. Max dose of 2gm for AST/ALT greater than 120 units/L. If given for pain, use the following pain scale: Mild Pain = Pain Score of 1-3, CPOT 1-2 Moderate Pain = Pain Score of 4-6, CPOT 3-4 Severe Pain = Pain Score of 7-10, CPOT 5-8 Or acetaminophen (TYLENOL) suppository 325 mgJump to med 325 mg, Rectal, Every 6 Hours PRN, Mild Pain, Headache, Fever, Starting on Mon03/21/252048, If given for fever, use fever parameter: fever greater than 100.4 F Based on patient request - if ordered for moderate or severe pain, provider allows for administration of a medication prescribed for a lower pain scale. Do not exceed 4 grams of acetaminophen in a 24 hr period. Max dose of 2gm for AST/ALT greater than 120 units/L. If given for pain, use the following pain scale: Mild Pain = Pain Score of 1-3, CPOT 1-2 Moderate Pain = Pain Score of 4-6, CPOT 3-4 Severe Pain = Pain Score of 7-10, CPOT 5-8 Group 4: sennosides-docusate (PERICOLACE) 8.6-50 MG per tablet 2 tabletJump to med 2 tablet, Oral, 2 Times Daily PRN, Constipation, Starting on Mon03/21/25 at 2048, Start bowel management regimen if patient has not had a bowel movement after 12 hours. And polyethylene glycol (MIRALAX) packet 17 gJump to med 17 g, Oral, Daily PRN, Constipation, Use if senna-docusate is ineffective, Starting on Mon03/21/252048, Use if no bowel movement after 12 hours. Mix in 6-8 ounces of water. Use 4-8 ounces of water, tea, or juice for each 17 gram dose. And bisacodyl (DULCOLAX) EC tablet 5 mgJump to med 5 mg, Oral, Daily PRN, Constipation, Use if polyethylene glycol is ineffective, Starting on Mon03/21/25 at 2048, Use if no bowel movement after 12 hours. Swallow whole. Do not crush, split, or chew tablet. And bisacodyl (DULCOLAX) suppository 10 mgJump to med 10 mg, Rectal, Daily PRN, Constipation, Use if bisacodyl oral is ineffective, Starting on Mon03/21/25 at 2048, Use if no bowel movement after 12 hours. Hold for diarrhea documented in this encounter Care Teams Smasher Relationship Specialty Start Date End Date Sal Croft MD [address] [place] [address] PCP - General Family Medicine 06/30/22 documented as of this encounter
--- OUTSIDE RECORDS SUMMARY | 2025-03-27 07:00 | XMS_ITS ---
Author Organization [facility] Address [address] [place] [id number] Care Team Providers Care Social Services Specialist Name Role Phone Charlotte Croft Primary Care Provider [phone] Allergies Allergen (clinical drug ingredient) Drug/Non Drug Allergy documented on EMR Reaction Allergy Type Onset Date Status sulfamethoxazole / trimethoprim Bactrim DS Nausea Drug Allergy Active doxycycline Doxycycline GI cramps Drug Allergy Act lydia azithromycin Zithromax diarrhea Drug Allergy Acti ve rosuvastatin Rosuvastatin upset stomach Drug Allergy Active REASON FOR VISIT check up and blood work at [facility], Needs bone density screening Medications Medication SIG (Take, Route, Frequency, Duration) Notes Start Date End Date Status Potassium Chloride ER 10 MEQ 1 tablet with food Orally Twice a day 08/27/2024 Active Estrace 0.1 MG/GM 1 gram intravaginall y every other day at bedtime; Duration: 30 day(s) Active Atorvastatin Calcium 10 MG 1 tablet Orally Once a day; Duration: 90 days Active Dicyclomine HCl 10 MG 1 cap(s) Orally Th ree times a day prn cramping 08/13/2024 Active Aspirin 81 MG 1 tablet Orally Once a day Active OSTEO-BIFLEX 1 P.O. ONCE DAILY Active Fish Oil 1000 MG 1 cap(s) orally 3 ti mes a day; Duration: 30 day(s) Active Vitamin B-12 1000 MCG 1 tablet Orally On ce a day; Duration: 30 day(s) Active Red Yeast Rice 600 MG as directed Orally Active Vitamin C 500 MG as directed Orally Active Problems Problem Type SNOMED Code ICD Code Onset Dates Problem Status W/U Status Risk Notes Problem Transient ischemic attack (881710760) TIA (transient ischemic attack) (G45.9) Active confirmed Vital Signs Weight 135.6 lbs 03/27/2025 Blood pressure systolic 120 mm Hg 03/27/20 25 Blood pressure diastolic 70 mm Hg 025 Heart Rate 64 /min 03/27/2025 Height 64.50 in 03/27/2025 BMI 22.91 kg/m2 03/27/2025 Encounters Encounter Location Date Provider Diagnosis [facility] [address] [place] [id number] 03/27/2025 Charlotte Croft TIA (transient ischemic attack) G45.9 and BMI 22.0-22.9, adult Z68.22 Assessments Encounter Date Diagnosis (ICD Code) Assessment Notes Treatment Notes Treatment Clinical Notes Section Notes 03/27/2025 TIA (transient ischemic attack) (ICD-10 - G45.9) 03/27/2025 BMI 22.0-22.9, adult (ICD-10 - Z68.22) Plan Of Treatment Medication Medication Name Sig Start Date Stop Date Notes Aspirin 81 MG 1 tablet Orally Once a day Next Appt Details Follow Up: prn, Reason: Progress Notes * GREG CUENCADOB:1950 (74 yo F)Acc No.[id number]:03/27/2025 Progress Notes Patient: GREG MONTIEL Provider: Charlotte Croft M.D. :1950 A ge:74 Y S ex:Female Date:03/27/2025 Address:[facility] [place], [place] [id number] Subjective: * Chief Complaints: * 1 . check up and blood work at [facility]. 2. Needs bone density screening. * HPI: N eurology: She presents for follow-up on recent [facility] admission for possible TIA. She presented to [facility] ER with mixed aphasia and was transferred to [facility] for stroke alert. She underwent an MRI and echocardiogram both which were reportedly unremarkable. Her symptoms resolved within the first few hours and she has been asymptomatic since then. She was discharged home on continued aspirin and 21 days of Plavix. She attributes her symptoms to stress. Please refer to discharge summary in chart for details. * ROS: Radha CREWS: no R rakan. n o H addis. G ASTROENTEROLOGY: no N ausea. n o V omiting. U ROLOGY: no D ifficulty urinating. n o B lood in urine. * Medical History: H iatal Hernia, Depression, hx of gout diagnosed by Dr. Matthew, Pandiverticulosis of colon, Colon polyp, Torn right rotator cuff, Right breast cancer, Cataracts, HLP, ASCVD, TIA/ [facility]/ 03/2025. * Surgical History: C holecystectomy 12/2006, hysterectomy, abdominal 2001, bladder tuck 2011, Colonoscopy/Dr. Benton/ diverticulosis, polyp 08/2015, right breast lumpectomy/ Dr. OTT 2021, cataract , heart cath with stent x1/ Hair 03/2023. * Hospitalization/Major Diagno stic Procedure: k viviana stones 1986. * Family History: F ather: . M other: , diagnosed with Diabetes, Heart Disease, Hypertension. 2 brother(s) , 3 sister(s) . 3 [...] BIFLEX 1 P.O. ONCE DAILY , Taking Estrace 0.1 MG/GM Cream 1 gram intravaginally every other day at bedtime , Taking Potassium Chloride ER 10 MEQ Tablet Extended Release 1 tablet with food Orally Twice a day , Taking Dicyclomine HCl 10 MG Capsule 1 cap(s) Orally Three times a day prn cramping , Taking Atorvastatin Calcium 10 MG Tablet 1 tablet Orally Once a day , Medication List reviewed and reconciled with the patient * Allergies: D oxycycline: GI cramps - Side Effects, Zithromax: diarrhea - Side Effects, Bactrim DS: Nausea - Side Effects, Rosuvastatin: upset stomach - Side Effects. Objective: * Vitals: W t: 135.6, Temp: 98.7, BP: 120/70, HR: 64, Nurse: mm, Ht: 64.50, BMI:22.91. * Examination: G eneral Examination: General Appearance: N AD. H eart: R SR. L ungs:?clear to auscultation. N eurologic Exam: n ormal cranial nerves II-XII sensory & motor WNL, DTR 2 plus, no focal deficits. Assessment: * Assessment: 1. T IA (transient ischemic attack) - G45.9 (Primary) 2 . B RI 22.0-22.9, adult - Z68.22 Plan: * Treatment: * Procedure Codes: G 2211 Complex e/m visit add on, 1036F TOBACCO NON-USER, G8420 BMI<30 AND >=22 CALC & DOCU, G8783 BP SCR PRFRM RCMDD DEFIND SCR INTVL, G8752 MOST RECENT SYSTOLIC BP < 140MM HG, G8754 MOST RECENT DIASTOLIC BP < 90MM HG * Follow Up: p rn * Images: Billing Information: * Visit Code: 56438 Office Visit, Est Pt., Level 3. * Procedure Codes: G2211 Complex e/m visit add on. 1036F TOBACCO NON-USER. G8420 BMI<30 AND >=22 CALC & DOCU. G8783 BP SCR PRFRM RCMDD DEFIND SCR INTVL. G8752 MOST RECENT SYSTOLIC BP < 140MM HG. G8754 MOST RECENT DIASTOLIC BP < 90MM HG. * Electronic signature of Charlotte Croft MD on 05/20/2025 at 01:26 PM EDT Sign off status: Pending * Provider: Charlotte Croft M.D. Date: 0 03/27/2025 Generated for Joyce goldberg/Lalit/Danilo on: 01:26 PM EDT History and Physical Notes * HPI (History of Present Illness) Category Sub-Category Detail Notes Category Not es Neurology Please refer to discharge summary in chart for details. Examination Category Sub-Category Detail Notes Category Not es General Examination Heart: RSR Lungs: clear to auscultatio n General Appearance: NAD Neurologic Exam: normal cranial nerve s II-XII sensory & motor WNL, DTR 2 plus, no focal deficits
--- OUTSIDE RECORDS SUMMARY | 2025-05-15 07:20 | XMS_ITS ---
Author Organization [facility] Address [address] [place] [id number] Care Team Providers Care Sales Officer Name Role Phone Charlotte Croft Primary Care Provider REASON FOR VISIT flu shot Medications Medication [...] Provider Diagnosis [facility] [address] [place] [id number] 05/15/2025 Charlotte Croft Encounter for immunization Z23 Assessments Encounter Date Diagnosis (ICD Code) Assessment Notes Treatment Notes Treatment Clinical Notes Section Notes 05/15/2025 Encounter for immunization (ICD-10 - Z23) Plan Of Treatment No Information Progress Notes * GREG CUENCADOB:1950 (74 yo F)Acc No.[id number]:05/15/2025 Patient: GREG MONTIEL Provider: Charlotte Croft M.D. :1950 A ge:74 Y S ex:Female Date:05/15/2025 Address:[facility] [address] , [place], [phone] Subjective: * Chief Complaints: * 1 . [...] of Charlotte Croft MD on 05/20/2025 at 01:27 PM EDT Sign off status: Pending * Provider: Charlotte Croft M.D. Date: 1 Generated for Joyce goldberg/Lalit/Halleitting on: 01:27 PM EDT
--- OUTSIDE RECORDS SUMMARY | 2025-05-20 13:26 | XMS_ITS | Patient Health Record ---
Author Organization [facility] Address [address] [place] [id number] Care Team Providers Care Fishing Tool Technician Oil Well Name Role Phone Charlotte Croft Primary Care Provider [phone] Liu Fatima Unavailable [phone] Margie Rene Unavailable [phone] Allergies Allergen (clinical drug ingredient) Drug/Non Drug Allergy documented on EMR Reaction Allergy Type Onset Date Status sulfamethoxazole / trimethoprim Bactrim DS Nausea Drug Allergy Active doxycycline Doxycycline GI cramps Drug Allergy Act lydia azithromycin Zithromax diarrhea Drug Allergy Acti ve rosuvastatin Rosuvastatin upset stomach Drug Allergy Active Results Component Value Reference Range Notes CT Scan : Abd and Pelvis w/ oral & IV contrast Reviewed date:10/30/2024 03:52:04 PM Interpretation:diverticulosis Performing Lab: Notes/Report: diverticulosis H-CMP Reviewed date:10/28/2024 08:01:19 AM Interpretation: Performing [...] AGRATIO 1.7 1.1-1.8 ALP 78 38-126 U/L H-Lipase Reviewed date:08/27/2024 08:21:30 AM Interpretation:Normal Performing [...] 0.1 0.0-0.4 K/mm3 BA# 0.0 0-0.2 K/mm3 H-DIARRHEA PANEL Reviewed date:10/21/2024 05:18:45 PM Interpretation:NOROVIRUS [...] Not Detected NotDetected SAPOVIRUS Not Detected NotDetected Covid test (in house) Reviewed date:08/08/2024 02:08:16 PM Interpretation:pos Performing Lab: Notes/Report: pos Result: pos Influenza Screen (in house) Reviewed date:08/08/2024 02:08:27 PM Interpretation:neg Performing Lab: Notes/Report: neg results neg H-CMP Reviewed date:03/30/2025 10:05:56 PM Interpretation:Cr 0.4 [...] AGRATIO 1.7 1.1-1.8 ALP 70 38-126 U/L H-Lipid Panel Reviewed date:03/30/2025 10:05:56 PM Interpretation:chol 139, ldl <30, hdl 86 Performing Lab: Notes/Report: Patient Fasting? Y TRIG 58 30-150 mg/dl CHOL 139 140-200 mg/dl DLDL < 30.00 100-129 mg/dL VLDL 12 0-40 mg/dL HDL 86 40-60 mg/dl CHLHDL 1.6 1-3.5 H-CBC Reviewed date:03/30/2025 10:05:56 PM Interpretation:Normal Performing [...] 0.0 0-0.2 K/mm3 NRBC# 0 IG# 0.01 H-Lipase Reviewed date:08/26/2024 08:45:03 AM Interpretation: Performing Lab: Notes/Report: H-Amylase Reviewed date:08/26/2024 08:44:52 AM Interpretation: Performing Lab: Notes/Report: H-CMP Reviewed date:08/26/2024 08:44:41 AM Interpretation: Performing Lab: Notes/Report: H-CBC Reviewed date:08/26/2024 08:44:26 AM Interpretation: Performing Lab: Notes/Report: CT Scan : Abd & Pelvis w/o c ontrast Reviewed date:08/20/2024 09:35:06 AM Interpretation: Performing Lab: Notes/Report: Reason For Referral Reason Diverticulosis Chr onic Diarrhea Diagnosis 1 Chronic diarrhea (K5 2.9) Diagnosis 2 Diverticulosis (K57. 90) [facility] Referring Provider First Name Charlotte Hedrick Referring Provider Last Name Lang Referring Provider Speciality Critical access hospital [facility] Referred Address [address] [facility] 36 [facility], [address],[id number], Referred Provider Specialty Gastroentero logy General Notes Christine Zelaya 11/11 09:07:11 AM > please refer to Bindu Hernandez Brynn 11/13/2024 1:49:08 PM > faxed all to Dr. Liv paris, Keyana Ruano 11/20/2024 2:47:41 PM > 12/24/2024 at 10:30am Referral Priority Routine Reason shoulder pain Diagnosis 1 Shoulder pain (M25.5 19) [facility] Referring Provider First Name Charlotte Hedrick Referring Provider Last Name Lang Referring Provider Speciality Family Dre henson Referred Organization [facility] Referred Provider Physical Therapy, . Referred Address [address] [place] [address] [id number] Referred Provider Specialty Occupational Therapy General Notes Keyana Ruano 2024 09:29:53 AM > faxed to [facility] Aníbal CARCAMO Julia 01/31/2025 09:39:22 AM >Patient needs Occupational Therapy Referral Priority Routine Medications Medication SIG (Take, Route, Frequency, Duration) Notes Start Date End Date Status Vitamin C 500 MG as directed Orally [...] Once a day; Duration: 90 days Active Aspirin 81 MG 1 tablet Orally [...] (65yr and older) IM Intramuscular 05/21/2024 Administered Fluzone High Dose (65yr and older) IM Intramuscular 05/15/2025 Administered PNEUMOVAX 23 VACCINE IM Intramuscular 04/04/2017 [...] W/U Status Risk Notes Problem Breast cancer (174529456) Breast cancer (C50.919) Active confirmed Problem Abnormal mammogram (898916543) Abnormal mammogram (R92.8) Active confirmed Problem Diverticulitis (10008730) Diverticulitis (K57.92) Active confirmed Problem Rhinitis (28106522) Rhinitis (J31.0) Active confirmed Problem Sciatic nerve lesion (386659581) Piriformis syndrome of right side (G57.01) Active confirmed Problem Environmental allergy (437340690) Environmental allergies (Z91.048) Active confirmed Problem Hiatal hernia (75789723) Hiatal hernia (K44.9) Active confirmed Problem Mixed anxiety and depressive disorder (660682730) Depression with anxiety (F41.8) Active confirmed Problem Abnormal findings on diagnostic imaging of breast (050519826) Abnormal mammogram of both breasts (R92.8) Active confirmed Problem Primary generalised osteoarthritis (455463229) Primary generalized (osteo)arthritis (M15.0) Active confirmed Problem Localized, primary osteoarthritis of the shoulder region (564529550) Primary osteoarthritis, right shoulder (M19.011) Active confirmed Problem History of polyp of colon (situation) (508336044) History of colon polyps (Z86.010) Active confirmed Problem Diverticular disease of colon (770106782) Diverticulosis (K57.90) Active confirmed Problem Diverticulosis of colon (139737525) Diverticulosis of colon (K57.30) Active confirmed Problem Dyslipidemia (016179254) Dyslipidemia (E78.5) Active confirmed Problem Dysphagia (30706074) Pharyngoesophageal dysphagia (R13.14) Active confirmed Problem Transient ischemic attack (824603664) TIA (transient ischemic attack) (G45.9) Active confirmed Problem Chronic diarrhea (595787728) Chronic diarrhea (K52.9) Active confirmed Problem Splenic artery aneurysm (21830922) Splenic artery aneurysm (I72.8) Active confirmed Problem 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, both eyes (H26.493) Active confirmed Problem Esophageal dysphagia (18271389) Esophageal dysphagia (R13.10) Active confirmed Vital Signs Heart Rate 64 /min 03/27/2025 Blood pressure diastolic 70 mm Hg 03/27/2025 Height 64.50 in 03/27/2025 Blood pressure systolic 120 mm Hg 03/27/2025 Weight 135.6 lbs 03/27/2025 BMI 22.91 kg/m2 03/27/2025 Encounters Encounter Location Date Provider Diagnosis [facility] [address] [facility] [address] [place] [id number] 05/21/2024 R Ryley Croft [facility] [address] [place] [id number] 08/08/2024 R Ryley Croft COVID-19 U07.1 [facility] [address] [facility] [address] [place] [id number] 08/13/2024 R Ryley Croft Diverticulitis K57.9 2 [facility] [address] [facility] [address] [place] [id number] 09/12/2024 R Ryley Croft Trochanteric bursiti s of right hip M70.61 [facility] [address] [facility] [address] [place] [id number] 10/18/2024 Margie Crowdy Diverticulitis K57.9 2 and Chronic diarrhea K52.9 [facility] [address] [place], [place] [id number] 01/30/2025 R Ryley Lang Shoulder pain M25.51 9 ; Dyslipidemia E78.5 ; Malignant neoplasm of upper-inner quadrant of right female breast, unspecified estrogen receptor status C50.211 and BMI 23.0-23.9, adult Z68.23 [facility] [address] [place], [place] [id number] 03/27/2025 R Ryley Lang TIA (transient ische mark attack) G45.9 and BMI 22.0-22.9, adult Z68.22 [facility] [address] [place], [place] [id number] 05/15/2025 R Ryley Lang Encounter for immunization Z23 [facility] [address] [facility] [address] [place], [place] [id number] 05/28/2024 R Ryley Lang [facility] [address] [place], [place] [id number] 08/09/2024 R Ryley Lang [facility] [address] [place], [place] [id number] 08/15/2024 R Ryley Lang Diverticulitis K57.9 2 and Chronic diarrhea K52.9 [facility] [address] [facility] [address] [place], [place] [id number] 08/16/2024 R Ryley Lang Diarrhea, unspecifie d type R19.7 [facility] [address] [place], [place] [id number] 08/20/2024 R Ryley Lang [facility] [address] [place], [place] [id number] 08/27/2024 R Ryley Lang [facility] [address] [place], [place] [id number] 10/10/2024 R Ryley Lang [facility] [address] [place], [place] [id number] 10/21/2024 Margie Rene [facility] [address] [place], [place] [id number] 10/25/2024 R Ryley Lang [facility] [address] [place], [place] [id number] 10/30/2024 R Ryley Lang [facility] [address] [place], [place] [id number] 11/11/2024 R Ryley Lang [facility] [address] [place], [place] [id number] 11/22/2024 R Ryley Lang [facility] [address] [place], [place] [id number] 03/21/2025 R Ryley Lang Dyslipidemia E78.5 [facility] [address] [place], [place] [id number] 03/30/2025 R Ryley Lang [facility] [address] [place], [place] [id number] 04/07/2025 R Ryley Lang Assessments Encounter Date Diagnosis (ICD Code) Assessment Notes Treatment Notes Treatment Clinical Notes Section Notes 08/08/2024 COVID-19 (ICD-10 - U07.1) Symptomatic treatment [...] - E78.5) 03/21/2025 Dyslipidemia (ICD-10 - E78.5) 03/27/2025 TIA (transient ischemic attack) (ICD-10 - G45.9) 03/27/2025 BMI 22.0-22.9, adult (ICD-10 - Z68.22) 05/15/2025 Encounter for immunization (ICD-10 - Z23) 01/30/2025 Malignant neoplasm of upper-inner quadrant of right female breast, unspecified estrogen receptor status (ICD-10 - C50.211) 08/16/2024 Diarrhea, unspecified type (ICD-10 - R19.7) 01/30/2025 BMI 23.0-23.9, adult (ICD-10 - Z68.23) Plan Of Treatment Pending Test Test Name Order Date Lipid Profile 04/11/2024 CMP 04/11/2024 Insurance Providers Payer Name Payer Address Payer Phone Subscriber Number Group Number Insured Name Patient Relationship to Insured Coverage Start Date Coverage End Date [employer] (MEDICAR E) [address] [address] [place] [address] [id number] GREG CUENCA Self - patient is the insured Medications Administered Medication Instructions Date of Administration Dosage Notes Depo- Medrol 40 mg/ml 12/06/2013 Depo- Medrol 40 mg/ml 09/01/2022 1.5 mL Depo- Medrol 40 mg/ml 02/16/2023 1.5 mL Depo- Medrol 40 mg/ml 03/08/2024 1.5 mL Depo- Medrol 40 mg/ml 04/30/2024 1.5 mL Dexamethasone 02/12/2013 1 mL Dexamethasone 06/25/2014 1 mL Dexamethasone 11/04/2014 1 mL Dexamethasone 03/20/2015 1 mL Dexamethasone 08/12/2016 1 mL Dexamethasone 12/31/2021 1 mL Dexamethasone 01/06/2022 1 mL Dexamethasone 06/24/2022 1 mL Medical (General) History Medical History History ICD Code Hiatal Hernia Depression hx of gout diagnosed by Dr. Matthew Pandiverticulosis of colon colon polyp torn right rotator cuff right breast cancer cataracts HLP [facility] TIA/ [facility]/ 03/2025 Surgical History Surgery Date(Month/Year) Cholecystectomy 12/2006 hysterectomy, abdominal 2002 bladder tuck 2011 Colonoscopy/Dr. Benton/ diverticulosis, polyp 08/2015 right breast lumpectomy/ Dr. OTT 2021 cataract heart cath with stent x1/ Hair 04/02 23 Hospitalization History Reason Date(Month/Year) kidney stones 1987
--- OUTSIDE RECORDS SUMMARY | 2025-05-20 13:27 | XMS_ITS | Encounter Summary ---
Author Organization [facility] Address [address] [place] [address] Care Team Providers Care Business Account Specialist Name Role Phone Sal Croft MD [...] 8:12 PM EDT Marielena Paige RN * [place] Suicide Severity Rating Scale (Screener/Recent Self-Report) Question Answer Date of Assessment Author 6. Suicidal Behavior (Lifetime) No 8:12 PM EDT Marielena Paige RN documented as of this encounter Plan of Treatment Upcoming Encounters Date Type Department Care Team (Late st Contact Info) Description 05/28/2025 10:20 AM EDT Appointment [facility] [address] [id number] 05/28/2025 1:15 PM EDT Office Visit [facility] GENERAL SURGERY [address] [facility] [address] [place] [address] Michell Harkins MD [address] [facility] [address] [place] [address] documented as of this encounter Visit Diagnoses Not on filedocumented in this encounter Care Teams Business Account Specialist Relationship Specialty Start Date End Date Sal Croft MD 12[address] [facility] [address] [facility] [address] [place] [address] PCP - General Family Medicine 06/30/22 documented as of this encounter
--- OUTSIDE RECORDS SUMMARY | 2025-05-20 13:27 | XMS_ITS | Encounter Summary ---
Author Organization [facility] Address [address] [place] [address] Care Team Providers Care Rubber Liner Name Role Phone Sal Croft MD Primary Care Provider Encounter Details Date Type Department Care Team (Late st Contact Info) Description 03/25/2025 Readmission Management [facility] [address] [place] [phone] Raulito Marsh, RN Social History Tobacco [...] Stroke Week 1 Survey Flowsheet Row Responses [facility] patient discharged from? [place] Does the patient have one of the [...] by today? N/A [facility] requests you follow up with them within 30 days for important follow up care. Please call [phone] to schedule this appointment. Thank you. Yes [...] in additional calls from an ambulatory case maker? No Would this patient benefit from a Referral to [facility] Social Work? No Call end time 09 Raulito Fink - Registered Nurse documented in this encounter Plan of Treatment Upcoming Encounters Date Type Department Care Team (Late st Contact Info) Description 05/28/2025 10:20 AM EDT Appointment [facility] [address] [facility] [address] [place] [address] 05/28/2025 1:15 PM EDT Office Visit [facility] GENERAL SURGERY [address] [facility] [address] [place] [address] Michell Harkins MD [address]60 [facility] [address] [place] [address] documented as of this encounter Visit Diagnoses Not on filedocumented in this encounter Care Teams Rubber Liner Relationship Specialty Start Date End Date Sal Croft MD [address] [facility] [address] [place] [address] PCP - General Family Medicine 06/30/22 documented as of this encounter
--- OUTSIDE RECORDS SUMMARY | 2025-05-20 13:27 | XMS_ITS | Clinical Summary ---
Author Organization [facility] Address [address] [place] [address] Care Team Providers Care Electronic Parts Salesperson Name Role Phone Sal Croft MD Primary Care Provider Allergies Active Allergy Reactions Criticality Noted Date Comments Doxycycline Other (See Comments) Low 01/29/2024 Ticagrelor Nausea And Vomiting 01/29/2024 Azithromycin Nausea Only Low 08/24/2022 Medications Glucosamine-Cho ndroitin (OSTEO BI-FLEX REGULAR STRENGTH PO) Take by mouth 2 (Two) Times a Day. Active Binger-3 Fatty Acids (fish oil) 1000 MG capsule [...] (LIPITOR) 10 MG tablet 1 tablet Daily. 4 Active sodium chloride (KEELY 128) 5 % ophthalmic solution 1 drop As Needed. Active aspirin 81 MG EC tablet Take 1 tablet by mouth Daily. Active colestipol (COLESTID) 1 g tablet Take 1 tablet by mouth See Admin Instructions. Take 2 tablets by mouth every morning and 1 tablet every evening. 5 Active Ascorbic Acid 500 MG capsule Take 500 mg by mouth Daily. As directed by the provider Active iVIZIA Dry Eyes 0.5 % solution Apply 0.5 drops to eye(s) as directed by provider 3 (Three) Times a Day As Needed (for dry eyes). Active melatonin 5 MG tablet tablet Take 4 tablets by mouth Every Night. Active vitamin B-12 (CYANOCOBALAMIN ) 1000 MCG tablet Take 1 tablet by mouth 1 (One) Time Per Week. Active carboxymethylce llulose (REFRESH PLUS) 0.5 % solution Administer 1 drop to both eyes 3 (Three) Times a Day As Needed for Dry Eyes. Not taking Active clopidogrel (PLAVIX) 75 MG tablet Take 1 tablet by mouth Daily. 21 tablet 5 Active Active Problems Problem Noted Date Diagnosed Date TIA (transient ischemic attack) 03/21/2025 Malignant neoplasm of upper- outer quadrant of right breast in female, estrogen receptor positive 08/24/2022 Cancer Staging:Pathologic:Stage IA(pT1mi, pN0, cM0, G2, ER+, [place]+, HER2-) - Signed by Lila Oliveira MD on 08/24/2022 Encounters Date Type Department Care Team Description 03/25/2025 Readmission Management [facility] [address] [place] [address] Raulito Marsh RN 03/24/2025 Readmission Management [facility] [address] [place] [address] Mari Dodge RN 03/21/2025 7:21 PM EDT - 03/23/2025 2:26 PM EDT Hospital Encounter [facility] 3F [address] [place] [address] Ladonna Wallace MD Lyons, Andrea L, MD Cognitive communication deficit (Primary Dx); TIA (transient ischemic attack) Discharge Disposition: Home or Self Care 03/21/2025 Travel 03/21/2025 Documentation [facility] [address] [facility] [address] [place] [address] Mehran Hoskins PA-C from Last 3 Months [...] Info) Description 05/28/2025 10:20 AM EDT Appointment [facility] [address] [facility] [address] [place] [address] 05/28/2025 1:15 PM EDT Office Visit [facility] GENERAL SURGERY [address]60 [facility] [address] [place] [address] Michell Harkins MD 1760 [facility] [address] [place] [address] Health Maintenance Due Date Last Done Comments TDAP/TD VACCINES (1 - Tdap) 1967 ZOSTER VACCINE (1 of 2) 1998 ANNUAL WELLNESS VISIT 06/08/2022 HEPATITIS C SCREENING 06/08/2022 DXA SCAN 08/18/2022 08/18/2020 RSV Vaccine - Adults (1 - 1- dose 75+ series) 2023 INFLUENZA VACCINE 03/14/2025 05/27/2022, , 05/05/2020 COVID-19 Vaccine (2 - 2024-2 6 season) 2025 05/04/2022 LIPID PANEL 03/22/2026 03/22/2025 Pneumococcal Vaccine 50+ Completed 07/18/2023 MAMMOGRAM Discontinued 09/23/2024, 0802/2024, 09/14/2023, Additional history exists Procedures Procedure Name [...] was found Confirmed by LUCA POSADA MD ([id number]) on 03/23/2025 1:50:03 PM Referred By: Confirmed [...] was found Confirmed by LUCA POSADA MD ([id number]) on 03/23/2025 1:50:03 PM Referred By: Confirmed By: LUCA POSADA MD Lila Billingsley APRN ECG ORDERABLES Final Result ECG * Urinalysis, Microscopic Only - Urine, Clean Catch (03/22/2025 6:04 PM EDT) RBC, UA 0-2 None Seen, 0-2 /HPF 03/22/2025 6:19 PM EDT [facility] WBC, UA 0-2 None Seen, 0-2 /HPF 03/22/2025 6:19 PM EDT [facility] Comment:Urine culture not in dicated. Bacteria, UA None Seen None Seen /HPF 03/22/2025 6:19 PM EDT [facility] Squamous Epithelial Cells, UA 0-2 None Seen, 0-2 /HPF 03/22/2025 6:19 PM EDT [facility] Hyaline Casts, UA None Seen None Seen /LPF 03/22/2025 6:19 PM EDT [facility] Methodology Automated Microscopy 03/22/2025 6:19 PM EDT [facility] Urine Urine specimen obtained by clean catch procedure / Unknown Collection / Unknown 03/22/2025 6:04 PM EDT 03/22/2025 6:13 PM EDT us Ion Welsh MD URINE ORDERABLES Final Result [facility]
[address] [place] [id number], * (ABNORMAL) Urinalysis With Culture If Indicated - Urine, Clean Catch (03/22/2025 6:04 PM EDT) Color, UA Yellow Yellow, Straw 03/22/2025 6:19 PM EDT [facility] Appearance, UA Clear Clear 03/22/2025 6:19 PM EDT [facility] pH, UA 6.5 5.0 - 8.0 03/22/2025 6:19 PM EDT [facility] Specific [place], UA 1.007 1.005 - 1.030 03/22/2025 6:19 PM EDT [facility] Glucose, UA Negative Negative 03/22/2025 6:19 PM EDT [facility] Ketones, UA Trace(A) Negative 03/22/2025 6:19 PM EDT [facility] Bilirubin, UA Negative Negative 03/22/2025 6:19 PM EDT [facility] Blood, UA Trace(A) Negative 03/22/2025 6:19 PM EDT [facility] Protein, UA Negative Negative 03/22/2025 6:19 PM EDT [facility] Leuk Esterase, UA Negative Negative 03/22/2025 6:19 PM EDT [facility] Nitrite, UA Negative Negative 03/22/2025 6:19 PM EDT [facility] Urobilinogen, UA 0.2 E.U./dL 0.2 - 1.0 E.U./dL 03/22/2025 6:19 PM EDT [facility] Urine Urine specimen obtained by clean catch procedure / Unknown Collection / Unknown 03/22/2025 6:04 PM EDT 03/22/2025 6:13 PM EDT [facility] - 03/22/2025 6:19 PM EDT In absence of clinical symptoms, the presence of pyuria, bacteria, and/or nitrites on the urinalysis result does not correlate with infection. Ion Welsh MD URINE ORDERABLES Final Result [facility]
[address] [place] [id number], * ECHO COMPLETE W/ DOPPLER AND COLOR [...] - 10.80 10*3/mm3 03/22/2025 11:42 AM EDT [facility] RBC 4.08 3.77 - 5.28 10*6/mm3 03/22/2025 11:42 AM EDT [facility] Hemoglobin 12.1 12.0 - 15.9 g/dL 03/22/2025 11:42 AM EDT [facility] Hematocrit 36.5 34.0 - 46.6 % 03/22/2025 11:42 AM EDT [facility] MCV 89.5 79.0 - 97.0 fL 03/22/2025 11:42 AM EDT [facility] MCH 29.7 26.6 - 33.0 pg 03/22/2025 11:42 AM EDT [facility] MCHC 33.2 31.5 - 35.7 g/dL 03/22/2025 11:42 AM EDT [facility] RDW 12.5 12.3 - 15.4 % 03/22/2025 11:42 AM EDT [facility] RDW-SD 41.1 37.0 - 54.0 fl 03/22/2025 11:42 AM EDT [facility] MPV 8.8 6.0 - 12.0 fL 03/22/2025 11:42 AM EDT [facility] Platelets 297 140 - 450 10*3/mm3 03/22/2025 11:42 AM T [facility] Blood Venipuncture / Unknown 03/22/2025 11:09 AM EDT 03/22/2025 11:36 AM EDT Ladonna Wallace MD LAB BLOOD ORDERABLES Final Re sult Performing Organization Address City/[facility]/ZIP Co de Phone Number [facility]
[address] [place] [address], * (ABNORMAL) Hemoglobin A1c (03/22/2025 11:09 AM EDT) Hemoglobin A1C 5.69(H) 4.80 - 5.60 % 03/22/2025 11:59 AM EDT [facility] Blood Venipuncture / Unknown 03/22/2025 11:09 AM EDT 03/22/2025 11:37 AM EDT Narrative [facility] - 03/22/2025 11:59 AM EDT Hemoglobin A1C Ranges: Increased Risk for Diabetes 5.7% to 6.4% Diabetes >= 6.5% Diabetic Goal < 7.0% Mehran Hoskins PA-C LAB BLOOD ORDERABLE S Final Result Performing Organization Address City/[facility]/ZIP Co de Phone Number [facility]
[address] [place] [address], * (ABNORMAL) Lipid Panel (03/22/2025 11:09 AM EDT) Total Cholesterol 125 0 - 200 mg/dL 03/22/2025 12:04 PM EDT [facility] Triglycerides 54 0 - 150 mg/dL 03/22/2025 12:04 PM EDT [facility] HDL Cholesterol 79(H) 40 - 60 mg/dL 03/22/2025 12:04 PM EDT [facility] LDL Cholesterol 34 0 - 100 mg/dL 03/22/2025 12:04 PM EDT [facility] VLDL Cholesterol 12 5 - 40 mg/dL 03/22/2025 12:04 PM EDT [facility] LDL/HDL Ratio 0.45 03/22/2025 12:04 PM EDT [facility] Blood Venipuncture / Unknown 03/22/2025 11:09 AM EDT 03/22/2025 11:36 AM EDT Narrative [facility] - 03/22/2025 12:04 PM EDT [...] is calculated using the NIH LDL-C calculation. us Mehran Hoskins PA-C LAB BLOOD ORDERABLE S Final Result [facility]
[address] [place] [address], * (ABNORMAL) Basic Metabolic Panel (03/22/2025 11:09 AM EDT) Glucose 99 65 - 99 mg/dL 03/22/2025 12:04 PM EDT [facility] BUN 6.8(L) 8.0 - 23.0 mg/dL 03/22/2025 12:04 PM EDT [facility] Creatinine 0.64 0.57 - 1.00 mg/dL 03/22/2025 12:04 PM EDT [facility] Sodium 134(L) 136 - 145 mmol/L 03/22/2025 12:04 PM EDT [facility] Potassium 4.1 3.5 - 5.2 mmol/L 03/22/2025 12:04 PM EDT [facility] Chloride 98 98 - 107 mmol/L 03/22/2025 12:04 PM EDT [facility] CO2 27.6 22.0 - 29.0 mmol/L 03/22/2025 12:04 PM EDT [facility] Calcium 8.9 8.6 - 10.5 mg/dL 03/22/2025 12:04 PM EDT [facility] BUN/Creatinine Ratio 10.6 7.0 - 25.0 03/22/2025 12:04 PM EDT [facility] Anion Gap 8.4 5.0 - 15.0 mmol/L 03/22/2025 12:04 PM EDT [facility] eGFR 91.7 >60.0 mL/min/1.7 3 03/22/2025 12:04 PM EDT [facility] Blood Venipuncture / Unknown 03/22/2025 11:09 AM EDT 03/22/2025 11:36 AM EDT [facility] - 03/22/2025 12:04 PM EDT [...] MD LAB BLOOD ORDERABLES Final Re sult [facility]
[address] [place] [address], * MRI Brain Without Contrast (03/22/2025 12:47 AM EDT) Anatomical Region Laterality Modality Head, Neck N/A Magnetic Resonan ce 03/22/2025 4:14 AM EDT Impressions 03/22/2025 4:24 AM EDT Impression: 1.No acute intracranial abnormality. 2.Minimal chronic small vessel ischemic change. 3.Mild left maxillary sinus mucosal disease. Electronically Signed: Chris Perkins MD 03/22/2025 4:24 AM EDT Workstation ID: [id number] Narrative 03/22/2025 4:24 AM EDT MRI BRAIN [...] MD 03/22/2025 4:24 AM EDT Workstation ID: [id number] Mehran Hoskins PA-C IMG MRI ORDERABLES Final Result * POC Glucose Once (03/22/2025 12:10 AM EDT) Only the most recent of2 resultswithin the time period is included. Glucose 128 70 - 130 mg/dL 03/22/2025 12:11 AM EDT [facility] Blood 03/22/2025 12:1 0 AM EDT 03/22/2025 12:11 AM EDT Ladonna Wallace MD POINT OF CARE TEST ORDERABLES Final Result [facility]
[address] [place] [address], * Mammo Diagnostic Right With CAD (09/23/2024 [...] Of Support Discussed With: Patient Care Teams Electronic Parts Salesperson Relationship Specialty Start Date End Date Sal Croft MD [address] [facility] [address] [place] [address] PCP - General Family Medicine 06/30/22
--- OUTSIDE RECORDS SUMMARY | 2025-05-20 13:27 | XMS_ITS | Encounter Summary ---
[facility] Address [address] [place] [id number] Care Team Providers Care Concert Singer Name Role Phone Sal Croft MD Primary Care Provider Encounter Details Date Type Department Care Team (Late st Contact Info) Description 03/21/2025 Documentation [facility] NE[facility] [address] [facility] [address] [place] [address] Mehran Hoskins PA-C [address] [facility] [address] [place] [address] Social History Tobacco Use Types Packs/Day Years [...] 8:12 PM EDT Marielena Paige RN * [place] Suicide Severity Rating Scale (Screener/Recent Self-Report) Question Answer Date of Assessment Author 6. Suicidal Behavior (Lifetime) No 8:12 PM EDT Marielena Paige RN documented as of this encounter Plan of Treatment Upcoming Encounters Date Type Department Care Team (Late st Contact Info) Description 05/28/2025 10:20 AM EDT Appointment [facility] [address] [facility] [address] [place] [address] 05/28/2025 1:15 PM EDT Office Visit [facility] GENER[facility]GERY [address] [facility] [address] [place] [id number] Michell Harkins MD [address] [facility] [address] [place] [address] documented as of this encounter Visit Diagnoses Not on filedocumented in this encounter Care Teams Concert Singer Relationship Specialty Start Date End Date Sal Croft MD [address] [facility] [address] [place] [address] PCP - General Family Medicine 06/30/22 documented as of this encounter
--- OUTSIDE RECORDS SUMMARY | 2025-05-20 13:27 | XMS_ITS | Encounter Summary ---
[facility] Address [address] [place] [address] Care Team Providers Care Horticultural Worker Name Role Phone Sal Croft MD Primary Care Provider Encounter Details Date Type Department Care Team (Late st Contact Info) Description 03/24/2025 Readmission Management [facility] [address] [place] [address] Mari Dodge, RN Social History Tobacco [...] not included. Prep Survey Flowsheet Row Responses [facility] patient discharged from? [place] Is LACE score < 7 ? No Eligibility Readm Mgmt Does the patient have one of the following disease processes/diagnoses(primary or secondary)? Stroke Does the patient have Home health ordered? No Is there a DME ordered? No [per chart, pt uses pulse ox and BP cuff at home] Prep survey completed? Yes Mari Templeton - Registered Nurse documented in this encounter Plan of Treatment Upcoming Encounters Date Type Department Care Team (Late st Contact Info) Description 05/28/2025 10:20 AM EDT Appointment [facility] [address] [facility] [address] [place] [address] 05/28/2025 1:15 PM EDT Office Visit [facility] GENER[facility] SURGERY [address] [facility] [address] [place] [address] Michell Harkins MD [address]60 [facility] [address] [place] [address] documented as of this encounter Visit Diagnoses Not on filedocumented in this encounter Care Teams Horticultural Worker Relationship Specialty Start Date End Date Sal Croft MD [address] [facility] [address] [place] [address] PCP - General Family Medicine 06/30/22 documented as of this encounter
--- OUTSIDE RECORDS SUMMARY | 2025-05-20 13:27 | XMS_ITS ---
Author Organization [facility] Address [address] [place] [address] Care Team Providers Care Production Cloth Cutter Name Role Phone Sal Croft MD Primary Care Provider Active Problems Problem Noted Date Diagnosed Date TIA (transient ischemic attack) 03/21/2025 Malignant neoplasm of upper- outer quadrant of right breast in female, estrogen receptor positive 08/24/2022 Cancer Staging:Pathologic:Stage IA(pT1mi, pN0, cM0, G2, ER+, [place]+, HER2-) - Signed by Lila Oliveira MD [...] numbers Care Team Provider: Akiko Jimenez MD, ([phone]) Care Team Provider: Michell Harkins MD, ([phone]) Care Team Provider: Lila Oliveira MD, ([phone]) Post Treatment Care Team Primary Care Physician Sal Croft MD [address] [facility] [address] [place] [address] Background Information Medical history Past Medical History: [...] Stage IA (pT1mi, pN0, cM0, G2, ER+, [place]+, HER2-) - Signed by Lila Oliveira MD [...] to you. General Cancer Support & Resources [facility] [address] [facility], [address] [place] [address] Med Onc: Export Administrator Onc: Automobile Brake Bonder: Ingrid Horne - Psychiatric Nurse Practitioner: Rosario Lentz APRN - [phone] Kick It! (A free smoking cessation program) Financial Counselor and Contact Information: Financial Counseling - Skate Shop Attendant Contact Information: Gretel Wray - [phone] Wound Ostomy & Continence Nurse: Local Cancer [...] Toward Empowerment - for Women with Cancer: () The Tools and encouragement you need to [...] the last Monday of each month. Location: [facility]; [address] [place] [address]. For more information call Madyson Lopez @ . Breast Cancer Support & Resources Local Cancer Support Groups and Contact Information: [employer] ([place]): Breast Cancer Support group. Meets the Monday of each at various locations. Please Call Dany Mojica for meeting information @ [phone] or Nia Scanlon @ [phone]. The Journey: Breast Cancer Support Ministry: Meets the Monday of each month, 5:00PM @ [place], [place]. Please call Clair Huff at [phone] for additional information. Reach To Recovery: An [place] peer support group for women with a concern about breast cancer. Patentscan talk with volunteer breast cancer survivors, in person or over the phone, for support & encouragement. Also, after you have completed your journey and would like to give back, you can call the [phone] number to volunteer as a survivor and support to others. For additional information, please call [phone] or go to sss.cancer.org. Surveillance How Frequent? [...] advice of a doctor or other health primary care md. Please use these recommendations to talk with [...] of cancer in the general population. The [place] [employer] (ACS) recommends these screening guidelines for women: Recommendation Frequency Comments Breast Cancer Screening For more information, see the ACS document Breast Cancer: Early Detection. www.cancer.org/ssLINK/xqnezi-yetuxj-bupmt-detection-kinza Yearly mammograms starting at age 40, and continuing for as long as a woman is in good health. Clinical breast exam (CBE), performed by a health primary care md, every three years for women intheir 20s [...] the ACS document Colorectal Cancer: Early Detection. www.cancer.org/ssLINK/bztbxaunbs-ypwfhf-qcvta-detection-kinza Options for colon cancer screening can be [...] the ACS document Cervical Cancer: Early Detection. www.cancer.org/.../xrrzbfem-bhglmv-otzrvxpbqv-qbd-jbowm-pbflyqoru-kinza Cervical cancer screening should not begin before [...] more information, visit http://www.nhlbi.nih.gov/health/public/heart/obesity/lose_wt/index.htm www.win.niddk.nih.gov Call the [place] [employer] Talk to your health care [...] from plant sources. For more information, visit http://www.Pitchbrite.gov/food-groups/ Eat healthy, including plenty of fruits and [...] Experts recommend at least 30 minutes of bxrsuicf-gi-wmcibdqa activity per day, five days a week. [...] you can call a national hotline at 5(388)-QUIT-NOW. Keep your bones healthy. For more information, [...] U.S. Department of Health and Human Services. http://www.womenshealth.gov/rttjjcrbd-bosjx-vpo-vaccines/mwpjtrkkm-dggpv-pvm-men / For more information about adult vaccinations visit the CDC: http://www.cdc.gov/vaccines/recs/schedules/adult-schedule.htm Keep up-to-date on general health screening tests, including cholesterol, blood pressure and glucose (blood sugar) levels. Get an annual influenza vaccine (flu shot). Get vaccinated with the pneumococcal vaccine, which prevents a type of pneumonia, and re-vaccinatedas determined by your health care team. Don???t forget dental and eye health! The [place] [employer] recommends adults have their eyes examined every two years until age 60, then annually. People who wear glasses or correctivelenses or are at high risk for eye problems (i.e., diabetics, family history of eye disease) shouldbe seen more frequently. The [place] recommends adults see their dentist at least once a year. 10 No information on file. No information on file.
--- NOTE | 2025-05-20 13:30 | XR_ITS ---
FINAL REPORT CLINICAL HISTORY: left shoulder pain FINDINGS: 2 views of the left shoulder were obtained. There is no fracture or dislocation. There is mild degenerative joint disease. Soft tissues are unremarkable. IMPRESSION: Mild degenerative joint disease. Reviewed, Interpreted and Dictated by Kaity White MD Transcribed by Klarissa Bone Authenticated and [facility]
== END 2025-05-20 23:59 | disposition home or self-care (01) ==
LOC: RAD 13:23
PROVIDERS: PCP Family Medicine; Visit Provider Physician Assistant
DX: M19.012 Primary osteoarthritis, left shoulder (principal)
CPT/HCPCS: 73030

== ENCOUNTER 2025-05-30 14:12 | Outpatient (CLI) | payer MEDICARE, SELFPAY ==
--- OUTSIDE RECORDS SUMMARY | 2024-08-13 06:00 | XMS_ITS ---
Author Organization [facility] Address [address] [facility] [address] [place] [id number] Care Team Providers Care Wedger And Gluer Name Role Phone Charlotte Croft Primary Care Provider [phone] Allergies Allergen (clinical drug ingredient) Drug/Non Drug Allergy documented on EMR Reaction Allergy Type Onset Date Status sulfamethoxazole / trimethoprim Bactrim DS Nausea Drug Allergy Active doxycycline Doxycycline GI cramps Drug Allergy Act lydia azithromycin Zithromax diarrhea Drug Allergy Acti ve rosuvastatin Rosuvastatin upset stomach Drug Allergy Active REASON FOR VISIT still cramping and diarrhea Medications Medication SIG (Take, Route, Frequency, Duration) Notes Start Date End Date Status Fish Oil 1000 MG 1 cap(s) orally 3 ti mes a day; Duration: 30 day(s) Active OSTEO-BIFLEX 1 P.O. ONCE DAILY Active Atorvastatin Calcium 10 MG 1 tablet Orally Once a day; Duration: 90 days Active Vitamin B-12 1000 MCG 1 tablet Orally On ce a day; Duration: 30 day(s) Active Aspirin 81 MG 1 tablet Orally Once a day Active Estrace 0.1 MG/GM 1 gram intravaginall y every other day at bedtime; Duration: 30 day(s) Active Dicyclomine HCl 10 MG 1 cap(s) Orally Th ree times a day prn cramping 08/13/2024 Active Vitamin C 500 MG as directed Orally Active Red Yeast Rice 600 MG as directed Orally Active levoFLOXacin 500 MG 1 tablet Orally Once a day Active Problems Problem Type SNOMED Code ICD Code Onset Dates Problem Status W/U Status Risk Notes Problem Diverticulitis (72063628) Diverticulitis (K57.92) Active confirmed Vital Signs Blood pressure systolic 110 mm Hg 08/13/20 24 Blood pressure diastolic 70 mm Hg 024 Heart Rate 67 /min 08/13/2024 Height 64.50 in 08/13/2024 Weight 165.2 lbs 08/13/2024 BMI 27.92 kg/m2 08/13/2024 Encounters Encounter Location Date Provider Diagnosis [facility] [address] [place] [phone] 08/13/2024 Charlotte Croft Diverticulitis K57.9 2 Assessments Encounter Date Diagnosis (ICD Code) Assessment Notes Treatment Notes Treatment Clinical Notes Section Notes 08/13/2024 Diverticulitis (ICD-10 - K57.92) Plan Of Treatment Medication Medication Name Sig Start Date Stop Date Notes Dicyclomine HCl 10 MG 1 cap(s) Orally Th ree times a day prn cramping 08/13/2024 levoFLOXacin 500 MG 1 tablet Orally Once a day 08/09/2024 Next Appt Details Follow Up: 2 - 3 Days, prn, Reason: Progress Notes * GREG CUENCADOB:1950 (74 yo F)Acc No.[id number]:08/13/2024 Progress Notes Patient: Radha MARCELLASHULY Provider: Charlotte Croft M.D. :1950 A ge:73 Y S ex:Female Date:08/13/2024 Address:[address] [place] [address], [place], [id number] Subjective: * Chief Complaints: * 1 . Still cramping and diarrhea. * HPI: G astroenterology: She returns for follow-up since starting the levofloxacin. She is still having some loose stools and cramping but overall symptoms are improving. Denies fever. No blood in her stool. * ROS: C ARDIOLOGY: no C hest pain. n o S hortness of breath. ? D ERMATOLOGY: no R rakan. n o H addis. U ROLOGY: no D ifficulty urinating. n o B lood in urine. * Medical History: H iatal hernia, Depression, hx of gout diagnosed by Dr. Matthew, Pandiverticulosis of colon, Colon polyp, Torn right rotator cuff, Right breast cancer, Cataracts, HLP, ASCVD. * Surgical History: g allbladder 5-, hysterectomy, abdominal 2001, bladder tuck 2011, Colonoscopy/Dr. Benton/ diverticulosis, polyp 08/2015, right breast lumpectomy/ Dr. OTT 2021 , cataract , heart cath with stent x1/ Hair 03/2023. * Hospitalization/Major Diagno stic Procedure: s ee above , kidney stones 1986. * Family History: F ather: . M other: , diagnosed with Diabetes, Hypertension, Heart Disease. 2 brother(s) , 3 sister(s) . 3 daughter(s) . . Sister with colon cancer; brother with lung cancer. * Social History: C URRENT TOBACCO USE S moking Status: Patient does NOT smoke. C affeine: yes, frequency: coffee. Home smoke detector use: yes. Alcohol: No. * Medications: T aking Vitamin C 500 MG Capsule as directed Orally , Taking Red Yeast Rice 600 MG Capsule as directed Orally , Taking Vitamin B-12 1000 MCG Tablet 1 tablet Orally Once a day , Taking Aspirin 81 MG Tablet Delayed Release 1 tablet Orally Once a day , Taking Fish Oil 1000 MG Capsule 1 cap(s) orally 3 times a day , Taking OSTEO- BIFLEX 1 P.O. ONCE DAILY , Taking Atorvastatin Calcium 10 MG Tablet 1 tablet Orally Once a day , Taking Estrace 0.1 MG/GM Cream 1 gram intravaginally every other day at bedtime , Taking levoFLOXacin 500 MG Tablet 1 tablet Orally Once a day , Medication List reviewed and reconciled with the patient * Allergies: D oxycycline: GI cramps - Side Effects, Zithromax: diarrhea - Side Effects, Bactrim DS: Nausea - Side Effects, Rosuvastatin: upset stomach - Side Effects. Objective: * Vitals: W t:165.2, Temp:98.5, BP:110/70, HR:67, Nurse:SHAMIKA, Ht: 64.50, BMI:27.92. * Examination: G eneral Examination: General Appearance: N AD. H eart: R SR. L ungs:?clear to auscultation. A bdomen: soft, not distended. Mild diffuse lower abdominal tenderness.. Assessment: * Assessment: 1. D iverticulitis - K57.92 (Primary) Plan: * Treatment: * Procedure Codes: G 2211 Complex e/m visit add on, 3074F SYST BP LT 130 MM HG, 3078F DIAST BP < 80 MM HG * Follow Up: 2 - 3 Days, prn * Images: Billing Information: * Visit Code: 32867 Office Visit, Est Pt., Level 3. * Procedure Codes: G2211 Complex e/m visit add on. 3074F SYST BP LT 130 MM HG. 3078F DIAST BP < 80 MM HG. * Electronic signature of Charlotte Croft MD on 05/30/2025 at 02:16 PM EDT Sign off status: Pending * Provider: Charlotte Croft M.D. Date: Generated for Joyce goldberg/Lalit/Dianasmitting on: 02:16 PM EDT History and Physical Notes * Examination Category Sub-Category Detail Notes Category Not es General Examination Heart: RSR Lungs: clear to auscultatio n Abdomen: soft, not distended. Mild diffuse lower abdominal tenderness. General Appearance: NAD
--- OUTSIDE RECORDS SUMMARY | 2024-09-12 05:45 | XMS_ITS ---
Author Organization [facility] Address [address] [place] [phone] Care Team Providers Care Pre School Teacher Name Role Phone Charlotte Croft Primary Care Provider Allergies Allergen (clinical drug ingredient) Drug/Non Drug Allergy documented on EMR Reaction Allergy Type Onset Date Status sulfamethoxazole / trimethoprim Bactrim DS Nausea Drug Allergy Active doxycycline Doxycycline GI cramps Drug Allergy Act lydia azithromycin Zithromax diarrhea Drug Allergy Acti ve rosuvastatin Rosuvastatin upset stomach Drug Allergy Active REASON FOR VISIT right hip pain Medications Medication SIG (Take, Route, Frequency, Duration) Notes Start Date End Date Status Estrace 0.1 MG/GM 1 gram intravaginall y every other day at bedtime; Duration: 30 day(s) Active Potassium Chloride ER 10 MEQ 1 tablet with food Orally Twice a day 08/27/2024 Active Dicyclomine HCl 10 MG 1 cap(s) Orally Th ree times a day prn cramping 08/13/2024 Active Atorvastatin Calcium 10 MG 1 tablet Orally Once a day; Duration: 90 days Active Red Yeast Rice 600 MG as directed Orally Active Vitamin B-12 1000 MCG 1 tablet Orally On ce a day; Duration: 30 day(s) Active Aspirin 81 MG 1 tablet Orally Once a day Active Fish Oil 1000 MG 1 cap(s) orally 3 ti mes a day; Duration: 30 day(s) Active OSTEO-BIFLEX 1 P.O. ONCE DAILY Active Vitamin C 500 MG as directed Orally Active Vital Signs Blood pressure systolic 126 mm Hg 09/12/19 25 Blood pressure diastolic 68 mm Hg 025 Heart Rate 73 /min 09/12/2024 Height 64.50 in 09/12/2024 Weight 163.2 lbs 09/12/2024 BMI 27.58 kg/m2 09/12/2024 Encounters Encounter Location Date Provider Diagnosis [facility] [address] [facility] [address] [place] [phone] 09/12/2024 Charlotte Croft Trochanteric bursiti s of right hip M70.61 Assessments Encounter Date Diagnosis (ICD Code) Assessment Notes Treatment Notes Treatment Clinical Notes Section Notes 09/12/2024 Trochanteric bursitis of right hip (ICD-10 - M70.61) Trochanteric bursa was injected with Depo-Medrol 60 mg and lidocaine 1/2 cc which she tolerated well. Plan Of Treatment Treatment Notes Assessment Notes Trochanteric bursitis of right hip Troch anteric bursa was injected with Depo- Medrol 60 mg and lidocaine 1/2 cc which she tolerated well. Next Appt Details Follow Up: prn, Reason: Progress Notes * GREG CUENCADOB:1950 (74 yo F)Acc No.[id number]:09/12/2024 Progress Notes Patient: Radha MARCELLASHULY Provider: Charlotte Croft M.D. :1950 A ge:73 Y S ex:Female Date:09/12/2024 Address:[facility] [address], [place], [id number] Subjective: * Chief Complaints: * 1 . Right hip pain. * HPI: H ip/Thigh: She presents with a chief complaint of right lateral hip pain consistent with her history of trochanteric bursitis. She has had previous injections. No recent injuries. G astroenterology: She continues to have loose stools periodically and intermittent cramping depending on her diet. Denies blood in her stool. Weight has been stable. * ROS: C ARDIOLOGY: no C hest pain. n o S hortness of breath. ? D ERMATOLOGY: no R rakan. n o H addis. U ROLOGY: no D ifficulty urinating. n o B lood in urine. * Medical History: H iatal hernia, Depression, hx of gout diagnosed by Dr. McKemie, Pandiverticulosis of colon, Colon polyp, Torn right rotator cuff, Right breast cancer, Cataracts, HLP, ASCVD. * Surgical History: g allbladder 5-07, hysterectomy, abdominal 2001, bladder tuck 2011, Colonoscopy/Dr. [...] every other day at bedtime , Taking Potassium Chloride ER 10 MEQ Tablet Extended Release 1 tablet with food Orally Twice a day , Taking Dicyclomine HCl 10 MG Capsule 1 cap(s) Orally Three times a day prn cramping , Discontinued levoFLOXacin 500 MG Tablet 1 tablet Orally Once a day , Discontinued Amoxicillin-Pot Clavulanate 875-125 MG Tablet 1 tablet Orally every 12 hrs , Discontinued Diflucan 150 MG Tablet 1 tablet Orally once , Medication List reviewed and reconciled with the patient * Allergies: D oxycycline: GI cramps - Side Effects, Zithromax: diarrhea - Side Effects, Bactrim DS: Nausea - Side Effects, Rosuvastatin: upset stomach - Side Effects. Objective: * Vitals: W t:163.2, Temp:97.9, BP:126/68, HR:73, Nurse:JOSSELYN, Ht: 64.50, BMI:27.58. * Examination: G eneral Examination: Extremities: R ight hip shows no deformity. Range of motion is nearly full. There is tenderness over the greater trochanter.. ? Assessment: * Assessment: 1. T rochanteric bursitis of right hip - M70.61 (Primary) Plan: * Treatment: * Procedure Codes: 2 0610 DRAIN/INJECT BURSA,SHOULDER,HIP,KNEE, SUBACROMIAL BURSA * Follow Up: p rn * Images: Billing Information: * Visit Code: 38060 Office Visit, Est Pt., Level 3. Modifiers: 25 * Procedure Codes: 16291 DRAIN/INJECT BURSA,SHOULDER,HIP,KNEE, SUBACROMIAL BURSA. * Electronic signature of Charlotte Croft MD on 05/30/2025 at 02:15 PM EDT Sign off status: Pending * Provider: Charlotte Croft M.D. Date: 0 09/12/2024 Generated for Joyce goldberg/Lalit/eTfifismitting on: 1 02:15 PM EDT History and Physical Notes * Examination Category Sub-Category Detail Notes Category Not es General Examination Extremities: Right hip sh ows no deformity. Range of motion is nearly full. There is tenderness over the greater trochanter.
--- OUTSIDE RECORDS SUMMARY | 2024-10-18 07:30 | XMS_ITS ---
Author Organization [facility] Address [address] [place] [phone] Care Team Providers Care Blade Aligner Name Role Phone Charlotte Croft Primary Care Provider Margie Rene Unavailable [phone] Allergies Allergen (clinical drug ingredient) Drug/Non Drug [...] 10/18/2024 Encounters Encounter Location Date Provider Diagnosis [facility] [address] [facility] [address] [place] [phone] 10/18/2024 Margie Rene Diverticulitis K57.9 2 and [...] phone to repo rt test results, Reason: Progress Notes * GREG CUENCADOB:1950 (74 yo F)Acc No.[id number]:10/18/2024 Progress Notes Patient: GREG MONTIEL Provider: VITA Barba :1950 A ge:74 Y S ex:Female Date:10/18/2024 Address:[facility] [address], [place], [id number] Pcp:Charlotte Croft Subjective: * Chief Complaints: * [...] HLP, ASCVD. * Surgical History: g allbladder -, hysterectomy, abdominal 2001, bladder tuck 2011, Colonoscopy/Dr. [...] Temp:98.3, BP:118/68, HR:62, O2 Sat:99% on RA, Nurse:[facility], Ht: 64.50, BMI:27.48. * Examination: G astroenterology: [...] S APOVIRUS Not Detected NotDetected - * Dinesh Spangleria 10/21/2024 11:36 :33 AM > See phone encounterMargie Rene 10/21/2024 5:18:39 PM > see TE * Procedure Codes: G 2211 Complex e/m visit add on, 3074F SYST BP LT 130 MM HG, 3078F DIAST BP < 80 MM HG * Follow Up: v ia phone to report test results * Images: Billing Information: * Visit Code: 17587 Office Visit, Est Pt., Level 3. * Procedure Codes: G2211 Complex e/m visit add on. 3074F SYST BP LT 130 MM HG. 3078F DIAST BP < 80 MM HG. * Electronic signature of VITA Llamas on 05/30/2025 at 02:15 PM EDT Sign off status: Pending * Provider: VITA Barba Date: 0 10/18/2024 Generated for Joyce ng/Lalit/eTransmitting on: 1 02:15 PM EDT History and [...]
--- OUTSIDE RECORDS SUMMARY | 2025-01-17 07:30 | XMS_ITS ---
Author Organization Elieser Address 1210 [facility] [address] [place] [id number] Care Team Providers Care Prosthetic Makeup Designer Name Role Phone Charlotte Croft Primary Care Provider [phone] Liu Fatima [phone] Allergies Allergen (clinical drug ingredient) Drug/Non Drug Allergy documented on EMR Reaction Allergy Type Onset Date Status sulfamethoxazole / trimethoprim Bactrim DS Nausea Drug Allergy Active doxycycline Doxycycline GI cramps Drug Allergy Act lydia azithromycin Zithromax diarrhea Drug Allergy Acti ve rosuvastatin Rosuvastatin upset stomach Drug Allergy Active REASON FOR VISIT left shoulder Encounters Encounter Location Date Provider Diagnosis [facility] [address] [place] [phone] 01/17/2025 Liu Fatima Plan Of Treatment No Information Progress Notes * GREG CUENCADOB:1950 (74 yo F)Acc No.[id number]:01/17/2025 Progress Notes Patient: Radha MARCELLASHULY Provider: Sara [...] Electronic signature of Jemima Fatima MD on 05/30/2025 at 02:15 PM EDT Sign off status: Pending * Provider: Sara Fatima M.D. Date: 0 01/17/2025 Generated for Joyce goldberg/Lalit/Danilo on: 1 02:15 PM EDT History and Physical Notes * HPI (History of Present Illness) Category Sub-Category Detail Notes Category Not es Shoulder/Upper arm shoulder pain left
--- OUTSIDE RECORDS SUMMARY | 2025-01-30 11:00 | XMS_ITS ---
Author Organization Elieser Address [address] [place] [address] 36 [facility] [address] [place] [phone] Care Team Providers Care Respiratory Therapy Technician Name Role Phone Charlotte Croft Primary Care Provider [phone] Allergies Allergen (clinical drug ingredient) Drug/Non Drug [...] Last Name Lang Referring Provider [facility] Referred Organization [facility] Referred Provider Physical Therapy, . Referred Address [address] [place] [address] [place],[phone], Referred Provider Specialty Occupational Therapy General Notes Keyana Ruano 2024 09:29:53 AM > faxed to [facility] Aníbal CARCAMO Julia 01/31/2025 09:39:22 AM [...] 01/30/2025 Encounters Encounter Location Date Provider Diagnosis [facility] [phone] 01/30/2025 R Ryley Croft Shoulder pain M25.51 [...] 01/31/2025 01/31/2025, shoulder pain, . Physical Therapy, [facility] [address], [place], [place], [phone], Next Appt Details Follow Up: after treatment, Reason: Progress Notes * MARIAMA CUENCA:1950 (74 yo F)Acc No.[id number]:01/30/2025 Progress Notes Patient: GREG MONTIEL Provider: Charlotte Croft M.D. :1950 A ge:74 Y S ex:Female Date:01/30/2025 Address:[address] [place] [address], [place], [id number] Subjective: * Chief Complaints: * 1 . [...] receptor status - C50.211 4 . B RI 23.0-23.9, adult - Z68.23 Plan: * Treatment: * Procedure Codes: G 2211 Complex e/m visit add on, 1036F TOBACCO NON-USER, G8420 BMI<30 AND >=22 CALC & DOCU, G8704 BP SCR PRFRM RCMDD DEFIND SCR INTVL, G8752 MOST RECENT SYSTOLIC BP < 140MM HG, G8754 MOST RECENT DIASTOLIC BP < 90MM HG * Follow Up: a fter treatment * Images: Billing Information: * Visit Code: 41091 Office Visit, Est Pt., Level 3. * [...] 01/30/2025 Generated for Raji ashlyn/Lalit/eTransmitting on: 1 02:15 PM EDT History and [...]
--- OUTSIDE RECORDS SUMMARY | 2025-03-27 07:00 | XMS_ITS ---
Author Organization [facility] Address [address] [place] [id number] Care Team Providers Care Presentation Team Member Name Role Phone Charlotte Croft Primary Care Provider [phone] Allergies Allergen (clinical drug ingredient) Drug/Non Drug Allergy documented on EMR Reaction Allergy Type Onset Date Status sulfamethoxazole / trimethoprim Bactrim DS Nausea Drug Allergy Active doxycycline Doxycycline GI cramps Drug Allergy Act lydia azithromycin Zithromax diarrhea Drug Allergy Acti ve rosuvastatin Rosuvastatin upset stomach Drug Allergy Active REASON FOR VISIT check up and blood work at [facility], Needs bone density screening Medications Medication SIG [...] Status Risk Notes Problem Transient ischemic attack (594987896) TIA (transient ischemic attack) (G45.9) Active confirmed Vital Signs Blood pressure systolic 120 mm Hg 03/27/20 25 Blood pressure diastolic 70 mm Hg 025 Heart Rate 64 /min 03/27/2025 Height 64.50 in 03/27/2025 Weight 135.6 lbs 03/27/2025 BMI 22.91 kg/m2 03/27/2025 Encounters Encounter Location Date Provider Diagnosis [facility] [address] [place] [phone] 03/27/2025 Charlotte Croft TIA (transient ischemic attack) [...] Notes * GREG CUENCADOB:1950 (74 yo F)Acc No.[id number]:03/27/2025 Progress Notes Patient: GREG MONTIEL Provider: Charlotte Croft M.D. :1950 A ge:74 Y S ex:Female Date:03/27/2025 Address:[facility] [place], [place] [id number] Subjective: * Chief Complaints: * 1 . check up and blood work at [facility]. 2. Needs bone density screening. * HPI: N eurology: She presents for follow-up on recent [facility] admission for possible TIA. She presented to [facility] ER with mixed aphasia and was transferred to [facility] for stroke alert. She underwent an MRI [...] Right breast cancer, Cataracts, HLP, ASCVD, TIA/ [facility]/ 03/2025. * Surgical History: C holecystectomy [...] attack) - G45.9 (Primary) 2 . B TN 22.0-22.9, adult - Z68.22 Plan: * Treatment: * Procedure Codes: G 2211 Complex e/m visit add on, 1036F TOBACCO NON-USER, G8420 BMI<30 AND >=22 CALC & DOCU, G8783 BP SCR PRFRM RCMDD DEFIND SCR INTVL, G8752 MOST RECENT SYSTOLIC BP < 140MM HG, G8754 MOST RECENT DIASTOLIC BP < 90MM HG * Follow Up: p rn * Images: Billing Information: * Visit Code: 11510 Office Visit, Est Pt., Level 3. * [...] 0 03/27/2025 Generated for Joyce goldberg/Lalit/Danilo on: 02:16 PM EDT History and Physical [...]
--- OUTSIDE RECORDS SUMMARY | 2025-05-15 07:20 | XMS_ITS ---
Author Organization [facility] Address [address] [place] [id number] Care Team Providers Care Planning Feeder Name Role Phone Charlotte Croft Primary Care Provider [phone] REASON FOR VISIT flu shot Medications Medication SIG (Take, Route, Frequency, Duration) Notes Start Date End Date Status OSTEO-BIFLEX 1 P.O. ONCE DAILY Active Estrace [...] a day; Duration: 90 days Active Vitamin C 500 MG as directed Orally Active Red Yeast Rice 600 MG as directed Orally Active Vitamin B-12 1000 MCG 1 tablet Orally On ce a day; Duration: 30 day(s) Active Fish Oil 1000 MG 1 cap(s) orally 3 ti mes a day; Duration: 30 day(s) Active Aspirin 81 MG 1 tablet Orally Once a day Active Immunizations Vaccine Route Administration Date Status Comme nts Fluzone High Dose (65yr and older) IM Intramuscular 05/15/2025 Administered Encounters Encounter Location Date Provider Diagnosis [facility] [address] [place] [phone] 05/15/2025 Charlotte Croft Encounter for immunization Z23 Assessments Encounter Date Diagnosis (ICD Code) Assessment Notes Treatment Notes Treatment Clinical Notes Section Notes 05/15/2025 Encounter for immunization (ICD-10 - Z23) Plan Of Treatment No Information Progress Notes * GREG CUENCADOB:1950 (74 yo F)Acc No.[id number]:05/15/2025 Patient: GREG MOTNIEL Provider: Charlotte Croft M.D. :1950 A ge:74 Y S ex:Female Date:05/15/2025 Address:[facility] [address] [place], [id number] Subjective: * Chief Complaints: * 1 . Flu shot. * Medical History: * Medications: T aking Vitamin C 500 MG Capsule as directed Orally , Taking Red Yeast Rice 600 MG Capsule as directed Orally , Taking Vitamin B-12 1000 MCG Tablet 1 tablet Orally Once a day , Taking Fish Oil 1000 MG Capsule 1 cap(s) orally 3 times a day , Taking OSTEO-BIFLEX 1 P.O. ONCE DAILY , Taking Estrace [...] List reviewed and reconciled with the patient Objective: * Vitals: Assessment: * Assessment: 1. E ncounter for immunization - Z23 (Primary) Plan: * Treatment: * Immunizations: Fluzone High Dose (65yr and older) : 0.5 mL (Route: Intramuscular) given by SKIP [place] on Left Deltoid (Encounter for immunization) * Images: Billing Information: * Visit Code: * Procedure Codes: * Electronic signature of Charlotte Croft MD on 05/30/2025 at 02:16 PM EDT Sign off status: Pending * Provider: Charlotte Croft M.D. Date: 1 Generated for Joyce goldberg/Lalit/Halleitting on: 02:16 PM EDT
--- OUTSIDE RECORDS SUMMARY | 2025-05-28 10:20 | XMS_ITS | Encounter Summary ---
Author Organization [facility] Address [address] [place] [id number] Care Team Providers Care Physician'S Aide Name Role Phone Sal Croft MD Primary Care Provider Reason for Referral * Diagnostic Imaging (Routine) - Closed Specialty Diagnoses / Procedures Referred By Sol yen Referred To Contact Radiology Diagnoses Visit for screening mammogram Procedures Mammo Screening Digital Tomosynthesis Bilateral With CAD Michell Harkins MD [address] [place] [address] Phone: tel: fax: Referral ID Status Reason Start Date Expiration Date Visits Re quested Visits Authorized [id number] Closed 09/24/2024 09/24/2025 1 1 Reason for Visit * Diagnostic Imaging (Routine) - Closed Specialty Diagnoses / Procedures Referred By Sol yen Referred To Contact Radiology Diagnoses Visit for screening mammogram Procedures Mammo Screening Digital Tomosynthesis Bilateral With CAD Michell Harkins MD [address] [place] [address] Phone: tel: fax: Referral ID Status Reason Start Date Expiration Date Visits Re quested Visits Authorized [id number] Closed 09/24/2024 09/24/2025 1 1 Encounter Details Date Type Department Care Team (Late st Contact Info) Description 05/28/2025 10:20 AM EDT - 05/28/2025 11:59 PM EDT Hospital Encounter [facility] [address] [facility] [address] [place] [address] Michell Harkins MD [address] [facility] [address] [place] [address] Visit for screening mammogram Discharge Disposition: Home or Self Care Social [...] on file documented as of this encounter Medications at Time of Discharge [...] Take 4 tablets by mouth Every Night. Hammon-3 Fatty Acids (fish oil) 1000 MG capsule [...] Week. 03/23/2025 documented as of this encounter Plan of Treatment Not on file documented as of this encounter Procedures Procedure Name Priority Date/Time Associated Diagnosis Comments MAMMO SCREENING DIGITAL TOMOSYNTHESIS BILATERAL W CAD Routine 05/28/2025 11:29 AM EDT Visit for screening mammogram documented in this encounter Results * Mammo Screening Digital Tomosynthesis Bilateral With CAD (05/28/2025 11:29 AM EDT) Anatomical Region Laterality Modality Breast N/A Mammography 05/29/2025 11:0 9 AM EDT Impressions 05/29/2025 11:13 AM EDT No mammographic findings suspicious for malignancy. RECOMMENDATION: Continue annual screening mammography. BI-RADS CATEGORY 1, NEGATIVE. CAD was utilized. The standard false-negative rate of mammography is between 10% and 25%. Complex patterns or increased breast density will markedly elevate the false-negative rate of mammography. A letter, in lay terminology, with the results of this exam will be mailed to the patient. 05/29/2025 11:[address] Shira Sim MD on Narrative 05/29/2025 11:13 AM EDT BILATERAL SCREENING MAMMOGRAM WITH TOMOSYNTHESIS: HISTORY: 74-year-old patient with a history of right breast conservation surgery. She has no new breast complaints. The patient has lost 8 pounds since her prior mammogram. TECHNIQUE: Bilateral CC and MLO low dose, full field digital mammographic images were obtained with tomosynthesis. COMPARISON: 09/23/2024, 03/20/2024, 09/14/2023, 03/09/2023, 08/19/2022, 05/19/2022, 04/21/2022, 08/03/2021, 03/02/2021 FINDINGS: There are scattered areas of fibroglandular density. The fibroglandular pattern is stable. There are no suspicious masses, worrisome calcifications, nonsurgical areas of architectural distortion, or other secondary signs of malignancy. us Michell Harkins MD IMG MAMMOGRAPHY ORDERABLE S Final Result documented in this encounter Visit Diagnoses Diagnosis Visit for screening mammogram documented in this encounter Care Teams Physician'S Aide Relationship Specialty Start Date End Date Sal Croft MD [address] [place] [address] [address] [facility] [address] [place] [address] PCP - General Family Medicine 06/30/22 documented as of this encounter
--- OUTSIDE RECORDS SUMMARY | 2025-05-30 14:16 | XMS_ITS | Clinical Summary ---
Author Organization [facility] Address [address] [place] [address] Care Team Providers Care Chocolate Finisher Operator Name Role Phone Sal Croft MD Primary Care Provider Allergies Active Allergy Reactions Criticality Noted Date Comments Doxycycline Other (See Comments) Low 01/29/2024 Ticagrelor Nausea And Vomiting 01/29/2024 Azithromycin Nausea Only Low 08/24/2022 Medications Glucosamine-Cho ndroitin (OSTEO BI-FLEX REGULAR STRENGTH PO) Take by mouth 2 (Two) Times a Day. Active Gurnee-3 Fatty Acids (fish oil) 1000 MG capsule [...] by mouth 1 (One) Time Per Week. 5 Active carboxymethylce llulose (REFRESH PLUS) 0.5 % [...] Cancer Staging:Pathologic:Stage IA(pT1mi, pN0, cM0, G2, ER+, OH+, HER2-) - Signed by Lila Oliveira MD on 08/24/2022 Encounters Date Type Department Care Team Description 05/28/2025 10:20 AM EDT - 05/28/2025 11:59 PM EDT Hospital Encounter [facility] [address] [place] [id number] Michell Harkins MD Visit for screening mammogram Discharge Disposition: Home or Self Care 05/28/2025 Travel 03/25/2025 Readmission Management [facility] [address] [place] [address] Raulito Marsh RN 03/24/2025 Readmission Management [facility] [address] [place] [address] Mari Dodge RN 03/21/2025 7:21 PM EDT - 03/23/2025 2:26 PM EDT Hospital Encounter [address] [place] [id number] Ladonna Wallace MD Lyons, Andrea L, MD Cognitive communication deficit (Primary Dx); TIA (transient ischemic attack) Discharge Disposition: Home or Self Care 03/21/2025 Travel 03/21/2025 Documentation [facility] [address] [facility] [address] [place] [id number] Mehran Hoskins PA-C from Last 3 Months Immunizations Immunization Administration Dates Next Due COVID-19 (MODERNA) Monovalen t Original Booster 05/04/2022 Fluzone High-Dose 65+yrs 05/27/2022,06/07/2021,0 05/05/2020 Family History Medical History Relation Name Comments Lung cancer Brother WITH BONE METS Lung disease Brother Heart disease Father Diabetes Mother Heart disease Mother Cancer Sister COLORECTAL Colon cancer Sister Breast cancer Neg Hx [...] 03/22/2025 8:04 AM EDT Plan of Treatment Health Maintenance Due Date Last Done Comments TDAP/TD VACCINES (1 - Tdap) 1969 ZOSTER VACCINE (1 of 2) 1998 COVID-19 Vaccine (#1) 06/01/2022 05/04/2022 ANNUAL WELLNESS VISIT 06/08/2022 HEPATITIS C SCREENING 06/08/2022 DXA SCAN 08/18/2022 08/18/2020 RSV Vaccine - Adults (1 - 1- dose 75+ series) 2023 LIPID PANEL 03/22/2026 03/22/2025 Pneumococcal Vaccine 50+ Completed 07/18/2023 INFLUENZA VACCINE Completed 05/15/2025, , 06/07/2021, Additional history exists MAMMOGRAM Discontinued 05/28/2025, 05/14, 09/23/2024, Additional history exists Procedures Procedure Name Priority Date/Time Associated Diagnosis Comments MAMMO SCREENING DIGITAL TOMOSYNTHESIS BILATERAL W CAD Routine 05/28/2025 11:29 AM EDT Visit for screening mammogram HM MAMMOGRAPHY Routine 05/26/2025 1:39 PM EDT ECG 12-LEAD Routine 03/22/2025 7:51 PM EDT [...] GLUCOSE FINGERSTICK Routine 03/21/2025 7:39 PM EDT SCANNED - DEXA 08/18/2020 from Last 3 Months or Most Recently Relevant to Health Maintenance Results * Mammo Screening Digital Tomosynthesis Bilateral [...] distortion, or other secondary signs of malignancy. Michell Harkins MD IMG MAMMOGRAPHY ORDERABLE S Final Result * HM MAMMOGRAPHY (05/26/2025 1:39 PM EDT) Anatomical Region Laterality Modality Other Historical Provider [facility] Final Result * ECG 12 Lead QT Measurement (03/22/2025 7:51 PM EDT) QT Interval 402 ms BH ECG QTC Interval 408 ms ECG 03/22/2025 [...] was found Confirmed by LUCA POSADA MD ([id number]) on 03/23/2025 1:50:03 PM Referred By: Confirmed [...] was found Confirmed by LUCA POSADA MD ([id number]) on 03/23/2025 1:50:03 PM Referred By: Confirmed By: LUCA POSADA MD Lila Billingsley APRN ECG ORDERABLES Final Result ECG * Urinalysis, Microscopic Only - Urine, Clean Catch (03/22/2025 6:04 PM EDT) RBC, UA 0-2 None Seen, 0-2 /HPF 03/22/2025 6:19 PM EDT [facility] WBC, UA 0-2 None Seen, 0-2 /HPF 03/22/2025 6:19 PM EDT [facility] Comment:Urine culture not in dicated. Bacteria, UA None Seen None Seen /HPF 03/22/2025 6:19 PM EDT [facility] Squamous Epithelial Cells, UA 0-2 None Seen, 0-2 /HPF 03/22/2025 6:19 PM EDT [facility] Hyaline Casts, UA None Seen None Seen /LPF 03/22/2025 6:19 PM EDT [facility] Methodology Automated Microscopy 03/22/2025 6:19 PM EDT [facility] Urine Urine specimen obtained by clean catch procedure / Unknown Collection / Unknown 03/22/2025 6:04 PM EDT 03/22/2025 6:13 PM EDT Ion Welsh MD URINE ORDERABLES Final Result [facility]
[address] [place] [address], [place] [phone] * (ABNORMAL) Urinalysis With Culture If Indicated - Urine, Clean Catch (03/22/2025 6:04 PM EDT) Color, UA Yellow Yellow, Straw 03/22/2025 6:19 PM EDT [facility] Appearance, UA Clear Clear 03/22/2025 6:19 PM EDT [facility] pH, UA 6.5 5.0 - 8.0 03/22/2025 6:19 PM EDT [facility] Specific Glide, UA 1.007 1.005 - 1.030 03/22/2025 6:19 PM EDT [facility] Glucose, UA Negative Negative 03/22/2025 6:19 PM EDT [facility] Ketones, UA Trace(A) Negative 03/22/2025 6:19 PM EDT [facility] Bilirubin, UA Negative Negative 03/22/2025 6:19 PM EDT [facility] Blood, UA Trace(A) Negative 03/22/2025 6:19 PM EDT [facility] Protein, UA Negative Negative 03/22/2025 6:19 PM EDT [facility] Leuk Esterase, UA Negative Negative 03/22/2025 6:19 PM EDT [facility] Nitrite, UA Negative Negative 03/22/2025 6:19 PM EDT [facility] Urobilinogen, UA 0.2 E.U./dL 0.2 - 1.0 E.U./dL 03/22/2025 6:19 PM EDT [facility] Urine Urine specimen obtained by clean catch procedure / Unknown Collection / Unknown 03/22/2025 6:04 PM EDT 03/22/2025 6:13 PM EDT [facility] - 03/22/2025 6:19 PM EDT In absence of clinical symptoms, the presence of pyuria, bacteria, and/or nitrites on the urinalysis result does not correlate with infection. us Ion Welsh MD URINE ORDERABLES Final Result [facility]
[address] [place] [address], [place] [phone] * ECHO COMPLETE W/ DOPPLER AND COLOR FLOW (03/22/2025 2:54 PM EDT) [facility] EF(MOD-bp) 70.5 % LVIDd 4.4 cm LVIDs [...] the predominant rhythm observed during the procedure. us Mehran Hoskins PA-C CV ECHO ORDERABLES Final Result * CBC (No Diff) (03/22/2025 11:09 AM EDT) WBC 5.97 3.40 - 10.80 10*3/mm3 03/22/2025 11:42 AM EDT [facility] RBC 4.08 3.77 - 5.28 10*6/mm3 03/22/2025 11:42 AM EDT [facility] Hemoglobin 12.1 12.0 - 15.9 g/dL 03/22/2025 11:42 AM EDT [facility] Hematocrit 36.5 34.0 - 46.6 % 03/22/2025 11:42 AM EDT [facility] MCV 89.5 79.0 - 97.0 fL 03/22/2025 11:42 AM EDT [facility] MCH 29.7 26.6 - 33.0 pg 03/22/2025 11:42 AM EDT [facility] MCHC 33.2 31.5 - 35.7 g/dL 03/22/2025 11:42 AM EDT [facility] RDW 12.5 12.3 - 15.4 % 03/22/2025 11:42 AM EDT [facility] RDW-SD 41.1 37.0 - 54.0 fl 03/22/2025 11:42 AM EDT [facility] MPV 8.8 6.0 - 12.0 fL 03/22/2025 11:42 AM EDT [facility] Platelets 297 140 - 450 10*3/mm3 03/22/2025 11:42 AM EDT [facility] Blood Venipuncture / Unknown 03/22/2025 11:09 AM EDT 03/22/2025 11:36 AM EDT us Ladonna Wallace MD LAB BLOOD ORDERABLES Final Re sult [facility]
[address] [place] [address], * (ABNORMAL) Hemoglobin A1c (03/22/2025 11:09 AM EDT) Hemoglobin A1C 5.69(H) 4.80 - 5.60 % 03/22/2025 11:59 AM EDT [facility] Blood Venipuncture / Unknown 03/22/2025 11:09 AM EDT 03/22/2025 11:37 AM EDT [facility] - 03/22/2025 11:59 AM EDT Hemoglobin A1C Ranges: Increased Risk for Diabetes 5.7% to 6.4% Diabetes >= 6.5% Diabetic Goal < 7.0% Mehran Hoskins PA-C LAB BLOOD ORDERABLE S Final Result [facility]
[address] [place] [address], * (ABNORMAL) Lipid Panel (03/22/2025 11:09 AM EDT) Total Cholesterol 125 0 - 200 mg/dL 03/22/2025 12:04 PM EDT [facility] Triglycerides 54 0 - 150 mg/dL 03/22/2025 12:04 PM EDT [facility] HDL Cholesterol 79(H) 40 - 60 mg/dL 03/22/2025 12:04 PM EDT [facility] LDL Cholesterol 34 0 - 100 mg/dL 03/22/2025 12:04 PM EDT [facility] VLDL Cholesterol 12 5 - 40 mg/dL 03/22/2025 12:04 PM EDT [facility] LDL/HDL Ratio 0.45 03/22/2025 12:04 PM EDT [facility] Blood Venipuncture / Unknown 03/22/2025 11:09 AM EDT 03/22/2025 11:36 AM EDT Narrative [facility] - 03/22/2025 12:04 PM [...] PA-C LAB BLOOD ORDERABLE S Final Result [facility]
[address] [place] [address], * (ABNORMAL) Basic Metabolic Panel (03/22/2025 11:09 AM EDT) Glucose 99 65 - 99 mg/dL 03/22/2025 12:04 PM EDT [facility] BUN 6.8(L) 8.0 - 23.0 mg/dL 03/22/2025 12:04 PM EDT [facility] Creatinine 0.64 0.57 - 1.00 mg/dL 03/22/2025 12:04 PM EDT [facility] Sodium 134(L) 136 - 145 mmol/L 03/22/2025 12:04 PM EDT [facility] Potassium 4.1 3.5 - 5.2 mmol/L 03/22/2025 12:04 PM EDT [facility] Chloride 98 98 - 107 mmol/L 03/22/2025 12:04 PM EDT [facility] CO2 27.6 22.0 - 29.0 mmol/L 03/22/2025 12:04 PM EDT [facility] Calcium 8.9 8.6 - 10.5 mg/dL 03/22/2025 12:04 PM EDT [facility] BUN/Creatinine Ratio 10.6 7.0 - 25.0 03/22/2025 12:04 PM EDT [facility] Anion Gap 8.4 5.0 - 15.0 mmol/L 03/22/2025 12:04 PM EDT [facility] eGFR 91.7 >60.0 mL/min/1.7 3 03/22/2025 12:04 PM EDT [facility] Blood Venipuncture / Unknown 03/22/2025 11:09 AM EDT 03/22/2025 11:36 AM EDT Narrative [facility] - 03/22/2025 12:04 PM EDT GFR [...] MD LAB BLOOD ORDERABLES Final Re sult [facility]
[address] [place] [address], * MRI Brain Without Contrast (03/22/2025 12:47 AM EDT) Anatomical Region Laterality Modality Head, Neck N/A Magnetic Resonan ce 03/22/2025 4:14 AM EDT Impressions 03/22/2025 4:24 AM EDT Impression: 1.No acute intracranial abnormality. 2.Minimal chronic small vessel ischemic change. 3.Mild left maxillary sinus mucosal disease. Electronically Signed: Chris Perkins MD 03/22/2025 4:24 AM EDT Workstation ID: [id number] Narrative 03/22/2025 4:24 AM EDT MRI BRAIN [...] MD 03/22/2025 4:24 AM EDT Workstation ID: [id number] Mehran Hoskins PA-C IMG MRI ORDERABLES Final Result * POC Glucose Once (03/22/2025 12:10 AM EDT) Only the most recent of2 resultswithin the time period is included. Glucose 128 70 - 130 mg/dL 03/22/2025 12:11 AM EDT [facility] Blood 03/22/2025 12:1 0 AM EDT 03/22/2025 12:11 AM EDT Ladonna Wallace MD POINT OF CARE TEST ORDERABLES Final Result [facility]
[address] [place] [address], * SCANNED - DEXA (08/18/2020) Anatomical Region [...] Of Support Discussed With: Patient Care Teams Chocolate Finisher Operator Relationship Specialty Start Date End Date Sal Croft MD [facility] [address] [facility] [address] [place] [address] PCP - General Family Medicine 06/30/22
--- OUTSIDE RECORDS SUMMARY | 2025-05-30 14:16 | XMS_ITS | Encounter Summary ---
Author Organization [facility] Address [address] [place] [address] Care Team Providers Care Office Asst Name Role Phone Sal Croft MD Primary Care Provider Encounter Details Date Type Department Care Team (Latest Contact Info) Description 05/28/2025 Travel Social History Tobacco Use Types Packs/Day [...] on file documented as of this encounter Plan of Treatment Not on file documented as of this encounter Visit Diagnoses Not on filedocumented in this encounter Care Teams Office Asst Relationship Specialty Start Date End Date Sal Croft MD [address] [facility] [address] [place] [address] PCP - General Family Medicine 06/30/22 documented as of this encounter
--- OUTSIDE RECORDS SUMMARY | 2025-05-30 14:16 | XMS_ITS ---
Author Organization [facility] Address [address] [place] [address] Care Team Providers Care Ton Container Filler Name Role Phone Sal Croft MD Primary Care Provider Active Problems Problem Noted Date Diagnosed Date TIA (transient ischemic attack) 03/21/2025 Malignant neoplasm of upper- outer quadrant of right breast in female, estrogen receptor positive 08/24/2022 Cancer Staging:Pathologic:Stage IA(pT1mi, pN0, cM0, G2, ER+, NE+, HER2-) - Signed by Lila Oliveira MD [...] numbers Care Team Provider: Akiko Jimenez MD, ([phone]) Care Team Provider: Michell Harkins MD, ([phone]) Care Team Provider: Lila Oliveira MD, ([phone]) Post Treatment Care Team Primary Care Physician Sal Croft MD [address] [facility] [address] [place] [address] Background Information Medical history Past Medical History: [...] Stage IA (pT1mi, pN0, cM0, G2, ER+, NE+, HER2-) - Signed by Lila Oliveira MD [...] you. General Cancer Support & Resources [facility] [address] [facility], [address] [place] [address] Med Onc: Validation Manager Onc: Litigation Partner: Ingrid Horne - Psychiatric Nurse Practitioner: Rosario Lentz APRN - [phone] Kick It! (A free smoking cessation program) Financial Counselor and Contact Information: [facility] Financial Counseling - Neonatal Doctor Contact Information: Gretel Wray - [phone] Wound Ostomy & Continence Nurse: Local Cancer [...] Toward Empowerment - for Women with Cancer: ([facility]) The Tools and encouragement you need to [...] the last Monday of each month. Location: [facility]; [address] [place] [address]. For more information call Madyson Lopez @ . Breast Cancer Support & Resources Local Cancer Support Groups and Contact Information: [employer] ([place]): Breast Cancer Support group. Meets the Monday of each at various locations. Please Call Dany Mojica for meeting information @ [phone] or Nia Scanlon @ [phone]. The Journey: Breast Cancer Support Ministry: Meets the Monday of each month, 5:00PM @ [place], [place]. Please call Clair Huff at [phone] for additional information. Reach To Recovery: An [place] [employer] peer support group for women with a concern about breast cancer. Patentscan talk with volunteer breast cancer survivors, in person or over the phone, for support & encouragement. Also, after you have completed your journey and would like to give back, you can call the [phone] number to volunteer as a survivor and support to others. For additional information, please call [phone] or go to sss.cancer.org. Surveillance How Frequent? [...] advice of a doctor or other health career technical supervisor. Please use these recommendations to talk with [...] of cancer in the general population. The [place] [employer] (ACS) recommends these screening guidelines for women: Recommendation Frequency Comments Breast Cancer Screening For more information, see the ACS document Breast Cancer: Early Detection. www.cancer.org/ssLINK/tlvvou-alxqri-sxtgr-detection-kinza Yearly mammograms starting at age 40, and continuing for as long as a woman is in good health. Clinical breast exam (CBE), performed by a health career technical supervisor, every three years for women intheir 20s [...] the ACS document Colorectal Cancer: Early Detection. www.cancer.org/ssLINK/hrciouxnrm-yqkiza-bamss-detection-kinza Options for colon cancer screening can be [...] the ACS document Cervical Cancer: Early Detection. www.cancer.org/.../vhjlwlyy-efqoca-tdkkuxwdvn-sry-gjnmf-okdnhesaa-kinza Cervical cancer screening should not begin before [...] more information, visit http://www.nhlbi.nih.gov/health/public/heart/obesity/lose_wt/index.htm www.win.niddk.nih.gov Call the [place] Talk to your health care [...] from plant sources. For more information, visit http://www.CityScan.gov/food-groups/ Eat healthy, including plenty of fruits and [...] Experts recommend at least 30 minutes of yllmogjw-ej-mfqjtqxi activity per day, five days a week. [...] you can call a national hotline at 4(080)-QUIT-NOW. Keep your bones healthy. For more information, [...] U.S. Department of Health and Human Services. http://www.womenshealth.gov/rgbfgxirc-odlyt-eus-vaccines/jupxftnvw-gghys-lwa-men / For more information about adult vaccinations visit the CDC: http://www.cdc.gov/vaccines/recs/schedules/adult-schedule.htm Keep up-to-date on general health screening tests, including cholesterol, blood pressure and glucose (blood sugar) levels. Get an annual influenza vaccine (flu shot). Get vaccinated with the pneumococcal vaccine, which prevents a type of pneumonia, and re-vaccinatedas determined by your health care team. Don???t forget dental and eye health! The [place] recommends adults have their eyes examined every two years until age 60, then annually. People who wear glasses or correctivelenses or are at high risk for eye problems (i.e., diabetics, family history of eye disease) shouldbe seen more frequently. The [employer] recommends adults see their dentist at least once a year. 10 No information on file. No information on file.
--- OUTSIDE RECORDS SUMMARY | 2025-05-30 14:16 | XMS_ITS | Patient Health Record ---
Author Organization [facility] Address [address] [facility] [address] [place] [id number] Care Team Providers Care Etcher Hand Name Role Phone Charlotte Croft Primary Care Provider Dinesh Fatimaian Unavailable [phone] Margie Rene Unavailable [phone] Allergies Allergen (clinical drug ingredient) Drug/Non Drug [...] Not Detected NotDetected SAPOVIRUS Not Detected NotDetected H-Lipase Reviewed date:08/27/2024 08:21:30 AM Interpretation:Normal Performing [...] 0.1 0.0-0.4 K/mm3 BA# 0.0 0-0.2 K/mm3 H-CMP Reviewed date:03/30/2025 10:05:56 PM Interpretation:Cr 0.4 [...] AGRATIO 1.7 1.1-1.8 ALP 70 38-126 U/L H-CBC Reviewed date:03/30/2025 10:05:56 PM Interpretation:Normal Performing [...] HDL 86 40-60 mg/dl CHLHDL 1.6 1-3.5 H-Lipase Reviewed date:08/26/2024 08:45:03 AM Interpretation: Performing Lab: Notes/Report: H-Amylase Reviewed date:08/26/2024 08:44:52 AM Interpretation: Performing Lab: Notes/Report: H-CMP Reviewed date:08/26/2024 08:44:41 AM Interpretation: Performing Lab: Notes/Report: H-CBC Reviewed date:08/26/2024 08:44:26 AM Interpretation: Performing Lab: Notes/Report: CT Scan : Abd and Pelvis w/ [...] AGRATIO 1.7 1.1-1.8 ALP 78 38-126 U/L Influenza Screen (in house) Reviewed date:08/08/2024 02:08:27 PM Interpretation:neg Performing Lab: Notes/Report: neg results neg Covid test (in house) Reviewed date:08/08/2024 02:08:16 PM Interpretation:pos Performing Lab: Notes/Report: pos Result: pos CT Scan : Abd & Pelvis w/o c ontrast Reviewed date:08/20/2024 09:35:06 AM Interpretation: Performing Lab: Notes/Report: Reason For Referral Reason Diverticulosis Chr onic Diarrhea Diagnosis 1 Chronic diarrhea (K5 2.9) Diagnosis 2 Diverticulosis (K57. 90) Referral Organization [facility] Referring Provider First Name Charlotte Hedrick Referring Provider Last Name Lang Referring Provider [facility] Referred Organization [facility] Referred Address [address] [facility] [address], [address],[id number], Referred Provider Specialty Gastroentero logy General Notes Christine Zelaya 11/11 09:07:11 AM > please refer to Bindu Hernandez Brynn 11/13/2024 1:49:08 PM > faxed all to Dr. Peck office, Keyana Ruano 11/20/2024 2:47:41 PM > 12/24/2024 at 10:30am Referral Priority Routine Reason shoulder pain Diagnosis 1 Shoulder pain (M25.5 19) Referral Organization [facility] Referring Provider First Name Charlotte Hedrick Referring Provider Last Name Lang Referring Provider Speciality Family Dre henson Referred Organization [facility] Referred Provider Physical Therapy, . Referred Address [address] [place] [address] [address] [place],[id number] Referred Provider Specialty Occupational Therapy General Notes Keyana Ruano 2024 09:29:53 AM > faxed to [facility] Aníbal CARCAMO Julia 01/31/2025 09:39:22 AM [...] W/U Status Risk Notes Problem Breast cancer (945619942) Breast cancer (C50.919) Active confirmed Problem Abnormal mammogram (420349240) Abnormal mammogram (R92.8) Active confirmed Problem Diverticulitis (98572301) Diverticulitis (K57.92) Active confirmed Problem Rhinitis (16160716) Rhinitis (J31.0) Active confirmed Problem Sciatic nerve lesion (256411058) Piriformis syndrome of right side (G57.01) Active confirmed Problem Environmental allergy (592487803) Environmental allergies (Z91.048) Active confirmed Problem Hiatal hernia (07281251) Hiatal hernia (K44.9) Active confirmed Problem Mixed anxiety and depressive disorder (194030485) Depression with anxiety (F41.8) Active confirmed Problem Abnormal findings on diagnostic imaging of breast (046867883) Abnormal mammogram of both breasts (R92.8) Active confirmed Problem Primary generalised osteoarthritis (872888053) Primary generalized (osteo)arthritis (M15.0) Active confirmed Problem Localized, primary osteoarthritis of the shoulder region (690310211) Primary osteoarthritis, right shoulder (M19.011) Active confirmed Problem History of polyp of colon (situation) (637470587) History of colon polyps (Z86.010) Active confirmed Problem Diverticular disease of colon (291137475) Diverticulosis (K57.90) Active confirmed Problem Diverticulosis of colon (601777798) Diverticulosis of colon (K57.30) Active confirmed Problem Dyslipidemia (198782276) Dyslipidemia (E78.5) Active confirmed Problem Dysphagia (51546926) Pharyngoesophageal dysphagia (R13.14) Active confirmed Problem Transient ischemic attack (414279138) TIA (transient ischemic attack) (G45.9) Active confirmed Problem Chronic diarrhea (381450333) Chronic diarrhea (K52.9) Active confirmed Problem Splenic artery aneurysm (33805926) Splenic artery aneurysm (I72.8) Active confirmed Problem 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, both eyes (H26.493) Active confirmed Problem Esophageal dysphagia (84782014) Esophageal dysphagia (R13.10) Active confirmed Vital Signs Heart Rate 64 /min 03/27/2025 Blood pressure diastolic 70 mm Hg 03/27/2025 Height 64.50 in 03/27/2025 Blood pressure systolic 120 mm Hg 03/27/2025 Weight 135.6 lbs 03/27/2025 BMI 22.91 kg/m2 03/27/2025 Encounters Encounter Location Date Provider Diagnosis [facility] [address] [facility] [address] [place] [id number] 08/08/2024 R Ryley Croft COVID-19 U07.1 [facility] [address] [place] [id number] 08/13/2024 R Ryley Ramírezt Diverticulitis K57.9 2 [facility] [address] [facility] [address] [place] [id number] 09/12/2024 R Ryley Ramírezt Trochanteric bursiti s of right hip M70.61 [facility] [address] [facility] [address] [place] [id number] 10/18/2024 Margie Crowdy Diverticulitis K57.9 2 and Chronic diarrhea K52.9 [facility] [address] [facility] [address] [place] [id number] 01/30/2025 R Yrley Lang Shoulder pain M25.51 9 ; Dyslipidemia E78.5 ; Malignant neoplasm of upper-inner quadrant of right female breast, unspecified estrogen receptor status C50.211 and BMI 23.0-23.9, adult Z68.23 [facility] [address] [place], [place] [id number] 03/27/2025 R Ryley Lang TIA (transient ische mark attack) G45.9 and BMI 22.0-22.9, adult Z68.22 [facility] [address] [place], [place] [id number] 05/15/2025 R Ryley Lang Encounter for immunization Z23 [facility] [address] [place], [place] [id number] 08/09/2024 R Ryley Lang [facility] [address] [place], [place] [id number] 08/15/2024 R Ryley Lang Diverticulitis K57.9 2 and Chronic diarrhea K52.9 [facility] [address] [place], [place] [id number] 08/16/2024 R Ryley Lang Diarrhea, unspecifie d type R19.7 [facility] [address] [place], [place] [id number] 08/20/2024 R Ryley Lang [facility] [address] [place], [place] [id number] 08/27/2024 R Ryley Lang [facility] [address] [place], [place] [id number] 10/10/2024 R Ryley Lang [facility] [address] [place], [place] [id number] 10/21/2024 Margiehailey Rene [facility] [address] [place], [place] [id number] 10/25/2024 R Ryley Lang [facility] [address] [place], [place] [id number] 10/30/2024 R Ryley Lang [facility] [address] [place], [place] [id number] 11/11/2024 R Ryley Lang [facility] [address] [place], [place] [id number] 11/22/2024 R Ryley Lang [facility] [address] [place], [place] [id number] 03/21/2025 R Ryley Lang Dyslipidemia E78.5 [facility] [address] [place], [place] [id number] 03/30/2025 R Ryley Lang [facility] [address] [place], [place] [id number] 04/07/2025 R Ryley Lang Assessments Encounter Date [...] Date [employer] [facility] [address] [address] [place] [address] [id number] GREG CUENCA Self - patient is the [...] right breast cancer cataracts HLP [facility] TIA/ [facility]/ 03/2025 Surgical History Surgery Date(Month/Year) Cholecystectomy 12/2006 hysterectomy, abdominal 2002 bladder tuck 2011 Colonoscopy/Dr. Benton/ diverticulosis, polyp 08/2015 right breast lumpectomy/ Dr. OTT 2021 cataract heart cath with stent x1/ Hair 04/02 23 Hospitalization History Reason Date(Month/Year) kidney stones 1987
--- NOTE | 2025-05-30 14:45 | MR_ITS ---
PROCEDURE INFORMATION: Exam: MR Left Upper Extremity Joint Without Contrast; Shoulder Exam date and time: 05/30/2025 2:46 PM Age: 74 years old Clinical indication: Pain; Shoulder; Left; Additional info: Tendinopathy of left shoulder. Left shoulder pain. Lrom. X 7 months TECHNIQUE: Imaging protocol: Magnetic resonance imaging of the left upper extremity without contrast. Exam focused on the shoulder. COMPARISON: CR XR SHOULDER LT MIN 2V 05/20/2025 1:32 PM FINDINGS: Bones/joints: There is moderate arthrosis of the AC joint. The glenohumeral joint has mild diffuse chondromalacia. No suspicious marrow signal. No acute fracture. Alignment near anatomic. Small marginal osteophytes present in the glenoid and humerus. Small glenohumeral joint effusion. Glenoid labrum: There is labral degeneration with nondisplaced superior tearing. Bursae: Moderate subacromial bursitis. Supraspinatus tendon: There is a high-grade partial-thickness tear of supraspinatus anteriorly extending to the conjoint tendon measuring 2.1 cm AP with associated tendinosis. There is mild fatty atrophy of supraspinatus and subscapularis without significant loss of muscle bulk. Infraspinatus tendon: Tear extends to the anterior fibers of infraspinatus which has diffuse tendinosis. There is also intermediate grade tear extension across the myotendinous junction for example on series 9, image 14. Subscapularis tendon: Subscapularis has a high-grade articular sided tear with tendinosis. Teres minor tendon: The teres minor is intact. Tendon of biceps brachii: The intra-articular biceps tendon is not seen and likely torn. A retracted tear suspected for example on series 8, image 13. Glenohumeral ligaments: There is no abnormal thickening in the glenohumeral ligaments present. Soft tissues: Soft tissues are unremarkable as visualized. Lymph nodes: There is no adenopathy in the visualized left axilla. IMPRESSION: 1. Rotator cuff tendinopathy with high-grade tearing of supraspinatus and infraspinatus, as described. There is also high-grade subscapularis tear. Mild fatty atrophy of supraspinatus and subscapularis without significant loss of muscle bulk. 2. Labral degeneration with nondisplaced superior tearing. 3. There is a tear of the intra-articular biceps with retraction. 4. Moderate acromioclavicular and mild glenohumeral joint osteoarthrosis. Small glenohumeral joint effusion.
== END 2025-05-30 23:59 | disposition home or self-care (01) ==
LOC: RAD 14:12
PROVIDERS: PCP Family Medicine; Visit Provider Physician Assistant
DX: M19.012 Primary osteoarthritis, left shoulder (principal); M94.212 Chondromalacia, left shoulder; M75.52 Bursitis of left shoulder; M75.102 Unspecified rotator cuff tear or rupture of left shoulder, not specified as traumatic
CPT/HCPCS: 73221